=== PATIENT | female | born 1950 | race Caucasian/White ===

== ENCOUNTER 2024-11-11 12:57 | Outpatient (AMB) | payer MEDICARE, OTHER, SELFPAY ==
--- OUTSIDE RECORDS SUMMARY | 2024-02-12 11:30 | XMS_ITS | Encounter Summary ---
Author Organization [facility] [facility] Address [address] [place] [address] Care Team Providers Care Design And Sales Consultant Name Role Phone Kadie Terrazas NP Primary Care Provider Encounter Details Date Type Department Care Team Description 02/12/2024 10:30 AM EST Hospital Encounter [facility] Main Surgery [address] [place] [address] Sal Holden MD Social History Tobacco Use [...] rectocele documented in this encounter Care Teams Design And Sales Consultant Relationship Specialty Start Date End Date Kadie Terrazas NP [address] [place] [address] PCP - General Nurse Practitioner 11/14/23 documented as of this encounter
[2024-11-11 13:08] VITALS: BMI 29.7
--- NOTE | 2024-11-11 13:08 | HO.SPINEOV ---
Vital Signs 11/11/24 13:08 Height 5 ft 6 in Weight 184 lb BMI 29.7 Intake Visit Reasons: LBP Intake Note: Ms. Bassett is here today c/o upper to lower back pain that radiate to the legs causing numbness and tingling. Business Development Sales Executive Required: No Allergies No Known Allergies Allergy (Verified 11/11/24 13:09) Physical Exam Vital Signs: BMI result Body Mass Index 29.7 Assessment & Plan Assessment & Plan (1) Lumbago: Code(s): M54.50 - Low back pain, unspecified Category: Medical Plan: Dear PAT Carlisle, Thank you for referring Chana to our office today. She is a pleasant 74-year-old female who comes in today for evaluation of low back pain. She reports this has been ongoing for many years but it has been worsening over the course of the last year and a half. She denies any shooting pains down her bilateral lower extremities. She states that she has ?many weird problems? for which she is followed by Neurology for. She does report a history of small fiber neuropathy, and migraine headaches. In addition to this she reports having a C5-6 ACDF completed about [address] Acevedo. She states that her pain is primarily worse with activity, and rates her pain as about a 7/10. Given this, she is still fairly active person. 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 She reports some associated numbness with the pain, and states that her left foot is nearly completely numb and that about half of her right foot is also numb. She reports hyperesthesia to light touch over her low back, and states that even things such as shirts rubbing against the skin will cause her pain at times. She has attempted physical therapy in the past, however reports it was not particularly helpful for her. She has been evaluated by our colleagues at [facility] and did undergo some injections in her low back. She states she had some relief of her pain with the injections, but the pain returned a few weeks thereafter. She was scheduled for his 2nd set of injections, however reported she did not wished to continue seeing the provider there as she had some issues with him. PMH: Small fiber neuropathy, tinnitus, cystocele, chronic diarrhea, insomnia, chronic interstitial cystitis, prediabetic, vitamin-D deficiency, hyperlipidemia, iron deficiency anemia, gastric ulcer, sleep apnea, osteoporosis, migraine headaches, irritable bowel syndrome, gout, GERD, depression, anxiety. Bilateral hip replacements, right knee replacement. History C5-6 ACDF 10 years ago. Social hx: Patient does not smoke, reports no substance use. Medications: Advil migraine relief, atorvastatin, baclofen, dicyclomine, diphenoxylate-atropine, duloxetine, gabapentin, loperamide, melatonin, meloxicam, omeprazole, ondansetron, propanolol, pyridostigmine-bromide, sucralfate, topiramate, trazodone, Yuvafem. Allergies: None. Physical exam: The patient has full 5/5 strength of her upper and lower extremities. She ambulates well and rises from a seated position without difficulty. She uses no assistive devices to ambulate. Her gait is non spastic and nonantalgic. She reports hypoesthesia over her bilateral feet, and reports hypersthesia over the skin near her lumbar spine. She denies any other sensational deficits to light touch during examination. Her right-sided patellar reflexes 1+ hypoactive. The rest of her reflexes are 2+ intact. (-) bilateral straight leg raise. (-) Pereira's. (-) clonus. Imaging review: MRI of the lumbar spine completed at [facility] initially was unable to be viewed, however utilizing a disc extraction software I was able to extract the images from her MRI and review them in a somewhat limited format. It does appear that she has severe right-sided foraminal stenosis at L3-4, and moderate right-sided foraminal stenosis at L4-5. I also sent her for a set of dynamic lumbar spine x-rays during this visit which shows evidence of a low grade degenerative dextroscoliosis, with the apex at L3. There is notable osteophyte bridging at L1-2 indicative of autofusion. There is a grade 1 spondylolithesis at L4-5. Impression: Chana is a pleasant 74-year-old female who comes in today for evaluation of chronic low back pain. Her MRI imaging so some nerve compression on the right-hand side, however she denies any radicular concerns down her bilateral lower extremities. Typically in cases such as this without a radicular componenet to justify surgical intervention, Dr. Torres will suggest that patient continue conservative treatements as there is low utility for neurosurgical intervention, however I would like to send the patient for a CT scan of the lumbar spine to evaluate for autofusion and better assess bone structure given the lithesis seen by radiology at L4-5, and the dextroscoliosis seen as well. I will call and update her after the CT scan is read by radiology. Thank you for allowing us to care for your patient. The total time spent with this visit with this patient was 46 minutes reviewing history, physical exam, MRI imaging review, and implementation of treatment plan or further diagnostic testing Emery Torres MD,PhD [facility] Orders: Orders CT lumbar spine wo IV con Today M54.50 - Low back pain, unspecified XR lumbar spine 4V min Today M54.50 - Low back pain, unspecified Coding Level of Care Code New Pt Level 4 (35603) Diagnoses Lumbago M54.50
--- OUTSIDE RECORDS SUMMARY | 2024-11-11 17:57 | XMS_ITS | Encounter Summary ---
Author Organization [facility] Address [address] [facility] [address] [place] [address] Phone Care Team Providers Care Leather Belt Maker Name Role Phone Henri Cruz MD Primary Care Provider Encounter Details Date Type Department Care Team (Late st Contact Info) Description 01/09/2017 Orders Only [facility] VIRTUAL DEPARTMENT [address] [place] [phone] Interface Provider, Scanning Social History Tobacco Use Types Packs/Day Years Used Date Smoking Tobacco: Never Assessed Comments Unknown Sex and Gender Information Value Date Recorded Sex Assigned at Female 04/18/2021 12:52 PM EST Legal Sex Female 1:33 PM EST Gender Identity Female 04/18/2021 12:52 PM EST Sexual Orientation Straight 04/18/2021 12 :52 PM EST documented as of this encounter Plan of Treatment Not on file documented as of this encounter Visit Diagnoses Not on filedocumented in this encounter Care Teams Leather Belt Maker Relationship Specialty Start Date End Date Henri Cruz MD [address] [place] [address] PCP - General Internal Medicine 01/11/17 documented as of this encounter Additional Source Comments The information contained in this document represents components of the legal health record. It is not the complete legal health record.[facility]
--- OUTSIDE RECORDS SUMMARY | 2024-11-11 17:57 | XMS_ITS | Encounter Summary ---
Author Organization [facility] Address [address] [facility] [address] [place] [address] Phone Care Team Providers Care Email Production Consultant Name Role Phone Henri Cruz MD Primary Care Provider Encounter Details Date Type Department Care Team (Late st Contact Info) Description 05/22/2017 Procedure [facility] [address] [place] [address] Social History Tobacco Use Types Packs/Day Years [...] on filedocumented in this encounter Care Teams Email Production Consultant Relationship Specialty Start Date End Date Henri Cruz MD [address] [place] [address] PCP - General Internal Medicine 01/11/17 documented as of this encounter Additional Source Comments The information contained in this document represents components of the legal health record. It is not the complete legal health record.[facility]
--- OUTSIDE RECORDS SUMMARY | 2024-11-11 17:57 | XMS_ITS | Encounter Summary ---
Author Organization [facility] Address [address] [place] [address] Phone Care Team Providers Care Call Center Director Name Role Phone Henri Cruz MD Primary Care Provider Encounter Details Date Type Department Care Team (Late st Contact Info) Description 06/11/2019 Procedure Pass [facility] Cardiac Equity Analyst [address] [place] [address] Social History Tobacco Use Types Packs/Day Years Used Date Smoking Tobacco: Passive Smo ke Exposure - Never Smoker Smokeless Tobacco: Never Alcohol Use Standard Drinks/Week Comments Yes 0 (1 standard drink = 0.6 oz pur e alcohol) Occasional Comments Unknown Sex and Gender Information Value [...] on filedocumented in this encounter Care Teams Call Center Director Relationship Specialty Start Date End Date Henri Cruz MD [address] [place] [address] PCP - General Internal Medicine 01/11/17 documented as of this encounter Additional Source Comments The information contained in this document represents components of the legal health record. It is not the complete legal health record.[facility]
--- OUTSIDE RECORDS SUMMARY | 2024-11-11 17:57 | XMS_ITS | Encounter Summary ---
Author Organization [facility] Address [address] [place] [address] Phone Care Team Providers Care Prison Teacher Name Role Phone Henri Cruz MD Primary Care Provider Encounter Details Date Type Department Care Team (Late st Contact Info) Description 06/30/2023 Procedure Pass [facility], [address] [address] Social History Tobacco Use Types Packs/Day Years Used Date Smoking Tobacco: Never Passive Smoke Exposure: Yes Smokeless Tobacco: Never Alcohol Use Standard Drinks/Week Comments Yes 0 (1 standard drink = 0.6 oz pur e alcohol) Occasional Education Answer Date Recorded Are you interested in more education? Not on ketan e 06/24/2022 Are you concerned about learning? Not on file 06/24/2022 No 06/24/2022 No 06/24/2022 Digital Access Answer Date Recorded No 07/23/2022 No 07/23/2022 Reliable internet access at home? Not on file 07/23/2022 Device with a working camera? Not on file Comments No Sex and Gender Information Value Date Recorded Sex Assigned at Female 04/18/2021 12:52 PM EST Legal Sex Female 1:33 PM EST Gender Identity Female 04/18/2021 12:52 PM EST Sexual Orientation Straight 04/18/2021 12 :52 PM EST documented as of this encounter Plan of Treatment Not on file documented as of this encounter Visit Diagnoses Not on filedocumented in this encounter Care Teams Prison Teacher Relationship Specialty Start Date End Date Henri Cruz MD [address] [place] [address] PCP - General Internal Medicine 01/11/17 documented as of this encounter Additional Source Comments The information contained in this document represents components of the legal health record. It is not the complete legal health record.[facility]
--- OUTSIDE RECORDS SUMMARY | 2024-11-11 17:57 | XMS_ITS | Encounter Summary ---
Author Organization [facility] Address [address] [place] [address] Phone Care Team Providers Care Inside Upholsterer Name Role Phone Henri Cruz MD Primary Care Provider Encounter Details Date Type Department Care Team (Late st Contact Info) Description 04/20/2021 Procedure Pass [facility] Cardiac Recreation Leader [address] [place] [address] Social History Tobacco Use Types Packs/Day Years [...] on filedocumented in this encounter Care Teams Inside Upholsterer Relationship Specialty Start Date End Date Henri Cruz MD [address] [place] [address] PCP - General Internal Medicine 01/11/17 documented as of this encounter Additional Source Comments The information contained in this document represents components of the legal health record. It is not the complete legal health record.[facility]
--- OUTSIDE RECORDS SUMMARY | 2024-11-11 17:57 | XMS_ITS | Patient Health Record ---
Author Organization [facility] Address [address] [place] [address] Support Name Relationship Address Phone [facility] [address] [place] [address] Chana Bassett Guarantor Unknown [phone] Reason For Referral No Information Medications Medication SIG (Take, Route, Frequency, Duration) Notes Start Date End Date Status CYMBALTA 20 MG CAPSULE 30 Take 1 daily; Duration: 30 *please review for potential update for e-prescription and drug interaction check* 01/07/2014 Active Zipsor 25 MG 120 Oral Take 1 four times a day as needed; Duration: 30 03/21/2013 Active GRALISE ER 600 MG TABLET 30 Take 1 daily with supper; Duration: 30 *please review for potential update for e-prescription and drug interaction check* 03/21/2013 Active DICLOFENAC POT 50 MG TABLET 30 Take 1 daily as needed; Duration: 30 *please review for potential update for e-prescription and drug interaction check* 12/19/2012 Active Gabapentin 300 MG 90 Oral Take 1 three times a day; Duration: 30 12/19/2012 Active Ambien 10 MG 0 Oral 12/18/[address] 20 MG CAPSULE 0 *please review for potential update for e-prescription and drug interaction check* 12/18/2012 Active TIZANIDINE HCL 2 MG TABLET 60 1 or 2 tabs daily at bedtime as needed; Duration: 30 *please review for potential update for e-prescription and drug interaction check* 01/07/2014 Active Plan Of Treatment No Information Insurance Providers Payer Name Payer Address Payer Phone Subscriber Number Group Number Insured Name Patient Relationship to Insured Coverage Start Date Coverage End Date [facility] [address] [place], [place] [id number] Chana Bassett Self - patient is the insured
--- OUTSIDE RECORDS SUMMARY | 2024-11-11 17:57 | XMS_ITS | Clinical Summary ---
Author Organization [facility] Address [address] [place] [address] Care Team Providers Care Proof Machine Operator Supervisor Name Role Phone Kadie Terrazas NP Primary Care Provider [phone] Allergies No known active allergies Medications Medication Sig Dispensed Refills Start Date End Date Status gabapentin (NEURONTIN) 100 MG capsule Take 100 mg by mouth. 0 02/21/2019 Active lidocaine (LIDODERM) 5 % 0 02/08/2019 Active Multiple Vitamins-Minerals (MULTIVITAMIN & MINERAL) LIQD Take 15 mL by mouth. 0 Active nortriptyline (PAMELOR) 10 MG capsule 1 cap nightly x 5 nights, then 2 caps (20mg) nightly x5 nights, then 3 caps (30mg) nightly. 0 02/07/2019 Active omeprazole (PriLOSEC) 40 MG capsule Take 40 mg by mouth. 0 09/07/2018 Active OXcarbazepine (TRILEPTAL) 150 MG tablet Take 1 tablet by mouth. 0 12/15/2017 Active pyridostigmine (MESTINON) 60 MG tablet Take 60 mg by mouth. 0 07/20/2018 Active sucralfate (CARAFATE) 1 g tablet Take 1 g by mouth. 0 02/08/2019 Active traZODone (DESYREL) 50 MG tablet Take 50 mg by mouth. 0 Active gabapentin (NEURONTIN) 100 MG capsule Take 100 mg by mouth. 0 04/19/2019 Active estradiol (ESTRACE) 0.1 MG/GM vaginal cream Place 1 g vaginally 3 (three) times a week. 42.5 g 12 10/11/2023 Active Active Problems Problem Noted Date Diagnosed Date Cystocele with rectocele 10/31/2023 Nocturia 10/18/2023 Urinary urgency 10/18/2023 Chronic interstitial cystitis 10/18/2023 Arthritis of right hip 03/22/2019 Social History Tobacco Use Types Packs/Day Years Used Date Smoking Tobacco: Never Assessed Sex and Gender Information Value Date Recorded Sex Assigned at Not on file Gender Identity Not on file Sexual Orientation Not on file Job Start Date Occupation Industry Not on file Not on file Not on file Last Filed Vital Signs Vital Sign Reading Time Taken Comments Blood Pressure 147/89 10/11/2023 9:00 AM EDT Pulse 56 10/11/2023 9:00 AM EDT Temperature 36.8 C (98.2 F) 10/11/2023 9:00 AM EDT Respiratory Rate - - Oxygen Saturation - - Inhaled Oxygen Concentration - - Weight 87.6 kg (193 lb 3.2 oz) 10/11/2023 9:00 A M EDT Height 167.6 cm (5' 6 ) 10/11/2023 9:00 AM EDT Body Mass Index 31.18 10/11/2023 9:00 AM EDT Plan of Treatment Health Maintenance Due Date Last Done Comments Hepatitis C Screening 1950 Depression Screening 1963 BMI Counseling 06/15/1969 Preventative Health Evaluation 06/15/1969 Colon Cancer Screening (Colonoscopy) 06/15/1996 Breast Cancer Screening (Mammogram) 06/15/2001 Shingrix-Zoster Vaccine (1 o f 2) 06/15/2001 Fall Risk Assessment 06/15/2016 Osteoporosis Screening (DEXA Scan) 06/15/2016 DTap / Tdap / Td (2 - Td or Tdap) 08/05/2020 08/05/2010 COVID-19 Vaccine (3 - 2024-2 6 season) 2024 06/11/2020, 05/21/2020 Influenza Vaccine (#1) 2024 03/02/2018 RSV Adult > 60+ Yrs or (1 - 1-dose 75+ series) 06/15/2026 Pneumococcal Vaccine Completed 03/18/2020, 08/16/2016, 09/24/2014 Hepatitis B Vaccines Aged Out No long er eligible based on patient's age to complete this topic RSV Ped < 20 months Aged Out No longe r eligible based on patient's age to complete this topic Care Teams Proof Machine Operator Supervisor Relationship Specialty Start Date End Date Kadie Terrazas, PAT [address] [place] [address] PCP - General Nurse Practitioner 11/14/23
--- OUTSIDE RECORDS SUMMARY | 2024-11-11 17:57 | XMS_ITS | Encounter Summary ---
Author Organization [facility] Address [address] [place] [address] Phone Care Team Providers Care Etl Informatica Developer Name Role Phone Henri Cruz MD Primary Care Provider Encounter Details Date Type Department Care Team (Late st Contact Info) Description 08/19/2020 Ancillary Orders [facility] Pulmonary Medicine Hypertension [address] [place] [address] Selin Moseley PA-C [address] [place] [address] [email or web address] SOB (shortness of breath) on exertion Social History Tobacco Use Types Packs/Day Years [...] as of this encounter Visit Diagnoses Diagnosis SOB (shortness of breath) on exertion Shortness of breath documented in this encounter Care Teams Etl Informatica Developer Relationship Specialty Start Date End Date Henri Cruz MD [address] [place] [address] PCP - General Internal Medicine 01/11/17 documented as of this encounter Additional Source Comments The information contained in this document represents components of the legal health record. It is not the complete legal health record.[facility]
--- OUTSIDE RECORDS SUMMARY | 2024-11-11 17:57 | XMS_ITS | Encounter Summary ---
Author Organization [facility] Address [address] [place] [address] Phone Care Team Providers Care Filing Clerk Name Role Phone Henri Cruz MD Primary Care Provider Reason for Referral * Consultation (Elective) - Closed Specialty Diagnoses / Procedures Referred By Contac t Referred To Contact Neurology Diagnoses Encounter for consultation System, Provider Not In, PhD [address] [address] Phone: tel: Referral ID Status Reason Start Date Expiration Date Visits Re quested Visits Authorized [id number] Closed 03/02/2017 03/02/2018 1 1 Encounter Details Date Type Department Care Team (Late st Contact Info) Description 03/02/2017 Transcribe Orders [facility] Department of Neurology [address] [facility]th [address], [address] [place] [address] Marlene Ayers DO [address] [place] [address] Encounter for consultation (Primary Dx) Social History Tobacco Use Types Packs/Day Years Used Date Smoking Tobacco: Never Assessed Comments Unknown Sex and Gender Information Value Date Recorded Sex Assigned at Female 04/18/2021 12:52 PM EST Legal Sex Female 1:33 PM EST Gender Identity Female 04/18/2021 12:52 PM EST Sexual Orientation Straight 04/18/2021 12 :52 PM EST documented as of this encounter Plan of Treatment Scheduled Referrals Name Type Priority Associated Diagnoses Orde r Schedule Ambulatory referral to [facility] Neurology Outpatient Referral Routine Encounter for consultation Ordered: 03/02/2017 documented as of this encounter Visit Diagnoses Diagnosis Encounter for consultation- Primary documented in this encounter Care Teams Filing Clerk Relationship Specialty Start Date End Date Henri Cruz MD [address] [place] [address] PCP - General Internal Medicine 01/11/17 documented as of this encounter Additional Source Comments The information contained in this document represents components of the legal health record. It is not the complete legal health record.[facility]
--- OUTSIDE RECORDS SUMMARY | 2024-11-11 17:57 | XMS_ITS | Clinical Summary ---
Author Organization [facility] Address [address] [place] [address] Phone Care Team Providers Care Process Trainer Name Role Phone Kadie Terrazas Primary Care Provider [phone] Allergies Active Allergy Reactions Criticality Noted Date Comments Dicyclomine Rash 08/12/2024 Diclofenac Rash 02/13/2024 Medications gabapentin (NEURONTIN) 100 mg capsule Take 1 capsule (100 mg total) by mouth 2 (two) times a day. 0 Active lidocaine (LIDODERM) 5 % patch Apply 1 patch topically if needed. 9 Active multivitamin with minerals liquid Take 15 mL by mouth. Active omeprazole (PriLOSEC) [address] capsule Take 1 capsule (40 mg total) by mouth 2 (two) times a day. 9 Active OXcarbazepine (TRILEPTAL) 150 mg tablet Take 1 tablet (150 mg total) by mouth at bedtime. 8 Active pyRIDostigmine (MESTINON) 60 mg tablet at bedtime. 9 Active traZODone (DESYREL) 50 mg tablet Take 50 mg by mouth. Active atorvastatin (LIPITOR) 20 mg tablet Take 1 tablet (20 mg total) by mouth at bedtime. Active topiramate (TOPAMAX SPRINKLE) 25 mg capsule Take 1 capsule (25 mg total) by mouth 2 (two) times a day. Do not crush or chew. Active baclofen (LIORESAL) 10 mg tablet Take by mouth 2 (two) times a day if needed for muscle spasms. Active estradioL (Yuvafem) 10 mcg tablet vaginal tablet Insert 1 tablet (10 mcg total) into the vagina 3 (three) times a week. 36 tablet 3 5 Active colestipoL (COLESTID) 1 gram tablet Take 1 tablet (1 g total) by mouth 2 (two) times a day. 60 each 2 5 08/13/19 26 Active cholecalciferol (VITAMIN D-3) 125 mcg (5,000 unit) capsule Take 6,000 Units by mouth 1 (one) time each day. 1 Active lactulose (CHRONULAC) solution Take 30 mL (20 g total) by mouth 1 (one) time each day if needed (constipation) . 900 mL 1 5 01/20/20 25 Active Active Problems Problem Noted Date Diagnosed Date Cystocele with rectocele 11/15/2023 Nocturia 11/15/2023 Urinary urgency 11/15/2023 Arthritis of right hip 03/22/2019 Chronic diarrhea 09/26/2013 Overview (11/15/2023): Dr. Delgado Encounters Date Type Department Care Team Description 10/21/2024 11:30 AM EDT Office Visit Gastroenterology - [place] [facility] [address] [facility] [address] [place] [address] Brenda Mark PA Mesenteric panniculitis (CMS/HCC V24, CMS/HCC V28) (Primary Dx) 08/12/2024 1:20 PM EDT - 08/12/2024 11:59 PM EDT Hospital Encounter [facility] CT Scan [address] [place] [address] Irritable bowel syndrome with alternating bowel habits Discharge Disposition: Home or Self Care from Last 3 Months Surgical History Surgery Date Site/Laterality Comments APPENDECTOMY early PROCEDURE: HISTORICAL APPENDECTOMY KNEE SURGERY 06/03, 08/16/07 Bilateral PROCEDURE: HISTORICAL KNEE SURGERY; COMMENT: arthroscopic HAND SURGERY 04/2007 Left PROCEDURE: HISTORICAL HAND SURGERY; COMMENT: bone removal at thumb SHOULDER SURGERY 05/2010 PROCEDURE: HISTORICAL SHOULDER SURGERY; COMMENT: Subacromial decompression/distal clavicle excision - Dr. Dumas OTHER SURGICAL HISTORY 3 Bilateral PROCEDURE: PA ARTHRP ACETBLR/PROX FEM PROSTC AGRFT/ALGRFT; COMMENT: Dr. Esquivel, Oct 2019 Right hip replacement, 2012 left hip TOTAL KNEE ARTHROPLASTY 4 Right PROCEDURE: PA ARTHRP KNE CONDYLE&PLATU MEDIAL&LAT COMPARTMENTS; COMMENT: Dr. Esquivel COLONOSCOPY 7 PROCEDURE: HISTORICAL COLONOSCOPY; COMMENT: normal; repeat in 10 years OTHER SURGICAL HISTORY 5 Bilateral PROCEDURE: PA LIGATION/BIOPSY TEMPORAL ARTERY; COMMENT: Dr. Echevarria ESOPHAGOGASTRODUODENOSCOPY 0 PROCEDURE: PA ESOPHAGOGASTRODUODENOSCOPY TRANSORAL DIAGNOSTIC; COMMENT: mild stricture at GE junction dilated to 50 F ESOPHAGOGASTRODUODENOSCOPY 5 PROCEDURE: PA EGD TRANSORAL BIOPSY SINGLE/MULTIPLE; COMMENT: Fungal esophagitis on biopsy; otherwise normal ESOPHAGOGASTRODUODENOSCOPY 5 PROCEDURE: PA EGD TRANSORAL BIOPSY SINGLE/MULTIPLE; COMMENT: antral ulcers;no H. pylori; repeat in 2 months; no fungus on bxy ESOPHAGOGASTRODUODENOSCOPY 6 PROCEDURE: PA ESOPHAGOGASTRODUODENOSCOPY TRANSORAL DIAGNOSTIC; COMMENT: tiny antral ulcer and antral erythema ESOPHAGOGASTRODUODENOSCOPY 6 PROCEDURE: PA EGD TRANSORAL BIOPSY SINGLE/MULTIPLE; COMMENT: 6 tiny antral ulcers and antral muscular ring; no H. pylori or malignant cells; repeat in 2 months ESOPHAGOGASTRODUODENOSCOPY 6 PROCEDURE: PA ESOPHAGOGASTRODUODENOSCOPY TRANSORAL DIAGNOSTIC; COMMENT: antral erythema with healed ulcers OTHER SURGICAL HISTORY 8 PROCEDURE: PA LAMOT PRTL FFD EXC DISC REEXPL 1 NTRSPC CERVICAL; COMMENT: C5-6 fusion revision for pseudoarthrosis, Dr. Acevedo UPPER GASTROINTESTINAL ENDOSCOPY 9 PROCEDURE: PA UPPER GI ENDOSCOPY PERFORMED; COMMENT: erosive gastropathy HIP ARTHROPLASTY 2019 Right PROCEDURE: HISTORICAL HIP REPLACEMENT COLONOSCOPY 1 PROCEDURE: HISTORICAL COLONOSCOPY; COMMENT: mild diverticulosis ESOPHAGOGASTRODUODENOSCOPY 1 PROCEDURE: PA EGD TRANSORAL BIOPSY SINGLE/MULTIPLE; COMMENT: esophageal spasm OTHER SURGICAL HISTORY 7 PROCEDURE: PA ARTHRD ANT INTERBODY MIN DSC CRV BELOW C2; COMMENT: C5-6 ACDF, Dr. Acevedo JOINT REPLACEMENT Left CERVICAL DISC SURGERY per pt 4-5 fusion Medical History Medical History Date Comments Depression DX:Depression Fibromyalgia DX:Fibromyalgia Anxiety state, unspecified DX:An xiety state, unspecified Arthritis DX:Arthritis Dysphagia 2009 DX:Dysphagia Neck mass 12/21/2009 DX:Neck mass Patellofemoral pain syndrome 11/25/2009 DX: Patellofemoral pain syndrome Esophageal stricture 06/30/2009 DX:Esophage al stricture; COMMENT: 07/06 - Dr. Dlegado- status post dilation Right shoulder pain 12/26/2009 DX:Right patricio ulder pain; COMMENT: Henry Ch PA-C, Dr. Dumas - 07/07-subacromial decompression Obstructive sleep apnea 06/05/2016 Does not use cpap. DX:Obstructive sleep apnea; COMMENT: Home Polysomnogram: Date 05.20.2016; AHI 7, Unclassified apneas 0; Obstructive apneas 2; Central apneas 2; Mixed apneas 0; hypopneas 52; average oxygen saturation 91% (lowest 82% without saturations <88% for 5% or more of study) Fibromyalgia 08/16/2016 DX:Fibromyalgia Small fiber neuropathy 03/02/2018 DX:Small fiber neuropathy Thrush of mouth and esophagu s (CMS/HCC V24, CMS/HCC V28) DX:Thrush of mouth and esoph barry (HCC) Esophagitis DX:Esophagitis Esophagitis DX:Esophagitis Erosive gastropathy DX:Erosive g astropathy Stress DX:Stress History of shingles DX:History o f shingles; COMMENT: Just recovering within the last several days- 2019 Irritable bowel syndrome DX:Irri table bowel syndrome Cervical spondylosis without myelopathy DX:Cervical spondylosis with out myelopathy Gastritis DX:Gastritis Spasm of esophagus DX:Spasm of e sophagus Diverticulosis DX:Diverticulosi s Gastritis DX:Gastritis Postprandial epigastric pain DX: Postprandial epigastric pain Change in bowel habits DX:Change in bowel habits Encounter for diagnostic col onoscopy due to change in bowel habits DX:Encounter for diagnos tic colonoscopy due to change in bowel habits Hyperlipidemia per pt Family History Medical History Relation Name Comments Blindness Aunt Glaucoma Aunt Heart failure Brother 1 53 Diabetes Father At age 74 of [place] PD Anemia Mother at 88 of M I Arthritis Mother Cataracts Mother Macular degeneration Mother Macular degeneration Uncle Strabismus Neg Hx Relation Name Status Comments Aunt Brother 1 Brother 2 CHF Father Mother Uncle Social History Tobacco Use Types Packs/Day Years Used Date Smoking Tobacco: Never Smokeless Tobacco: Never Alcohol Use Standard Drinks/Week Comments Yes 0 (1 standard drink = 0.6 oz pur e alcohol) Comments No Sex and Gender Information Value Date Recorded Sex Assigned at Female 01/26/2024 12:12 PM EST Legal Sex Female 5:39 AM EST Gender Identity Female 01/26/2024 12:12 PM EST Sexual Orientation Not on file Obstetrics History Last Filed Vital Signs Vital Sign Reading Time Taken Comments Blood Pressure 110/80 10/21/2024 11:46 AM EDT Pulse 56 10/21/2024 11:46 AM EDT Temperature 36.7 C (98.1 F) 04/25/2024 2:57 PM EST Respiratory Rate 12 02/12/2024 1:05 PM EST Oxygen Saturation 98% 10/21/2024 11:46 AM EDT Inhaled Oxygen Concentration - - Weight 82.6 kg (182 lb) 10/21/2024 11:46 AM EDT Height 167.6 cm (5' 6 ) 10/21/2024 11:46 AM EDT Body Mass Index 29.38 10/21/2024 11:46 AM EDT Plan of Treatment Upcoming Encounters Date Type Department Care Team (Late st Contact Info) Description 11/14/2024 4:30 PM EDT Appointment [facility] CT Scan [address] [place] [phone] 02/13/2025 11:10 AM EST Office Visit Gastroenterology - [place] [facility] [address] [facility] [address] [place] [phone] Brenda Mark PA [address] [facility] [address] [place] [address] Health Maintenance Due Date Last Done Comments Cholesterol Screening (Lipid Panel) 02/03/2022 Colorectal Cancer Screening: Colonoscopy 02/03/2022 Hepatitis C Screening 02/03/2022 Medicare Annual Wellness Visit 02/03/2022 Social Influencers of Health Screening 02/03/2022 Breast Cancer Screening 05/01/2022 05/01/2020, 03/08 Depression Screening 02/28/2024 COVID-19 Vaccine (3 - season) 2024 06/11/2020, 05/21/2020 Influenza Vaccine (#1) 2024 , 01/01/2020, 01/01/2020, Additional history exists Zoster Vaccines (3 of 3) 11/26/2024 10/01/2024, 08/07/2013 Falls Risk Assessment 02/11/2025 02/12/2024 RSV Immunization Adult Patients (1 - 1-dose 75+ series) 06/15/2026 Osteoporosis Screening (Bone Density Screening) 03/13/2027 03/13/2017 DTaP,Tdap,and Td Vaccines (3 - Td or Tdap) 06/09/2031 06/08/2021, 08/05/2010 Pneumococcal Vaccine: 50+ Years Completed 03/18/2020, 08/16/2016, 09/24/2014 HIB Vaccines Aged Out No longer eligi ble based on patient's age to complete this topic HPV Vaccines Aged Out No longer eligi ble based on patient's age to complete this topic Hepatitis A Vaccines Aged Out No long er eligible based on patient's age to complete this topic Hepatitis B Vaccines Aged Out No long er eligible based on patient's age to complete this topic IPV Vaccines Aged Out No longer eligi ble based on patient's age to complete this topic MMR Vaccines Aged Out No longer eligi ble based on patient's age to complete this topic Meningococcal ACWY Vaccine Aged Out N o longer eligible based on patient's age to complete this topic Meningococcal B Vaccine Aged Out No l onger eligible based on patient's age to complete this topic RSV Immunization Patients Under 20 months Aged Out No longer eligible based on patient's age to complete this topic Varicella Vaccines Aged Out No longer eligible based on patient's age to complete this topic Procedures Procedure Name Priority Date/Time Associated Diagnosis Comments CT ABDOMEN PELVIS W CONTRAST Routine 08/12/2024 3:35 PM EDT Irritable bowel syndrome with alternating bowel habits SCR MAMMO BI INCL CAD Routine 05/01/2020 4:03 PM EST Encounter for screening mammogram for malignant neoplasm of breast DXA BONE DENSITY STUDY 1+ SITS AXIAL SKEL Routine 03/13/2017 2:31 PM EST Encounter for gynecological examination (general) (routine) without abnormal findings from Last 3 Months or Most Recently Relevant to Health Maintenance Results * CT Abdomen Pelvis w Contrast (08/12/2024 3:35 PM EDT) Anatomical Region Laterality Modality Body Computed Tomogra phy 08/13/2024 12:0 4 AM EDT Impressions 08/13/2024 12:08 AM EDT Haziness of the mesentery which is nonspecific but can be seen in the setting of infectious/inflammatory processes such as mesenteric panniculitis. Incidental findings as above. -------- FINAL REPORT -------- Dictated By: Jostin Samuels Dictated Date: 08/13/2024 00:04 ET Assigned Physician: Jostin Samuels Reviewed and Electronically Signed By: Jostin Samuels Signed Date: 08/13/2024 00:08 ET Workstation ID: [id number] Transcribed By: Self Edit Transcribed Date: 08/13/2024 00:04 ET Narrative 08/13/2024 12:08 AM EDT PROCEDURE: CT ABDOMEN/PELVIS WITH CONTRAST INDICATION: change of BMs, diarrhea, abd pain TECHNIQUE: CT of the abdomen and pelvis following the intravenous administration of 90cc Isovue 370. Multiplanar reformats. The examination was performed utilizing dose reduction techniques. Total DLP 1330 COMPARISON: No priors available. FINDINGS: LOWER THORAX: Lung bases are clear. HEPATOBILIARY: No focal liver lesions. No cholelithiasis or biliary duct dilatation. SPLEEN: No focal lesion. PANCREAS: No focal mass or ductal dilatation. ADRENALS: No nodules. KIDNEYS/URETERS: Prominent lower pole left kidney cysts. No solid mass or stone. No hydronephrosis. PELVIC ORGANS/BLADDER: Limited evaluation of the pelvic organs secondary to streak artifact.. PERITONEUM / RETROPERITONEUM: There is haziness at the root of the mesentery with reactive nodes which are nonspecific but can be seen in the setting of mesenteric panniculitis. VESSELS: Scattered atherosclerotic calcifications throughout the aorta and its major branches. No aneurysm. GI TRACT: No bowel distention or wall thickening. Normal appendix. Diverticulosis without CT evidence for acute diverticulitis though this is slightly confounded by streak artifact in the pelvis from bilateral hip arthroplasties. BONES AND SOFT TISSUES: Degenerative changes and scoliosis. Bilateral total hip arthroplasties. Soft tissues are unremarkable. Procedure Note Jostin Samuels MD - 08/13/2024 PROCEDURE: CT ABDOMEN/PELVIS WITH CONTRAST INDICATION: change of BMs, diarrhea, abd pain TECHNIQUE: CT of the abdomen and pelvis following the intravenousadministration of 90cc Isovue 370. Multiplanar reformats. The examinationwas performed utilizing dose reduction techniques. Total DLP 1330 COMPARISON: No priors available. FINDINGS: LOWER THORAX: Lung bases are clear. HEPATOBILIARY: No focal liver lesions. No cholelithiasis or biliary ductdilatation. SPLEEN: No focal lesion. PANCREAS: No focal mass or ductal dilatation. ADRENALS: No nodules. KIDNEYS/URETERS: Prominent lower pole left kidney cysts. No solid mass orstone. No hydronephrosis. PELVIC ORGANS/BLADDER: Limited evaluation of the pelvic organs secondaryto streak artifact.. PERITONEUM / RETROPERITONEUM: There is haziness at the root of themesentery with reactive nodes which are nonspecific but can be seen in thesetting of mesenteric panniculitis. VESSELS: Scattered atherosclerotic calcifications throughout the aorta andits major branches. No aneurysm. GI TRACT: No bowel distention or wall thickening. Normal appendix.Diverticulosis without CT evidence for acute diverticulitis though this isslightly confounded by streak artifact in the pelvis from bilateral hiparthroplasties. BONES AND SOFT TISSUES: Degenerative changes and scoliosis. Bilateraltotal hip arthroplasties. Soft tissues are unremarkable. IMPRESSION: Haziness of the mesentery which is nonspecific but can be seen in thesetting of infectious/inflammatory processes such as mesentericpanniculitis. Incidental findings as above. -------- FINAL REPORT -------- Dictated By: Jostin Samuels Dictated Date: 08/13/2024 00:04 ET Assigned Physician: Jostin Samuels Reviewed and Electronically Signed By: Jostin Samuels Signed Date: 08/13/2024 00:08 ET Workstation ID: [id number] Transcribed By: Self Edit Transcribed Date: 08/13/2024 00:04 ET Brenda LOPEZ IMG CT PROCEDURES Final Resul t * SCR MAMMO BI INCL CAD (05/01/2020 4:03 PM EST) Anatomical Region Laterality Modality Radiographic Lilian ging 04/29/2020 9:53 AM EST Narrative 05/04/2020 9:42 AM EST This is a summary report. The complete report is available in the patient's medical record. If you cannot access the medical record, please contact the sending organization for a detailed fax or copy. Exam: Screening mammogram Findings: Digital bilateral full-field screening mammography is performed and interpreted with the aid of computer-aided detection. Comparison is made with 03/08/2018 and as far back as 05/25/2013. Breast parenchyma is composed of scattered fibroglandular densities. No new suspicious mass, architectural distortion, or suspicious calcifications. Impression: No mammographic evidence of malignancy. BI-RADS 1 - negative Procedure Note Lindsey Castillo MD - 02/15/2022 This is a summary report. The complete report is available in thepatient's medical record. If you cannot access the medical record, pleasecontact the sending organization for a detailed fax or copy. Exam: Screening mammogram Findings: Digital bilateral full-field screening mammography is performedand interpreted with the aid of computer-aided detection. Comparison ismade with 03/08/2018 and as far back as 05/25/2013. Breast parenchyma is composed of scattered fibroglandular densities. Nonew suspicious mass, architectural distortion, or suspiciouscalcifications. Impression: No mammographic evidence of malignancy. BI-RADS 1 - negative Henri Cruz MD IMG XR PROCEDURES Final Result * DXA BONE DENSITY STUDY 1+ SITS AXIAL SKEL (03/13/2017 2:31 PM EST) Anatomical Region Laterality Modality Bone Densitometr y 01/03/2017 4:30 PM EST Narrative 03/13/2017 2:54 PM EST BONE DENSITY (DEXA) Lumbar Spine T-score is -0.4. (SD relative to 20-29 y/o adult) Z-score is 1.4. (SD relative to age matched peers) This is considered normal by WHO criteria. Right Hip T-score is -1.4. Z-score is 0.2. This is considered osteopenia by WHO criteria. There is mild curvature of the lumbar spine, convexity toward the left. IMPRESSION: This patient is considered to have osteopenia by WHO criteria. This patient has a 38% risk of major osteoporotic fracture and a 2.8% risk of hip fracture over the next 10 years. (World Health Organization Fracture Risk Assessment) The [facility] Department of Internal Medicine recommends using National Osteoporosis Foundation (NOF) guidelines in treatment decisions related to osteoporosis. NOF guidelines suggest considering treatment for postmenopausal women and men aged 50 or older presenting with the following: History of hip or vertebral fracture. T-score = -2.5 (DXA) at the femoral neck, total hip, or spine, after appropriate evaluation to exclude secondary causes. Low bone mass (T-score between -1.0 and -2.5 at the femoral neck or spine) AND a 10-year probability of a hip fracture = 3% OR a 10-year probability of a major osteoporosis-related fracture = 20% based on the [place]-adapted WHO algorithm Please note that all treatment decisions require clinical judgment and consideration of individual patient factors, including patient preferences, co-morbidities, previous drug use, risk factors not captured in the FRAX model (e.g., frailty, falls, vitamin D deficiency, increased bone turnover, interval significant decline in bone density) and possible under- or over-estimation of fracture risk by FRAX. Optional alternative screening schedule based on alessio Miranda., [facility] March 17, 2011 for patients with osteopenia (based on hip BMD T-score) is as follows: * advanced osteopenia (T scores -2.00 to -2.49), BMD testing every year * moderate osteopenia (T scores -1.50 to -1.99), BMD testing every 5 years mild osteopenia or normal BMD (T scores -1.50 and higher), BMD testing every 15 years Procedure Note Marya Maria MD - 04/03/2023 BONE DENSITY (DEXA) Lumbar Spine T-score is -0.4. (SD relative to 20-29 y/o adult) Z-score is 1.4. (SD relative to age matched peers) This is considered normal by WHO criteria. Right Hip T-score is -1.4. Z-score is 0.2. This is considered osteopenia by WHO criteria. There is mild curvature of the lumbar spine, convexity toward the left. IMPRESSION: This patient is considered to have osteopenia by WHO criteria. Thispatient has a 38% risk of major osteoporotic fracture and a 2.8% risk of hip fracture over the next10 years. (World Health Organization Fracture Risk Assessment) The [facility] Department of Internal Medicine recommendsusing National Osteoporosis Foundation (NOF) guidelines in treatment decisions related toosteoporosis. NOF guidelines suggest considering treatment for postmenopausal women and menaged 50 or older presenting with the following: History of hip or vertebral fracture. T-score = -2.5 (DXA) at the femoral neck, total hip, or spine, afterappropriate evaluation to exclude secondary causes. Low bone mass (T-score between -1.0 and -2.5 at the femoral neck or spine)AND a 10-year probability of a hip fracture = 3% OR a 10-year probability of a majorosteoporosis-related fracture = 20% based on the [place]-adapted WHO algorithm Please note that all treatment decisions require clinical judgment andconsideration of individual patient factors, including patient preferences, co- morbidities,previous drug use, risk factors not captured in the FRAX model (e.g., frailty, falls, vitaminD deficiency, increased bone turnover, interval significant decline in bone density) andpossible under- or over-estimation of fracture risk by FRAX. Optional alternative screening schedule based on alessio Miranda., NEJMJanuary 2011 for patients with osteopenia (based on hip BMD T-score) is as follows: * advanced osteopenia (T scores -2.00 to -2.49), BMD testing every year * moderate osteopenia (T scores -1.50 to -1.99), BMD testing every 5years mild osteopenia or normal BMD (T scores -1.50 and higher), BMD testingevery 15 years Alecia Pearce DO IMG DXA PROCEDURES Final Resu lt from Last 3 Months or Most Recently Relevant to Health Maintenance Insurance MEDICARE [facility] Advance Directives * Full Code - Default (Latest Code Status on File) Date Activated Date Inactivated Comments 02/12/2024 5:33 AM 02/12/2024 5:13 PM This is or stas is used when code status has not been discussed with the patient, or code status is otherwise unknown/unconfirmed To update the patient's code status, place a code status order. Do not modify or discontinue any currently active code status orders. Care Teams Process Trainer Relationship Specialty Start Date End Date Kadie Terrazas [address] [facility] [place] [address] PCP - General 11/14/23
--- OUTSIDE RECORDS SUMMARY | 2024-11-11 17:57 | XMS_ITS | Encounter Summary ---
Author Organization [facility] Address [address] [place] [phone] Phone Care Team Providers Care Abnormal Psychology Teacher Name Role Phone Henri Cruz MD Primary Care Provider Encounter Details Date Type Department Care Team (Late st Contact Info) Description 08/25/2020 Procedure Pass [facility]iac [facility] [address] [place] [address] Social History Tobacco Use Types Packs/Day Years [...] on filedocumented in this encounter Care Teams Abnormal Psychology Teacher Relationship Specialty Start Date End Date Henri Cruz MD [address] [place] [id number] PCP - General Internal Medicine 01/11/17 documented as of this encounter Additional Source Comments The information contained in this document represents components of the legal health record. It is not the complete legal health record.[facility]
--- OUTSIDE RECORDS SUMMARY | 2024-11-11 17:57 | XMS_ITS | Encounter Summary ---
Author Organization [facility] Address [address] [place] [phone] Phone Care Team Providers Care Brand Marketing Intern Name Role Phone Henri Cruz MD Primary Care Provider Reason for Referral * MRI/CAT Scan - Closed Specialty Diagnoses / Procedures Referred By Contac t Referred To Contact Diagnoses SOB (shortness of breath) Procedures Cardiopulmonary Exercise Test Advanced-Level 3 Joie Arana PA-C [email or web address] Referral ID Status Reason Start Date Expiration Date Visits Re quested Visits Authorized [id number] Closed 04/20/2021 05/20/2021 1 1 Encounter Details Date Type Department Care Team (Latest Contact Info) Description 04/20/2021 Ancillary Orders [facility] Pulmonary Medicine Hypertension [address] [place] [address] Joie Arana PA-C [email or web address] SOB (shortness of breath) Social History Tobacco Use Types Packs/Day Years [...] on file documented as of this encounter Results * Cardiopulmonary Exercise Test Advanced-Level 3 (04/20/2021 1:16 PM EST) Anatomical Region Laterality Modality Heart LOCATED WITHIN [facility] 04/20/2021 6:00 AM EST Narrative 05/03/2021 9:[address] Arana, Your patient Chana Bassett, a 70 year old female with no known CAD was referred to us for an advanced cardiopulmonary exercise test to evaluate dyspnea. Her cardiac risk factors include a family history of ischemic heart disease and obesity. The patient's resting ECG showed normal sinus rhythm. She was on the following medications at the time of testing: Mestinon, Trileptal, Zanaflex, Prednisone, Gabapentin, Ibuprofen, Omeprazole, Trazodone, Zoloft. Exercise Stress Protocol: Ms. Bassett exercised for 7:15 minutes of a 15-watt/min ramp cycle protocol to a maximum of 135 bains. Oxygen saturation was measured at rest and stress. The heart rate increased from 61 bpm at rest to a peak heart rate of 146 bpm (97% age predicted maximal heart rate), and the blood pressure increased from 142/83 mm Hg at rest to 187/88 mm Hg at peak exercise (RPP: 10561). Oxygen saturation remained unchanged at 97.2% during exercise. Exercise was terminated due to dyspnea. The symptomatic response to exercise was non-ischemic. The blood pressure response was normal. The ECG response to exercise indicated no significant ST-T changes. No exercise-induced arrhythmia was observed. = ANTHROPOMETRICS = Age: 70 Gender: Female Height: 67 in/170 cm Weight: 194 lb/88 kg BMI: 30.4 kg/m2 Hgb: 12.9 g/dL = EXERCISE CAPACITY = Exercise Protocol: 15 bains/min Maximum Bains Achieved: 106 bains Exercise Duration: 7:15 (min:sec) Reason to End Exercise: Dyspnea. Predicted Measured % of Predicted Rest VO2 (mL/min) 306 AT VO2 (mL/min) >40% of Peak VO2 621 46% Peak VO2 (mL/min) 1346 1283 95% Peak VO2/kg(mL/kg/min) 14.6 = CARDIOVASCULAR RESPONSE = Symptomatic Response: Non-ischemic. Blood Pressure Response: Normal. ECG Response: Indicated no significant ST-T changes. Stress Induced Arrhythmias: No exercise-induced arrhythmia was observed. Predicted Measured % of Predicted Rest Heart Rate (bpm) 61 Peak Heart Rate (bpm) 151 146 97% HR [place] (bpm) 90 HR Recovery (1 min) > 12 10 Rest Blood Press (mm Hg) 142/83 Peak Blood Press (mm Hg) 187/88 Peak O2 Pulse (mL/beat) 8.9 8.8 99% ^VO2/^WR (mL/min/watt) > 10.2 +/- 1 9.2 ^HR/^VO2 < 50 87 Cardiac Output (Qt) 9.6 10.7 111% Rest RER 0.88 Peak RER 1.36 = VENTILATORY RESPONSE = Measured Percent MVV (Measured) MVV (Calculated) 85.05 Respiratory [place] 20.75 76% VE/VCO2 (Nash) 34.76 VE @ AT 22 VE @ Peak 64.3 MVV - VE(peak) 20.75 RR (br/min) 39 Vt BTPS (mL) 1644 PRE-SPIROMETRY Measured Percent FVC (L) 2.89 98% FEV1 (L) 2.43 105% FEV1/FVC (%) 84 106% MVV (L/min) 85.05 105% = GAS EXCHANGE VARIABLES = Rest Peak SaO2% 97.2% 97.8% pH 7.40 7.38 PaCO2 (mmHg) 40 32 PaO2 (mmHg) 100 116 PETCO2 (mmHg) 29 31 P(A-a)O2 (mmHg) 4.5 10.5 P(a-ET)CO2 (mmHg) 11 1 Vd/Vt 0.47 0.25 = ADVANCED CARDIOPULMONARY VITALS = Time Bains VO2 Qt SvO2 HR SV BP REST 0 306 5.46 62.5 61 89.5 142/83 FW1 0 486 85 146/80 1 15 520 90 144/78 2 30 553 93 / 3 45 632 103 / 4 60 740 107 / 5 75 851 8.43 36.1 116 72.7 153/77 6 90 1025 8.84 30.8 133 66.5 178/85 PEAK 106 1283 10.69 29.3 146 73.2 187/88 = ADVANCED CARDIOPULMONARY PRESSURES = Time RAP PA Press. PAP PCW PVR TPG Compliance RV Press. REST 2 14/8 10 5 73 5 14.9 23/1(3) FW1 1 26/10 17 4 13 29/1(3) 1 4 26/12 17 7 10 30/2(5) 2 / 3 / 4 / 5 3 25/12 19 6 123 13 5.6 6 2 34/14 24 3.3 40/0(4) PEAK 1 37/3 24 7 127 17 2.2 45/0(5) *Trouble with the PA catheter during exercise, unable to obtain pressures for minutes 2,3,4. Unable to wedge for minute 6. * No arterial or venous draws for minutes 2,3,4. = ADVANCED CARDIOPULMONARY GASES = Time CaO2 CvO2 Ca-vO2 PaO2 PaCO2 pH Lactate REST 15.5 9.9 5.6 100 40 7.40 0.7 FW1 1 15.8 109 33 7.44 1.3 2 3 4 5 16.1 6.0 10.1 123 34 7.41 2.4 6 16.7 5.1 11.6 116 33 7.39 5.6 PEAK 17.2 5.2 12.0 116 32 7.38 7.7 In summary, the test results were: 1. Functional Capacity: 4.2 METS 2. Peak Heart Rate: 146 bpm (97% age-predicted maximal heart rate). 3. Symptomatic Response: Non-ischemic. 4. Peak Blood Pressure: 187/88 mm Hg. 5. Blood Pressure Response: Normal. 6. ECG Response: Negative test for myocardial ischemia based on absence of ECG changes. 7. Stress-induced Arrhythmia: None. 8. SVC supine SO2: 68. PA SO2: 68 9. Baseline K+: 4.2. Na+: 138. 10. Peak K+: 5.9. Na+: 144. 11. Peak vPO2: 24. vPCO2:57. vPH: 7.24 12. 1 Hour post Lactate: 3.1 13. SVR Peak: 896 CONCLUSION: Well compensated dysautonomia is suggested by a normal peak exercise VO2, but extremely low right atrial pressures throughout upright cycling exercise. There is no pulmonary hypertension or heart failure. Despite an elevated recovery lactate, the supranormal PVO 2 maurilio militates against limb skeletal muscle mitochondrial dysfunction. There is a secondary pulmonary mechanical limit driven by hyperventilation; the latter can be seen in dysautonomia. The teaching physician, Dr. Juan Arana, has supervised the procedure and performed the interpretation and reporting of the resulting data. Thank you for referring this patient to us. Sincerely yours, Juan Arana M.D., Attending Physician Procedure Note Juan Arana MD - 05/03/[address] Arana, Your patient Chana Bassett, a 70 year old female with no known CAD wasreferred to us for an advanced cardiopulmonary exercise test to evaluatedyspnea. Her cardiac risk factors include a family history of ischemicheart disease and obesity. The patient's resting ECG showed normal sinus rhythm. She was on thefollowing medications at the time of testing: Mestinon, Trileptal,Zanaflex, Prednisone, Gabapentin, Ibuprofen, Omeprazole, Trazodone,Zoloft. Exercise Stress Protocol: Ms. Bassett exercised for 7:15 minutes of a 15-watt/min ramp cycleprotocol to a maximum of 135 bains. Oxygen saturation was measured atrest and stress. The heart rate increased from 61 bpm at rest to a peakheart rate of 146 bpm (97% age predicted maximal heart rate), and the blood pressure increased from 142/83 mm Hg atrest to 187/88 mm Hg at peak exercise (RPP: 44696). Oxygen saturationremained unchanged at 97.2% during exercise. Exercise was terminated due to dyspnea. The symptomatic response toexercise was non-ischemic. The blood pressure response was normal. TheECG response to exercise indicated no significant ST-T changes. Noexercise-induced arrhythmia was observed. = ANTHROPOMETRICS = Age: 70 Gender: Female Height: 67 in/170 cm Weight: 194 lb/88 kg BMI: 30.4 kg/m2 Hgb: 12.9 g/dL = EXERCISE CAPACITY = Exercise Protocol: 15 bains/min Maximum Bains Achieved: 106 bains Exercise Duration: 7:15 (min:sec) Reason to End Exercise: Dyspnea. Predicted Measured % of Predicted Rest VO2 (mL/min) 306 AT VO2 (mL/min) >40% of Peak VO2 621 46% Peak VO2 (mL/min) 1346 1283 95% Peak VO2/kg(mL/kg/min) 14.6 = CARDIOVASCULAR RESPONSE = Symptomatic Response: Non-ischemic. Blood Pressure Response: Normal. ECG Response: Indicated no significant ST-T changes. Stress Induced Arrhythmias: No exercise-induced arrhythmia was observed. Predicted Measured % of Predicted Rest Heart Rate (bpm) 61 Peak Heart Rate (bpm) 151 146 97% HR [place] (bpm) 90 HR Recovery (1 min) > 12 10 Rest Blood Press (mm Hg) 142/83 Peak Blood Press (mm Hg) 187/88 Peak O2 Pulse (mL/beat) 8.9 8.8 99% ^VO2/^WR (mL/min/watt) > 10.2 +/- 1 9.2 ^HR/^VO2 < 50 87 Cardiac Output (Qt) 9.6 10.7 111% Rest RER 0.88 Peak RER 1.36 = VENTILATORY RESPONSE = Measured Percent MVV (Measured) MVV (Calculated) 85.05 Respiratory [place] 20.75 76% VE/VCO2 (Nash) 34.76 VE @ AT 22 VE @ Peak 64.3 MVV - VE(peak) 20.75 RR (br/min) 39 Vt BTPS (mL) 1644 PRE-SPIROMETRY Measured Percent FVC (L) 2.89 98% FEV1 (L) 2.43 105% FEV1/FVC (%) 84 106% MVV (L/min) 85.05 105% = GAS EXCHANGE VARIABLES = Rest Peak SaO2% 97.2% 97.8% pH 7.40 7.38 PaCO2 (mmHg) 40 32 PaO2 (mmHg) 100 116 PETCO2 (mmHg) 29 31 P(A-a)O2 (mmHg) 4.5 10.5 P(a-ET)CO2 (mmHg) 11 1 Vd/Vt 0.47 0.25 = ADVANCED CARDIOPULMONARY VITALS = Time Bains VO2 Qt SvO2 HR SV BP REST 0 306 5.46 62.5 61 89.5 142/83 FW1 0 486 85 146/80 1 15 520 90 144/78 2 30 553 93 / 3 45 632 103 / 4 60 740 107 / 5 75 851 8.43 36.1 116 72.7 153/77 6 90 1025 8.84 30.8 133 66.5 178/85 PEAK 106 1283 10.69 29.3 146 73.2 187/88 = ADVANCED CARDIOPULMONARY PRESSURES = Time RAP PA Press. PAP PCW PVR TPG Compliance RV Press. REST 2 14 10 5 73 5 14.9 23/(3) FW1 1 22/12 17 4 13 29/1(3) 1 06 22/ 17 7 10 30/2(5) 2 / 3 / 4 / 5 3 20/02 19 6 123 13 5.6 6 2 34/14 24 3.3 40/0(4) PEAK 1 37/3 24 7 127 17 2.2 45/0(5) *Trouble with the PA catheter during exercise, unable to obtain pressuresfor minutes 2,3,4. Unable to wedge for minute 6. * No arterial or venous draws for minutes 2,3,4. = ADVANCED CARDIOPULMONARY GASES = Time CaO2 CvO2 Ca-vO2 PaO2 PaCO2 pH Lactate REST 15.5 9.9 5.6 100 40 7.40 0.7 FW1 1 15.8 109 33 7.44 1.3 2 3 4 5 16.1 6.0 10.1 123 34 7.41 2.4 6 16.7 5.1 11.6 116 33 7.39 5.6 PEAK 17.2 5.2 12.0 116 32 7.38 7.7 In summary, the test results were: 1. Functional Capacity: 4.2 METS 2. Peak Heart Rate: 146 bpm (97% age-predicted maximal heart rate). 3. Symptomatic Response: Non-ischemic. 4. Peak Blood Pressure: 187/88 mm Hg. 5. Blood Pressure Response: Normal. 6. ECG Response: Negative test for myocardial ischemia based on absenceof ECG changes. 7. Stress-induced Arrhythmia: None. 8. SVC supine SO2: 68. PA SO2: 68 9. Baseline K+: 4.2. Na+: 138. 10. Peak K+: 5.9. Na+: 144. 11. Peak vPO2: 24. vPCO2:57. vPH: 7.24 12. 1 Hour post Lactate: 3.1 13. SVR Peak: 896 CONCLUSION: Well compensated dysautonomia is suggested by a normal peak exercise VO2,but extremely low right atrial pressures throughout upright cyclingexercise. There is no pulmonary hypertension or heart failure. Despite an elevated recovery lactate, the supranormal PVO 2 nadirmilitates against limb skeletal muscle mitochondrial dysfunction. There is a secondary pulmonary mechanical limit driven byhyperventilation; the latter can be seen in dysautonomia. The teaching physician, Dr. Juan Arana, has supervised the procedureand performed the interpretation and reporting of the resulting data. Thank you for referring this patient to us. Sincerely yours, Juan Arana M.D., Attending Physician us Joie Arana PA-C CV STRESS ORDERABL ES Final Result documented in this encounter Visit Diagnoses Diagnosis SOB (shortness of breath) Shortness of breath SOB (shortness of breath) Shortness of breath documented in this encounter Care Teams Brand Marketing Intern Relationship Specialty Start Date End Date Henri Cruz MD [address] [place] [id number] PCP - General Internal Medicine 01/11/17 documented as of this encounter Additional Source Comments The information contained in this document represents components of the legal health record. It is not the complete legal health record.[facility]
--- OUTSIDE RECORDS SUMMARY | 2024-11-11 17:57 | XMS_ITS | Encounter Summary ---
Author Organization [facility] Address [address] [place] [phone] Phone Care Team Providers Care Special Effects Technician Name Role Phone Henri Cruz MD Primary Care Provider Reason for Referral * - Closed Specialty Diagnoses / Procedures Referred By Contac t Referred To Contact Diagnoses CFS (chronic fatigue syndrome) Procedures Autonomic Testing Juan Arana MD Phone: tel: fax: mailto:[email or web address] Referral ID Status Reason Start Date Expiration Date Visits Re quested Visits Authorized [id number] Closed 04/21/2021 04/21/2022 1 1 Encounter Details Date Type Department Care Team (Late st Contact Info) Description 04/21/2021 Ancillary Orders [facility] Autonomic Lab [address] [place] [address] Juan Arana MD [address] [place] [phone] [email or web address] CFS (chronic fatigue syndrome) Social History Tobacco Use Types Packs/Day Years Used Date Smoking Tobacco: Passive Smo ke Exposure - Never Smoker Smokeless Tobacco: Never Alcohol Use Standard Drinks/Week Comments Yes 0 (1 standard drink = 0.6 oz pur e alcohol) Occasional Comments No Sex and Gender Information Value Date Recorded Sex Assigned at Female 04/18/2021 12:52 PM EST Legal Sex Female 1:33 PM EST Gender Identity Female 04/18/2021 12:52 PM EST Sexual Orientation Straight 04/18/2021 12 :52 PM EST documented as of this encounter Plan of Treatment Not on file documented as of this encounter Results * AUTONOMIC TESTING (10/04/2021 8:08 AM EDT) Anatomical Region Laterality Modality Other Other Narrative 11/18/2021 6:59 AM EDT Magan Moy MD, PhD 11/18/2021 7:00 AM Autonomic Testing Date/Time: 11/18/2021 6:59 AM Performed by: Magan Moy MD, PhD Authorized by: Juan Arana MD us Juan Arana MD NEUROLOGY ORDERABLES Final Re sult documented in this encounter Visit Diagnoses Diagnosis CFS (chronic fatigue syndrome) Chronic fatigue syndrome Other cerebrovascular vasospasm and vasoconstriction- Primary CFS (chronic fatigue syndrome) Chronic fatigue syndrome Postural orthostatic tachycardia syndrome Unspecified tachycardia Idiopathic autonomic neuropathy Idiopathic peripheral autonomic neuropathy, unspecified Small fiber neuropathy documented in this encounter Care Teams Special Effects Technician Relationship Specialty Start Date End Date Henri Cruz MD [address] [place] [phone] PCP - General Internal Medicine 01/11/17 documented as of this encounter Additional Source Comments The information contained in this document represents components of the legal health record. It is not the complete legal health record.[facility]
--- OUTSIDE RECORDS SUMMARY | 2024-11-11 17:57 | XMS_ITS | Encounter Summary ---
Author Organization [facility] Address [address] [place] [phone] Phone Care Team Providers Care Trade Promotion Analyst Name Role Phone Henri Cruz MD Primary Care Provider Encounter Details Date Type Department Care Team (Late st Contact Info) Description 03/28/2019 Procedure Pass [facility], [facility] [address] [facility] [place] [address] Social History Tobacco Use Types Packs/Day Years [...] on filedocumented in this encounter Care Teams Trade Promotion Analyst Relationship Specialty Start Date End Date Henri Cruz MD [address] [place] [phone] PCP - General Internal Medicine 01/11/17 documented as of this encounter Additional Source Comments The information contained in this document represents components of the legal health record. It is not the complete legal health record.[facility]
--- OUTSIDE RECORDS SUMMARY | 2024-11-11 17:57 | XMS_ITS | Encounter Summary ---
Author Organization [facility] Address [address] [employer] [address] [address] Phone Care Team Providers Care Security Door Installer Name Role Phone Henri Cruz MD Primary Care Provider Encounter Details Date Type Department Care Team (Late st Contact Info) Description 01/09/2017 Orders Only VIRTUAL DEPARTMENT Interface Provider, Scanning Social History Tobacco Use [...] on filedocumented in this encounter Care Teams Security Door Installer Relationship Specialty Start Date End Date Henri Cruz MD [address] [place] [phone] PCP - General Internal Medicine 01/11/17 documented as of this encounter Additional Source Comments The information contained in this document represents components of the legal health record. It is not the complete legal health record.[facility]
--- OUTSIDE RECORDS SUMMARY | 2024-11-11 17:57 | XMS_ITS | Clinical Summary ---
Author Organization [facility] Address [address] [place] [phone] Phone Care Team Providers Care Shiftman Name Role Phone Henri Cruz MD Primary Care Provider Allergies No known active allergies Medications traZODone (DESYREL) 50 MG tablet Take 50 mg by mouth nightly. Active omeprazole (PRILOSEC) 40 MG capsule Take 40 mg by mouth daily. Active IBUPROFEN (ADVIL MIGRAINE ORAL) Take 3 tablets by mouth nightly. Active utqbhtvs-snqv-ij rrous gluconat (CENTRUM WITH IRON) 9 mg iron/15 mL Liqd Take 15 mL by mouth daily. Active sertraline (ZOLOFT) 50 MG tablet Take 50 mg by mouth daily. Active gabapentin (NEURONTIN) 600 MG tablet TAKE 1 TABLET BY MOUTH IN THE AFTERNOON AND 1 TABLET EVERY NIGHT AT BEDTIME 3 Active estradioL (VAGIFEM) [address] 10 mcg vaginally 2 (two) times a week. Active predniSONE (DELTASONE) 20 MG tabletIndication s:Intractable migraine with aura without status migrainosus,New daily persistent headache Take 3 tabs (60mg) daily x 7 days, then 2 tabs (40mg) daily x 2 days, then 1 tab (20mg) daily x 2 days, then 1/2 tab (10mg) daily x 2 days, then STOP 28 tablet 5 Active pyRIDostigmine (MESTINON) 180 mg CR tabletIndication s:Dysautonomia TAKE 1 TABLET BY MOUTH EVERY DAY 30 tablet 11 5 Active propranoloL (INDERAL) 10 MG immediate release tabletIndication s:Intractable migraine with aura without status migrainosus TAKE 1 TABLET BY MOUTH TWICE A DAY 180 tablet 1 5 Active topiramate (TOPAMAX) 50 MG tabletIndication s:Intractable migraine with aura without status migrainosus,New daily persistent headache Take 1 tablet (50 mg total) by mouth 2 (two) times a day. 180 tablet 3 5 Active Active Problems Problem Noted Date Diagnosed Date JEONG (dyspnea on exertion) 04/20/2021 Small fiber neuropathy 12/15/2017 Neuropathic pain 12/15/2017 Exercise intolerance 12/15/2017 Excessive sweating 12/15/2017 Encounters Date Type Department Care Team Description 09/08/2024 Refill [facility] Department of Neurology [address] [place] [address], [address], [address] [place] [address] Lauro Cedeño MD, PhD Medication Refill from Last 3 Months Family History Medical History Relation Comments Heart disease Brother Marfan syndrome Daughter 2 Emphysema Father Heart disease Mother Muscle Disease Neg Hx Neuropathy Neg Hx Relation Status Comments Brother Daughter 1 Alive Daughter 2 Alive Father Mother Social History Tobacco Use Types Packs/Day Years Used Date Smoking Tobacco: Never Passive Smoke Exposure: Yes Smokeless Tobacco: Never Tobacco Cessation:Counseling Given: Not Answered Alcohol Use Standard Drinks/Week Comments Yes 0 [...] Orientation Straight 04/18/2021 12 :52 PM EST Last Filed Vital Signs Vital Sign Reading Time Taken Comments Blood Pressure 137/88 05/21/2024 10:58 AM EDT Pulse 74 05/21/2024 10:58 AM EDT Temperature 36.1 C (97 F) 05/21/2024 10:58 AM EDT Respiratory Rate 42 04/20/2021 11:00 AM EST Oxygen Saturation 96% 05/21/2024 10:58 AM EDT Inhaled Oxygen Concentration - - Weight 86.2 kg (190 lb) 05/21/2024 10:58 AM EDT With shoes Height 171.5 cm (5' 7.5 ) 05/21/2024 10:58 AM ED T Body Mass Index 29.32 05/21/2024 10:58 AM EDT Plan of Treatment Health Maintenance Due Date Last Done Comments LIPID PANEL 1951 HEPATITIS C SCREENING 06/15/1969 MAMMOGRAM 1991 COLOGUARD 06/15/1996 COLONOSCOPY 06/15/1996 COLORECTAL CANCER SCREENING 06/15/1996 FIT TEST 06/15/1996 FOBT 06/15/1996 SIGMOIDOSCOPY 06/15/1996 VIRTUAL COLONOSCOPY 06/15/1996 ZOSTER VACCINES (2 of 3) 11/27/2013 10/02/2013 OSTEOPOROSIS SCREENING INITIAL (ONE-TIME) 06/15/2016 DEPRESSION SCREENING 01/04/2020 01/03/2019 INFLUENZA VACCINE (#1) 2024 , 03/02/2018, 12/17/2015, Additional history exists COVID-19 VACCINE (3 - 2024- season) 2024 06/11/2020, 05/21/2020 RSV VACCINE (1 - 1-dose 75+ series) 06/15/2026 Adult Td,Tdap Booster 06/09/2031 06/08/2021, 011 PNEUMOCOCCAL VACCINES (50+ years) Completed 03/18/2020, 08/16/2016, 09/24/2014 SMOKING STATUS SCREENING (Once After 26 Yrs) Completed 05/21/2024 HEPATITIS A VACCINES Aged Out No long er eligible based on patient's age to complete this topic HIB VACCINES Aged Out No longer eligi ble based on patient's age to complete this topic MENINGOCOCCAL VACCINES (ACWY) Aged Out No longer eligible based on patient's age to complete this topic MENINGOCOCCAL VACCINES (B) Aged Out N o longer eligible based on patient's age to complete this topic Medical Devices Not on file Insurance MEDICARE PART A & [place] [address] [address] [address] MEDICARE ENHANCE SUPPLEMENT MEDICARE PART A & B [facility] MEDICARE ENHANCE SUPPLEMENT MEDICARE PART A & B MEDICARE PART A & B MEDICARE PART A & B Member Subscriber Plan / Payer (Ef fective 2016-Present) Name:Yari Bassettara Member ID:[id number] Relation to Subscriber:Self Name:Chana Bassett Subscriber ID:[id number] Payer ID:[id number] Group ID:Not on file Type:Medicare Address: [employer] [address] MEDICARE ENHANCE SUPPLEMENT MEDICARE PART A & B MEDICARE PART A & B Member Subscriber Plan / Payer (Ef fective 2016-Present) Name:Chana Bassett Member ID:[id number] Relation to Subscriber:Self Name:Chana Bassett Subscriber ID:[id number] Payer ID:[id number] Group ID:Not on file Type:Medicare Address: [employer] [address] MEDICARE ENHANCE SUPPLEMENT MEDICARE PART A & B [employer] MEDICARE ENHANCE SUPPLEMENT MEDICARE PART A & B [employer] MEDICARE ENHANCE SUPPLEMENT Advance Directives For more information, please contact: [phone] (9AM - 5PM [facility], Monday-Monday) Documents on File Type Date Recorded Patient Orchard Worker Expl anation Healthcare Proxy 04/21/2021 4:39 PM Care Teams Shiftman Relationship Specialty Start Date End Date Henri Cruz MD [address] [place] [phone] PCP - General Internal Medicine 01/11/17 Additional Source Comments The information contained in this document represents components of the legal health record. It is not the complete legal health record.[facility]
--- OUTSIDE RECORDS SUMMARY | 2024-11-11 17:57 | XMS_ITS | Encounter Summary ---
Author Organization [facility] Address [address] [place] [address] Phone Care Team Providers Care Ict Sales Representative Name Role Phone Henri Cruz MD Primary Care Provider Encounter Details Date Type Department Care Team (Late st Contact Info) Description 05/05/2023 Procedure Pass [facility], [address] [address] Social History Tobacco Use Types Packs/Day Years [...] on filedocumented in this encounter Care Teams Ict Sales Representative Relationship Specialty Start Date End Date Henri Cruz MD [address] [place] [id number] PCP - General Internal Medicine 01/11/17 documented as of this encounter Additional Source Comments The information contained in this document represents components of the legal health record. It is not the complete legal health record.[facility]
--- OUTSIDE RECORDS SUMMARY | 2024-11-11 17:57 | XMS_ITS | Encounter Summary ---
Author Organization [facility] Address [address] [place] [phone] Phone Care Team Providers Care Supervisor Steno Pool Name Role Phone Henri Cruz MD Primary Care Provider Reason for Referral * MRI/CAT Scan - Closed Specialty Diagnoses / Procedures Referred By Contac t Referred To Contact Radiology Diagnoses Low back pain, unspecified back pain laterality, unspecified chronicity, unspecified whether sciatica present Procedures MRI Lumbar Spine Jas Latif MD Phone: tel: fax: Referral ID Status Reason Start Date Expiration Date Visits Re quested Visits Authorized [id number] Closed 06/30/2023 06/29/2024 1 1 Encounter Details Date Type Department Care Team (Latest Contact Info) Description 06/30/2023 Transcribe Orders Virtual Department [address] [place] [address] Jas Latif MD [address] [place] [address] [phone] Low back pain, unspecified back pain laterality, unspecified chronicity, unspecified whether sciatica present (Primary Dx) Social History Tobacco Use Types [...] documented as of this encounter Results * MRI LUMBAR SPINE (NEURO) WITHOUT CONTRAST (07/22/2023 7:35 AM EDT) Anatomical Region Laterality Modality L-spine Magnetic Resonan ce 07/23/2023 2:47 AM EDT Impressions 07/23/2023 3:24 PM EDT Multilevel neuroforaminal stenoses, moderate to severe right and mild left at L5-S1, moderate left and mild right at L4-5, mild to moderate left and mild right L3-4, mild to moderate right at L1-2, and mild at L2-3. Levoconvex lumbar curvature centered at L2. 4 mm L4-5 anterolisthesis. No significant spinal canal stenosis. Narrative 07/23/2023 3:24 PM EDT MRI LUMBAR SPINE (NEURO) WITHOUT CONTRAST REQUESTED INDICATION: Outside Radiology Order; low back pain TECHNIQUE: MRI LUMBAR SPINE (NEURO) WITHOUT CONTRAST COMPARISON: None FINDINGS: ALIGNMENT: Levoconvex lumbar curvature centered at L2. 4 mm L4-5 anterolisthesis. MARROW: No compression fracture or marrow replacing lesion. DISCS: Disc desiccation L1-S1. CONUS: Normal appearance and terminates at L1-L2. PARASPINAL SOFT TISSUES: Partially visualized left mid to lower pole renal cyst measuring at least 4.4 cm. Mild to moderate posterior paraspinal muscle atrophy. FINDINGS BY LEVEL: T12-L1:Diffuse disc bulge, facet arthropathy, and thickening of ligamentum flavum. No spinal canal or neuroforaminal stenosis. L1-2: Diffuse disc bulge eccentric to the right, facet arthropathy, and thickening of ligamentum flavum. No spinal canal stenosis. Mild to moderate right neuroforaminal stenosis. No left neuroforaminal stenosis. L2-3: Diffuse disc bulge contacting the transiting grade L3 nerve root (6:23), facet arthropathy, and thickening of ligamentum flavum. No spinal canal stenosis. Mild neuroforaminal stenosis. L3-4: Diffuse disc bulge, facet arthropathy, and thickening of ligamentum flavum. No spinal canal stenosis. Mild to moderate left and mild right neuroforaminal stenosis. L4-5: Diffuse disc bulge eccentric to the left, facet arthropathy, and thickening of ligamentum flavum. No spinal canal stenosis. Moderate left and mild right neuroforaminal stenosis. L5-S1: Diffuse disc bulge eccentric to the right, facet arthropathy, and thickening of ligamentum flavum. No spinal canal stenosis. Moderate to severe right and mild left neuroforaminal stenosis. Procedure Note She Daley MD - 07/23/2023 MRI LUMBAR SPINE (NEURO) WITHOUT CONTRAST REQUESTED INDICATION: Outside Radiology Order; low back pain TECHNIQUE: MRI LUMBAR SPINE (NEURO) WITHOUT CONTRAST COMPARISON: None FINDINGS: ALIGNMENT: Levoconvex lumbar curvature centered at L2. 4 mm L4-5anterolisthesis. MARROW: No compression fracture or marrow replacing lesion. DISCS: Disc desiccation L1-S1. CONUS: Normal appearance and terminates at L1-L2. PARASPINAL SOFT TISSUES: Partially visualized left mid to lower pole renalcyst measuring at least 4.4 cm. Mild to moderate posterior paraspinalmuscle atrophy. FINDINGS BY LEVEL: T12-L1:Diffuse disc bulge, facet arthropathy, and thickening of ligamentumflavum. No spinal canal or neuroforaminal stenosis. L1-2: Diffuse disc bulge eccentric to the right, facet arthropathy, andthickening of ligamentum flavum. No spinal canal stenosis. Mild tomoderate right neuroforaminal stenosis. No left neuroforaminal stenosis. L2-3: Diffuse disc bulge contacting the transiting grade L3 nerve root(6:23), facet arthropathy, and thickening of ligamentum flavum. No spinalcanal stenosis. Mild neuroforaminal stenosis. L3-4: Diffuse disc bulge, facet arthropathy, and thickening of ligamentumflavum. No spinal canal stenosis. Mild to moderate left and mild rightneuroforaminal stenosis. L4-5: Diffuse disc bulge eccentric to the left, facet arthropathy, andthickening of ligamentum flavum. No spinal canal stenosis. Moderate leftand mild right neuroforaminal stenosis. L5-S1: Diffuse disc bulge eccentric to the right, facet arthropathy, andthickening of ligamentum flavum. No spinal canal stenosis. Moderate tosevere right and mild left neuroforaminal stenosis. IMPRESSION: Multilevel neuroforaminal stenoses, moderate to severe right and mild leftat L5- S1, moderate left and mild right at L4-5, mild to moderate left andmild right L3-4, mild to moderate right at L1-2, and mild at L2-3. Levoconvex lumbar curvature centered at L2. 4 mm L4-5 anterolisthesis. No significant spinal canal stenosis. Jas Latif MD IMG MR XSPECIALTY Final Re sult documented in this encounter Visit Diagnoses Diagnosis Low back pain, unspecified back pain laterality, unspecified chronicity, unspecified whether sciatica present- Primary Low back pain, unspecified back pain laterality, unspecified chronicity, unspecified whether sciatica present documented in this encounter Care Teams Supervisor Steno Pool Relationship Specialty Start Date End Date Henri Cruz MD [address] [place] [phone] PCP - General Internal Medicine 01/11/17 documented as of this encounter Additional Source Comments The information contained in this document represents components of the legal health record. It is not the complete legal health record.[facility]
--- OUTSIDE RECORDS SUMMARY | 2024-11-11 17:57 | XMS_ITS | Clinical Summary ---
Author Organization [facility] Address [address] [place] [address] Care Team Providers Care Viscera Washer Name Role Phone Daxa Rogers APRN Primary Care Provider [phone] Allergies No known active allergies Medications atorvastatin (LIPITOR) 20 MG tablet Take 20 mg by mouth daily. 3 Active dicyclomine (BENTYL) 10 MG capsule TAKE 1 CAPSULE BY MOUTH FOUR TIMES DAILY BEFORE MEALS AND AT NIGHT 3 Active Ferrous Sulfate (IRON PO) Take 15 mL by mouth. Active gabapentin (NEURONTIN) 600 MG tablet TAKE 1 TABLET BY MOUTH IN THE AFTERNOON AND 1 TABLET EVERY NIGHT AT BEDTIME 3 Active Multiple Vitamins-Minera ls (Multivitamin & Mineral) Liquid Take 15 mL by mouth. Active OMEprazole (PriLOSEC) 40 MG capsule 3 Active OXcarbazepine (TRILEPTAL) 600 MG tablet 3 Active pyridostigmine (MESTINON) 180 MG CR tablet 3 Active sertraline (ZOLOFT) 50 MG tablet Take 50 mg by mouth. 3 Active topiramate (TOPAMAX) 25 MG tablet 3 Active traZODone (DESYREL) 50 MG tablet Take 50 mg by mouth. 3 Active phenazopyridine (PYRIDIUM) 200 MG tabletIndicatio ns:Acute cystitis without hematuria Take 1 tablet (200 mg total) by mouth 3 (three) times a day in the morning, mid-day and early evening. 10 tablet 3 Active sulfamethoxazol e-trimethoprim (BACTRIM DS,SEPTRA DS) 800-160 MG per tabletIndicatio ns:Pyelonephrit is Take 1 tablet by mouth 2 (two) times a day. 14 tablet 3 Active Yuvafem 10 MCG vaginal tablet INSERT 1 TAB VAGINALLY EVERY DAY X14 DAYS, THEN DECREASE FREQUENCY TO TWICE A WEEK 4 Active Active Problems Problem Noted Date Diagnosed Date Cervical spondylosis without myelopathy 12/19/19 23 12/18/2022 Overview (12/18/2022): Last Assessment & Plan: Ms. Bassett continues to describe chronic headaches and with a left sided neck ache at night. This wakes her up every night and she is unable to go back to sleep. She has trouble turning her head and often has periods of numbness and tingling in both hands. We referred her to physical therapy where she has had an evaluation only. On exam, she has a well-healed right anterior cervical incision. There is no step-off or deformity the cervical spine. Rotation is 30 degrees to the left, 60 degrees to the right, strength is full, gait is steady. Review of the cervical spine MRI from [facility] dated 02/09/2022 shows a solid fusion at C5-6 with severe loss of disc height at C4-5 and C6-7. There are no significant osteophytes, no canal stenosis or significant foraminal stenosis at the lower levels. There is mild to moderate facet arthropathy at C3-4. I discussed this in detail with Ms. Bassett and that I cannot pinpoint a specific source for her paresthesias but there is some facet disease and I hope that physical therapy can help to improve her range of motion. Diverticulosis 12/18/2022 12/18/2022 Erosive gastropathy 12/18/2022 12/18/2022 Esophagitis 12/18/2022 12/18/2022 Gastritis 12/18/2022 12/18/2022 Spasm of esophagus 12/18/2022 12/18/2022 Stress 12/18/2022 12/18/2022 Thrush of mouth and esophagus 12/18/2022 JEONG (dyspnea on exertion) 04/20/20212022 Arthritis of right hip 03/22/2019 Excessive sweating 12/15/2017 12/18/2022 Exercise intolerance 12/15/2017 12/18/2022 Neuropathic pain 12/15/2017 12/18/2022 Small fiber neuropathy 12/15/2017 [facility] and Pyrdistigmine finished [address] Juan Arana- sharepoint admin Fibromyalgia 08/16/2016 12/18/2022 Obstructive sleep apnea 06/05/2016 12/19/19 23 Overview (12/18/2022): Home Polysomnogram: Date 05.20.2016; AHI 7, Unclassified apneas 0; Obstructive apneas 2; Central apneas 2; Mixed apneas 0; hypopneas 52; average oxygen saturation 91% (lowest 82% without saturations <88% for 5% or more of study) Chronic low back pain 05/25/2015 12/18/2022 Overview (12/18/2022): Dr. Smith 05/12 - pending PT Antral ulcer 02/13/2015 12/18/2022 Overview (12/18/2022): Dr. Danny Herrera 10/17/2014 12/18/2022 Overview (12/18/2022): Dr. Santiago, Dr. Cortez, Dr. Delgado 01/11 - EGD within normal limits History of total knee replacement, right 015 12/18/2022 Temporal arteritis 09/25/2014 12/18/2022 Overview (12/18/2022): Dr. Hdz Biopsy negative but significant symptom improvement with prednisone Parotid mass 09/16/2014 12/18/2022 Family history of coronary artery disease 201412/18/2022 Chronic diarrhea 09/26/2013 12/18/2022 Overview (12/18/2022): Dr. Delgado Osteopenia 01/10/2013 12/18/2022 Insomnia 11/02/2012 12/18/2022 History of total hip replacement 07/28/2012 12/18/2022 Overview (12/18/2022): Dr. Esquivel Left 413 - [facility] Right - 10/2019 Headache, chronic daily 06/14/2012 12/19/19 Overview (12/18/2022): Dr. Pink, Dr. Draper ([facility]) 07/09 - relief with nerve blocks 09/10 - temporal artery biopsy - no inflammation Vitamin D deficiency 02/24/2012 12/18/2022 Osteoarthritis of both knees 08/22/2011 Overview (12/18/2022): Dr. Esquivel - cortisone, Synvisc injections; meloxicam Right total knee replacement 07/2013 Cervical facet joint syndrome 05/19/2011 Overview (12/18/2022): Dr. Addison, Dr. Smith 05/08 - bilateral C3-4, C4-5 facet joint corticosteroid injection 05/12 - MRI of cervical spine 11/13- s/p C5-C6 disckectomy, repeat surgery 2018 Family history of osteoporosis 11/14/2007 1 Overweight 09/08/2006 12/18/2022 Overview (12/18/2022): Seeing Garrick Ham RD Generalized osteoarthrosis of hand 04/14/2006 12/18/2022 Overview (12/18/2022): Dr. Sena EVANS update Social History Tobacco Use Types Packs/Day Years Used Date Smoking Tobacco: Never Smokeless Tobacco: Never Tobacco Cessation:Counseling Given: Not Answered Comments Unknown Sex and Gender Information Value Date Recorded Sex Assigned at Not on file Legal Sex Female 7:07 PM EST Gender Identity Not on file Sexual Orientation Not on file Last Filed Vital Signs Vital Sign Reading Time Taken Comments Blood Pressure 126/82 07/05/2023 9:07 AM EDT Pulse 61 07/05/2023 9:07 AM EDT Temperature 36.7 C (98 F) 07/05/2023 9:07 AM EDT Respiratory Rate 16 07/05/2023 9:07 AM EDT Oxygen Saturation 99% 07/05/2023 9:07 AM EDT Inhaled Oxygen Concentration - - Weight 86.2 kg (190 lb) 07/05/2023 9:07 AM EDT Height 167.6 cm (5' 6 ) 07/05/2023 9:07 AM EDT Body Mass Index 30.67 07/05/2023 9:07 AM EDT Plan of Treatment Health Maintenance Due Date Last Done Comments Advance Care Planning 1950 Hepatitis C Virus Screening 1950 DTaP/Tdap/Td Vaccines (1 - Tdap) 06/15/1970 Mammogram 1991 Colonoscopy 06/15/1996 Pneumococcal Vaccines 50+ (1 of 1 - PCV) 06/15/2001 Zoster (Shingles) Vaccine (1 of 2) 06/15/2001 DXA Bone Density (Females,Ages 65 and older) 06/15/2016 Influenza Vaccine 09/27/2024 01/01/2020, , 12/05/2014, Additional history exists COVID-19 Vaccine ( season) 2024 06/11/2020, 05/21/2020 RSV Vaccine 60 years and older and Patients (1 - 1-dose 75+ series) 06/15/2026 Hepatitis B Vaccines Aged Out No long er eligible based on patient's age to complete this topic Insurance MEDICARE PART A & B [employer] MANA[employer]ED MEDICARE Member Subscriber Plan / Payer (Ef fective for All Dates) Name:Yari Bassettara Relation to Subscriber:Self Name:Chana Bassett Payer ID:[id number] Group ID:Not on file Type:Not on file Address: [facility] [address] [place] [address] Care Teams Viscera Washer Relationship Specialty Start Date End Date Daxa Rogers [place] [employer] [place] [address] PCP - General Internal Medicine 12/22/22
--- OUTSIDE RECORDS SUMMARY | 2024-11-11 17:57 | XMS_ITS ---
[facility] Organization [facility] Results Test Name/Text Value Interpretation Date Range Source Vit B12 SerPl-mCnc 285.0 pg/mL Normal 10/12/2024 200 - 11 00 [facility] HbA1c MFr Bld 6.1 % Above high normal 10/12/2024 - 5.7 [facility] 25(OH)D3+25(OH)D2 SerPl-mCnc 24.0 ng/mL Below low normal 10/12/2024 30 - 100 [facility] Neutrophils NFr Bld Auto 51.1 % Normal 10/12/2024 [facility] Monocytes # Bld Auto 400.0 cells/uL Normal 10/12/2024 200 - 950 [facility] Basophils NFr Bld Auto 1.0 % Normal 10/12/2024 [facility] Neutrophils # Bld Auto 2964.0 cells/uL Normal 10/12/2024 1500 - 7800 [facility] RBC # Bld Auto 4.83 Million/uL Normal 10/12/2024 3.8 - 5. 1 [facility] Basophils # Bld Auto 58.0 cells/uL Normal 10/12/2024 0 - 200 [facility] Hct VFr Bld Auto 42.8 % Normal 10/12/2024 35 - 45 [facility] Eosinophil # Bld Auto 365.0 cells/uL Normal 10/12/2024 15 - 500 [facility] RDW RBC Auto 12.3 % Normal 10/12/2024 11 - 15 [facility] Eosinophil NFr Bld Auto 6.3 % Normal 10/12/2024 [facility] Lymphocytes NFr Bld Auto 34.7 % Normal 10/12/2024 [facility] Hgb Bld-mCnc 13.6 g/dL Normal 10/12/2024 11.7 - 15.5 [facility] T WBC # Bld Auto 5.8 Thousand/uL Normal 10/12/2024 3.8 - 10 .8 [facility] Platelet # Bld Auto 345.0 Thousand/uL Normal 10/12/2024 140 - 400 [facility] MCHC RBC Auto-EntMCnc 31.8 g/dL Below low normal 10/12/2024 32 - 36 [facility] RBC Auto 88.6 fL Normal 10/12/2024 80 - 100 [facility] Monocytes NFr Bld Auto 6.9 % Normal 10/12/2024 [facility] Lymphocytes # Bld Auto 2013.0 cells/uL Normal 10/12/2024 850 - 3900 [facility] MCH RBC Qn Auto 28.2 pg Normal 10/12/2024 27 - [address] PMV Bld Jose-Maryam 9.3 fL Normal 10/12/2024 7.5 - 12.5 [facility] Prot SerPl-mCnc 6.8 g/dL Normal 10/12/2024 6.1 - 8.[address] eGFRcr SerPlBld CKD-EPI 2020 88.0 mL/min/1.73m2 Normal 10/12/2024 - [facility] AST SerPl-cCnc 20.0 U/L Normal 10/12/2024 10 - 35 [facility] T Creat SerPl-mCnc 0.72 mg/dL Normal 10/12/2024 0.6 - 1 Q [facility] Calcium SerPl-mCnc 9.1 mg/dL Normal 10/12/2024 8.6 - 10.4 [facility] BUN/Creat SerPl SEE NOTE: 10/12/2024 6 - [address] Chloride SerPl-sCnc 111.0 mmol/L Above high normal 98 - 110 [facility] Sodium SerPl-sCnc 142.0 mmol/L Normal 10/12/2024 135 - 14 6 [facility] Potassium SerPl-sCnc 4.2 mmol/L Normal 10/12/2024 3.5 - 5 .3 [facility] Bilirub SerPl-mCnc 0.4 mg/dL Normal 10/12/2024 0.2 - 1.2 [facility] Globulin Ser Calc-mCnc 2.7 g/dL (calc) Normal 10/12/2024 1.9 - 3.7 [facility] Albumin SerPl-mCnc 4.1 g/dL Normal 10/12/2024 3.6 - 5.1 [facility] CO2 SerPl-sCnc 24.0 mmol/L Normal 10/12/2024 20 - 32 [facility] Albumin/Glob SerPl 1.5 (calc) Normal 10/12/2024 1 - 2.5 [facility] Glucose SerPl-mCnc 96.0 mg/dL Normal 10/12/2024 65 - 99 [facility] ALP SerPl-cCnc 79.0 U/L Normal 10/12/2024 37 - 153 [facility] BUN SerPl-mCnc 23.0 mg/dL Normal 10/12/2024 7 - [address] ALT SerPl-cCnc 14.0 U/L Normal 10/12/2024 6 - 29 [facility] T Urate SerPl-mCnc 4.7 mg/dL Normal 10/12/2024 2.5 - 7 [facility] TSH SerPl-aCnc 1.24 mIU/L Normal 10/12/2024 0.4 - 4.[address] Magnesium SerPl-mCnc 2.3 mg/dL Normal 10/12/2024 1.5 - 2. 5 [facility] Iron SerPl-mCnc 89.0 mcg/dL Normal 10/12/2024 45 - 160 Q [facility] Ferritin SerPl-mCnc 19.0 ng/mL Normal 10/12/2024 16 - 288 [facility] TIBC SerPl-mCnc 360.0 mcg/dL (calc) Normal 10/12/2024 250 - 450 [facility] Iron Satn MFr SerPl 25.0 % (calc) Normal 10/12/2024 16 - 45 [facility] NonHDLc SerPl-mCnc 93.0 mg/dL (calc) Normal 10/12/2024 - 130 [facility] HDLc SerPl-mCnc 89.0 mg/dL Normal 10/12/2024 - [facility] Cholest/HDLc SerPl 2.0 (calc) Normal 10/12/2024 - 5 [facility] Cholest SerPl-mCnc 182.0 mg/dL Normal 10/12/2024 - 200 [facility] Trigl SerPl-mCnc 133.0 mg/dL Normal 10/12/2024 - 150 [facility] LDLc SerPl Calc-mCnc 72.0 mg/dL (calc) Normal 10/12/2024 [facility] eGFRcr SerPlBld CKD-EPI 2020 95.0 mL/min/1.73m2 Normal 01/31/2024 - [facility] Potassium SerPl-sCnc 4.0 mmol/L Normal 01/31/2024 3.5 - 5 .3 [facility] Creat SerPl-mCnc 0.6 mg/dL Normal 01/31/2024 0.6 - 1 [facility] CO2 SerPl-sCnc 28.0 mmol/L Normal 01/31/2024 20 - 32 [facility] Calcium SerPl-mCnc 9.2 mg/dL Normal 01/31/2024 8.6 - 10.4 [facility] Glucose SerPl-mCnc 89.0 mg/dL Normal 01/31/2024 65 - 99 [facility] Chloride SerPl-sCnc 109.0 mmol/L Normal 01/31/2024 98 - 1 10 [facility] Sodium SerPl-sCnc 142.0 mmol/L Normal 01/31/2024 135 - 14 6 [facility] BUN SerPl-mCnc 16.0 mg/dL Normal 01/31/2024 7 - [address] [facility] BUN/Creat SerPl SEE NOTE: Normal 01/31/2024 6 - [address] [facility] Neutrophils/leuk NFr Bld Auto 59.4 % Normal 01/31/2024 [facility] Hgb Bld-mCnc 13.4 g/dL Normal 01/31/2024 11.7 - 15.5 [facility] T Neutrophils # Bld Auto 3029.0 cells/uL Normal 01/31/2024 1500 - 7800 [facility] RDW RBC Auto-Rto 11.9 % Normal 01/31/2024 11 - 15 [facility] Lymphocytes/leuk NFr Bld Auto 25.6 % Normal 01/31/2024 [facility] Hct VFr Bld Auto 41.8 % Normal 01/31/2024 35 - 45 [facility] MCV RBC Auto 88.2 fL Normal 01/31/2024 80 - 100 [facility] Eosinophil # Bld Auto 383.0 cells/uL Normal 01/31/2024 15 - 500 [facility] Eosinophil/leuk NFr Bld Auto 7.5 % Normal 01/31/2024 [facility] PMV Bld Jose-Maryam 9.7 fL Normal 01/31/2024 7.5 - 12.5 [facility] Basophils/leuk NFr Bld Auto 1.2 % Normal 01/31/2024 [facility] WBC # Bld Auto 5.1 Thousand/uL Normal 01/31/2024 3.8 - 10 .8 [facility] MCHC RBC Auto-mCnc 32.1 g/dL Normal 01/31/2024 32 - 36 [facility] Basophils # Bld Auto 61.0 cells/uL Normal 01/31/2024 0 - 200 [facility] RBC # Bld Auto 4.74 Million/uL Normal 01/31/2024 3.8 - 5. 1 [facility] Platelet # Bld Auto 336.0 Thousand/uL Normal 01/31/2024 140 - 400 [facility] Monocytes/leuk NFr Bld Auto 6.3 % Normal 01/31/2024 [facility] MCH RBC Qn Auto 28.3 pg Normal 01/31/2024 27 - [address] Lymphocytes # Bld Auto 1306.0 cells/uL Normal 01/31/2024 850 - 3900 [facility] Monocytes # Bld Auto 321.0 cells/uL Normal 01/31/2024 200 - 950 [facility] History of Medication Use Medication Directions Dispensed Refills Start Date End Date Stat us duloxetine 30 mg capsule,delayed release Take 1 capsule once a day. 10/01/2024 active oxyCODONE (ROXICODONE) immediate release tablet 5 mg 5 mg, oral, Every 4 hours PRN, moderate pain, severe pain, for pain 4-6, Starting on Mon02/12/24 at 0849, For 2 doses, Recovery (only) 02/12/2024 4 aborted Yuvafem 10 mcg vaginal tablet 10 ugs by vaginal route. 01/08/2024 active Hydrocortisone Sod Suc (PF) (Solu-CORTEF) 100 mg, heparin (porcine) 5,000 Units, sodium bicarbonate 4 mEq bladder instillation 1 each, Bladder Instillation, Once, On Mon11/28/23 at 1100, For 1 doseFor Bladder Instillation Only. 11/21/2023 4 completed phenazopyridine (PYRIDIUM) 200 MG tablet Take 1 tablet (200 mg total) by mouth 3 (three) times a day in the morning, mid-day and early evening. 12/22/2022 3 active atorvastatin (LIPITOR) 20 MG tablet Take 20 mg by mouth daily. 11/28/2022 active pyridostigmine (MESTINON) 180 MG CR tablet 11/18/2022 active loperamide (IMODIUM A-D) 2 MG capsule TAKE 1 CAPSULE BY MOUTH FOUR TIMES DAILY NEEDED FOR DIARRHEA 11/07/2022 4 active gabapentin (NEURONTIN) 600 MG tablet TAKE 1 TABLET BY MOUTH IN THE AFTERNOON AND 1 TABLET EVERY NIGHT AT BEDTIME 08/02/2022 active gabapentin 100 mg capsule 04/19/2019 4 completed gabapentin (NEURONTIN) 100 mg capsule Take 100 mg by mouth. 04/19/2019 active sucralfate 1 gram tablet 02/08/2019 4 completed lidocaine (LIDODERM) 5 % 02/08/2019 active lidocaine (LIDODERM) 5 % patch Apply 1 patch topically if needed. 02/08/2019 active sucralfate (CARAFATE) 1 g tablet Take 1 g by mouth. 02/08/2019 active sucralfate (CARAFATE) 1 gram tablet Take 1 tablet (1 g total) by mouth if needed. 02/08/2019 active sucralfate (CARAFATE) 1 gram tablet Take 1 g by mouth. 02/08/2019 active nortriptyline 10 mg capsule 02/07/2019 4 completed pyridostigmine (MESTINON) 60 MG tablet Take 60 mg by mouth. 07/20/2018 active pyRIDostigmine (MESTINON) 60 mg tablet at bedtime. 07/20/2018 active oxcarbazepine 150 mg tablet 12/15/2017 4 completed OXcarbazepine (TRILEPTAL) 150 mg tablet Take 1 tablet by mouth. 12/15/2017 active OXcarbazepine (TRILEPTAL) 150 MG tablet Take 1 tablet by mouth. 12/15/2017 active diclofenac sodium 50 mg tablet,delayed release TAKE 1 TABLET BY MOUTH EVERY 6 HOURS FOR 10 DAYS. DO NOT CRUSH, CHEW, OR SPLIT. 5 completed metronidazole 500 mg tablet TAKE 1 TABLET BY MOUTH 3 TIMES A DAY FOR 10 DAYS NO MOUTHWASH/ALCOHOL UNTIL 48 HOURS AFTER LAST DOSE 5 completed dexamethasone 1 mg tablet TAKE 1 TABLET BY MOUTH ONCE AT 11PM 4 completed levofloxacin 250 mg tablet 1 BY MOUTH THE DAY BEFORE FOR THE PROCEDURE THE DAY OF THE PROCEDURE AND THE DAY AFTER THE PROCEDURE 4 completed estradioL (ESTRACE) 0.01 % (0.1 mg/gram) vaginal cream Place 1 g vaginally 3 (three) times a week 4 active cholestyramine (with sugar) 4 gram powder for susp in a packet MIX AND DRINK 1 PACKET BY MOUTH THREE TIMES DAILY WITH MEALS 4 completed GaviLyte-G 236 gram-22.74 gram-6.74 gram-5.86 gram oral solution PLEASE SEE ATTACHED FOR DETAILED DIRECTIONS 4 completed Laxative (bisacodyl) 5 mg tablet,delayed release TAKE 2 TABLETS BY MOUTH RIGHT BEFORE YOUR FIRST DOSE OF LIQUID PREP. 4 completed nitrofurantoin monohydrate/macrocrys tals 100 mg capsule 07/31/19 2 4 completed oxcarbazepine 600 mg tablet 4 completed phenazopyridine 200 mg tablet TAKE 1 TABLET BY MOUTH THREE TIMES DAILY AFTER MEALS FOR 2 DAYS 4 completed prednisone 20 mg tablet 4 completed sulfamethoxazole 800 mg-trimethoprim 160 mg tablet TAKE 1 TABLET BY MOUTH TWICE DAILY 4 completed duloxetine 30 mg capsule,delayed release active atorvastatin 20 mg tablet TAKE 1 TABLET BY MOUTH EVERY EVENING active baclofen 10 mg tablet Take 1 tablet twice a day as needed for muscle spasm. active dicyclomine 20 mg tablet TAKE 1 TABLET (20 MG TOTAL) BY MOUTH 3 (THREE) TIMES A DAY IF NEEDED (ABDOMEN PAIN, DIARRHEA). active diphenoxylate-atropin e 2.5 mg-0.025 mg tablet TAKE 1 TABLET BY MOUTH FOUR TIMES DAILY NEEDED FOR DIARRHEA active omeprazole 40 mg capsule,delayed release TAKE 1 CAPSULE BY MOUTH TWICE A DAY BEFORE MEALS. TAKE ON EMPTY STOMACH, WAIT 30 MINUTES TO EAT active ondansetron HCl 4 mg tablet TAKE 1 TABLET (4 MG TOTAL) BY MOUTH EVERY 8 (EIGHT) HOURS IF NEEDED FOR NAUSEA FOR UP TO 10 DAYS. active propranolol 10 mg tablet TAKE 1 TABLET BY MOUTH TWICE A DAY active pyridostigmine bromide ER 180 mg tablet,extended release TAKE 1 TABLET BY MOUTH EVERY DAY active topiramate 50 mg tablet TAKE 1 TABLET BY MOUTH TWICE A DAY active trazodone 50 mg tablet Take 1 tablet every day by oral route at bedtime. active Allergies Allergen Reaction Severity Comment Documented Date Source Statu s DICLOFENAC RASH 02/13/2024 CT_THSFRAN active PREDNISONE E[facility]_GRANBY[facility] Problems Problem Status Onset Date Problem Type Date of Resolution Source Gastroesophageal reflux disease active 3 ProblemAct [facility]_GRANBY[facility] Irritable bowel syndrome active 3 ProblemAct [facility] Anxiety active 3 ProblemAct [facility] Tinnitus active 3 ProblemAct [facility] Chronic diarrhea active 2013-08-29 1 ProblemAct [facility] Osteoporosis active 3 ProblemAct [facility] Cystocele active 2023-10-29 8 ProblemAct [facility] Migraine active 3 ProblemAct [facility] At increased risk for falls active 6 ProblemAct [facility]_GRANBY[facility] Gastric ulcer active 3 ProblemAct [facility] Chronic interstitial cystitis active 3 ProblemAct [facility] Mixed hyperlipidemia active 3 ProblemAct [facility] Chronic insomnia active 6 ProblemAct [facility] Small fiber neuropathy active 3 ProblemAct [facility] Arthritis of right hip active 2019-02-28 4 ProblemAct [facility] Disorder of cornea active 3 ProblemAct [facility] Recurrent urinary tract infection active 3 ProblemAct [facility] Gout active 3 ProblemAct [facility] Vitamin D deficiency active 3 ProblemAct [facility] Nocturia active 2023-10-29 8 ProblemAct [facility] Arthritis active 3 ProblemAct [facility] History of depression active 3 ProblemAct [facility] Iron deficiency anemia active 3 ProblemAct [facility] Sleep apnea active 3 ProblemAct [facility] Prediabetes active 3 ProblemAct [facility] Urgent desire to urinate active 2023-10-29 8 ProblemAct [facility] Chronic diarrhea active 2013-08-29 1 ProblemAct CT_THSFRAN Urinary urgency active 2023-10-29 8 ProblemAct CT_THSFRAN Cystocele with rectocele active 3 ProblemAct CTTHNEMG Cystocele with rectocele active 2023-10-29 8 ProblemAct CT_THSFRAN Postoperative state active EncounterDiagnosisAc t CT_THSFRAN Nocturia active 2023-09-29 1 ProblemAct CTTHNEMG Chronic interstitial cystitis active 2023-09-29 1 ProblemAct CTTHNEMG Urinary tract infection without hematuria, site unspecified active EncounterDiagnosisAct CT_THS DHARA Nocturia active 2023-10-29 8 ProblemAct CT_THSFRAN Urinary urgency active 2023-09-29 1 ProblemAct CTTHNEMG Other specified disorders of urinary system active EncounterDiagnosisAct CT_THS DHRAA Arthritis of right hip active 2019-02-28 4 ProblemAct CT_THSFRAN Exercise intolerance active 2017-11-27 9 ProblemAct [facility] History of total knee replacement, right active 5 ProblemAct [facility] Osteoarthritis of both knees active 2011-07-30 5 ProblemAct [facility] Thrush of mouth and esophagus active 2022-11-28 2 ProblemAct [facility] Esophagitis active 2022-11-28 2 ProblemAct [facility] Spine pain active EncounterDiagnosisAct [facility] Spasm of esophagus active 2022-11-28 2 ProblemAct [facility] Cervical spondylosis without myelopathy active 2022-11-28 2 ProblemAct [facility] Headache, chronic daily active 2012-05-28 8 ProblemAct [facility] Temporal arteritis active 2014-08-29 0 ProblemAct [facility] Dysphagia active 2014-09-28 1 ProblemAct [facility] Excessive sweating active 2017-11-27 9 ProblemAct [facility] Fibromyalgia active 2016-07-29 0 ProblemAct [facility] Erosive gastropathy active 2022-11-28 2 ProblemAct [facility] Overweight active 2006-08-27 3 ProblemAct [facility] Diverticulosis active 2022-11-28 2 ProblemAct [facility] Family history of osteoporosis active 2007-10-29 7 ProblemAct [facility] Vitamin D deficiency active 2012-01-29 8 ProblemAct [facility] Parotid mass active 2014-08-28 1 ProblemAct [facility] JEONG (dyspnea on exertion) active 2021-03-31 2 ProblemAct [facility] Osteopenia active 2012-12-28 4 ProblemAct [facility] Small fiber neuropathy active 2017-11-27 9 ProblemAct [facility] History of total hip replacement active 1 ProblemAct [facility] Stress active 2022-11-28 2 ProblemAct [facility] Generalized osteoarthrosis of hand active 2006-03-30 6 ProblemAct [facility] Neuropathic pain active 2017-11-27 9 ProblemAct [facility] Family history of coronary artery disease active 6 ProblemAct [facility] Antral ulcer active 2015-01-27 8 ProblemAct [facility] Chronic low back pain active 2015-04-29 8 ProblemAct [facility] Insomnia active 6 ProblemAct [facility] Obstructive sleep apnea active 9 ProblemAct [facility] Gastritis active 2022-11-28 2 ProblemAct [facility] Immunizations Vaccine Date Source Lot Number Status Shingrix (PF) 50 mcg/0.5 mL intramuscular suspension, kit 10/01/2024 E[facility]_Access Information ManagementBYCT [id number] co mpleted Fluzone High-Dose Triv 2024 (PF) 180 mcg/0.5 mL IM syringe 01/09/2024 ENS_[facility] Information ManagementBYCT [id number] comple nakul Encounters Encounter Type Encounter Reason Primary Diagnosis Location Date Ambulatory [facility] 10/19/2024 [facility] 10/01/2024 [facility], [facility] 09/29/2024 Ambulatory [facility] 04/25/2024 Ambulatory [facility], [facility] 03/09/2024 Ambulatory Other specified postprocedural states Other specified postprocedural states [facility] 03/01/2024 Ambulatory Cystocele with rectocele [N81.10, N81.6] Cystocele, unspecified [facility] 02/12/2024 Ambulatory [facility] 02/02/2024 Ambulatory [facility], [facility] 01/03/2024 Ambulatory [facility] 12/13/2023 Ambulatory Interstitial cystiti s (chronic) without hematuria Interstitial cystitis (chronic) without hematuria [facility] 12/05/2023 Ambulatory [facility], [facility] 11/29/2023 Ambulatory Interstitial cystiti s (chronic) without hematuria Interstitial cystitis (chronic) without hematuria [facility] 11/28/2023 Ambulatory [facility], [facility] 10/26/2023 Ambulatory [employer] [place] [facility], [facility] 09/07/2023 Ambulatory [facility] 08/04/2023 Ambulatory [facility], [facility] 07[facility]31/2023 Ambulatory [facility], [facility] 07/31/2023 Ambulatory [facility] 07/07/2023 Ambulatory [facility], [facility] 07/07/2023 Ambulatory Urgency of urination Urgency of urination [employer] [employer] [facility] 07/05/2023 Ambulatory Tubulo-interstitial nephritis, not specified as acute or chronic Tubulo-interstitial nephritis, not specified as acute or chronic [employer] [facility] 12/27/2022 Ambulatory Acute cystitis without hematuria Acute cystitis without hematuria [facility] 12/22/2022 Ambulatory Acute cystitis without hematuria Acute cystitis without hematuria [employer] [facility] 12/18/2022 Care Team Organization Name Specialty Phone Email Start Date End Da te [facility] 01/08/2024 [facility] 01/05/2024 [facility] 12/19/2023 09/10/2024 [facility] 12/15/2023 [facility], [facility] 07/07/2023 [employer] [employer] [facility] 03/19/2023 [facility] 12/22/20222024 [employer] [facility] 12/22/20222022 [facility] 12/18/2022 05/15/2024 [facility] NO PCP Primary Care 12/18/2022 12/18/[address] [facility] 01/04/2022 10/16/2023"
== END 2024-11-11 14:33 | disposition home or self-care (01) ==
LOC: HO.HNS 12:58
PROVIDERS: Referring Provider Nurse Practitioner Pediatrics; Visit Provider Physician Assistant
DX: M54.50 Low back pain, unspecified (principal)
CPT/HCPCS: 99204

== ENCOUNTER 2024-11-11 12:57 | Outpatient (REF) | payer MEDICARE, OTHER, SELFPAY ==
--- NOTE | ~2024-11-11 | XR_ITS ---
Examination: Lumbar spine 4 view x-ray TECHNIQUE: AP, and lateral: Flexion, neutral, and extension view x-rays of the lumbar spine. INDICATION: M54.50 - Low back pain, unspecified prior: None FINDINGS: Total hip arthroplasty has been performed bilaterally and is incompletely imaged on this x-ray. There is 13 degrees dextro scoliosis with apex at L4. T12-L1 demonstrates mild disc space narrowing and endplate osteophytes. L1-2 demonstrates moderate disc space narrowing with large anterior osteophyte and small posterior osteophyte. There is degenerative endplate irregularity with sclerosis and cystic change. L2-3 demonstrates mild to moderate disc space narrowing with endplate osteophytes L3-4 demonstrates subtle retrolisthesis without instability during flexion and extension. There is facet sclerosis. L4-5 demonstrates grade 1 anterolisthesis without flexion and extension. There is mild disc space narrowing and endplate osteophytes. There is facet sclerosis. L5-S1 demonstrates minimal disc space narrowing. There is calcification in the disc. There is facet sclerosis. XR/XR lumbar spine 4V min IMPRESSION: There is mild dextro scoliosis with degenerative disc disease and facet osteoarthritis. Electronically signed by: Blue Andre MD 11/11/2024 02:35 PM EDT
== END 2024-11-11 12:58 | disposition home or self-care (01) ==
LOC: HO.HOSX 12:57
PROVIDERS: Referring Provider Nurse Practitioner Pediatrics; Visit Provider Physician Assistant
DX: M43.16 Spondylolisthesis, lumbar region (principal); M48.061 Spinal stenosis, lumbar region without neurogenic claudication; G89.29 Other chronic pain
CPT/HCPCS: 72110; 99202

== ENCOUNTER → 2024-11-11 13:53 | Outpatient (BNV) | payer MEDICARE, OTHER, SELFPAY | PROVIDERS: Referring Provider Nurse Practitioner Pediatrics; Visit Provider Radiology Diagnostic Radiology | DX: M47.816 Spondylosis without myelopathy or radiculopathy, lumbar region (principal) | CPT/HCPCS: 72110 ==

== ENCOUNTER 2025-01-16 16:28 | Outpatient (REF) | payer MEDICARE, OTHER, SELFPAY ==
--- OUTSIDE RECORDS SUMMARY | 2024-02-12 10:30 | XMS_ITS | Encounter Summary ---
Author Organization [employer] [facility] Address [address] [place] [address] Care Team Providers Care Resource Coordinator Name Role Phone Kadie Terrazas NP Primary Care Provider Encounter Details Date Type Department Care Team Description 02/12/2024 10:30 AM EST Hospital Encounter [facility] Main Surgery [address] [place] [address] Sal Holden MD Social History Tobacco Use [...] rectocele documented in this encounter Care Teams Resource Coordinator Relationship Specialty Start Date End Date Kadie Terrazas NP [address] [place] [address] PCP - General Nurse Practitioner 11/14/23 documented as of this encounter
--- NOTE | ~2025-01-16 | CT_ITS ---
EXAMINATION: CT LUMBAR SPINE WITHOUT CONTRAST CLINICAL INFORMATION: M54.50 - Low back pain, unspecified COMPARISON: Radiographs of the lumbar spine on November 11, 2024 TECHNIQUE: CT of the lumbar spine was obtained without administration of intravenous contrast. Images were reformatted in axial, sagittal and coronal planes. This CT examination was performed using dose optimization techniques as appropriate, variously including the following: *Automated exposure control *Adjustment of mA and/or kV according to patient size (this includes techniques or standardized protocols for targeted exams where dose is matched to indication/reason for exam; i.e. extremities or head) *Use of iterative reconstruction technique FINDINGS: Alignment: Mild dextrocurvature of the lumbar spine centered at L4. Grade 1 retrolisthesis of L3 on L4. Minimal grade 1 anterolisthesis of L4 on L5. Vertebrae: Vertebral body heights are maintained. Marginal osteophytes at multiple levels, the largest on the right side at L1-L2. Posterior elements are intact. Intervertebral discs: Various degrees of disc space narrowing, more pronounced on the right side at T12-L1 and L1-2, on the left at L4-L5 and diffusely at L5-S1. Soft tissues: Posterior paraspinal soft tissues are unremarkable. Other findings: Mild vascular calcifications. Sacroiliac joints are intact. Level by level analysis: T12-L1: Minimal bulging disc. No spinal canal or neuroforaminal stenosis. L1-L2: Mild bulging disc. Facet arthropathy. Mild right neuroforaminal stenosis. No spinal canal or left neuroforaminal stenosis. L2-L3: Bulging disc. Prominent left side facet arthropathy. No spinal canal or neuroforaminal stenosis. L3-L4: Bulging disc and prominent bilateral facet arthropathy. Moderate bilateral neuroforaminal stenosis. No spinal canal stenosis. L4-L5: Mild bulging disc. Prominent bilateral facet arthropathy. Evidence of previous right laminectomy. Moderate left and mild right neuroforaminal stenosis. Moderate spinal canal stenosis. L5-S1: Bulging disc. Bilateral facet arthropathy. Moderate bilateral neuroforaminal stenosis, right greater than left. No spinal canal stenosis. CT/CT lumbar spine wo IV con IMPRESSION: Multilevel moderate degree of degenerative changes. Moderate spinal canal stenosis at L4-L5. Moderate neuroforaminal stenosis bilaterally at L3-L4, on the left at L4-L5, and bilaterally at L5-S1. Electronically signed by: Cele Reeder MD 01/17/2025 07:56 AM [facility]
--- OUTSIDE RECORDS SUMMARY | 2025-01-16 20:58 | XMS_ITS | Continuity of Care Document ---
Author Organization [place] - [facility], [facility] Address [address] [place] [address] Care Team Providers Care Inpatient Services Rn Name Role Phone RACIEL BETTS Neurologist [facility] Milk Driver YEFRI GARCIA Manager Economic JAMESON QUINTANA Photo Finish Photographer [phone] Assessment No assessment recorded. Plan of Treatment Reminders Order Date Submit Date Provider Last Modified By Organization Details Last Modified Time Details Appointments MEDICARE ANNUAL WELLNESS 60 2025 10:15A M Kadie Terrazas, ANGELLA Not available Not available Not available Lab None recorded. Referral gastroent erologist referral - The patient requests to see Dr Daja Perkins. Seeking a second opinion for mesenteri c panniculi tis. 2024 025 ATHENAX [facility] Gastroenterol ogy, [facility] [place], [address], 12/24/2024 08:25:17 Procedures None recorded. Surgeries None recorded. Imaging US, axilla - at least 6 months of intermitt ent pain right axilla triggered by wearing certain bras, mammogram completed in 05/2024 025 grabiel [facility], [address] [place], [address], 12/23/2024 13:44:47 Medication Orders None recorded. Patient TargetsNo targets recorded. Patient InstructionsNo instructions recorded. 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 Referring Physician: Kadie Terrazas, [facility] Medicine, Encounter Date: 12/23/2024 Problems Name Problem SNOMED Code Status Onset Date Resolution Date Notes Provider Name and Address Organization Details Recorded Time Chronic diarrhea 099841848 Active 2013 Nathaly Sam-Co oper null, [place] - [facility] 4 11:15:47 Arthriti s of right hip 23965256548 02416 Active 2019 Nathaly Sam-Co oper null, [place] [facility] [place] 4 11:15:47 Anxiety 84219283 Active 2023 ANGELLA Hatch [facility], [place], [address], [email or web address] 4 12:47:18 Arthriti s 5184740 Active [address], [place], [address], [employer] [facility] [employer] [facility] 4 12:47:26 History of depressi on 118659162 Active 2023 ANGELLA Hatch [facility], [place], [address], [employer] [email or web address] 4 12:47:38 Gastroes ophageal reflux disease 966278303 Active [address] [place], [address], [place] [employer] [facility] [employer] [facility] 4 12:47:45 Gout 08363708 Active [address] [place], [address], [email or web address] 4 12:47:49 Irritabl e bowel syndrome 37820976 Active [address] [place], [address], [email or web address] 12:47:58 Migraine 74375400 Active 2023 ANGELLA Hatch [facility], [place], [address], [employer] [facility] 12:48:06 Osteopor osis 30408726 Active 2023 ANGELLA [address] , [place], [address], [employer] [facility] 12:48:12 Sleep apnea 34856113 Active [address], [place], [address], [employer] [facility] 12:48:20 Gastric ulcer 014932612 Active [address], [place], [address], [employer] [facility] 12:48:31 Disorder of cornea 28252495 Active 2023 Fuches Corneal Dystroph y ANGELLA Hatch , [place], [address] , [email or web address] 12:48:50 Small fiber neuropat hy 945040386 Active [address] [place], [address], [employer] [facility] 12:49:01 Iron deficien cy anemia 08804382 Active [address] [place], [address] , [employer] [facility] 12:51:58 Mixed hyperlip idemia 016920621 Active [address], [place], [address], [employer] [facility] 4 12:52:28 Vitamin D deficien cy 78927227 Active 2023 Kadie Terrazas APRN [address] [facility], [place], [address], [employer] [facility] [employer] [facility] 4 12:52:59 Prediabe lesly 492362364 Active 2023 Kadie Terrazas APRN [address] [facility], [place], [address], [place] [employer] [facility] 4 12:53:28 Recurren t urinary tract infectio n 957056811 Active 2023 Kadie Terrazas APRN [address] [facility], [place], [address] , [employer] [facility] 4 13:01:07 Chronic intersti tial cystitis 529164744 Active 2023 Kadie Terrazas APRN [address] [facility], [place], [address], [place] [employer] [facility] 4 13:02:38 Nocturia 290792989 Active 2023 Nathaly Sam-Co oper null, [place] [employer] [facility] 4 11:15:47 Cystocel e 924646649 Active 2023 Nathaly Sam-Co oper null, [employer] [facility] 4 11:15:47 Urgent desire to urinate 86112811 Active 2023 Nathaly Sam-Co oper null, [employer] [facility] 4 11:15:47 Tinnitus 54330738 Active 2023 Kadie Terrazas APRN [address] [facility], [place], [address] , [employer] [facility] [employer] [facility] 4 10:00:04 Dyspnea 212302919 Completed 202310/02/2024 Kaide Terrazas APRN [address] [facility], [place], [address] , [email or web address] 5 15:08:51 Chronic insomnia 845914185 Active 2024 ANGELLA Hatch [facility], [place], [address], [email or web address] 5 15:30:03 At increase d risk for falls 253360917 Active 2024 ANGELLA Hatch [facility], [place], [address], [email or web address] 5 15:32:20 Osteoart hritis of lumbar spine Active 2024 ANGELLA [address] , [place], [address], [email or web address] 5 11:24:42 Mild major depressi on 11410175 Active 2024 ANGELLA Hatch [facility], [place], [address], [email or web address] 5 16:27:39 Problem Notes None recorded. Procedures Surgical History Date Name Laterality Status Provider Name and Address Organization Details Recorded Time 2024 EGFPCVRiskCounsel Z7182 HTN HL CAD & Z713 completed ANGELLA Hatch [facility], [place], [address] , [email or web address] 5 15:21:32 2024 UDWFSwgovprzqqqR9241 completed ANGELLA Hatch [facility], [place], [address] , [email or web address] 5 09:08:45 2024 EGFPMammogramReport Z1231 completed ANGELLA Hatch , [place], [address] , [email or web address] 5 15:22:01 2024 EGFPDEXAReport R24250 completed ANGELLA [address] , [place], [address] , [employer] 5 15:21:39 2024 EGFPObesityBMI Z7182; Z713 [address], [place], [address] , [email or web address] 5 09:08:01 2024 EGFPCervicalCancerScreen Z124 [address], [place], [address] , [email or web address] 5 09:08:56 2024 EGFPFunctionalStatus w/AWV Z[address], [place], [address] , [email or web address] 5 15:21:42 2024 HSQOJriKxdvkfZmqokniqJ4979 completed [address], [place], [address] , [email or web address] 5 16:15:40 2024 EGFPDepScreen[+]&f/cG8221 completed [address], [place], [address] , [email or web address] 5 15:21:52 2024 Most Recent Mammogram completed [address], [place], [address] , [email or web address] 5 10:58:04 2021 colonoscopy completed [address], [place], [address] , [email or web address] 4 12:55:16 2021 endoscopy completed [address], [place], [address] , [email or web address] 5 15:12:56 2019 Date of Last Pap Smear completed Kadie Terrazas APRN [address] [facility], [place], [address] , [facility] 4 12:49:30 repair of vaginal wa ll prolapse completed Kadie Terrazas APRN [address], [place], [address] , [facility] 4 10:18:11 Imaging Results None recorded. Procedure Notes None recorded. Medical Equipment None Reported. Allergies Allergen ID Allergen Name Allergen Category Reaction Reaction Severity Criticality Documentation Date Start Date Code Code System Note Provider Name and Address Organization Details Recorded Time 76227 prednison e medicatio n Not available Not available Not available 07/31/2023 8640 RxNorm Ulcer s; ok with low dose short durat ion Nathaly Vargas-Co oper null, [facility] 4 11:15:46 [address] No known allergy (situatio n) Not available Not available Not available Not available 01/09/2024 33457 6003 SNOMED Kadie Terrazas APRN [address] [facility], [place], [address], [facility] 4 09:44:35 Medications Name Sig Start Date Stop Date Status Note LastModified by Organization Details LastModified Time oxcarbazepi ne 150 mg tablet 01/08 completed Not Available Not Available Not Available gabapentin 600 mg tablet TAKE 1 TABLET BY MOUTH IN THE AFTERNOON AND 1 TABLET EVERY NIGHT AT BEDTIME 10/01 completed Not Available Not Available Not Available atorvastati n 20 mg tablet TAKE 1 TABLET BY MOUTH EVERY DAY IN THE EVENING active Not Available Not Available No t Available loperamide 2 mg capsule TAKE 1 CAPSULE BY MOUTH FOUR TIMES DAILY NEEDED FOR DIARRHEA active Not Available Not Available No t Available trazodone 50 mg tablet TAKE 1 TABLET BY MOUTH EVERYDAY AT BEDTIME active Not Available Not Available No t Available meloxicam 15 mg tablet TAKE 1 TABLET BY MOUTH EVERY DAY NEEDED active Not Available Not Available No t Available sucralfate 1 gram tablet TAKE 1 TABLET BY MOUTH DAILY 1 HOUR BEFORE A MEAL NEEDED FOR ABDOMINAL PAIN active Not Available Not Available No t Available phenazopyri dine 200 mg tablet TAKE 1 TABLET BY MOUTH THREE TIMES DAILY AFTER MEALS FOR 2 DAYS 07/30 completed Not Available Not Available Not Available ondansetron HCl 4 mg tablet TAKE 1 TABLET (4 MG TOTAL) BY MOUTH EVERY 8 (EIGHT) HOURS IF NEEDED FOR NAUSEA FOR UP TO 10 DAYS. active Not Available Not Available No t Available prednisone 20 mg tablet TAKE 3 TABS DAILY FOR 7 DAYS, THEN 2 TABS DAILY FOR 2DAYS, THEN 1 TAB X 2DAYS, THEN 1/2 TAB X 2DAYS 10/02 completed Not Available Not Available Not Available diphenoxyla te-atropine 2.5 mg-0.025 mg tablet TAKE 1 TABLET BY MOUTH FOUR TIMES DAILY NEEDED FOR DIARRHEA active Not Available Not Available No t Available topiramate 25 mg tablet TAKE 2 TABLETS BY MOUTH 2 TIMES A DAY. 10/02 completed Not Available Not Available Not Available metronidazo le 500 mg tablet TAKE 1 TABLET BY MOUTH 3 TIMES A DAY FOR 10 DAYS NO MOUTHWASH /ALCOHOL UNTIL 48 HOURS AFTER LAST DOSE 09/28 completed Not Available Not Available Not Available levofloxaci n 250 mg tablet 1 BY MOUTH THE DAY BEFORE FOR THE PROCEDURE THE DAY OF THE PROCEDURE AND THE DAY AFTER THE PROCEDURE 01/08 completed Not Available Not Available Not Available ciprofloxac in 500 mg tablet TAKE 1 TABLET BY MOUTH TWICE A DAY FOR 10 DAYS 09/28 completed Not Available Not Available Not Available sulfamethox azole 800 mg-trimetho prim 160 mg tablet TAKE 1 TABLET BY MOUTH TWICE DAILY 07/30 completed Not Available Not Available Not Available omeprazole 40 mg capsule,del ayed release TAKE ONE CAPSULE ORALLY TWICE A DAY 30 MINUTES BEFORE MEALS. active Not Available Not Available No t Available propranolol 10 mg tablet TAKE 1 TABLET BY MOUTH TWICE A DAY active Not Available Not Available No t Available dicyclomine 20 mg tablet TAKE 1 TABLET (20 MG TOTAL) BY MOUTH 3 (THREE) TIMES A DAY IF NEEDED (ABDOMEN PAIN, DIARRHEA) . active Not Available Not Available No t Available dexamethaso ne 1 mg tablet TAKE 1 TABLET BY MOUTH ONCE AT 11PM 01/08 completed Not Available Not Available Not Available baclofen 10 mg tablet TAKE 1 TABLET BY MOUTH TWICE A DAY NEEDED FOR MUSCLE SPASMS active Not Available Not Available No t Available nortriptyli ne 10 mg capsule 01/08 completed Not Available Not Available Not Available pyridostigm ine bromide 60 mg tablet 01/08 completed Not Available Not Available Not Available gabapentin 300 mg capsule TAKE 1 CAPSULE BY MOUTH TWICE A DAY active Not Available Not Available No t Available oxcarbazepi ne 600 mg tablet 07/30 completed Not Available Not Available Not Available pyridostigm ine bromide ER 180 mg tablet,exte nded release TAKE 1 TABLET BY MOUTH EVERY DAY active Not Available Not Available No t Available diclofenac sodium 50 mg tablet,amena yed release TAKE 1 TABLET BY MOUTH EVERY 6 HOURS FOR 10 DAYS. DO NOT CRUSH, CHEW, OR SPLIT. 10/02 completed Not Available Not Available Not Available gabapentin 100 mg capsule 01/08 completed Not Available Not Available Not Available budesonide DR - ER 3 mg capsule,del ayed,extend ed release PLEASE SEE ATTACHED FOR DETAILED DIRECTION S active Not Available Not Available No t Available estradiol 0.01% (0.1 mg/gram) vaginal cream 01/07 completed Not Available Not Available Not Available dicyclomine 10 mg capsule TAKE 1 CAPSULE BY MOUTH FOUR TIMES DAILY BEFORE MEALS AND AT NIGHT prn 10/02 completed Not Available Not Available Not Available amoxicillin 875 mg-potassiu m clavulanate 125 mg tablet TAKE 1 TABLET BY MOUTH TWICE DAILY 07/30 completed Not Available Not Available Not Available Laxative (bisacodyl) 5 mg tablet,amena yed release TAKE 2 TABLETS BY MOUTH RIGHT BEFORE YOUR FIRST DOSE OF LIQUID PREP. 07/30 completed Not Available Not Available Not Available cholestyram ine (with sugar) 4 gram powder for susp in a packet MIX AND DRINK 1 PACKET BY MOUTH THREE TIMES DAILY WITH MEALS 07/30 completed Not Available Not Available Not Available topiramate 50 mg tablet TAKE 1 TABLET BY MOUTH TWICE A DAY active Not Available Not Available No t Available nitrofurant oin monohydrate /macrocryst als 100 mg capsule TAKE 1 CAPSULE (100 MG TOTAL) BY MOUTH AT BEDTIME FOR 3 DAYS. 10/02 completed Not Available Not Available Not Available duloxetine 30 mg capsule,del ayed release TAKE 1 CAPSULE BY MOUTH EVERY DAY 2024 active Not Available Not Available Not Avai lable melatonin active Not Available Not Daysi ilable Not Available ferrous sulfate 10/02 completed Not Available Not Available Not Available Advil Migraine prn active Not Available Not Available Not Available CoQ-10 10/02 completed Not Available Not Available Not Available GaviLyte-G 236 gram-22.74 gram-6.74 gram-5.86 gram oral solution PLEASE SEE ATTACHED FOR DETAILED DIRECTION S 07/30 completed Not Available Not Available Not Available Yuvafem 10 mcg vaginal tablet INSERT 1 TABLET INTO THE VAGINA 3 TIMES A WEEK. active Not Available Not Available No t Available lidocaine 5 % topical patch-adhes shai silicone combo pack 01/29 completed Not Available Not Available Not Available D3-5000 125 mcg (5,000 unit) capsule Take by oral route. 10/02 completed Not Available Not Available Not Available Vitals Date Recorded Body height Body mass index (BMI) Body weight Body temperature Oxygen saturation Heart rate Systolic And Diastolic Provider Name and Address Organization Details Last Updated DateTime 167.64 cm 30.2 kg/m2 28690.7 7 g 98.8 [degF] 98 % 63 /min 125/80 mm[Hg] Melinda Guerrier [facility] 13:04:10 Social History Question Answer Notes LastModified by Organization Details LastModified Time Tobacco Smoking Status Never Smoker Lizbeth pearson [facility] 10/01/2024 15:23:03 Do You Have An Advance Directive? Yes [email or web address] Information not available 10/01/2024 Do You Wear A Helmet When Biking? Yes [email or web address] Information not available 10/01/2024 Are You Blind Or Do You Have Difficulty Seeing? Yes Wears Glasses , Genetic Problem With Eyes Information not available 10/01/2024 Is Blood Transfusion Acceptable In An Emergency? Yes [email or web address] Information not available 10/01/2024 What Is Your Code Status? Full Code Information not available 10/01/2024 Are You Deaf Or Do You Have Serious Difficulty Hearing? Yes Teniditis [email or web address] Information not available 10/01/2024 What Type Of Diet Are You Following? REGULAR [email or web address] Information not available 10/01/2024 Have There Been Any Changes To Your Family Or Social Situation? No [email or web address] Information not available 10/01/2024 What Is The Fluoride Status Of Your Home? Non-fluoridated [email or web address] Information not available 10/01/2024 Are There Any Guns Present In Your Home? Yes Information not available 10/01/2024 Which Of Your Hands Is Dominant? Right [email or web address] Information not available 10/01/2024 [facility] [email or web address] Information not available 10/01/2024 What Was The Date Of Your Most Recent Tobacco Screening? 10/01/2024 [email or web address] Information not available 10/01/2024 How Many Children Do You Have? 2 [email or web address] Information not available 10/01/2024 Do You Have Any Pets? Yes [email or web address] Information not available 10/01/2024 What Is Your Relationship Status? [email or web address] Information not available 10/01/2024 Do You Use Your Seat Belt Or Car Seat Routinely? Yes [email or web address] Information not available 10/01/2024 Are You Sexually Active? Yes Information not available 10/01/2024 Do You Have Any Siblings? 1 [email or web address] Information not available 10/01/2024 Do You Have Smoke And Carbon Monoxide Detectors In Your Home? Yes [email or web address] Information not available 10/01/2024 Are There Any Smokers In Your House? No [email or web address] Information not available 10/01/2024 Do You Participate In Social Media? Yes Information not available 10/01/2024 What Types Of Sporting Activities Do You Participate In? None [email or web address] Information not available 10/01/2024 Do You Use Sunscreen Routinely? No [email or web address] Information not available 10/01/2024 Has Tobacco Cessation Counseling Been Provided? No [email or web address] Information not available 10/01/2024 Do You Have Difficulty Walking Or Climbing Stairs? Yes [email or web address] Information not available 10/01/2024 Are You Currently In School? No [email or web address] Information not available 10/01/2024 Sex: Unknown Functional Status Question Answer Note LastModified by Organization Details LastModified Time Do you use any illicit or recreational drugs? No [email or web address] Information not available 10/01/2024 Do you or have you ever used any other forms of tobacco or nicotine? No [email or web address] Information not available 10/01/2024 What is your level of alcohol consumption? None [email or web address] Information not available 10/01/2024 Are you currently employed? No Information not available 10/01/2024 Do you have transportation difficulties? No Information not available 10/01/2024 Are you able to walk independently without assistance or assistive devices? YESWOREST [email or web address] Information not available 10/01/2024 Do you have difficulty doing errands alone? No [email or web address] Information not available 10/01/2024 Are you able to care for yourself independently? Yes [email or web address] Information not available 10/01/2024 Do you have difficulty dressing, bathing, grooming, or toileting? No [email or web address] Information not available 10/01/2024 What type of noise exposure are you exposed to? noExposureToExcessiveNoise [email or web address] Infor mation not available 10/01/2024 Mental Status Question Answer Note LastModified by Organizat ion Details LastModified Time Do you feel stressed (tense, restless, nervous, or anxious, or unable to sleep at night)? [id number] [email or web address] Information not available 10/01/2024 Do you have difficulty concentrating, remembering or making decisions? No Information no t available 10/01/2024 Family History Relationship Description Onset Age of this Age Resolved Age Notes LastModified by Organization Details LastModified Time Father No current problems or disability [email or web address] Not available 07/30 12:58:52 Mother No current problems or disability [email or web address] Not available 07/30 12:58:52 Notes:Father: age 7 6 emphysema Mother: age 88 osteoporosis, depression, COPD, hip fx PGF: alcoholism PGM: no concerns MGF: [place] MGM: osteoporosis, depression Brother: age 52 [place] Son: age 5 accident 2 yordy;ghters healthy, youngest daughter has genetic issues from paternal side- born with concave chest, had BRCAA with recent mastectomy Medical History No medical history recorded. Gynecological History Statement/Question Response Abnormal Pap N Sexually Active? Y Menses Monthly N STIs/STDs N Date of Last Pap Smear 02/27/2019 Sexual Problems? N Current Control Method None Most Recent Mammogram 06/10/2024 Obstetrics History GPAL:G 0 P 0 0 0 0 Immunizations Vaccine Type Date Status Note Provider Nam e and Address Organization Details Recorded Time Influenza, high-dose, trivalent, PF 01/09/2024 completed Kadie Terrazas APRN [address] [facility], [place], [address], [facility] 01/09/2024 12:24:38 zoster recombinant 10/01/2024 completed Kadie Terrazas APRN [address] [facility], [place], [address], [facility] 10/01/2024 16:25:50 zoster recombinant 12/23/2024 completed Kadie Terrazas APRN [address] [facility], [place], [address], [facility] 12/23/2024 13:36:20 Past Encounters Encounter ID Performer Location Encounter Start Date Encounter Closed Date Diagnosis/Indication Diagnosis SNOMED-CT Code Diagnosis ICD10 Code Diagnosis IMO Codes Diagnosis Note [id number] Kadie Terrazas APRN [facility] [address] [place] [address] 12/23/2024 12:50:54 12/23/2024 13:44:47 Active or passive immunization 459815694 Z23 She will get the flu vaccine at a later date. Sclerosing mesenteritis 8953426657 345589 K65.4 [id number] Referral sent to [facility] for Dr Daja Perkins. Pain in axilla 787737476 M79.029 [id number] Will check an ultrasound . Health Concerns Section Related Observation LastModified by Organization Detai ls LastModified Time None Recorded Concern Status LastModified by Organization Details LastModified Time None Recorded Payers Encounter Date Sequence Insurance Name Policy Number Policy Lara Covered Member ID Lara Member ID Guarantor Name 12/23/2024 1 MEDICARE B-CT: NGS Chana Bassett [id number] Chana Bassett 12/23/2024 2 [facility] (MEDICARE SUPPLEMENT) Chana Bassett [id number] Chana Bassett Notes Date Note Type Note Provider Name and Address Organization Details Recorded Time 12/23/2024 text/html After a CT scan, 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 The repeat scan showed the condition had only improved slightly, it was described to her as a 'shadow on the kidney'. The recommended treatment was another round of antibiotics or get a second opinion. She was hoping the provider she saw, who was a PA, would have consulted with one of the MD's at the practice but since that didn't happen she would like to see someone else and gave me a name. Seen by the spinal ortho for chronic back pain and was told she has severe bone spurs. She needs to go for a different scan next month and then follow up again but not sure if surgery is an option. This visit gave her hope that there is a fix for her pain. She was prescribed duloxetine in September for depression but never started it, and doesn't think she needs it right at this time. For at least 6 months she has had intermittent pain in the right axillary area. Wearing certain bras for a few days triggers it (if they come up too high near the armpit). She will go without a bra for a few days and it goes away. She feels the area gets swollen. She hasn't seen any redness and it's not tender to touch. Changing positions makes the pain better. Mammogram done in 05/2024 and wnl. She hasn't noticed any breast changes. Kadie Terrazas, TABULAR TYPIST [address] [facility], [place], [address], [place] [facility] 12/23/2024 20:14:44 OBGyn Episode No OBEpisode recorded.
--- OUTSIDE RECORDS SUMMARY | 2025-01-16 20:58 | XMS_ITS | Encounter Summary ---
Author Organization [facility] Address [address] [place] [address] [place] [phone] Phone Care Team Providers Care Spotter Name Role Phone Henri Cruz MD Primary Care Provider Kadie Terrazas NP Primary Care Provider [phone] Encounter Details Date Type Department Care Team (Late st Contact Info) Description 03/28/2019 Procedure Pass [facility] MRI, Tristan [address] [facility], 2nd [place] [address] Social History Tobacco Use Types Packs/Day Years [...] as of this encounter Plan of Treatment Upcoming Encounters Date Type Department Care Team (Late st Contact Info) Description 05/19/2025 10:00 AM EDT Office Visit [facility] Department of Neurology [address] [facility], 8th Floor, [address] [place] [address] Lauro Cedeño MD, PhD [address] [address] [email or web address] documented as of this encounter Visit Diagnoses Not on filedocumented in this encounter Care Teams Spotter Relationship Specialty Start Date End Date Henri Cruz MD [address] [place] [address] PCP - General Internal Medicine 01/11/17 11/11/24 Kadie Terrazas NP [address] [place] [address] PCP - General Nurse Practitioner 11/12/24 documented as of this encounter Additional Source Comments The information contained in this document represents components of the legal health record. It is not the complete legal health record.[facility]
--- OUTSIDE RECORDS SUMMARY | 2025-01-16 20:58 | XMS_ITS | Encounter Summary ---
Author Organization [facility] Address [address] [facility] [address] [place] [address] Phone Care Team Providers Care Location Analyst Name Role Phone Henri Cruz MD Primary Care Provider Kadie Terrazas NP Primary Care Provider [phone] Encounter Details Date Type Department Care Team (Late st Contact Info) Description 06/11/2019 Procedure Pass [facility] Cardiac Institutional Custodian [address] [place] [address] Social History Tobacco Use Types Packs/Day Years [...] Description 05/19/2025 10:00 AM EDT Office [place] [facility] [place] [address] [facility], 8th Floor, [address] [place] [address] Lauro Cedeño MD, PhD [address] [place] [phone] [email or web address] documented as of this encounter Visit Diagnoses Not on filedocumented in this encounter Care Teams Location Analyst Relationship Specialty Start Date End Date Henri Cruz MD [address] [place] [address] PCP - General Internal Medicine 01/11/17 11/11/24 Kadie Terrazas NP 13 [place] [address] PCP - General Nurse Practitioner 11/12/24 documented as of this encounter Additional Source Comments The information contained in this document represents components of the legal health record. It is not the complete legal health record.[facility]
--- OUTSIDE RECORDS SUMMARY | 2025-01-16 20:58 | XMS_ITS | Encounter Summary ---
Author Organization [facility] Address [address] [place] [address] Care Team Providers Care Precision Assembler Bench Name Role Phone Kadie Terrazas Primary Care Provider Encounter Details Date Type Department Care Team (Late Contact Info) Description 11/24/2024 Results Follow-Up Gastroenterology - [place] [address] [facility] [address] [facility] [address] [place] [id number] Brenda Mark PA [address] [place] [address] Social History Tobacco Use Types Packs/Day Years [...] PM EST Sexual Orientation Not on file documented as of this encounter Progress Notes * JOHN Shanks - 11/24/2024 3:42 PM EDT I will send msg. documented in this encounter Plan of Treatment Upcoming Encounters Date Type Department Care Team (Late st Contact Info) Description 01/28/2025 10:30 AM EST Procedure visit Urogynecology - [place] [address] [place] [address] Suzanne Hernandez, ASSIGNMENT EDITOR [address] [facility] [place] [address] Cathy Roberts RN 02/04/2025 10:00 AM EST Procedure visit Urogynecology - [place] [address] [facility] [place] [address] Suzanne Hernandez, ASSIGNMENT EDITOR [address] [facility] [place] [address] Cathy Roberts RN 02/11/2025 10:00 AM EST Procedure visit Urogynecology - [place] [address] [facility] [place] [address] Suzanne Hernandez, ASSIGNMENT EDITOR [address] [address] Cathy Roberts RN 02/13/2025 11:10 AM EST Office Visit Gastroenterology - [address] [address] Brenda Mark PA [address] [address] 02/18/2025 9:30 AM EST Procedure visit Urogynecology - [place] [address] [facility] [place] [address] Cathy Roberts, RN documented as of this encounter Visit Diagnoses Not on filedocumented in this encounter Care Teams Precision Assembler Bench Relationship Specialty Start Date End Date Kadie Terrazas 13 [place] [address] PCP - General 11/14/23 documented as of this encounter
--- OUTSIDE RECORDS SUMMARY | 2025-01-16 20:58 | XMS_ITS | Encounter Summary ---
Author Organization [facility] Address [address] [place] [address] [place] [address] Phone Care Team Providers Care Landfill Gas Collection System Operator Name Role Phone Henri Cruz MD Primary Care Provider Kadie Terrazas NP Primary Care Provider [phone] Reason for Referral * Consultation (Elective) - Closed Specialty Diagnoses / Procedures Referred By Katherine elliott Referred To Contact Neurology Diagnoses Encounter for consultation System, Provider Not In, PhD [id number] [place] [phone] Phone: tel: Referral ID Status Reason Start Date Expiration Date Visits Re quested Visits Authorized [id number] Closed 03/02/2017 03/02/2018 1 1 Encounter Details Date Type Department Care Team (Late st Contact Info) Description 03/02/2017 Transcribe Orders [facility] Department of Neurology [address] [place] [address], 8th Floor, [address] [place] [address] Marlene Ayers, [address] [address] Encounter for consultation (Primary Dx) Social History [...] Description 05/19/2025 10:00 AM EDT Office Visit [facility] Department of Neurology [address] [place] [address], 8th Floor, [address] [place] [address] Lauro Cedeño MD, PhD [address] [place] [address] [place] [address] [email or web address] Scheduled Referrals Name Type Priority Associated Diagnoses Orde r Schedule Ambulatory referral to [facility] Neurology Outpatient Referral Routine Encounter for consultation Ordered: 03/02/2017 documented as of this encounter Visit Diagnoses Diagnosis Encounter for consultation- Primary documented in this encounter Care Teams Landfill Gas Collection System Operator Relationship Specialty Start Date End Date Henri Cruz MD [address] [place] [address] PCP - General Internal Medicine 01/11/17 11/11/24 Kadie Terrazas NP 13 [place] [address] PCP - General Nurse Practitioner 11/12/24 documented as of this encounter Additional Source Comments The information contained in this document represents components of the legal health record. It is not the complete legal health record.[facility]
--- OUTSIDE RECORDS SUMMARY | 2025-01-16 20:58 | XMS_ITS | Encounter Summary ---
Author Organization [facility] Address [address] [place] [address] [place] [address] Phone Care Team Providers Care Eyewear Manufacturing Tech Name Role Phone Henri Cruz MD Primary Care Provider Kadie Terrazas NP Primary Care Provider Encounter Details Date Type Department Care Team (Late st Contact Info) Description 01/09/2017 Orders Only [facility] NEUROLOGY VIRTUAL DEPARTMENT [address] [place] [phone] Interface Provider, Scanning Social History Tobacco Use [...] Encounters Date Type Department Care Team (Late Contact Info) Description 05/19/2025 10:00 AM EDT Office Visit [facility] Department of Neurology [address] [place] [address], 8th Floor, [address] [place] [address] Lauro Cedeño MD, PhD [address] [place] [phone] [email or web address] documented as of this encounter Visit Diagnoses Not on filedocumented in this encounter Care Teams Eyewear Manufacturing Tech Relationship Specialty Start Date End Date Henri Cruz MD [address] [place] [address] PCP - General Internal Medicine 01/11/17 11/11/24 Kadie Terrazas NP [address] [place] [address] PCP - General Nurse Practitioner 11/12/24 documented as of this encounter Additional Source Comments The information contained in this document represents components of the legal health record. It is not the complete legal health record.[facility]
--- OUTSIDE RECORDS SUMMARY | 2025-01-16 20:58 | XMS_ITS | Data Portability ---
Author Organization [place] - [facility], [facility] Address [address] [place] [address] Care Team Providers Care [employer] Name Role Phone RACIEL BETTS Neurologist [facility] Director Of Government Sales YEFRI GARCIA Director Design [phone] JAMESON QUINTANA Slide Maker Assessment No assessment recorded. Plan of Treatment Reminders Order Date Submit Date Provider Last Modified By Organization Details Last Modified Time Details Appointments MEDICARE ANNUAL WELLNESS 60 2025 10:15A M Kadie Terrazas, DIRECTOR OF PROFESSIONAL SERVICES Not available Not available Not available Lab uric acid, serum or plasma 2024 025 [facility], [address], [place], [address], 10/12/2024 00:46:26 CMP, serum or plasma 2024 025 [facility], [address], [address], [place], [address], 10/12/2024 00:46:27 lipid panel, serum 2024 025 [facility], [address], [address], [place], [address], 10/12/2024 00:46:24 TSH, serum or plasma 2024 025 [facility], [address], [address], [place], [address], 10/12/2024 00:46:28 vitamin B12, serum 2024 025 [facility], [address], [address], [place], [address], 10/12/2024 00:46:29 magnesium , serum or plasma 2024 025 [facility], [address], [address], [place], [address], 10/12/2024 00:46:25 HbA1c (hemoglob in A1c), blood 2024 025 [facility], [address], [address], [place], [address], 10/12/2024 00:46:30 vitamin D, 25-hydrox y, total, serum 2024 025 [facility], [address], [address], [place], [address], 10/12/2024 00:46:30 iron + TIBC + ferritin, serum 2024 025 [facility], [address], [address], [place], [address], 10/12/2024 00:46:23 CBC w/ auto diff 2024 025 [facility], [address], [address], [place], [address], 10/12/2024 00:46:27 CBC w/ auto diff 2023 024 [facility], [address], [address], [place], [address], 01/31/2024 07:39:58 BMP, serum or plasma 122023 [facility], [address], [address], [place], [address], 01/31/2024 07:39:57 TSH, serum or plasma 2023 [facility], [address], [address], [place], [address], 08/01/2023 18:22:27 urinalysi s, dipstick 2023 [email or web address], [address], [place], [address], 07/31/2023 15:21:00 Referral gastroent erologist referral - The patient requests to see Dr Daja Perkins. Seeking a second opinion for mesenteri c panniculi tis. 2024 [facility], [address], [place], [address], 12/24/2024 08:25:17 orthopedi c spine surgeon referral - Please evaluate for chronic back pain and disc disease.- DEXA ordered 2024 [facility], [address] [place] [address] [place], [address], 10/02/2024 15:59:12 orthopedi c spine surgeon referral - The patient would like a second opinion on the recommend ation to get a left SI joint injection from Dr Latif. MRI from 07/2023 and sports medicine note attached. Waiting to receive 2nd MRI result and then will forward. Thank you. 2023 024 [facility], [address], [place], [address], 01/09/2024 13:11:42 urogyneco logist referral - Please evaluate for interstit ital cystitis. Thank you. 2023 024 HONG Jaimes MD, [address], [place], [address], 10/19/2023 07:16:37 Procedures None recorded. Surgeries None recorded. Imaging US, axilla - at least 6 months of intermitt ent pain right axilla triggered by wearing certain bras, mammogram completed in 05/2024 025 [email or web address], [address] [place], [address], 12/23/2024 13:44:47 DEXA, axial skeleton 2024 025 [email or web address], [address] [facility], [place], [address], 10/01/2024 16:41:50 electroca rdiogram 2023 024 [email or web address], [address], [place], [address], 01/30/2024 11:14:19 Medication Orders duloxetin e 30 mg capsule,d elayed release 2024 025 [employer] [facility][id number], [address] [place] [address], [address], 11/25/2024 07:34:05 Patient TargetsNo targets recorded. Patient InstructionsNo instructions recorded. Reason for Referral Urogynecologist Referral for Increased frequency of urination Please evaluate for interstitital cystitis. Thank you. Referring Physician: Kadie Terrazas, Family Medicine, Encounter Date: 07/31/2023 Orthopedic Spine Surgeon Ref erral for Chronic low back pain The patient would like a second opinion on the recommendation to get a left SI joint injection from Dr Latif. MRI from 07/2023 and sports medicine note attached. Waiting to receive 2nd MRI result and then will forward. Thank you. 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 Referring Physician: Kadie Terrazas, [facility], Encounter Date: 12/23/2024 Results Created Date Observation Date Name Description Value Unit Range Abnormal Flag Note LastModifiedBy Organization Detail LastModifiedTime 01/31/20 24 01/31/2024 BASIC METAB OLIC PANEL glucose 89 mg/dL 65-99 normal Fasti ng refer ence inter radha Not Available [facility] [address], [address], 01/31/2024 07:39:57 01/31/20 24 01/31/2024 BASIC METAB OLIC PANEL urea nitrogen (BUN) 16 mg/dL 7-25 normal Not Available [facility] [address], [address], 01/31/2024 07:39:57 01/31/20 24 01/31/2024 BASIC METAB OLIC PANEL creatinine 0.60 mg/dL 0.60-1 .00 normal Not Available [facility] [address], [address], 01/31/2024 07:39:57 01/31/20 24 01/31/2024 BASIC METAB OLIC PANEL eGFR 95 mL/mi n/1.7 3m2 > or = 60 normal Not Available [facility] [address], [address], 01/31/2024 07:39:57 01/31/20 24 01/31/2024 BASIC METAB OLIC PANEL BUN/creatini ne ratio SEE NOTE: (calc ) 6-22 Not Repor nakul: BUN and Creat inine are withi n refer ence range . Not Available [facility] [address], [place], [address], 01/31/2024 07:39:57 01/31/20 24 01/31/2024 BASIC METAB OLIC PANEL sodium 142 mmol/ L 135-14 6 normal Not Available [facility] [place] [facility] [address], [place], [address], 01/31/2024 07:39:57 01/31/20 24 01/31/2024 BASIC METAB OLIC PANEL potassium 4.0 mmol/ L 3.5-5. 3 normal Not Available [facility] [place] [facility] [address], [place], [address], 01/31/2024 07:39:57 01/31/20 24 01/31/2024 BASIC METAB OLIC PANEL chloride 109 mmol/ L 98-110 normal Not Available [facility] [place] [facility] [address], [place], [address], 01/31/2024 07:39:57 01/31/20 24 01/31/2024 BASIC METAB OLIC PANEL carbon dioxide 28 mmol/ L 20-32 normal Not Available [facility] [place] [facility] [address], [place], [address], 01/31/2024 07:39:57 01/31/20 24 01/31/2024 BASIC METAB OLIC PANEL calcium 9.2 mg/dL 8.6-10 .4 normal Not Available [facility] [place] [facility] [address], [place], [address], 01/31/2024 07:39:57 01/31/20 24 01/31/2024 CBC (INCL UDES DIFF/ PLT) white blood cell count 5.1 thous and/u L 3.8-10 .8 normal Not Available [facility] [place] [facility] [address], [place], [address], 01/31/2024 07:39:58 01/31/20 24 01/31/2024 CBC (INCL UDES DIFF/ PLT) red blood cell count 4.74 calli on/uL 3.80-5 .10 normal Not Available [facility] [address], [place], [address], 01/31/2024 07:39:58 01/31/20 24 01/31/2024 CBC (INCL UDES DIFF/ PLT) hemoglobin 13.4 g/dL 11.7-1 5.5 normal Not Available [facility] [address], [place], [address], 01/31/2024 07:39:58 01/31/20 24 01/31/2024 CBC (INCL UDES DIFF/ PLT) hematocrit 41.8 % 35.0-4 5.0 normal Not Available [facility] [place] [facility] [address], [place], [address], 01/31/2024 07:39:58 01/31/20 24 01/31/2024 CBC (INCL UDES DIFF/ PLT) MCV 88.2 fL 80.0-1 00.0 normal Not Available [facility] [address], [place], [address], 01/31/2024 07:39:58 01/31/20 24 01/31/2024 CBC (INCL UDES DIFF/ PLT) MCH 28.3 pg 27.0-3 3.0 normal Not Available [facility] [address], [place], [address], 01/31/2024 07:39:58 01/31/20 24 01/31/2024 CBC (INCL UDES DIFF/ PLT) MCHC 32.1 g/dL 32.0-3 6.0 normal For adult s, a sligh t decre ase in the calcu lated MCHC value (in the range of 30 to 32 g/dL) is most likel y not clini kristopher signi marisol t; kamryn er, it shoul d be inter prete d with cauti on in [facility] n with other red cell joshua eters and the patie nt's clini yahaira condi tion. Not Available [facility] [place] [facility] [address], [place], [address], 01/31/2024 07:39:58 01/31/20 24 01/31/2024 CBC (INCL UDES DIFF/ PLT) RDW 11.9 % 11.0-1 5.0 normal Not Available [facility] [place] [facility] [address], [place], [address], 01/31/2024 07:39:58 01/31/20 24 01/31/2024 CBC (INCL UDES DIFF/ PLT) platelet count 336 thous and/u L 140-40 0 normal Not Available [facility] [place] [facility] [address], [place], [address], 01/31/2024 07:39:58 01/31/20 24 01/31/2024 CBC (INCL UDES DIFF/ PLT) MPV 9.7 fL 7.5-12 .5 normal Not Available [facility] [place] [facility] [address], [place], [address], 01/31/2024 07:39:58 01/31/20 24 01/31/2024 CBC (INCL UDES DIFF/ PLT) absolute neutrophils 3029 cells /uL 1500-7 800 normal Not Available [facility] [place] [facility] [address], [place], [address], 01/31/2024 07:39:58 01/31/20 24 01/31/2024 CBC (INCL UDES DIFF/ PLT) absolute lymphocytes 1306 cells /uL 850-39 00 normal Not Available [facility] [place] [facility] [address], [place], [address], 01/31/2024 07:39:58 01/31/20 24 01/31/2024 CBC (INCL UDES DIFF/ PLT) absolute monocytes 321 cells /uL 200-95 0 normal Not Available [facility] [place] [facility] [address], [place], [address], 01/31/2024 07:39:58 01/31/20 24 01/31/2024 CBC (INCL UDES DIFF/ PLT) absolute eosinophils 383 cells /uL 15-500 normal Not Available [facility] [place] [facility] [address], [place], [address], 01/31/2024 07:39:58 01/31/20 24 01/31/2024 CBC (INCL UDES DIFF/ PLT) absolute basophils 61 cells /uL 0-200 normal Not Available [facility] [place] [facility] [address], [place], [address], 01/31/2024 07:39:58 01/31/20 24 01/31/2024 CBC (INCL UDES DIFF/ PLT) neutrophils 59.4 % normal Not Available [facility] [place] [facility] [address], [place], [address], 01/31/2024 07:39:58 01/31/20 24 01/31/2024 CBC (INCL UDES DIFF/ PLT) lymphocytes 25.6 % normal Not Available [facility] [place] [facility] [address], [place], [address], 01/31/2024 07:39:58 01/31/20 24 01/31/2024 CBC (INCL UDES DIFF/ PLT) monocytes 6.3 % normal Not Available [facility] [place] [facility] [address], [place], [address], 01/31/2024 07:39:58 01/31/20 24 01/31/2024 CBC (INCL UDES DIFF/ PLT) eosinophils 7.5 % normal Not Available [facility] [place] [facility] [address], [place], [address], 01/31/2024 07:39:58 01/31/20 24 01/31/2024 CBC (INCL UDES DIFF/ PLT) basophils 1.2 % normal Not Available [facility] [place] [facility] [address], [place], [address], 01/31/2024 07:39:58 07/31/19 24 08/01/2023 TSH W/REF BARBARA TO FT4 TSH w/reflex to FT4 0.83 mIU/L 0.40-4 .50 normal Not Available [facility] [place] [facility] [address], [place], [address], 08/01/2023 18:22:27 07/31/19 24 07/31/2023 urina lysis , dipst ick Glucose Negati ve Not Available [facility] [address], [place], [address], 07/31/2023 13:36:45 07/31/19 24 07/31/2023 urina lysis , dipst ick Appearance Clear Not Available [facility] [place] [address], [place], [address], 07/31/2023 13:36:45 07/31/19 24 07/31/2023 urina lysis , dipst ick Color Yellow Not Available [facility] [address], [place], [address], 07/31/2023 13:36:45 07/31/19 24 07/31/2023 urina lysis , dipst ick Leukocytes Negati ve Not Available [facility] [address], [place], [address], 07/31/2023 13:36:45 07/31/19 24 07/31/2023 urina lysis , dipst ick Nitrate Negati ve Not Available [facility] [address], [place], [address], 07/31/2023 13:36:45 07/31/19 24 07/31/2023 urina lysis , dipst ick Urobilinogen Negati ve Not Available [facility] [address], [place], [address], 07/31/2023 13:36:45 07/31/19 24 07/31/2023 urina lysis , dipst ick Protein Negati ve Not Available [facility] [address], [place], [address], 07/31/2023 13:36:45 07/31/19 24 07/31/2023 urina lysis , dipst ick pH 6.0 Not Available [facility] [address], [place], [address], 07/31/2023 13:36:45 07/31/19 24 07/31/2023 urina lysis , dipst ick Blood Negati ve Not Available [facility] [address], [place], [address], 07/31/2023 13:36:45 07/31/19 24 07/31/2023 urina lysis , dipst ick Specific [place] 1.025 Not Available [facility] [address], [place], [address], 07/31/2023 13:36:45 07/31/19 24 07/31/2023 urina lysis , dipst ick Ketone Negati ve Not Available [facility] [address], [place], [address], 07/31/2023 13:36:45 07/31/19 24 07/31/2023 urina lysis , dipst ick Bilirubin Negati ve Not Available [facility] [address], [place], [address], 07/31/2023 13:36:45 04/25/19 25 04/25/2024 CULTU RE URINE culture, urine Mix ed uroge nital garett , no uropa thoge ns prese nt. Sugge st repea t speci men, if clini kristopher indic ated. Not Available [address], [address], 04/28/2024 12:27:33 04/25/19 25 04/25/2024 CULTU RE URINE note [facility], [address] [place] [address] [address], [facility] ord, [place] [address] Not Available [address], [address], 04/28/2024 12:27:33 07/18/19 25 07/17/2024 RENAL FUNCT ION PANEL sodium 142 mmol/ L 133-14 5 Not Available [facility] [address] [place] [address], [address], 07/17/2024 14:42:28 07/18/19 25 07/17/2024 RENAL FUNCT ION PANEL potassium 4.4 mmol/ L 3.5-5. 5 Not Available [facility] [address] [place], [place] [address], [place], [address], 07/17/2024 14:42:28 07/18/19 25 07/17/2024 RENAL FUNCT ION PANEL chloride 113 mmol/ L 96-110 high Not Available [facility] [address] [place], [place] [address], [place], [address], 07/17/2024 14:42:28 07/18/19 25 07/17/2024 RENAL FUNCT ION PANEL CO2 25 mmol/ L 21-32 Not Available [facility] [address] [place] [address] [place], [address], 07/17/2024 14:42:28 07/18/19 25 07/17/2024 RENAL FUNCT ION PANEL anion gap 4 3-11 Not Available [facility] [address] [place] [address] [place], [address], 07/17/2024 14:42:28 07/18/19 25 07/17/2024 RENAL FUNCT ION PANEL glucose 99 mg/dL 70-100 Not Available [facility] [address] [place] [address] [place], [address], 07/17/2024 14:42:28 07/18/19 25 07/17/2024 RENAL FUNCT ION PANEL BUN 16 mg/dL 5-25 Not Available [facility] [address] [place] [address] [address]kw[address] [place], [address], 07/17/2024 14:42:28 07/18/19 25 07/17/2024 RENAL FUNCT ION PANEL creatinine 0.66 mg/dL 0.50-1 .10 Not Available [facility] [address] [place] [address] [place], [address], 07/17/2024 14:42:28 07/18/19 25 07/17/2024 RENAL FUNCT ION PANEL eGFR 93 mL/mi n/1.7 3m2 >=60 Calcu latio n based on the Chron ic Kidne y Disea se Epide miolo gy Colla borat ion (CKD- EPI) equat ion refit witho ut adjus tment for race. Not Available [facility] [address] [place] [address] [place], [address], 07/17/2024 14:42:28 07/18/19 25 07/17/2024 RENAL FUNCT ION PANEL BUN/creatini ne ratio 24.2 Not Available [facility] [address] [place] [address] [address]kw[address], [place], [address], 07/17/2024 14:42:28 07/18/19 25 07/17/2024 RENAL FUNCT ION PANEL albumin 3.6 g/dL 3.2-5. 0 Not Available [facility] Dept [address] [place] [address] Pkw[address], [place], [address], 07/17/2024 14:42:28 07/18/19 25 07/17/2024 RENAL FUNCT ION PANEL calcium 8.7 mg/dL 8.5-10 .5 Not Available [facility] [address] [place] [address] Pkw[address], [place], [address], 07/17/2024 14:42:28 07/18/19 25 07/17/2024 RENAL FUNCT ION PANEL phosphorus 2.8 mg/dL 2.5-4. 5 Not Available [facility] [address] [place] [address] Pkw[address], [place], [address], 07/17/2024 14:42:28 07/18/19 25 07/17/2024 RENAL FUNCT ION PANEL note See Report [facility], [address], [place]ze[place] abdouliel d, [place] [facility] [place] [address] Not Available [facility] Dept [address] [place] [address] Pkw[address], [place], [address], 07/17/2024 14:42:28 07/18/19 25 07/26/2024 CALPR OTECT IN, STOOL calprotectin , fecal 36.2 mcg/g <50 <50 mcg/g Lennie l 50 - 120 mcg/g Borde rline >120 mcg/g Abnor mal Borde rline resul ts sugge st repea t testi ng in 4 to 6 weeks . Test perfo rmed at [facility] , [address], [place] [address] [phone] Stefanie agustin MD, PhD - Medic al Lucy tor Not Available [facility] [address] [facility] [place], [address], 07/29/2024 18:07:43 07/18/19 25 07/26/2024 CALPR OTECT IN, STOOL note See Report [facility], [address], [place]oul[place], [place] [address] Not Available [facility] [address] [place], [address], 07/29/2024 18:07:43 10/12/19 25 10/12/2024 IRON, TIBC AND JORGE TIN PANEL iron, total 89 mcg/d L 45-160 normal Not Available [facility] [address], [address], 10/12/2024 00:46:23 10/12/19 25 10/12/2024 IRON, TIBC AND JORGE TIN PANEL iron binding capacity 360 mcg/d L_(ca lc) 250-45 0 normal Not Available [facility] [address], [address], 10/12/2024 00:46:23 10/12/19 25 10/12/2024 IRON, TIBC AND JORGE TIN PANEL % saturation 25 %_(ca lc) 16-45 normal Not Available [facility] [address], [address], 10/12/2024 00:46:23 10/12/19 25 10/12/2024 IRON, TIBC AND JORGE TIN PANEL ferritin 19 NG/mL 16-288 normal Not Available [facility] [address], [address], 10/12/2024 00:46:23 10/12/19 25 10/12/2024 LIPID PANEL , STAND MAT cholesterol, total 182 mg/dL <200 normal Not Available [facility] [address], [place], [address], 10/12/2024 00:46:24 10/12/19 25 10/12/2024 LIPID PANEL , STAND MAT HDL cholesterol 89 mg/dL > or = 50 normal Not Available [facility] [address], [place], [address], 10/12/2024 00:46:24 10/12/1910/12/2024 LIPID PANEL , STAND MAT triglyceride s 133 mg/dL <150 normal Not Available [facility] [address], [place], [address], 10/12/2024 00:46:24 10/12/1910/12/2024 LIPID PANEL , STAND MAT LDL-choleste rol 72 mg/dL _(yahaira c) normal Refer ence range : <100 Luna able range <100 mg/dL for prima ry preve ntion ; <70 mg/dL for patie nts with CHD or diabe tic patie nts with > or = 2 CHD risk facto rs. LDL-C is now calcu lated using the Jenna n-Hop kins calcu nayeli n, which is a valid ated novel deepthi kumari r accur acy than the Fried stef equat ion in the estim ation of LDL-C . Jenna MCGINNIS et al. MESSI. 2013; 310(1 9): 2061- 2068 (http ://ed ucati on.eRelyx Angeli eStartAcademy.com. com/f aq/FA Q164) Not Available [facility] [address], [place], [address], 10/12/2024 00:46:24 10/12/19 25 10/12/2024 LIPID PANEL , STAND MAT chol/HDLC ratio 2.0 (calc ) <5.0 normal Not Available [facility] [place] [facility] [address], [place], [address], 10/12/2024 00:46:24 10/12/19 25 10/12/2024 LIPID PANEL , STAND MAT non HDL cholesterol 93 mg/dL _(yahaira c) <130 normal For patie nts with diabe lesly plus 1 major ASCVD risk facto r, treat ing to a non-H DL-C goal of <100 mg/dL (LDL- C of <70 mg/dL ) is consi dered a thera peuti c optio n. Not Available [facility] [place] [facility] [address], [place], [address], 10/12/2024 00:46:24 10/12/19 25 10/12/2024 MAGNE SIUM magnesium 2.3 mg/dL 1.5-2. 5 normal Not Available [facility] [address], [place], [address], 10/12/2024 00:46:25 10/12/19 25 10/12/2024 URIC ACID uric acid 4.7 mg/dL 2.5-7. 0 normal Thera jomar pak targe t for gout patie nts: <6.0 mg/dL Not Available [facility] [address], [place], [address], 10/12/2024 00:46:26 10/12/19 25 10/12/2024 COMPR EHENS JORGE METAB OLIC PANEL glucose 96 mg/dL 65-99 normal Fasti ng refer ence inter radha Not Available [facility] [address], [place], [address], 10/12/2024 00:46:26 10/12/19 25 10/12/2024 COMPR EHENS JORGE METAB OLIC PANEL urea nitrogen (BUN) 23 mg/dL 7-25 normal Not Available [facility] [address] [place], [place], [address], 10/12/2024 00:46:26 10/12/19 25 10/12/2024 COMPR EHENS JORGE METAB OLIC PANEL creatinine 0.72 mg/dL 0.60-1 .00 normal Not Available [facility] [place] [facility] [address] [place], [place], [address], 10/12/2024 00:46:26 10/12/19 25 10/12/2024 COMPR EHENS JORGE METAB OLIC PANEL eGFR 88 mL/mi n/1.7 3m2 > or = 60 normal Not Available [facility] [place] [facility] [address] [place], [place], [address], 10/12/2024 00:46:26 10/12/1910/12/2024 COMPR EHENS JORGE METAB OLIC PANEL BUN/creatini ne ratio SEE NOTE: (calc ) 6-22 Not Repor nakul: BUN and Creat inine are withi n refer ence range . Not Available [facility] [address] [place], [place], [address], 10/12/2024 00:46:26 10/12/19 25 10/12/2024 COMPR EHENS JORGE METAB OLIC PANEL sodium 142 mmol/ L 135-14 6 normal Not Available [facility] [address], [place], [address], 10/12/2024 00:46:26 10/12/19 25 10/12/2024 COMPR EHENS JORGE METAB OLIC PANEL potassium 4.2 mmol/ L 3.5-5. 3 normal Not Available [facility] [address], [place], [address], 10/12/2024 00:46:26 10/12/19 25 10/12/2024 COMPR EHENS JORGE METAB OLIC PANEL chloride 111 mmol/ L 98-110 high Not Available [facility] [address], [place], [address], 10/12/2024 00:46:26 10/12/19 25 10/12/2024 COMPR EHENS JORGE METAB OLIC PANEL carbon dioxide 24 mmol/ L 20-[address] [facility] [place] [facility] [address], [place], [address], 10/12/2024 00:46:26 10/12/19 25 10/12/2024 COMPR EHENS JORGE METAB OLIC PANEL calcium 9.1 mg/dL 8.6-10 .4 normal Not Available [facility] [address], [place], [address], 10/12/2024 00:46:26 10/12/19 25 10/12/2024 COMPR EHENS JORGE METAB OLIC PANEL protein, total 6.8 g/dL 6.1-8. 1 normal Not Available [facility] [address], [place], [address], 10/12/2024 00:46:26 10/12/19 25 10/12/2024 COMPR EHENS JORGE METAB OLIC PANEL albumin 4.1 g/dL 3.6-5. 1 normal Not Available [facility] [address], [place], [address], 10/12/2024 00:46:26 10/12/19 25 10/12/2024 COMPR EHENS JORGE METAB OLIC PANEL globulin 2.7 g/dL_ (calc ) 1.9-3. 7 normal Not Available [facility] [address], [place], [address], 10/12/2024 00:46:26 10/12/19 25 10/12/2024 COMPR EHENS JORGE METAB OLIC PANEL albumin/glob ulin ratio 1.5 (calc ) 1.0-2. 5 normal Not Available [facility] [address], [place], [address], 10/12/2024 00:46:26 10/12/19 25 10/12/2024 COMPR EHENS JORGE METAB OLIC PANEL bilirubin, total 0.4 mg/dL 0.2-1. 2 normal Not Available [facility] [address], [place], [address], 10/12/2024 00:46:26 10/12/1910/12/2024 COMPR EHENS JORGE METAB OLIC PANEL alkaline phosphatase 79 U/L 37-[address] [facility] [address], [place], [address], 10/12/2024 00:46:26 10/12/19 25 10/12/2024 COMPR EHENS JORGE METAB OLIC PANEL AST 20 U/L 10-35 normal Not Available [facility] [address], [place], [address], 10/12/2024 00:46:26 10/12/19 25 10/12/2024 COMPR EHENS JORGE METAB OLIC PANEL ALT 14 U/L 6-29 normal Not Available [facility] [address], [place], [address], 10/12/2024 00:46:26 10/12/19 25 10/12/2024 CBC (INCL UDES DIFF/ PLT) white blood cell count 5.8 thous and/u L 3.8-10 .8 normal Not Available [facility] [address], [place], [address], 10/12/2024 00:46:27 10/12/19 25 10/12/2024 CBC (INCL UDES DIFF/ PLT) red blood cell count 4.83 calli on/uL 3.80-5 .[address] [facility] [place] [facility] [address], [place], [address], 10/12/2024 00:46:27 10/12/1910/12/2024 CBC (INCL UDES DIFF/ PLT) hemoglobin 13.6 g/dL 11.7-1 5.5 normal Not Available [facility] [place] [facility] [address], [place], [address], 10/12/2024 00:46:27 10/12/1910/12/2024 CBC (INCL UDES DIFF/ PLT) hematocrit 42.8 % 35.0-4 5.0 normal Not Available [facility] [place] [facility] [address], [place], [address], 10/12/2024 00:46:27 10/12/1910/12/2024 CBC (INCL UDES DIFF/ PLT) MCV 88.6 fL 80.0-1 00.0 normal Not Available [facility] [place] [facility] [address], [place], [address], 10/12/2024 00:46:27 10/12/1910/12/2024 CBC (INCL UDES DIFF/ PLT) MCH 28.2 pg 27.0-3 3.0 normal Not Available [facility] [place] [facility] [address], [place], [address], 10/12/2024 00:46:27 10/12/1910/12/2024 CBC (INCL UDES DIFF/ PLT) MCHC 31.8 g/dL 32.0-3 6.0 low For adult s, a sligh t decre ase in the calcu lated MCHC value (in the range of 30 to 32 g/dL) is most likel y not clini kristopher signi fican t; kamryn er, it shoul d be inter prete d with cauti on in corre latio n with other red cell joshua eters and the patie nt's clini yahaira condi tion. Not Available [facility] [place] [facility] [address], [place], [address], 10/12/2024 00:46:27 10/12/1910/12/2024 CBC (INCL UDES DIFF/ PLT) RDW 12.3 % 11.0-1 5.0 normal Not Available [facility] [place] [facility] [address], [place], [address], 10/12/2024 00:46:27 10/12/1910/12/2024 CBC (INCL UDES DIFF/ PLT) platelet count 345 thous and/u L 140-40 0 normal Not Available [facility] [place] [facility] [address], [place], [address], 10/12/2024 00:46:27 10/12/1910/12/2024 CBC (INCL UDES DIFF/ PLT) MPV 9.3 fL 7.5-12 .5 normal Not Available [facility] [place] [facility] [address], [place], [address], 10/12/2024 00:46:27 10/12/1910/12/2024 CBC (INCL UDES DIFF/ PLT) absolute neutrophils 2964 cells /uL 1500-7 800 normal Not Available [facility] [place] [facility] [address], [place], [address], 10/12/2024 00:46:27 10/12/1910/12/2024 CBC (INCL UDES DIFF/ PLT) absolute lymphocytes 2013 cells /uL 850-39 00 normal Not Available [facility] [place] [facility] [address], [place], [address], 10/12/2024 00:46:27 10/12/1910/12/2024 CBC (INCL UDES DIFF/ PLT) absolute monocytes 400 cells /uL 200-95 0 normal Not Available [facility] [place] [facility] [address], [place], [address], 10/12/2024 00:46:27 10/12/19 25 10/12/2024 CBC (INCL UDES DIFF/ PLT) absolute eosinophils 365 cells /uL 15-500 normal Not Available [facility] [place] [facility] [address], [place], [address], 10/12/2024 00:46:27 10/12/19 25 10/12/2024 CBC (INCL UDES DIFF/ PLT) absolute basophils 58 cells /uL 0-200 normal Not Available [facility] [place] [facility] [address], [place], [address], 10/12/2024 00:46:27 10/12/19 25 10/12/2024 CBC (INCL UDES DIFF/ PLT) neutrophils 51.1 % normal Not Available [facility] [place] [facility] [address], [place], [address], 10/12/2024 00:46:27 10/12/19 25 10/12/2024 CBC (INCL UDES DIFF/ PLT) lymphocytes 34.7 % normal Not Available [facility] [place] [facility] [address], [place], [address], 10/12/2024 00:46:27 10/12/19 25 10/12/2024 CBC (INCL UDES DIFF/ PLT) monocytes 6.9 % normal Not Available [facility] [place] [facility] [address], [place], [address], 10/12/2024 00:46:27 10/12/19 25 10/12/2024 CBC (INCL UDES DIFF/ PLT) eosinophils 6.3 % normal Not Available [facility] [place] [facility] [address], [place], [address], 10/12/2024 00:46:27 10/12/19 25 10/12/2024 CBC (INCL UDES DIFF/ PLT) basophils 1.0 % normal Not Available [facility] [place] [facility] [address], [address], 10/12/2024 00:46:27 10/12/1910/12/2024 TSH TSH 1.24 mIU/L 0.40-4 .50 normal Not Available [facility] [place] [facility] [address], [address], 10/12/2024 00:46:28 10/12/1910/12/2024 VITAM IN B12 vitamin B12 285 pg/mL 200-11 00 normal Pleas e Note: Altho ugh the refer ence range for vitam in B12 is 200-1 100 pg/mL , it has been repor nakul that betwe en 5 and 10% of patie nts with value s betwe en 200 and 400 pg/mL may exper ience neuro psych iatri c and hemat ologi c abnor malit ies due to occul t B12 defic iency ; less than 1% of patie nts with value s above 400 pg/mL will have sympt oms. Not Available [facility] [address], [address], 10/12/2024 00:46:29 10/12/1910/12/2024 VITAM IN D,25- OH,TO CIPRIANO,I A vitamin D,25-oh,tota l,ia 24 NG/mL 30-100 low Vitam in D Statu s 25-OH Vitam in D: Defic iency : <20 ng/mL Insuf ficie ncy: 20 - 29 ng/mL Optim al: > or = 30 ng/mL For 25-OH Vitam in D testi ng on patie nts on D2-george pplem entat ion and patie nts for whom quant itati on of D2 and D3 fract ions is requi red, the [facility] Assur eD(TM ) 25-OH VIT D, (D2,D 3), LC/MS /MS is recom genaro d: order code 32621 (yusra ents >2yrs ). See Note 1 Note 1 For addit ional infor michelle davis refer to http: //madhu [employer] stDia gnost ics.c om/fa q/FAQ 199 (This link is being provi ded for infor marisa lemus/ educa brayden l purpo ses only. ) Not Available [facility] [place] [facility] [address], [place], [address], 10/12/2024 00:46:30 10/12/1910/12/2024 HEMOG LOBIN A1C hemoglobin A1C 6.1 % <5.7 high For someo ne witho ut known diabe lesly, a hemog lobin A1c value betwe en 5.7% and 6.4% is consi stent with predi abete s and shoul d be confi rmed with a follo w-up test. For someo ne with known diabe lesly, a value <7% indic ates that their diabe lesly is well contr olled . A1c targe ts shoul d be indiv idual ized based on durat ion of diabe lesly, age, comor bid condi tions , and other consi derat ions. This assay resul t is consi stent with an incre ased risk of diabe lesly. Curre ntly, no conse nsus exist s kisha juarez use of hemog lobin A1c for diagn osis of diabe lesly for child oneil. Not Available [facility] [place] [facility] [address], [place], [address], 10/12/2024 00:46:30 11/15/19 25 11/14/2024 RENAL FUNCT ION PANEL sodium 143 mmol/ L 133-14 5 Not Available [facility] Dept [address], [place], [address], 11/14/2024 12:42:34 11/15/19 25 11/14/2024 RENAL FUNCT ION PANEL potassium 4.1 mmol/ L 3.5-5. 5 Not Available [place] [address] [place], [address], 11/14/2024 12:42:34 11/15/19 25 11/14/2024 RENAL FUNCT ION PANEL chloride 112 mmol/ L 96-110 high Not Available [place] [address], [place], [address], 11/14/2024 12:42:34 11/15/19 25 11/14/2024 RENAL FUNCT ION PANEL CO2 26 mmol/ L 21-32 Not Available [place] [address], [place], [address], 11/14/2024 12:42:34 11/15/19 25 11/14/2024 RENAL FUNCT ION PANEL anion gap 5 3-11 Not Available [facility] [address], [place], [address], 11/14/2024 12:42:34 11/15/19 25 11/14/2024 RENAL FUNCT ION PANEL glucose 113 mg/dL 70-100 high Not Available [place] [address] [place], [address], 11/14/2024 12:42:34 11/15/19 25 11/14/2024 RENAL FUNCT ION PANEL BUN 22 mg/dL 5-25 Not Available [place] [address] [place], [address], 11/14/2024 12:42:34 11/15/19 25 11/14/2024 RENAL FUNCT ION PANEL creatinine 0.63 mg/dL 0.50-1 .10 Not Available [place] [address] [place], [address], 11/14/2024 12:42:34 11/15/19 25 11/14/2024 RENAL FUNCT ION PANEL eGFR 94 mL/mi n/1.7 3m2 >=60 Calcu latio n based on the Chron ic Kidne y Disea se Epide miolo gy Colla borat ion (CKD- EPI) equat ion refit witho ut adjus tment for race. Not Available [facility] Dept [address] [place] [address] Pkwy, [place], [address], 11/14/2024 12:42:34 11/15/19 25 11/14/2024 RENAL FUNCT ION PANEL BUN/creatini ne ratio 34.9 Not Available [facility] [address] [place] [address] Pkwy, [place], [address], 11/14/2024 12:42:34 11/15/19 25 11/14/2024 RENAL FUNCT ION PANEL albumin 3.5 g/dL 3.2-5. 0 Not Available [facility] [address] [place] [address] Pkw[address], [place], [address], 11/14/2024 12:42:34 11/15/19 25 11/14/2024 RENAL FUNCT ION PANEL calcium 9.1 mg/dL 8.5-10 .5 Not Available [facility]/ Dept [address] [place] [address] Pkwy, [place], [address], 11/14/2024 12:42:34 11/15/19 25 11/14/2024 RENAL FUNCT ION PANEL phosphorus 3.2 mg/dL 2.5-4. 5 Not Available [facility] Dept [address] [place] [address] [place] [address], 11/14/2024 12:42:34 11/15/19 25 11/14/2024 RENAL FUNCT ION PANEL note See Report [facility], [address], [place], [place] [address] Not Available [facility] Dept [address], [place], [address], 11/14/2024 12:42:34 08/02/19 24 imagi ng/di agnos tic resul t No observ ation record ed. [employer]maurus Not Available 2023 08:53:21 08/08/19 24 imagi ng/di agnos tic resul t No observ ation record ed. [employer]urus Not Available 2023 12:28:58 01/30/20 24 01/30/2024 elect rocar diogr am No observ ation record ed. emaurus [facility] [address], [place], [address], 01/30/2024 11:41:10 01/30/20 24 elect rocar diogr am No observ ation record ed. emaurus Not Available 2023 13:39:45 01/30/20 24 elect rocar diogr am No observ ation record ed. emaurus Not Available 2023 13:39:46 02/12/20 24 02/12/2024 op note No observ ation record ed. emaurus [address], [address], 02/12/2024 09:17:22 08/14/19 25 08/12/2024 CT, abdom en + pelvi s, w/ contr ast See Note [facility] Patien t Name: ANTHONY Alvarenga Date of : 1950 Reason for Exam: change of BMs, diarrh ea, abd pain Exam Date: 2024 [id number] EST Report Status : Final Orderi ng Provid er: TERESA QUINTANA PCP: KADIE TERRAZAS PROCED URE: CT ABDOME N/PELV IS WITH CONTRA ST INDICA TION: change of BMs, diarrh ea, abd pain TECHNI QUE: CT of the abdome n and pelvis follow ing the intrav enous admini strati on of 90cc Isovue 370. Multip lanar reform ats. The examin ation was perfor med utiliz ing dose reduct ion techni ques. Total DLP 1330 COMPAR LUZMARIA: No priors availa ble. FINDIN GS: LOWER THORAX : Lung bases are clear. HEPATO BILIAR Y: No focal liver lesion s. No cholel ithias is or biliar y duct dilata tion. SPLEEN : No focal lesion . PANCRE : No focal mass or ductal dilata tion. ADRENA LS: No nodule s. KIDNEY S/URET ERS: Promin ent lower pole left kidney cysts. No solid mass or stone. No hydron ephros is. PELVIC ORGANS /BLADD ER: Limite d evalua tion of the pelvic organs second azeb to streak artifa ct.. PERITO NEUM / RETROP ERITON EUM: There is hazine ss at the root of the mesent cory with reacti ve nodes which are nonspe cific but can be seen in the settin g of mesent estella pannic ulitis . VESSEL S: Scatte red athero sclero tic calcif icatio ns throug hout the aorta and its major branch es. No aneury sm. GI TRACT: No bowel disten tion or wall thicke speedy. Normal append ix. Divert iculos is withou t CT eviden ce for acute divert iculit is though this is slight ly confou nded by streak artifa ct in the pelvis from bilate ral hip arthro plasti es. BONES AND SOFT TISSUE S: Degene rative change s and scolio sis. Bilate ral total hip arthro plasti es. Soft tissue s are unrema rkable . IMPRES ELISA: Hazine ss of the mesent cory which is nonspe cific but can be seen in the settin g of infect ious/i nflamm atory proces ses such as mesent estella pannic ulitis . Incide ntal findin gs as above. ------ -- FINAL REPORT ------ -- Dictat ed By: Jostin Samuels Dictat ed Date: 2024 00:04 ET Assign ed Physic dino: Jostin Samuels Review ed and Electr onical ly Signed By: Jostin Samuels Signed Date: 2024 00:08 ET Workst ation ID: [id number] Transc ribed By: Self Edit Transc ribed Date: 2024 00:[address] [facility] , [address] [facility] , [facility], [place] [address] emaurus [facility] Dept [address] [facility], [place], [address], 08/13/2024 08:00:08 10/13/19 25 06/09/2023 MAMMO , scree speedy, tomos ynthe sis, bilat eral No observ ation record ed. cbogli [facility] [address] [facility], [place], [place], [address], 10/15/2024 06:07:36 11/02/19 25 10/31/2024 MRI, lumba r spine , w/o contr ast No observ ation record ed. HONG Not Available 2024 13:31:15 11/20/19 25 11/14/2024 CT, abdom en + pelvi s, w/ contr ast See Note [facility] Patien t Name: ANTHONY Alvarenga Date of : 1950 Reason for Exam: to look resolu tion of pannic ulitis Exam Date: 2024 [id number] EST Report Status : Final Orderi ng Provid er: TERESA QUINTANA PCP: KADIE TERRAZAS PROCED URE: CT ABDOME N/PELV IS WITH CONTRA ST INDICA TION: to look resolu tion of pannic ulitis TECHNI QUE: CT of the abdome n and pelvis follow ing the intrav enous admini strati on of 90cc Isovue 370. Multip lanar reform ats. The examin ation was perfor med utiliz ing dose reduct ion techni ques. Total DLP 1274 COMPAR LUZMARIA: 2024 FINDIN GS: LOWER THORAX : Lung bases are clear. HEPATO BILIAR Y: No focal liver lesion s. No cholel ithias is or biliar y duct dilata tion. SPLEEN : No focal lesion . PANCRE : No focal mass or ductal dilata tion. ADRENA LS: No nodule s. KIDNEY S/URET ERS: Stable left renal cyst. PELVIC ORGANS /BLADD ER: Not well evalua nakul due to streak artifa ct from bilate ral hip prosth eses. PERITO NEUM / RETROP ERITON EUM: Again noted is hazine ss within the mesent cory with presum ed reacti ve nodes. This is mildly improv ed from prior CT of 2024. VESSEL S: Scatte red athero sclero tic calcif icatio ns throug hout the aorta and its major branch es. No aneury sm. GI TRACT: Thicke speedy of the stomac h presum ably relate d to underd istent ion. There is divert iculos is withou t visibl e divert iculit is though the sigmoi d colon is partia lly obscur ed by streak artifa ct. No bowel obstru ction. BONES AND SOFT TISSUE S: Bilate ral hip plasti es. Degene rative change s of the spine. No acute osseou s abnorm ality. Soft tissue s are unrema rkable . IMPRES ELISA: Persis tent but mildly improv ed hazine ss within the mesent cory compar ed to prior. ------ -- FINAL REPORT ------ -- Dictat ed By: Jostin Samuels Dictat ed Date: 2024 14:06 ET Assign ed Physic dino: Jostin Samuels Review ed and Electr onical ly Signed By: Jostin Samuels Signed Date: 2024 14:09 ET Workst ation ID: [id number] Transc ribed By: Self Edit Transc ribed Date: 2024 14:[address] [facility] , [address] [place] [address], [place] [address] emaurus [facility] Dept [address] [place] [address], [place], [address], 11/19/2024 15:42:23 Result Notes Documentation Provider Name and Address Organization Details Recorded Time Ct, Abdomen + Pelvis, W/ Contrast : See Note [facility] Patient Name: AJAY HOLT Date of : 1950 Reason for Exam: change of BMs, diarrhea, abd pain Exam Date: 08/12/2024 [id number] EST Report Status: Final Ordering Provider: JAMESON QUINTANA PCP: KADIE TERRAZAS PROCEDURE: CT ABDOMEN/PELVIS WITH CONTRAST INDICATION: change [...] total hip arthroplasties. Soft tissues are unremarkable. IMPRESSION: Haziness of the mesentery which is nonspecific but can be seen in the setting of infectious/inflammatory processes such as mesenteric panniculitis. Incidental findings as above. -------- FINAL REPORT -------- Dictated By: Jostin Samuels Dictated Date: 08/13/2024 00:04 ET Assigned Physician: Jostin Samuels Reviewed and Electronically Signed By: Jostin Samuels Signed Date: 08/13/2024 00:08 ET Workstation ID: [id number] Transcribed By: Self Edit Transcribed Date: 08/13/2024 00:04 ET [facility], [address] [place] [address] Kadie Terrazas, DIRECTOR OF PROFESSIONAL SERVICES [address], [place], [address], [facility] 08/13/2024 08:00:08 Ct, Abdomen + Pelvis, W/ Contrast : See Note [facility] Patient Name: AJAY HOLT Date of : 1950 Reason for Exam: to look resolution of panniculitis Exam Date: 11/14/2024 [id number] EST Report Status: Final Ordering Provider: JAMESON QUINTANA PCP: KADIE TERRAZAS PROCEDURE: CT ABDOMEN/PELVIS WITH CONTRAST INDICATION: to look resolution of panniculitis TECHNIQUE: CT of the abdomen and pelvis following the intravenous administration of 90cc Isovue 370. Multiplanar reformats. The examination was performed utilizing dose reduction techniques. Total DLP 1274 COMPARISON: 08/12/2024 FINDINGS: LOWER THORAX: Lung bases are clear. HEPATOBILIARY: No focal liver lesions. No cholelithiasis or biliary duct dilatation. SPLEEN: No focal lesion. PANCREAS: No focal mass or ductal dilatation. ADRENALS: No nodules. KIDNEYS/URETERS: Stable left renal cyst. PELVIC ORGANS/BLADDER: Not well evaluated due to streak artifact from bilateral hip prostheses. PERITONEUM / RETROPERITONEUM: Again noted is haziness within the mesentery with presumed reactive nodes. This is mildly improved from prior CT of 08/12/2024. VESSELS: Scattered atherosclerotic calcifications throughout the aorta and its major branches. No aneurysm. GI TRACT: Thickening of the stomach presumably related to underdistention. There is diverticulosis without visible diverticulitis though the sigmoid colon is partially obscured by streak artifact. No bowel obstruction. BONES AND SOFT TISSUES: Bilateral hip plasties. Degenerative changes of the spine. No acute osseous abnormality. Soft tissues are unremarkable. IMPRESSION: Persistent but mildly improved haziness within the mesentery compared to prior. -------- FINAL REPORT -------- Dictated By: Jostin Samuels Dictated Date: 11/19/2024 14:06 ET Assigned Physician: Jostin Samuels Reviewed and Electronically Signed By: Jostin Samuels Signed Date: 11/19/2024 14:09 ET Workstation ID: [id number] Transcribed By: Self Edit Transcribed Date: 11/19/2024 14:06 ET [facility], [address] [place] [address] Kadie Terrazas, DIRECTOR OF PROFESSIONAL SERVICES [address], [place], [address], [id number] 11/19/2024 15:42:23 Problems Name Problem SNOMED Code Status Onset Date Resolution Date Notes Provider Name and Address Organization Details Recorded Time Chronic diarrhea 561590186 Active 2013 Nathaly Lynop-Co oper null, CT [facility] 4 11:15:47 Arthriti s of right hip [id number] 24077 Active 2019 Nathaly Sam-Co oper null, [place] [facility] 4 11:15:47 Anxiety 73828154 Active 2023 Kadie Terrazas APRN [address], [place], [address], [employer] [facility] [employer] [facility] [employer] 12:47:18 Arthriti s 8202020 Active 2023 Kadie Terrazas APRN [address] , [place], [address], [employer] 4 12:47:26 History of depressi on 042862657 Active 2023 Kadie Terrazas APRN [address], [place], [address], [employer] [facility] 4 12:47:38 Gastroes ophageal reflux disease 767177220 Active 2023 Kadie Terrazas APRN [address] , [place], [address], [employer] 4 12:47:45 Gout 62535779 Active 2023 [place], [address], [employer] [facility] [employer] [facility] 4 12:47:49 Irritabl e bowel syndrome 56020792 Active 2023 Kadie Terrazas APRN [address], [place], [address], [employer] [facility] [employer] [facility] 4 12:47:58 Migraine 77659183 Active 2023 Kadie Terrazas, DIRECTOR OF PROFESSIONAL SERVICES [address], [place], [address], [place] - [facility] [employer] [facility] 4 12:48:06 Osteopor osis 96961049 Active 2023 Kadie Terrazas, DIRECTOR OF PROFESSIONAL SERVICES [address], [place], [address], [place] - [facility] [employer] [facility] 4 12:48:12 Sleep apnea 48310610 Active 2023 Kadie Terrazas, DIRECTOR OF PROFESSIONAL SERVICES [address], [place], [address], [place] - [facility] [employer] [facility] 4 12:48:20 Gastric ulcer 461175382 Active 2023 Kadie Terrazas, DIRECTOR OF PROFESSIONAL SERVICES [address], [place], [address], [place] [facility] [employer] [facility] 4 12:48:31 Disorder of cornea 24634248 Active 2023 [employer] Kadie Terrazas, DIRECTOR OF PROFESSIONAL SERVICES [address], [place], [address], [place] - [facility] [employer] [facility] 4 12:48:50 Small fiber neuropat hy 064551220 Active 2023 Kadie Terrazas, DIRECTOR OF PROFESSIONAL SERVICES [address], [place], [address], [place] [facility] [employer] [facility] 4 12:49:01 Iron deficien cy anemia 70048471 Active 2023 Kadie Terrazas, DIRECTOR OF PROFESSIONAL SERVICES [address] [facility] [address], [place], [address], [place] [facility] 4 12:51:58 Mixed hyperlip idemia 386149492 Active 2023 Kadie Terrazas DIRECTOR OF PROFESSIONAL SERVICES [address] [facility] [address], [place], [address], [place] - [facility] 4 12:52:28 Vitamin D deficien cy 53320610 Active 2023 Kadie Terrazas DIRECTOR OF PROFESSIONAL SERVICES [address] [facility] [address], [place], [address], [place] - [facility] 4 12:52:59 Prediabe lesly 759737903 Active 2023 Kadie Terrazas, DIRECTOR OF PROFESSIONAL SERVICES [address] [facility] [address], [place], [address], [place] - [facility] 4 12:53:28 Recurren t urinary tract infectio n 935841731 Active 2023 Kadie Terrazas, DIRECTOR OF PROFESSIONAL SERVICES [address] [facility] [address], [place], [address], [place] - [facility] 4 13:01:07 Chronic intersti tial cystitis 192450516 Active 2023 Kadie Terrazas, DIRECTOR OF PROFESSIONAL SERVICES [address] [facility] [address], [place], [address], [place] - [facility] 4 13:02:38 Nocturia 523038591 Active 2023 Nathaly Sam-Co oper null, [place] - [facility] 4 11:15:47 Cystocel e 226583446 Active 2023 Nathaly Sam-Co oper null, [place] - [facility] 4 11:15:47 Urgent desire to urinate 25899717 Active 2023 Nathaly Sam-Co oper null, [place] - [facility] 4 11:15:47 Tinnitus 84427920 Active 2023 Kadie Terrazas, DIRECTOR OF PROFESSIONAL SERVICES [address] [facility] [address], [place], [address], [place] - [facility] 4 10:00:04 Dyspnea 032683059 Completed 202310/02/2024 Kadie Terrazas, DIRECTOR OF PROFESSIONAL SERVICES [address] [facility] [address], [place], [address], [place] - [facility] 5 15:08:51 Chronic insomnia 166218863 Active 2024 Kadie Terrazas APRN [address] , [place], [address], [facility] 5 15:30:03 At increase d risk for falls 463057617 Active 2024 Kadie Terrazas APRN [address] , [place], [address], [facility] 5 15:32:20 Osteoart hritis of lumbar spine Active 2024 Kadie Terrazas APRN [address] , [place], [address], [facility] 5 11:24:42 Mild major depressi on 92510067 Active 2024 Kadie Terrazas APRN [address] [facility] [address], [place], [address], [facility] 16:27:39 Problem Notes None recorded. Procedures Surgical History Date Name Laterality Status Provider Name and Address Organization Details Recorded Time 2024 EGFPCVRiskCounsel Z7182 HTN HL CAD & Z713 completed Kadie Terrazas APRN [address] [facility] [address], [place], [address] , [facility] 15:21:32 2024 CDUQReynmmdgwosK7878 completed ANGELLA Hatch [facility], [place], [address] , [facility] 5 09:08:45 2024 EGFPMammogramReport Z1231 completed ANGELLA Hatch [facility], [place], [address] , [facility] 5 15:22:01 2024 EGFPDEXAReport K46061 completed Kadie Terrazas APRN [address] [facility] [address], [place], [address] , [facility] 5 15:21:39 2024 EGFPObesityBMI Z7182; Z713 completed Kadie Terrazas, DIRECTOR OF PROFESSIONAL SERVICES [address], [place], [address] , [facility] 5 09:08:01 2024 EGFPCervicalCancerScreen Z124 completed Kadie Terrazas, DIRECTOR OF PROFESSIONAL SERVICES [address], [place], [address] , [facility] 5 09:08:56 2024 EGFPFunctionalStatus w/AWV Z7189 completed Kadie Terrazas, DIRECTOR OF PROFESSIONAL SERVICES [address], [place], [address] , [facility] 5 15:21:42 2024 UTLZPgzEkvdhgCpurvvibG5004 completed Kadie Terrazas, ANGELLA [address], [place], [address] , [facility] 5 16:15:40 2024 EGFPDepScreen[+]&f/wJ1445 completed Kadie Terrazas APRN [address], [place], [address] , [facility] 5 15:21:52 2024 Most Recent Mammogram completed Kadie Terrazas APRN [address], [place], [address] , [facility] 5 10:58:04 2021 colonoscopy completed Kadie Terrazas APRN [address], [place], [address] , [place] - [facility] 4 12:55:16 2021 endoscopy completed Kadie Terrazas APRN [address], [place], [address] , [facility] 5 15:12:56 2019 Date of Last Pap Smear completed Kadie Terrazas APRN [address], [place], [address] , [facility] 4 12:49:30 repair of vaginal wa ll prolapse completed ANGELL[address], [place], [address] , [facility] 4 10:18:11 Imaging Results None recorded. Procedure Notes None recorded. Medical Equipment None Reported. Allergies Allergen ID Allergen Name Allergen Category Reaction Reaction Severity Criticality Documentation Date Start Date Code Code System Note Provider Name and Address Organization Details Recorded Time 12730 prednison e medicatio n Not available Not available Not available 07/31/2023 8640 RxNorm Ulcer s; ok with low dose short durat ion Nathaly Vargas-Co oper null, [facility] 4 11:15:46 10081 No known allergy (situatio n) Not available Not available Not available Not available 01/09/2024 70315 6003 SNOMED Kadie Terrazas APRN [address], [place], [address], [facility] 4 09:44:35 Medications Name Sig Start Date [...] t Available lidocaine 5 % topical patch-adhes jorge silicone combo pack 01/29 completed Not Available Not Available Not Available D3-5000 125 mcg (5,000 unit) capsule Take by oral route. 10/02 completed Not Available Not Available Not Available Vitals Date Recorded Body temperature Provider Name a nd Address Organization Details Last Updated DateTime 07/31/2023 96.9 [degF] Kadie Terrazas, DIRECTOR OF PROFESSIONAL SERVICES [address] [facility] [address], [place], [address], [facility] 07/31/2023 13:54:37 Date Recorded Body weight Oxygen saturation Heart rate Body mass index (BMI) Body height Systolic And Diastolic Provider Name and Address Organization Details Last Updated DateTime 4 98517.3 3 g 97 % 92 /min 31.2 kg/m2 167.64 cm 120/68 mm[Hg] Nathaly LandaCo oper [facility] 4 13:06:16 Date Recorded Body height Body mass index (BMI) Body weight Oxygen saturation Heart rate Body temperature Systolic And Diastolic Provider Name and Address Organization Details Last Updated DateTime 5 167.64 cm 30 kg/m2 59526.8 8 g 98 % 66 /min 98.2 [degF] 132/85 mm[Hg] Lizbeth Urban [facility] 15:21:37 Date Recorded Body height Body mass index (BMI) Body weight Body temperature Oxygen saturation Heart rate Systolic And Diastolic Provider Name and Address Organization Details Last Updated DateTime 5 167.64 cm 30.2 kg/m2 88779.7 7 g 98.8 [degF] 98 % 63 /min 125/80 mm[Hg] Melinda Agtte [facility] 5 13:04:10 Date Recorded Body height Oxygen saturation Heart rate Body mass index (BMI) Body weight Systolic And Diastolic Provider Name and Address Organization Details Last Updated DateTime 4 167.64 cm 96 % 80 /min 31.8 kg/m2 15422.1 g 124/70 mm[Hg] Nathaly Rueda oper [facility] 4 11:18:01 Date Recorded Systolic And Diastolic Provider Name and Address Organization Details Last Updated DateTime 01/30/2024 128/80 mm[Hg] Kadie Terrazas, DIRECTOR OF PROFESSIONAL SERVICES [address] [facility] [address], [place], [address], [facility] 01/30/2024 10:17:10 Date Recorded Body height Body temperature Oxygen saturation Heart rate Body mass index (BMI) Body weight Provider Name and Address Organization Details Last Updated DateTime 4 167.64 cm 97.2 [degF] 97 % 71 /min 31.8 kg/m2 88803.1 g Lizbeth Urban [facility] 4 09:31:13 Social History Question Answer Notes LastModified by Organization Details LastModified Time Tobacco Smoking Status Never Smoker Lizbeth Leeump null, [facility] 10/01/2024 15:23:03 Do You Have An Advance Directive? Yes [email or web address] Information not available 10/01/2024 Do You Wear A Helmet When Biking? Yes [email or web address] Information not available 10/01/2024 Are You Blind Or Do You Have Difficulty Seeing? Yes Wears Glasses , Genetic Problem With Eyes Information not available 10/01/2024 Is Blood Transfusion Acceptable In An Emergency? Yes [email or web address] Information not available 10/01/2024 What Is Your Code Status? Full Code [email or web address] Information not available 10/01/2024 Are You Deaf Or Do You Have Serious Difficulty Hearing? Yes Teniditis [email or web address] Information not available 10/01/2024 What Type Of Diet Are You Following? REGULAR [email or web address] Information not available 10/01/2024 Have There Been Any Changes To Your Family Or Social Situation? No Information not available 10/01/2024 What Is The Fluoride Status Of Your Home? Non-fluoridated Information not available 10/01/2024 Are There Any Guns Present In Your Home? Yes [email or web address] Information not available 10/01/2024 Which Of Your Hands Is Dominant? Right [email or web address] Information not available 10/01/2024 [email or web address] Information not available 10/01/2024 What Was The Date Of Your Most Recent Tobacco Screening? 10/01/2024 [email or web address] Information not available 10/01/2024 How Many Children Do You Have? 2 [email or web address] Information not available 10/01/2024 Do You Have Any Pets? Yes Information not available 10/01/2024 What Is Your Relationship Status? [email or web address] Information not available 10/01/2024 Do You Use Your Seat Belt Or Car Seat Routinely? Yes Information not available 10/01/2024 Are You Sexually Active? Yes [email or web address] Information not available 10/01/2024 Do You Have Any Siblings? 1 Information not available 10/01/2024 Do You Have Smoke And Carbon Monoxide Detectors In Your Home? Yes [email or web address] Information not available 10/01/2024 Are There Any Smokers In Your House? No [email or web address] Information not available 10/01/2024 Do You Participate In Social Media? Yes [email or web address] Information not available 10/01/2024 What Types Of Sporting Activities Do You Participate In? None Information not available 10/01/2024 Do You Use Sunscreen Routinely? No [email or web address] Information not available 10/01/2024 Has Tobacco Cessation Counseling Been Provided? No [email or web address] Information not available 10/01/2024 Do You Have Difficulty Walking Or Climbing Stairs? Yes Information not available 10/01/2024 Are You Currently In School? No [email or web address] Information not available 10/01/2024 Sex: Unknown Functional Status Question Answer Note LastModified by Organization Details LastModified Time Do you use any illicit or recreational drugs? No [email or web address] Information not available 10/01/2024 Do you or have you ever used any other forms of tobacco or nicotine? No [email or web address] Information not available 10/01/2024 What is your level of alcohol consumption? None [email or web address] Information not available 10/01/2024 Are you currently employed? No [email or web address] Information not available 10/01/2024 Do you have transportation difficulties? No Information not available 10/01/2024 Are you able to walk independently without assistance or assistive devices? YESWOREST [email or web address] Information not available 10/01/2024 Do you have difficulty doing errands alone? No [email or web address] Information not available 10/01/2024 Are you able to care for yourself independently? Yes [email or web address] Information not available 10/01/2024 Do you have difficulty dressing, bathing, grooming, or toileting? No Information not available 10/01/2024 What type of noise exposure are you exposed to? noExposureToExcessiveNoise [email or web address] Infor mation not available 10/01/2024 Mental Status Question Answer Note LastModified by Organizat ion Details LastModified Time Do you feel stressed (tense, restless, nervous, or anxious, or unable to sleep at night)? [id number] [email or web address] Information not available 10/01/2024 Do you have difficulty concentrating, remembering or making decisions? No [email or web address] Information no t available 10/01/2024 Family History [...] fx PGF: alcoholism PGM: no concerns MGF: [place] MGM: osteoporosis, depression Brother: age 52 [place] Son: age 5 accident 2 yordy;ghters healthy, [...] PF 01/09/2024 completed Kadie Terrazas APRN [address] [facility], [place], [address], [facility] 01/09/2024 12:24:38 zoster recombinant 10/01/2024 completed Kadie Terrazas APRN [address] [place], [address], [facility] 10/01/2024 16:25:50 zoster recombinant 12/23/2024 completed Kadie Terrazas APRN [address] [place], [address], [facility] 12/23/2024 13:36:20 Past Encounters Encounter ID Performer Location Encounter Start Date Encounter Closed Date Diagnosis/Indication Diagnosis SNOMED-CT Code Diagnosis ICD10 Code Diagnosis IMO Codes Diagnosis Note [id number] Kadie Terrazas APRN [facility] [address] [place] [address] 07/31/2023 12:56:51 07/31/2023 14:05:04 Increased frequency of urination 870039415 R35.0 Pt would like a referral to specialist for evaluation since her symptoms are increasing despite using vaginal estrogen treatment every other day. Goiter 7323582 E04.9 Will check TSH and request imaging results from [facility]. Pt would like imaging done at [facility] if needed. Will refer to endocrine- if able to get scheduled within the next few weeks will defer imaging to endocrine. [id number] Kadie Terrazas APRN [facility] [address] [place] [address] 01/09/2024 11:03:04 01/09/2024 12:23:48 Chronic low back pain 772409916 M54.41 G89.29 [id number] Will refer to OA, gave patient the contact informatio n for the specialist so they can call if they haven't heard from them in a week.Pt will do record release for [facility]. Active or passive immunization 934879395 Z23 Offered covid booster she declined. [id number] Kadie Terrazas APRN [facility] [address] [place] [address] 01/30/2024 09:23:07 01/30/2024 11:14:19 Retention of urine 439747376 R33.9 30014 Preprocedu ral examination done 3270548143 36006 Z01.818 888716 Assessment for Surgery: Ajay Holt represents a Class 2(physical status and risk assessment ) patient for a Category 2 surgical procedure. Recommenda tions:1. Anesthesia review informatio n compiled in this report, review our recommenda tions and assign surgical risk according to the expertise & guidelines of their profession al specialty. 2. Cessation of all NSAIDs 10 days prior to surgical procedure. 3. Cessation of aspirin 10 days prior to surgical procedure. 4. Cessation of Crawford 3 products and Vitamin E , 10 days prior to surgical procedure. 5. Usual pre-op teaching of cough and deep breathing techniques , early post-op pulmonary toilet.6. Close cardiopulm onary monitoring throughout procedure and post operativel y.7. No absolute contraindi cations to general anesthesia .8. Cardiac consultati on not needed for surgical clearance. 9. Pulmonary consultati on not needed for surgical clearance. Other Assessment s / Diagnoses / Plans: * ___MD Phuong PERALES 01/30/2024 Signature of provider performing evaluation /exam M D/Diana elliott'annamarie attending physicianE [facility], [address] [address]Iqapm : Fax: [employer]) PHYSICAL STATUS CLASSIFICA TION Class 1 - No organic, physiologi c, biochemica l or psychiatri c disturbanc eClass 2 - Mild to moderate systemic disturbanc es that may or may not be related to the reason for surgery, i.e. mild heart disease limiting activity slightly, hypertensi on, diabetes , anemia, extremes of age, morbid obesity & chronic bronchitis .Class 3 - Severe systemic disturbanc es that may or may not be related to the reason for surgery, i.e. heart disease that limits activity, poorly controlled hypertensi on, diabetes with vascular complicati ons, chronic pulmonary disease that limits activity, angina, h/o prior myocardial infarction .Class 4 - Severe systemic disturbanc e(s) that is life threatenin g with or without surgery, i.e. CHF, unstable angina, advanced pulmonary, renal or hepatic dysfunctio n.Class 5 - Moribund patient who has limited chance of survival, but is submitted to surgery as a last resort.Zuleyma rgency Operation - Any Class patient above who needs emergency procedure. EXAMPLES OF SURGICAL PROCEDURES IN SURGICAL CLASSIFICA TION CATEGORIES Category 1 - breast bx, removal of skin or subq lesion, cataract surgery, vasectomy, bronchosco py, myringotom y tubesCateg ory 2 - laparoscop y, D&C, tubal ligation, arthroscop y, hernia repair, T&A, rhinoplast y, percutaneo us lung bx, laparoscop ic cholecyste ctomyCateg ory 3 - hysterecto my, cholecyste ctomy, laminectom y, hip/knee replacemen t, major laparoscop ic procedures , resection/ recont surgery of GI tract, myomectomy Category 4 - major ortho-spin al or GI tract or tract reconstruc tion, major vascular repair without post op ICU stayCatego ry 5 - usually need post-op ICU stay with invasive monitoring - cardiothor acic, intracrani al procedures , major vascular, skeletal & neurologic repair Gastroesop hageal reflux disease 830771094 K21.9 [id number] Has chronic silent gerd and chronic hoarse voice. Sleep apnea 84606247 G47 .30 She didn't tolerate wearing the CPAP in the past. Dyspnea 714031519 R06.02 67314 Triggers are being overly warm and activity. She has had this issue for years. [id number] Kadie Terrazas APRN [address] [address] 10/01/2024 15:03:22 10/01/2024 16:41:50 General examination of patient 483209924 Z00.00 577951 Reviewed and updated patient's past medical, surgical, family, and social histories. UTD on dental and eye exams.Revi ewed recent specialist visits if applicable Counselled on the following: -healthy lifestyle- stress management -exercise 100-150 minutes per week-age appropriat e immunizati onsLabs [facility] [place] [facility] requested the report Chronic back pain 906465 002 M54.9 G89.29 [id number] The pt requested a referral be sent to Dr Nestor Torres. Consider seeing a pain specialist . Active or passive immunization 592352274 Z23 Osteopenia 720136928 M85 .80 21609673 Depressive disorder 3548 9007 F32.A 43730850 PHQ 9 score of 8. Will start on duloxetine , maybe it will have a positive impact on her pain as well. Reviewed side effects especially serotonin syndrome and sedation. Follow up in 6 weeks, call sooner if needed. Long-term current use of drug therapy 753930257 Z79.257 5946414 Gout 00391676 M10.9 Iron defic iency anemia 88445344 D50.9 Mixed hyperlipidemia 267 218543 E78.2 Prediabetes 750363963 R7 3.03 Vitamin D deficiency 347 86724 E55.9 [id number] Kadie Terrazas APRN [facility] [address] [place] [address] 12/23/2024 12:50:54 12/23/2024 13:44:47 Active or passive immunization 984981118 Z23 She will get the flu vaccine at a later date. 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 Pain in axilla 824296519 M79.217 [id number] Will check an ultrasound . Health Concerns Section Related Observation LastModified by Organization Detai ls LastModified Time None Recorded Concern Status LastModified by Organization Details LastModified Time None Recorded Advance Directives Directive Y: Payers Insurance Date Sequence Insurance Name Policy Number Policy Lara Covered Member ID Lara Member ID Guarantor Name 12/03/2024 1 MEDICARE B-CT: NGS Ajay Holt [id number] 3 Ajay Holt 10/01/2024 2 [facility] [id number] Ajay Holt [id number] Ajay Holt 12/20/2024 2 [facility] (MEDICARE SUPPLEMENT) Ajay Holt [id number] Ajay Holt Notes Date Note Type Note Provider Name and Address Organization Details Recorded Time 07/31/2023 text/html ROS as noted in the HPI Pt here as a new patient with multiple concerns, the foremost being her thyroid. She had an MRI of her entire spine done at [facility] in 06/20 which showed bulging discs. A thyroid nodule was seen and she had an ultrasound that showed a 1.75 cm nodule that appeared benign. These tests were ordered and reviewed by her neurologist. She has been having chronic tingling in her hands that she though was due to her nerve condition but thinks it may be due to the thyroid. She has issues with cold and heat, more cold lately. She has a hoarse voice and dry cough recently. She does have dysphagia but that is chronic. She has sporadic neck pain on the right triggered by yawning and turning her neck. Last week she developed a painless swelling on the left lower front of her neck that is now across the neck. She has chronic poor sleep, trouble falling asleep. She gets occipital headaches as soon as she lays down. She had a wellness visit on 06/28/23 but her provider changed to industrial boilermaker medicine. IBS constipation and diarrhea that flared up last year. She is seen by GI regularly for ulcers. She had a colonoscopy and endoscopy done and both normal. She is not happy with her GI and may look for a different practice. She has been treated with multiple antidiarrheals which haven't helped. Chronic eye pain and drooping r/t corneal condition and sees oph q6 months. Chronic nasal congestion and dripping. Chronic widespread pain. Hx of frequent UTIs and cystitis. Tx with vaginal estrogen was helping but not any more. Her main symptom is frequency. Occasionally she has dysuria. Neurology referred her to physical medicine and she had a repeat MRI of her lumbar spine. She was not happy with the provider but will probably go back again. Her appetite is very low. She feels terrible and in the worst shape she has been in since last summer. Kadie Terrazas APRN [address], [place], [address], [facility] 07/31/2023 15:24:39 01/09/2024 text/html She has always had back issues but they got worse 9 months ago with low back pain and a painful band around her torso under her breasts. 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 Another MRI was done which again showed bulging discs and a protruding nerve but still no treatment options per ortho until she reiterated her neuro sx of legs going to sleep, groin pain, and leg cramps at night she was offered a steroid injection into the lumbar spine which improved her pain for 5 days and her nerve sx to this day. The ortho also recommended an injection into her sciatic joint which is scheduled in February.She is looking for a second opinion.Her lower back locks up and she had severe pain last weekend after working on Monday. She has to climb stairs on all fours and has pain with prolonged sitting and standing. Kadie Terrazas APRN [address], [place], [address], [facility] 01/09/2024 12:50:01 01/30/2024 text/html Pre-OpReported b y PatientHPIFor risk factors, patient reportsfunctional impairment,regular nsaid use, andobstructive sleep apneabut reportsno cognitive impairment,no malnutrition,no frailty,non-smoker,no alcohol misuse,no illicit drug use, andno chronic cardiopulmonary condition(doesn't tolerate cpap, says mild case of janell, snores at times not bad, is always exhausted but in constant pain and sleep is pooractivity is limited by pain and she gets short of breath with activity.). For anesthesia hx, patient reportsno hx of anesthesia complications,no allergy to anesthetic agents, andno family history of anesthesia complications. For post-op support, patient reportsadequate assistance at home. For surgery to be performed, (cystocele & rectocele repair). For context/condition being addressed, (incomplete bladder emptying). For functional ability, (limited due to poor balance and chronic lower back pain.). Kadie Terrazas APRN [address], [place], [address], [facility] 01/30/2024 10:39:19 10/01/2024 text/html Ajay is here for AWV. She's having continued back pain, all of the discs are herniated or bulging. She saw a control system computer scientist and didn't get any benefit from it. She wakes up with leg cramps and hand pain. Under her right arm there is a burning pain that comes and goes. She uses otc pain patches that don't work too well. She would like a referral to a different volunteer specialist. All this constant pain is taking a toll on her emotionally and she wants some help. 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 She will have repeat imaging in Oct. Still dealing with interstitial cystitis and will follow up with urogyn. She will see endo in Oct for her thyroid. She has mild sleep apnea and couldn't tolerate the cpap. She snores occasionally and doesn't sleep well in general. She used to take a sleeping pill but the provider stopped filling it because of the potential risks. She feels exhausted all the time. The stress of the pain has caused her to lose 10 pounds.She recently moved into a smaller house an her daughter moved into her old house with her family which is a good thing. Kadie Terrazas APRN [address], [place], [address], [place] - [facility] 10/02/2024 15:33:15 12/23/2024 text/html After a CT scan, her [...] hasn't noticed any breast changes. Kadie Terrazas, DIRECTOR OF PROFESSIONAL SERVICES [address] [facility], [place], [address], [place] [facility] 12/23/2024 20:14:44 OBGyn Episode No OBEpisode recorded.
--- OUTSIDE RECORDS SUMMARY | 2025-01-16 20:58 | XMS_ITS | Clinical Summary ---
Author Organization [facility] Address [address] [place] [phone] Phone Care Team Providers Care Pool Table Mechanic Name Role Phone Kadie Terrazas NP Primary Care Provider [phone] Allergies No known active allergies Medications traZODone (DESYREL) 50 MG tablet Take 50 mg by mouth nightly. Active omeprazole (PRILOSEC) 40 MG capsule Take 40 mg by mouth daily. Active IBUPROFEN (ADVIL MIGRAINE ORAL) Take 3 tablets by mouth nightly. Active ujnttmez-crtv-mc rrous gluconat (CENTRUM WITH IRON) 9 mg [...] 12/15/2017 Exercise intolerance 12/15/2017 Excessive sweating 12/15/2017 Family History Medical History Relation Comments Heart [...] 05/21/2024 10:58 AM EDT Plan of Treatment Upcoming Encounters Date Type Department Care Team ([facility] st Contact Info) Description 05/19/2025 10:00 AM EDT [place] [facility] [place] [address] [place] [address], 8th Floor, [address] [place] [address] Lauro Cedeño MD, PhD [address] [place] [phone] [email or web address] Health Maintenance Due Date Last Done Comments [...] file Insurance MEDICARE PART A & B MEDICARE ENHANCE SUPPLEMENT MEDICARE PART A & B [employer] MEDICARE ENHANCE SUPPLEMENT MEDICARE PART A & B MEDICARE PART A & B MEDICARE PART A & B Member Subscriber Plan / Payer (Ef fective 2016-Present) Name:Chana Bassett Member ID:[id number] Relation to Subscriber:Self Name:Chana Bassett Subscriber ID:[id number] Payer ID:[id number] Group ID:Not on file Type:Medicare Address: [employer] [address] MEDICARE ENHANCE SUPPLEMENT MEDICARE PART A & B MEDICARE PART A & B [facility] MEDICARE ENHANCE SUPPLEMENT MEDICARE PART A & B [facility] MEDICARE ENHANCE SUPPLEMENT MEDICARE PART A & B [employer] MEDIC[employer] ENHANCE SUPPLEMENT Advance Directives For more information, please contact: [phone] (9AM - 5PM [facility], Monday-Monday) Documents on File Type Date Recorded Patient Bilingual Counter Sales Retail Expl anation Healthcare Proxy 04/21/2021 4:39 PM Care Teams Pool Table Mechanic Relationship Specialty Start Date End Date Kadie Terrazas NP [address] [place] [address] PCP - General Nurse Practitioner 11/12/24 Additional Source Comments The information contained in this document represents components of the legal health record. It is not the complete legal health record.[facility]
--- OUTSIDE RECORDS SUMMARY | 2025-01-16 20:59 | XMS_ITS | Encounter Summary ---
Author Organization [facility] Address [address] [facility] [address] [place] [address] Phone Care Team Providers Care Court Clerk Name Role Phone Henri Cruz MD Primary Care Provider Kadie Terrazas NP Primary Care Provider [phone] Encounter Details Date Type Department Care Team (Late st Contact Info) Description 08/25/2020 Procedure Pass [facility] Cardiac Towboat Engineer [address] [place] [address] Social History Tobacco Use Types Packs/Day Years [...] Description 05/19/2025 10:00 AM EDT Office [place] [facility] [place] Department of Neurology [address] [facility], 8th Floor, [address] [place] [address] Lauro Cedeño MD, PhD [address] [place] [phone] [email or web address] documented as of this encounter Visit Diagnoses Not on filedocumented in this encounter Care Teams Court Clerk Relationship Specialty Start Date End Date Henri Cruz MD [address] [place] [address] PCP - General Internal Medicine 01/11/17 11/11/24 Kadie Terrazas NP [address] [place] [address] PCP - General Nurse Practitioner 11/12/24 documented as of this encounter Additional Source Comments The information contained in this document represents components of the legal health record. It is not the complete legal health record.[facility]
--- OUTSIDE RECORDS SUMMARY | 2025-01-16 20:59 | XMS_ITS | Clinical Summary ---
Author Organization [facility] Address [address] [place] [address] Care Team Providers Care Cleaning Staff Supervisor Name Role Phone Kadie Terrazas NP Primary Care Provider [phone] Allergies No known active allergies Medications Medication [...] age to complete this topic Care Teams Cleaning Staff Supervisor Relationship Specialty Start Date End Date Kadie Terrazas, PAT [address] [place] [address] PCP - General Nurse Practitioner 11/14/23
--- OUTSIDE RECORDS SUMMARY | 2025-01-16 20:59 | XMS_ITS | Encounter Summary ---
Author Organization [facility] Address [address] [place] [address] Phone Care Team Providers Care City Sanitarian Name Role Phone Henri Cruz MD Primary Care Provider Kadie Terrazas NP Primary Care Provider [phone] Reason for Referral * MRI/CAT Scan - Closed Specialty Diagnoses / Procedures Referred By Contac t Referred To Contact Radiology Diagnoses Low back pain, unspecified back pain laterality, unspecified chronicity, unspecified whether sciatica present Procedures MRI Lumbar Spine Jas Latif MD Phone: tel: fax: Referral ID Status Reason Start Date Expiration Date Visits Re quested Visits Authorized [id number] Closed 06/30/2023 06/29/2024 1 1 Encounter Details Date Type Department Care Team (Latest Contact Info) Description 06/30/2023 Transcribe Orders Virtual Department [address] [place] [address] Jas Latif MD [address] [place] [phone] Low back pain, unspecified back pain laterality, [...] Description 05/19/2025 10:00 AM EDT [place] [facility] [address] [place] [address], 8th Floor, [address] [place] [address] Lauro Cedeño MD, PhD [address] [place] [address] [email or web address] documented as of this encounter Results * [...] present documented in this encounter Care Teams City Sanitarian Relationship Specialty Start Date End Date Henri Cruz MD [address] [place] [address] PCP - General Internal Medicine 01/11/17 11/11/24 Kadie Terrazas NP [address] [place] [address] PCP - General Nurse Practitioner 11/12/24 documented as of this encounter Additional Source Comments The information contained in this document represents components of the legal health record. It is not the complete legal health record.[facility]
--- OUTSIDE RECORDS SUMMARY | 2025-01-16 20:59 | XMS_ITS | Encounter Summary ---
Author Organization [facility] Address [address] [facility] [address] [place] [address] Phone Care Team Providers Care Spring Winder Name Role Phone Henri Cruz MD Primary Care Provider Kadie Terrazas NP Primary Care Provider [phone] Encounter Details Date Type Department Care Team (Late st Contact Info) Description 06/30/2023 Procedure Pass [facility], [address] [address] Social History Tobacco Use Types Packs/Day Years [...] Description 05/19/2025 10:00 AM EDT Office Visit [facility] Department of Neurology [address] [place] [address], 8th Floor, [address] [place] [address] Lauro Cedeño MD, PhD [address] [place] [address] [email or web address] documented as of this encounter Visit Diagnoses Not on filedocumented in this encounter Care Teams Spring Winder Relationship Specialty Start Date End Date Henri Cruz MD [address] [place] [address] PCP - General Internal Medicine 01/11/17 11/11/24 Kadie Terrazas NP [address] [place] [address] PCP - General Nurse Practitioner 11/12/24 documented as of this encounter Additional Source Comments The information contained in this document represents components of the legal health record. It is not the complete legal health record.[facility]
--- OUTSIDE RECORDS SUMMARY | 2025-01-16 20:59 | XMS_ITS | Clinical Summary ---
Author Organization [facility] Address [address] [place] [address] Phone Care Team Providers Care Billet Examiner Name Role Phone Kadie Terrazas Primary Care Provider [phone] Allergies Active Allergy Reactions Criticality Noted Date [...] 900 mL 1 5 01/20/[address] (ENTOCORT EC) 3 mg 24 hr capsule Take 1 capsule (3 mg total) by mouth 1 (one) time each day in the morning for 30 days, THEN 2 capsules (6 mg total) 1 (one) time each day in the morning for 30 days, THEN 1 capsule (3 mg total) 1 (one) time each day in the morning. 120 each 5 02/26/20 25 Active Active Problems Problem Noted Date Diagnosed Date Cystocele with rectocele 11/15/2023 Nocturia 11/15/2023 Urinary urgency 11/15/2023 Arthritis of right hip 03/22/2019 Chronic diarrhea 09/26/2013 Overview (11/15/2023): Dr. 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, [facility] V28) Discharge Disposition: Home or Self Care 11/14/2024 10:55 AM EDT Lab Draw Station - [address] [facility] [address] [facility] [place] [phone] 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, [facility] V28) (Primary Dx) 11/13/[address] [facility] [address] [facility] [address] [facility] [address] [place] [phone] Lorena Zaidi MA 11/13/[address] [facility] [address] [facility] [address] [facility] [address] [place] [phone] Brenda Mark PA 10/21/2024 11:30 AM EDT Office Visit Gastroenterology - [place] [address] [facility] [address] [facility] [address] [place] [phone] Brenda Mark PA 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 Dumas OTHER SURGICAL HISTORY 3 Bilateral PROCEDURE: CT ARTHRP ACETBLR/PROX FEM PROSTC AGRFT/ALGRFT; COMMENT: Dr. Esquivel, Oct 2019 Right hip replacement, 2012 left hip TOTAL KNEE ARTHROPLASTY 4 Right PROCEDURE: CT ARTHRP KNE CONDYLE&PLATU MEDIAL&LAT COMPARTMENTS; COMMENT: Dr. Esquivel COLONOSCOPY 7 PROCEDURE: HISTORICAL COLONOSCOPY; COMMENT: normal; repeat in 10 years OTHER SURGICAL HISTORY 5 Bilateral PROCEDURE: CT LIGATION/BIOPSY TEMPORAL ARTERY; COMMENT: Dr. Echevarria ESOPHAGOGASTRODUODENOSCOPY 0 PROCEDURE: CT ESOPHAGOGASTRODUODENOSCOPY TRANSORAL DIAGNOSTIC; COMMENT: mild stricture at GE junction dilated to 50 F ESOPHAGOGASTRODUODENOSCOPY 5 PROCEDURE: CT EGD TRANSORAL BIOPSY SINGLE/MULTIPLE; COMMENT: Fungal esophagitis on biopsy; otherwise normal ESOPHAGOGASTRODUODENOSCOPY 5 PROCEDURE: CT EGD TRANSORAL BIOPSY SINGLE/MULTIPLE; COMMENT: antral ulcers;no H. pylori; repeat in 2 months; no fungus on bxy ESOPHAGOGASTRODUODENOSCOPY 6 PROCEDURE: CT ESOPHAGOGASTRODUODENOSCOPY TRANSORAL DIAGNOSTIC; COMMENT: tiny antral ulcer and antral erythema ESOPHAGOGASTRODUODENOSCOPY 6 PROCEDURE: CT EGD TRANSORAL BIOPSY SINGLE/MULTIPLE; COMMENT: 6 tiny antral ulcers and antral muscular ring; no H. pylori or malignant cells; repeat in 2 months ESOPHAGOGASTRODUODENOSCOPY 6 PROCEDURE: CT ESOPHAGOGASTRODUODENOSCOPY TRANSORAL DIAGNOSTIC; COMMENT: antral erythema with healed ulcers OTHER SURGICAL HISTORY 8 PROCEDURE: CT LAMOT PRTL FFD EXC DISC REEXPL 1 NTRSPC CERVICAL; COMMENT: C5-6 fusion revision for pseudoarthrosis, Dr. Acevedo UPPER GASTROINTESTINAL ENDOSCOPY 9 PROCEDURE: CT UPPER GI ENDOSCOPY PERFORMED; COMMENT: erosive gastropathy HIP ARTHROPLASTY 2019 Right PROCEDURE: HISTORICAL HIP REPLACEMENT COLONOSCOPY 1 PROCEDURE: HISTORICAL COLONOSCOPY; COMMENT: mild diverticulosis ESOPHAGOGASTRODUODENOSCOPY 1 PROCEDURE: CT EGD TRANSORAL BIOPSY SINGLE/MULTIPLE; COMMENT: esophageal spasm OTHER SURGICAL HISTORY 7 PROCEDURE: CT ARTHRD ANT INTERBODY MIN DSC CRV BELOW [...] DX:Esophage al stricture; COMMENT: 07/06 - Dr. Delgado- status post dilation Right shoulder pain 12/26/2009 [...] Just recovering within the last several days- 2018 Irritable bowel syndrome DX:Irri table bowel syndrome [...] Sign Reading Time Taken Comments Blood Pressure 116/76 01/02/2025 2:35 PM EST Pulse 69 01/02/2025 2:35 PM EST Temperature 36.8 C (98.3 F) 01/02/2025 2:35 PM EST Respiratory Rate 12 02/12/2024 1:05 PM EST Oxygen Saturation 98% 10/21/2024 11:46 AM EDT Inhaled Oxygen Concentration - - Weight 84.6 kg (186 lb 9.6 oz) 01/02/2025 2:35 P M EST Height 167.6 cm (5' 6 ) 01/02/2025 2:35 PM EST Body Mass Index 30.12 01/02/2025 2:35 PM EST Plan of Treatment Upcoming Encounters Date Type Department Care Team (Late st Contact Info) Description 01/28/2025 10:30 AM EST Procedure visit Urogynecology [address] [place] [address] Suzanne Hernandez NP [address] [address] Cathy Roberts RN 02/04/2025 10:00 AM EST [facility] [place] [address] Suzanne Hernandez NP [address] [address] Cathy Roberts RN 02/11/2025 10:00 AM EST [facility] [address] [place] [address] Suzanne Hernandez NP [address] [address] Cathy Roberts RN 02/13/2025 11:10 AM EST Office Visit Gastroenterology - [address] [facility] [address] [place] [phone] Brenda Mark PA [address] [facility] [address] [place] [address] 02/18/2025 9:30 AM EST Procedure visit Urogynecology - [address] [place] [phone] Cathy Roberts RN Health Maintenance Due Date Last Done Comments Colorectal Cancer Screening: Colonoscopy 1950 Cholesterol Screening (Lipid Panel) 02/03/2022 Hepatitis C Screening 02/03/2022 Medicare Annual Wellness Visit 02/03/2022 Social Influencers of Health Screening 02/03/2022 Breast Cancer Screening 05/01/2022 05/01/2020, 03/08 Depression Screening 02/28/2024 COVID-19 Vaccine ( season) 2024 06/11/2020, 05/21/2020 Influenza Vaccine (#1) 2024 , 01/01/2020, 03/02/2018, Additional history exists Falls Risk Assessment 02/11/2025 02/12/2024 RSV Immunization Adult Patients (1 - 1-dose 75+ series) 06/15/2026 Osteoporosis Screening (Bone Density Screening) 03/13/2027 03/13/2017 DTaP,Tdap,and Td Vaccines (3 - Td or Tdap) 06/09/2031 06/08/2021, 08/05/2010 Pneumococcal Vaccine: 50+ Years Completed 03/18/2020, 08/16/2016, 09/24/2014 Zoster Vaccines Completed 12/23/2024, 06/2024, 10/02/2013 HIB Vaccines Aged Out No longer eligi [...] Comments CT ABDOMEN PELVIS W CONTRAST Routine 11/14/2024 4:39 PM EDT Mesenteric panniculitis ([facility]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, [facility] V28) RENAL FUNCTION PANEL STAT 11/14/2024 10:58 AM EDT Fat necrosis of peritoneum ([facility] V24, [facility] V28) SCR MAMMO BI INCL CAD Routine 05/01/2020 4:03 PM EST Encounter for screening mammogram for malignant neoplasm of breast DXA BONE DENSITY STUDY 1+ SITS AXIAL SKEL Routine 03/13/2017 2:31 PM EST Encounter for gynecological examination (general) (routine) without abnormal findings from Last 3 Months or Most Recently Relevant to Health Maintenance Results * CT Abdomen Pelvis w Contrast (11/14/2024 4:39 PM EDT) Anatomical Region Laterality Modality Body Computed Tomogra phy 11/19/2024 2:06 PM EDT Impressions 11/19/2024 2:09 PM EDT Persistent but mildly improved haziness within the mesentery compared to prior. -------- FINAL REPORT -------- Dictated By: Jostin Samuels Dictated Date: 11/19/2024 14:06 ET Assigned Physician: Jostin Samuels Reviewed and Electronically Signed By: Jostin Samuels Signed Date: 11/19/2024 14:09 ET Workstation ID: [id number] Transcribed By: Self Edit Transcribed Date: 11/19/2024 14:06 ET Narrative 11/19/2024 2:09 PM EDT PROCEDURE: CT ABDOMEN/PELVIS WITH CONTRAST INDICATION: to [...] acute osseous abnormality. Soft tissues are unremarkable. Procedure Note Jostin Samuels MD - 11/19/2024 PROCEDURE: CT ABDOMEN/PELVIS WITH CONTRAST INDICATION: to [...] Not well evaluated due to streak artifact frombilateral hip prostheses. PERITONEUM / RETROPERITONEUM: Again noted is haziness within the mesenterywith presumed reactive nodes. This is mildly improved from prior CT of08/12/2024. VESSELS: Scattered atherosclerotic calcifications throughout the aorta andits major branches. No aneurysm. GI TRACT: Thickening of the stomach presumably related to underdistention.There is diverticulosis without visible diverticulitis though the sigmoidcolon is partially obscured by streak artifact. No bowel obstruction. BONES AND SOFT TISSUES: Bilateral hip plasties. Degenerative changes ofthe spine. No acute osseous abnormality. Soft tissues are unremarkable. IMPRESSION: Persistent but mildly improved haziness within the mesentery compared toprior. -------- FINAL REPORT -------- Dictated By: Jostin Samuels Dictated Date: 11/19/2024 14:06 ET Assigned Physician: Jostin Samuels Reviewed and Electronically Signed By: Jostin Samuels Signed Date: 11/19/2024 14:09 ET Workstation ID: [id number] Transcribed By: Self Edit Transcribed Date: 11/19/2024 14:06 ET Brenda LOPEZ IMG CT PROCEDURES Final Resul t * (ABNORMAL) Renal function panel (11/14/2024 10:58 AM EDT) Sodium 143 133 - 145 mmol/L LAB CHEMISTRY METHOD 11/14/2024 12:41 PM [facility] Potassium 4.1 3.5 - 5.5 mmol/L LAB CHEMISTRY METHOD 11/14/2024 12:41 PM [facility] Chloride 112(H) 96 - 110 mmol/L LAB CHEMISTRY METHOD 11/14/2024 12:41 PM [facility] CO2 26 21 - 32 mmol/L LAB CHEMISTRY METHOD 11/14/2024 12:41 PM [facility] Anion Gap 5 3 - 11 LAB CHEMISTRY METHOD 11/14/2024 12:41 PM [facility] Glucose 113(H) 70 - 100 mg/dL LAB CHEMISTRY METHOD 11/14/2024 12:41 PM [facility] BUN 22 5 - 25 mg/dL LAB CHEMISTRY METHOD 11/14/2024 12:41 PM [facility] Creatinine 0.63 0.50 - 1.10 mg/dL LAB CHEMISTRY METHOD 11/14/2024 12:41 PM EDT [facility] eGFR 94 >=60 mL/min/1. 73m2 LAB CHEMISTRY METHOD 11/14/2024 12:41 PM EDT [facility] Comment:Calculation based on the Chronic Kidney Disease Epidemiology Collaboration (CKD-EPI) equation refit without adjustment for race. BUN/Creatinine Ratio 34.9 LAB CHEMISTRY METHOD 11/14/2024 12:41 PM EDT [facility] Albumin 3.5 3.2 - 5.0 g/dL LAB CHEMISTRY METHOD 11/14/2024 12:41 PM EDT [facility] Calcium 9.1 8.5 - 10.5 mg/dL LAB CHEMISTRY METHOD 11/14/2024 12:41 PM EDT [facility] Phosphorus 3.2 2.5 - 4.5 mg/dL LAB CHEMISTRY METHOD 11/14/2024 12:41 PM EDT [facility] Blood Venous blood specimen / Unknown Venipuncture / Unknown 11/14/2024 10:58 AM EDT 11/14/2024 11:29 AM EDT Brenda LOPEZ LAB BLOOD ORDERABLES Final Re sult [facility] [address] [place] [address], * SCR MAMMO BI INCL CAD (05/01/2020 [...] (World Health Organization Fracture Risk Assessment) [facility] Department of Internal Medicine recommends using National [...] alternative screening schedule based on alessio Miranda., [facility] March 17, 2011 for patients with osteopenia [...] (World Health Organization Fracture Risk Assessment) [facility] Department of Internal Medicine recommendsusing National Osteoporosis [...] alternative screening schedule based on alessio Miranda., [facility] for patients with osteopenia (based on [...] Recently Relevant to Health Maintenance Insurance MEDICARE [facility] Advance Directives * Full Code - Default [...] currently active code status orders. Care Teams Billet Examiner Relationship Specialty Start Date End Date Kadie Terrazas [address] [place] [phone] PCP - General 11/14/23
--- OUTSIDE RECORDS SUMMARY | 2025-01-16 20:59 | XMS_ITS | Encounter Summary ---
Author Organization [facility] Address [address] [facility] [address] [place] [address] Phone Care Team Providers Care Skinning Machine Feeder Name Role Phone Henri Cruz MD Primary Care Provider Kadie Terrazas NP Primary Care Provider [phone] Encounter Details Date Type Department Care Team (Late st Contact Info) Description 04/20/2021 Procedure Pass [facility] Cardiac Technical Agronomist [address] [place] [address] Social History Tobacco Use Types Packs/Day Years [...] 05/19/2025 10:00 AM EDT Office Visit [facility] [place] Department of Neurology [address] [facility], 8th Floor, [address] [place] [address] Lauro Cedeño MD, PhD [address] [place] [address] [email or web address] documented as of this encounter Visit Diagnoses Not on filedocumented in this encounter Care Teams Skinning Machine Feeder Relationship Specialty Start Date End Date Henri Cruz MD [address] [place] [address] PCP - General Internal Medicine 01/11/17 11/11/24 Kadie Terrazas NP [address] [place] [address] PCP - General Nurse Practitioner 11/12/24 documented as of this encounter Additional Source Comments The information contained in this document represents components of the legal health record. It is not the complete legal health record.[facility]
--- OUTSIDE RECORDS SUMMARY | 2025-01-16 20:59 | XMS_ITS | Encounter Summary ---
Author Organization [facility] Address [address] [place] [address] [place] [address] Phone Care Team Providers Care Tinner Automatic Name Role Phone Henri Cruz MD Primary Care Provider Kadie Terrazas NP Primary Care Provider [phone] Encounter Details Date Type Department Care Team (Late st Contact Info) Description 05/22/2017 Procedure Pass [facility] General Imaging [address] [place] [address] Social History Tobacco Use Types Packs/Day Years [...] 05/19/2025 10:00 AM EDT Office [place] [facility] [place]rology [address] [place] [address], 8th Floor, [address] [place] [address] Lauro Cedeño MD, PhD [address] [place] [address] [email or web address] documented as of this encounter Visit Diagnoses Not on filedocumented in this encounter Care Teams Tinner Automatic Relationship Specialty Start Date End Date Henri Cruz MD [address] [place] [address] PCP - General Internal Medicine 01/11/17 11/11/24 Kadie Terrazas NP [address] [place] [address] PCP - General Nurse Practitioner 11/12/24 documented as of this encounter Additional Source Comments The information contained in this document represents components of the legal health record. It is not the complete legal health record.[facility]
--- OUTSIDE RECORDS SUMMARY | 2025-01-16 20:59 | XMS_ITS | Encounter Summary ---
Author Organization [facility] Address [address] [place] [address] Phone Care Team Providers Care Accounting Advisory Services Manager Name Role Phone Henri Cruz MD Primary Care Provider Kadie Terrazas NP Primary Care Provider [phone] Reason for Referral * - Closed Specialty Diagnoses / Procedures Referred By Contac t Referred To Contact Diagnoses CFS (chronic fatigue syndrome) Procedures Autonomic Testing Juan Arana MD Phone: tel: fax: mailto:[email or web address] Referral ID Status Reason Start Date Expiration Date Visits Re quested Visits Authorized [id number] Closed 04/21/2021 04/21/2022 1 1 Encounter Details Date Type Department Care Team (Late st Contact Info) Description 04/21/2021 Ancillary Orders [facility] Autonomic Lab [address] [place] [address] Juan Arana MD [address] [place] [phone] [email or web address] CFS (chronic fatigue syndrome) Social History [...] Description 05/19/2025 10:00 AM EDT Office Visit [facility] Department of Neurology [address] [place] [address], 8th Floor, [address] [place] [address] Lauro Cedeño MD, PhD [address] [place] [address] [place] [address] [email or web address] documented as of this encounter Results * AUTONOMIC TESTING (10/04/2021 8:08 AM EDT) Anatomical Region Laterality Modality Other Other Narrative 11/18/2021 6:59 AM EDT Magan Moy MD, PhD 11/18/2021 7:00 AM Autonomic Testing Date/Time: 11/18/2021 6:59 AM Performed by: Magan Moy MD, PhD Authorized by: Juan Arana MD Juan Arana MD NEUROLOGY ORDERABLES Final Re sult documented in this encounter Visit Diagnoses Diagnosis CFS (chronic fatigue syndrome) Chronic fatigue syndrome Other cerebrovascular vasospasm and vasoconstriction- Primary CFS (chronic fatigue syndrome) Chronic fatigue syndrome Postural orthostatic tachycardia syndrome Unspecified tachycardia Idiopathic autonomic neuropathy Idiopathic peripheral autonomic neuropathy, unspecified Small fiber neuropathy documented in this encounter Care Teams Accounting Advisory Services Manager Relationship Specialty Start Date End Date Henri Cruz MD [address] [place] [address] PCP - General Internal Medicine 01/11/17 11/11/24 Kadie Terrazas NP [address] [place] [address] PCP - General Nurse Practitioner 11/12/24 documented as of this encounter Additional Source Comments The information contained in this document represents components of the legal health record. It is not the complete legal health record.[facility]
--- OUTSIDE RECORDS SUMMARY | 2025-01-16 20:59 | XMS_ITS | Clinical Summary ---
Author Organization [facility] Address [address] [place] [address] Care Team Providers Care Bell Attendant Name Role Phone Daxa Rogers APRN Primary Care Provider [phone] Allergies No known active allergies Medications atorvastatin [...] Review of the cervical spine MRI from [facility] dated 02/09/2022 shows a solid fusion [...] fiber neuropathy 12/15/2017 [facility] (12/18/2022[facility] Start[facility] on Trileptal and Pyrdistigmine finished [address] Juan Arana- newspaper writer Fibromyalgia 08/16/2016 12/18/2022 Obstructive sleep apnea 06/05/2016 [...] Overview (12/18/2022): Dr. Esquivel Left 413 - [facility] Right - 10/2019 Headache, chronic daily 06/14/2012 12/19/19 Overview (12/18/2022): Dr. Pink, Dr. Draper ([facility]) 07/09 - relief with [...] ( season) 2024 06/11/2020, 05/21/2020 RSV Vaccine 50 years and older and Patients (1 - 1-dose 75+ series) 06/15/2026 Hepatitis B Vaccines Aged Out No long er eligible based on patient's age to complete this topic Insurance MEDICARE PART A & B [employer]ED MEDICARE Care Teams Bell Attendant Relationship Specialty Start Date End Date Dax[place] [address] PCP - General Internal Medicine 12/22/22
--- OUTSIDE RECORDS SUMMARY | 2025-01-16 20:59 | XMS_ITS | Encounter Summary ---
Author Organization [facility] Address [address] [facility] [address] [place] [address] Phone Care Team Providers Care Partner Integration Planner Name Role Phone Henri Cruz MD Primary Care Provider Kadie Terrazas NP Primary Care Provider [phone] Encounter Details Date Type Department Care Team (Late st Contact Info) Description 05/05/2023 Procedure Pass [facility], [address] [address] Social History Tobacco Use Types Packs/Day Years [...] Description 05/19/2025 10:00 AM EDT [place] [facility] [place]rology [address] [place] [address], 8th Floor, [address] [place] [address] Lauro Cedeño MD, PhD [address] [place] [address] [email or web address] documented as of this encounter Visit Diagnoses Not on filedocumented in this encounter Care Teams Partner Integration Planner Relationship Specialty Start Date End Date Henri Cruz MD [address] [place] [address] PCP - General Internal Medicine 01/11/17 11/11/24 Kadie Terrazas NP [address] [place] [address] PCP - General Nurse Practitioner 11/12/24 documented as of this encounter Additional Source Comments The information contained in this document represents components of the legal health record. It is not the complete legal health record.[facility]
--- OUTSIDE RECORDS SUMMARY | 2025-01-16 20:59 | XMS_ITS | Encounter Summary ---
Author Organization [facility] Address [address] [facility] [address] [place] [address] Phone Care Team Providers Care Property Disposal Officer Name Role Phone Henri Cruz MD Primary Care Provider Kadie Terrazas NP Primary Care Provider [phone] Encounter Details Date Type Department Care Team (Late Contact Info) Description 08/19/2020 Ancillary Orders [facility] Pulmonary Medicine Hypertension [address] [place] [address] Selin Moseley PA-C [address] [place] [address] [email or web address] SOB (shortness of breath) on exertion Social [...] Description 05/19/2025 10:00 AM EDT Office Visit [place] Department of Neurology [address] [facility], 8th Floor, [address] [place] [address] Lauro Cedeño MD, PhD [address] [place] [address] [email or web address] documented as of this encounter Visit Diagnoses Diagnosis SOB (shortness of breath) on exertion Shortness of breath documented in this encounter Care Teams Property Disposal Officer Relationship Specialty Start Date End Date Henri Cruz MD [address] [place] [address] PCP - General Internal Medicine 01/11/17 11/11/24 Kadie Terrazas NP [address] [place] [address] PCP - General Nurse Practitioner 11/12/24 documented as of this encounter Additional Source Comments The information contained in this document represents components of the legal health record. It is not the complete legal health record.[facility]
--- OUTSIDE RECORDS SUMMARY | 2025-01-16 20:59 | XMS_ITS | Encounter Summary ---
Author Organization [facility] Address [address] [facility] [address] [place] [address] Phone Care Team Providers Care Relations Specialist Name Role Phone Henri Cruz MD Primary Care Provider Kadie Terrazas NP Primary Care Provider [phone] Reason for Referral * MRI/CAT Scan - Closed Specialty Diagnoses / Procedures Referred By Katherine elliott Referred To Contact Diagnoses SOB (shortness of breath) Procedures Cardiopulmonary Exercise Test Advanced-Level 3 Joie Arana PA-C [email or web address] Referral ID Status Reason Start Date Expiration Date Visits Re quested Visits Authorized [id number] Closed 04/20/2021 05/20/2021 1 1 Encounter Details Date Type Department Care Team (Latest Contact Info) Description 04/20/2021 Ancillary Orders [facility] Pulmonary Medicine Hypertension [address] [place] [address] Joie Arana PA-C [email or web address] SOB (shortness of breath) Social History Tobacco [...] 10:00 AM EDT Office [place] [facility] [place] of Neurology [address] [place] [address], 8th Floor, [address] [place] [address] Lauro Cedeño MD, PhD [address] [place] [address] [email or web address] documented as of this encounter Results * Cardiopulmonary Exercise Test Advanced-Level 3 (04/20/2021 1:16 PM EST) Anatomical Region Laterality Modality Heart BHECH 04/20/2021 6:00 AM EST Narrative 05/03/2021 9:31 [...] 187/88 mm Hg at peak exercise (RPP: 15392). Oxygen saturation remained unchanged at 97.2% during [...] Heart Rate (bpm) 151 146 97% HR [place] (bpm) 90 HR Recovery (1 min) > 12 10 Rest Blood Press (mm Hg) 142/83 Peak Blood Press (mm Hg) 187/88 Peak O2 Pulse (mL/beat) 8.9 8.8 99% ^VO2/^WR (mL/min/watt) > 10.2 +/- 1 9.2 ^HR/^VO2 < 50 87 Cardiac Output (Qt) 9.6 10.7 111% Rest RER 0.88 Peak RER 1.36 = VENTILATORY RESPONSE = Measured Percent MVV (Measured) MVV (Calculated) 85.05 Respiratory [place] 20.75 76% VE/VCO2 (Dickenson) 34.76 VE @ AT 22 VE @ [...] 5 73 5 14.9 23/1(3) FW1 1 /10 17 4 13 29/1(3) 1 4 21/02 17 7 10 30/2(5) 2 / 3 [...] 187/88 mm Hg at peak exercise (RPP: 36509). Oxygen saturationremained unchanged at 97.2% during exercise. [...] Heart Rate (bpm) 151 146 97% HR [place] (bpm) 90 HR Recovery (1 min) > 12 10 Rest Blood Press (mm Hg) 142/83 Peak Blood Press (mm Hg) 187/88 Peak O2 Pulse (mL/beat) 8.9 8.8 99% ^VO2/^WR (mL/min/watt) > 10.2 +/- 1 9.2 ^HR/^VO2 < 50 87 Cardiac Output (Qt) 9.6 10.7 111% Rest RER 0.88 Peak RER 1.36 = VENTILATORY RESPONSE = Measured Percent MVV (Measured) MVV (Calculated) 85.05 Respiratory [place] 20.75 76% VE/VCO2 (Dickenson) 34.76 VE @ AT 22 VE @ [...] 5 73 5 14.9 23/1(3) FW1 1 /10 17 4 13 29/1(3) 1 4 / 17 7 10 30/2(5) 2 / 3 / 4 / 5 3 / 19 6 123 13 5.6 6 2 [...] breath documented in this encounter Care Teams Relations Specialist Relationship Specialty Start Date End Date Henri Cruz MD [address] [place] [address] PCP - General Internal Medicine 01/11/17 11/11/24 Kadie Terrazas NP [address] [place] [address] PCP - General Nurse Practitioner 11/12/24 documented as of this encounter Additional Source Comments The information contained in this document represents components of the legal health record. It is not the complete legal health record.[facility]
--- OUTSIDE RECORDS SUMMARY | 2025-01-16 20:59 | XMS_ITS | Encounter Summary ---
Author Organization [facility] Address [address] [place] [address] [place] [address] Phone Care Team Providers Care Group Product Manager Name Role Phone Henri Cruz MD Primary Care Provider Kadie Terrazas NP Primary Care Provider [phone] Encounter Details Date Type Department Care Team [...] 05/19/2025 10:00 AM EDT Office Visit [facility] Department of Neurology [address] [place] [address], 8th Floor, [address] [place] [address] Lauro Cedeño MD, PhD [address] [place] [address] [email or web address] documented as of this encounter Visit Diagnoses Not on filedocumented in this encounter Care Teams Group Product Manager Relationship Specialty Start Date End Date Henri Cruz MD [address] [place] [address] PCP - General Internal Medicine 01/11/17 11/11/24 Kadie Terrazas NP [address] [place] [address] PCP - General Nurse Practitioner 11/12/24 documented as of this encounter Additional Source Comments The information contained in this document represents components of the legal health record. It is not the complete legal health record.[facility]
--- OUTSIDE RECORDS SUMMARY | 2025-01-16 20:59 | XMS_ITS | Patient Health Record ---
Author Organization [facility] Address [address] [place] [address] Support Name Relationship Address Phone [facility] [address] [place] [address] Chana Bassett Guarantor Unknown Reason For Referral No Information Medications Medication [...] Insured Coverage Start Date Coverage End Date [facility] [address] [place], [place] [id number] Chana Bassett Self - patient is the insured
== END 2025-01-16 16:29 | disposition home or self-care (01) ==
LOC: HO.CT 16:28
PROVIDERS: PCP Nurse Practitioner Family; Visit Provider Physician Assistant
DX: M54.50 Low back pain, unspecified (principal)
CPT/HCPCS: 72131

== ENCOUNTER → 2025-01-16 16:29 | Outpatient (BNV) | payer MEDICARE, OTHER, SELFPAY | PROVIDERS: PCP Nurse Practitioner Family; Visit Provider Radiology Body Imaging | DX: M54.50 Low back pain, unspecified (principal) | CPT/HCPCS: 72131 ==

== ENCOUNTER 2025-02-05 14:49 | Outpatient (AMB) | payer MEDICARE, OTHER, SELFPAY ==
--- OUTSIDE RECORDS SUMMARY | 2024-02-12 10:30 | XMS_ITS | Encounter Summary ---
Author Organization [facility] Prior to 07/27/24 Address [address] [place] [address] Care Team Providers Care Physician Relations Specialist Name Role Phone Kadie Terrazas NP Primary Care Provider Encounter Details Date Type Department Care Team Description 02/12/2024 10:30 AM [facility] Hospital Encounter [facility] Main Surgery [address] [place] [address] Sal Holden MD Social History Tobacco Use Types Packs/Day Years Used Date Smoking Tobacco: Never Assessed Sex and Gender Information Value Date Recorded Sex Assigned at Not on file Gender Identity Not on file Sexual Orientation Not on file Job Start Date Occupation Industry Not on file Not on file Not on file documented as of this encounter Plan of Treatment Not on file documented as of this encounter Visit Diagnoses Diagnosis Cystocele with rectocele- Primary documented in this encounter Admitting Diagnoses Diagnosis Cystocele with rectocele documented in this encounter Care Teams Physician Relations Specialist Relationship Specialty Start Date End Date Kadie Terraazs NP [address] [place] [address] PCP - General Nurse Practitioner 11/14/23 documented as of this encounter
--- OUTSIDE RECORDS SUMMARY | 2025-02-04 10:00 | XMS_ITS | Encounter Summary ---
Author Organization [facility] [place] [address] Care Team Providers Care Research Nurse Practitioner Name Role Phone Kadie Terrazas Primary Care Provider Encounter Details Date Type Department Care Team (Latest Contact Info) Description 02/04/2025 10:00 AM EST Procedure visit Urogynecology - [place] [address] [place] [address] Suzanne Hernandez NP [address] [place] [address] Cathy Roberts RN Interstitial cystitis (Primary Dx) Social History Tobacco Use Types [...] on file documented as of this encounter Last Filed Vital Signs Vital Sign Reading Time Taken Comments Blood Pressure 135/84 02/04/2025 1:18 PM EST Pulse 56 02/04/2025 1:18 PM EST Temperature 36.7 C (98 F) 02/04/2025 1:18 PM EST Respiratory Rate - - Oxygen Saturation - - Inhaled Oxygen Concentration - - Weight 85.1 kg (187 lb 9.6 oz) 02/04/2025 1:18 P M EST Height 167.6 cm (5' 6 ) 02/04/2025 1:18 PM EST Body Mass Index 30.28 02/04/2025 1:18 PM EST documented in this encounter Progress Notes * Cathy Roberts RN - 02/04/2025 10:00 AM EST Chana Bassett 1950 Pt arrived for 1st Bladder Installation. Pt is reporting bladder burning and discomfort with full bladder and while urinating Occasional urgency sensations Nocturia x 3 Denies frequency throughout the day Denies urinary incontinence Denies bladder irritants, reports drinking water only Continuing to use vagifem 3 x weekly Med/surg history reviewed. No change since the last visit. Medication Mixed for BINS: Retrograde fill to bladder Solumedrol 100mg Sodium Bicarbonate 8.4%, 4cc Heparin 5000units 40cc sterile water Patient consented to treatment. Pt ambulated to semi lithot position Reviewed medication to be administered. Urethra prepped. Non latex Catheter placed into bladder formedication instillation followed by water. Cath removed. Retrograde bladder installation was well tolerated. Diagnosis: IC Pt instructed to hold medication as tolerated. Advised to report any side effects. Education included avoiding bladder irritants, attempting bladder drills and weekly assessment of symptoms. Pt agrees to clay shop supervisor plan of care. Cathy Roberts RN Cosigned by Suzanne Hernandez NP at 02/04/2025 4:05 PM EST documented in this encounter Plan of Treatment Upcoming Encounters Date Type Department Care Team (Late st Contact Info) Description 02/11/2025 10:00 AM EST Procedure visit Urogynecology - [place] [address] [place] [phone] Suzanne Hernandez NP [address] [place] [address] Cathy Roberts RN 02/13/2025 11:10 AM EST Office Visit Gastroenterology - [address] [facility] [address] [place] [address] Brenda Mark PA [address] [place] [address] 02/18/2025 9:30 AM EST Procedure visit Urogynecology - [place] [address] [place] [phone] Cathy Roberts RN 03/03/2025 10:30 AM EST Procedure visit Urogynecology - [place] [address] [place] [phone] Suzanne Hernandez NP [address] [place] [address] Cathy Roberts RN documented as of this encounter Visit Diagnoses Diagnosis Interstitial cystitis- Primary Chronic interstitial cystitis documented in this encounter Administered Medications Inactive Administered Medications - up to 3 most recent administrations Medication Order MAR Action Action Date Dose Rate Site heparin (UFH) injection 5,000 Units 5,000 Units, intravesical, Once, On Mon02/04/25 at 1030, For 1 doseIndications:Interstitial cystitis Given 02/04/2025 10:12 AM EST 5,000 Units hydrocortisone sod succinate injection 100 mg 100 mg, intravesical, Once, On Mon02/04/25 at 1030, For 1 dose, For IV or IM injection, prepare solution by aseptically adding not more than 2 mL of Bacteriostatic Water for Injection or Bacteriostatic Sodium Chloride Injection to the contents of one vial.Indications:Interstitial cystitis Given 02/04/2025 10:12 AM EST 100 mg sodium bicarbonate injection 4 mEq 4 mEq, intravesical, Once, On Mon02/04/25 at 1030, For 1 doseIndications:Interstitial cystitis Given 02/04/2025 10:13 AM EST 4 mEq documented in this encounter Care Teams Research Nurse Practitioner Relationship Specialty Start Date End Date Kadie Terrazas [address] [place] [phone] PCP - General 11/14/23 documented as of this encounter
--- NOTE | 2025-02-05 15:11 | A.SPINEOV_ITS ---
Intake Visit Reasons: MRI & CT f/u Intake Note: Mrs. Bassett is here today to F/u on the results to her MRI & CT Scan Radiator Fitter Required: No Allergies No Known Allergies Allergy (Verified 11/11/24 13:09) Assessment & Plan Assessment & Plan (1) Lumbar degenerative disc disease: Code(s): M51.369 - Other intervertebral disc degeneration, lumbar region without mention of lumbar back pain or lower extremity pain Category: Medical (2) Lumbago: Code(s): M54.50 - Low back pain, unspecified Category: Medical Plan Chana is a pleasant 74 year old female who comes in today for a subsequent office visit to discuss MRI / CT scan results. To recap during her last visit she reported she was primarily experiencing severe low back pain. She had several confounding factors contributing to her pain. See previous office visit note for specifics regarding this issue. We ended up obtaining a CT scan of her lumbar spine to better evaluate for auto fusion and bone quality. She comes in today for follow up regarding her imaging. She brought her MRI disc which was completed at [facility] in [place]. Unfortunately this MRI disc does not work unless disc extraction software is used. Today, she reports that she continues to experience severe low back pain, and also extensively discussed several other diffuse pains throughout her body. After review of her MRI and CT scan imaging, we discussed how the best possible option to address her low back pain (which is not accompanied by neurogenic claudication or radiculopathy) would be lumbar fusion. There is low utility for smaller surgical procedures such as lumbar decompression when treating low back pain. Due to the structural abnormalities noted in her CT scan and MRI imaging lumbar fusion is the best option to treat her low back pain and correct her mild lateral lithesis / / mild degenerative scoliosis. Unfortunately she does not qualify as a candidate for this surgery as she has osteoporosis last confirmed on DEXA scan in 2023 per her report. I encouraged her to follow up with her PCP to discuss potential treatment for this if she is interested in pursuing lumbar fusion. She would need a DEXA scan showing that she has made fairly significant improvement in terms of her osteoporosis. If we attempted to treat this patient when lumbar fusion it would likely result in pseudoarthrosis and worse pain than she had prior to surgery. I allotted time for the patient to ask questions regarding the above information. I answered all of her questions to the best of my ability. Emery Torres MD,PhD [facility] Coding Level of Care Code Est Pt Level 2 (28633) Diagnoses Lumbar degenerative disc disease M51.369 Lumbago M54.50
--- OUTSIDE RECORDS SUMMARY | 2025-02-05 23:16 | XMS_ITS | Encounter Summary ---
Author Organization [facility] Prior to 12/29/2023 Address [address] [place] [address] Care Team Providers Care Mold Design Engineer Name Role Phone Cornell Barajas Primary Care Provider Unav ailable Henri Cruz MD Primary Care Provider Unavailable Mayelin Nolasco DO Primary Care Provider Unavaila Kari Gillis MD Unavailable [phone] Selin Agustin-C Unavailable BatistaMiguel Angel arango-C Unavailable [facility], [facility] Primary Care Provider Unavailabl e Encounter Details Date Type Department Care Team Description 06/23/2011 Artificial Breeding Distributor Report Medical Records [address] [place] [address] Angus Torres MD Social History Tobacco Use Types Packs/Day Years Used Date Smoking Tobacco: Never Smokeless Tobacco: Never Alcohol Use Standard Drinks/Week Comments Yes 0 (1 standard drink = 0.6 oz pur e alcohol) 2-3 drinks/wk Sex Assigned at Date Recorded Female 12/15/2021 11:46 AM EDT documented as of this encounter Plan of Treatment Not on file documented as of this encounter Visit Diagnoses Not on filedocumented in this encounter Care Teams Mold Design Engineer Relationship Specialty Start Date End Date Cornell Barajas PCP - General 01/27/06 05/24/15 Henri Cruz MD PCP - General Internal Medicine 05/25/1504/28 Mayelin Nolasco DO PCP - General Internal Medicine 05/25/21 11/08/22 [facility], Pcp 175 [facility] [address] [place] [address] PCP - General Internal Medicine 11/09/22 Kari Acevedo MD [address] [address] Surgeon Neurosurgery 11/29/21 Selin Agustin PA-C [address] [address] Specialist Neurosurgery 11/29/21 Miguel Angel Batista PA-C [address] [address] Specialist Neurosurgery 11/29/21 documented as of this encounter
--- OUTSIDE RECORDS SUMMARY | 2025-02-05 23:16 | XMS_ITS | Encounter Summary ---
Author Organization [facility] Prior to 12/29/2023 Address [address] [place] [address] Care Team Providers Care Nurse Staff Community Health Name Role Phone ChrisyessiHernando sonel Paulo Primary Care Provider Unav Henri Marcial MD Primary Care Provider Unavailable Mayelin Nolasco DO Primary Care Provider Unavaila Kari Gillis MD Unavailable [phone] Selin Agustin PA-C Unavailable [phone] Miguel Angel Batista PA-C Unavailable [facility], Pcp Primary Care Provider Unavailabl e Encounter Details Date Type Department Care Team Description 01/19/2015 Telephone Rheumatology - [address] [address] Marry Hdz MD Social History Tobacco Use Types Packs/Day Years Used Date Smoking Tobacco: Never Smokeless Tobacco: Never Alcohol Use Standard Drinks/Week Comments Yes 0 (1 standard drink = 0.6 oz pur e alcohol) 2-3 drinks/mo Sex Assigned at Date Recorded Female 12/15/2021 11:46 AM EDT documented as of this encounter Miscellaneous Notes * Telephone Encounter - Daxa Eastman M.A. - 01/19/2015 3:09 PM EST FYI : Pt is c/o worsening hand/feet tingling/numbness, and burning sensation in her mouth. documented in this encounter Plan of Treatment Not on file documented as of this encounter Visit Diagnoses Not on filedocumented in this encounter Care Teams Nurse Staff Community Health Relationship Specialty Start Date End Date Cornell Barajas PCP - General 01/27/06 05/24/15 Henri Cruz MD PCP - General Internal Medicine 05/25/1504/28 Mayelin Nolasco DO PCP - General Internal Medicine 05/25/21 11/08/22 [facility], Pcp 175 [facility] [address] [place] [address] PCP - General Internal Medicine 11/09/22 Kari Acevedo MD [address] [address] Surgeon Neurosurgery 11/29/21 Selin Agustin PA-C [address] [address] Specialist Neurosurgery 11/29/21 Miguel Angel Batista PA-C [address] [address] Specialist Neurosurgery 11/29/21 documented as of this encounter
--- OUTSIDE RECORDS SUMMARY | 2025-02-05 23:16 | XMS_ITS | Encounter Summary ---
Author Organization [facility] Prior to 12/29/2023 Address [address] [place] [address] Care Team Providers Care Mva Still Operator Name Role Phone Cornell Barajas Primary Care Provider Unav ailable Henri Cruz MD Primary Care Provider Unavailable Mayelin Nolasco DO Primary Care Provider Unavaila Kari Gillis MD Unavailable [phone] Selin Agustin-Bruce Unavailable Miguel Angel BatistaC Unavailable [facility], [facility] Primary Care Provider Unavailabl e Encounter Details Date Type Department Care Team Description 10/18/2011 Release of Information Medical Records [address] [place] [id number] Abstract, Provider Social History Tobacco Use Types Packs/Day Years [...] on filedocumented in this encounter Care Teams Mva Still Operator Relationship Specialty Start Date End Date Cornell Barajas PCP - General 01/27/06 05/24/15 Henri Cruz MD PCP - General Internal Medicine 05/25/1504/28 Mayelin Nolasco DO PCP - General Internal Medicine 05/25/21 11/08/22 [facility], Pcp 175 [facility] [address] [place] [address] PCP - General Internal Medicine 11/09/22 Kari Acevedo MD [address] [address] Surgeon Neurosurgery 11/29/21 Selin Agustin PA-C [address] [address] Specialist Neurosurgery 11/29/21 Miguel Angel Batista PA-C [address] [address] Specialist Neurosurgery 11/29/21 documented as of this encounter
--- OUTSIDE RECORDS SUMMARY | 2025-02-05 23:16 | XMS_ITS | Encounter Summary ---
Author Organization [facility] Prior to 12/29/2023 Address [address] [place] [address] Care Team Providers Care Automotive Parts Manager Name Role Phone Henri Cruz MD Primary Care Provider Unavailable Mayelin Nolasco DO Primary Care Provider Unavaila Kari Gillis MD Unavailable [phone] Selin Agustin PA-C Unavailable [phone] Miguel Angel Batista PA-C Unavailable [facility], Pcp Primary Care Provider Unavailabl e Encounter Details Date Type Department Care Team Description 11/12/2020 Orders Only Medical Records [address] [place] [address] Karen Darling MD Social History Tobacco Use Types Packs/Day Years Used Date Smoking Tobacco: Never Smokeless Tobacco: Never Comments:secondary smoke Alcohol Use Standard Drinks/Week Comments Yes 0 (1 standard drink = 0.6 oz pur e alcohol) 2-3 drinks/mo Sex Assigned at Date Recorded Female 12/15/2021 11:46 AM EDT COVID-19 Exposure Response Date Recorded In the last month, have you been in contact with someone who was confirmed or suspected to have Coronavirus / COVID-19? No / Unsure 10/23/2020 2:11 PM EDT documented as of this encounter Plan of Treatment Not on file documented as of this encounter Procedures Procedure Name Priority Date/Time Associated Diagnosis Comments OUTSIDE LAB Routine 11/11/2020 documented in this encounter Results * OUTSIDE LAB (11/11/2020) Karen Darling MD LAB documented in this encounter Visit Diagnoses Not on filedocumented in this encounter Care Teams Automotive Parts Manager Relationship Specialty Start Date End Date Henri Cruz MD PCP - General Internal Medicine 05/25/1504/28 Mayelin Nolasco DO PCP - General Internal Medicine 05/25/21 11/08/22 [facility], Pcp [address] [address] PCP - General Internal Medicine 11/09/22 Kari Acevedo MD [address] [address] Surgeon Neurosurgery 11/29/21 Selin Agustin PA-C [address] [address] Specialist Neurosurgery 11/29/21 Miguel Angel Batista PA-C [address] [address] Specialist Neurosurgery 11/29/21 documented as of this encounter
--- OUTSIDE RECORDS SUMMARY | 2025-02-05 23:16 | XMS_ITS | Encounter Summary ---
Author Organization [facility] Prior to 12/29/2023 Address [address] [place] [address] Care Team Providers Care Salesforce Trainer Name Role Phone Cornell Barajas Primary Care Provider Unav ailable Henri Cruz MD Primary Care Provider Unavailable Mayelin Nolasco DO Primary Care Provider Unavaila Kari Gillis MD Unavailable [phone] Selin Agustin-C Unavailable BatistaMiguel Angel arango-C Unavailable [facility], [facility] Primary Care Provider Unavailabl e Encounter Details Date Type Department Care Team Description 07/31/2012 [facility] Medical Records [address] [place] [address] Clint Esquivel MD Social History Tobacco Use Types Packs/Day [...] on filedocumented in this encounter Care Teams Salesforce Trainer Relationship Specialty Start Date End Date Cornell Barajas PCP - General 01/27/06 05/24/15 Henri Cruz MD PCP - General Internal Medicine 05/25/1504/28 Ahmed, Khadiga, DO PCP - General Internal Medicine 05/25/21 11/08/22 [facility], Pcp 175 [facility] [address] [place] [address] PCP - General Internal Medicine 11/09/22 Kari Acevedo MD [address] [address] Surgeon Neurosurgery 11/29/21 Selin Agustin PA-C [address] [address] Specialist Neurosurgery 11/29/21 Miguel Angel Batista PA-C [address] [address] Specialist Neurosurgery 11/29/21 documented as of this encounter
--- OUTSIDE RECORDS SUMMARY | 2025-02-05 23:16 | XMS_ITS | Encounter Summary ---
Author Organization [facility] Prior to 12/29/2023 Address [address] [place] [address] Care Team Providers Care Inspector Brake Lining Name Role Phone Cornell Barajas Primary Care Provider Unav ailable Henri Cruz MD Primary Care Provider Unavailable Mayelin Nolasco DO Primary Care Provider Unavaila Kari Gillis MD Unavailable [phone] Selin Agustin-C Unavailable BatistaMiguel Angel arango-C Unavailable [facility], [facility] Primary Care Provider Unavailabl e Encounter Details Date Type Department Care Team Description 2011 Windows Laptop Technician Report Medical Records [address] [place] [address] Miles Shetty Social History Tobacco Use Types Packs/Day Years [...] on filedocumented in this encounter Care Teams Inspector Brake Lining Relationship Specialty Start Date End Date Cornell Barajas PCP - General 01/27/06 05/24/15 Henri Cruz MD PCP - General Internal Medicine 05/25/1504/28 Mayelin Nolasco DO PCP - General Internal Medicine 05/25/21 11/08/22 [facility], Pcp 175 [facility] [address] [place] [address] PCP - General Internal Medicine 11/09/22 Kari Acevedo MD [address] [address] Surgeon Neurosurgery 11/29/21 Selin Agustin PA-C [address] [address] Specialist Neurosurgery 11/29/21 Miguel Angel Batista PA-C [address] [address] Specialist Neurosurgery 11/29/21 documented as of this encounter
--- OUTSIDE RECORDS SUMMARY | 2025-02-05 23:16 | XMS_ITS | Encounter Summary ---
Author Organization [facility] Prior to 12/29/2023 Address [address] [place] [address] Care Team Providers Care Esthetician Name Role Phone Henri Cruz MD Primary Care Provider Unavailable Mayelin Nolasco DO Primary Care Provider Unavaila Kari Gillis MD Unavailable [phone] Selin Agustin PA-C Unavailable Miguel Angel Batista PA-C Unavailable [phone] [facility], Pcp Primary Care Provider Unavailabl e Reason for Visit * Reason Comments E-prescribe Rx Request Encounter Details Date Type Department Care Team Description 01/16/2021 Refill Adult Medicine - [address] [address] Henri Cruz MD E-prescribe Rx Request Social History Tobacco Use Types Packs/Day Years Used Date Smoking Tobacco: Never Smokeless Tobacco: Never Comments:secondary smoke Alcohol Use Standard Drinks/Week Comments Yes 0 (1 standard drink = 0.6 oz pur e alcohol) 2-3 drinks/mo Sex Assigned at Date Recorded Female 12/15/2021 11:46 AM EDT documented as of this encounter Miscellaneous Notes * Telephone Encounter - Sarah Acosta M.A. - 01/19/2021 8:50 AM EST Needs appt * Telephone Encounter - Mara Bethea - 01/18/2021 2:26 PM EST Patient would like script to be: E-PRESCRIBED/FAXED TO PHARMACY WHEN WAS THE PATIENT'S LAST APPOINTMENT IN ADULT MEDICINE? 03/18/2020 WHEN WAS THE LAST TIME THE PATIENT SAW THEIR PCP? Same as above Does patient have an upcoming appointment? No[facility] to refill request. Appt due (THE MEDICATION REQUESTED IS ON THE MED LIST ABOVE) All of the medications requested were on the CURRENT MEDS list Did you check the Pharmacy information above?: YES Patient wants: 30 -day supply Is this a mail order prescription request ? NO If the refill is from a FAXED refill request what is the RX # listed on the fax? N/A Patients current insurance carrier is: [place] / [place] / Product Type: MEDICARE [id number] documented in this encounter Plan of Treatment Not on file documented as of this encounter Visit Diagnoses Not on filedocumented in this encounter Care Teams Esthetician Relationship Specialty Start Date End Date Henri Cruz MD PCP - General Internal Medicine 05/25/1504/28 Mayelin Nolasco DO PCP - General Internal Medicine 05/25/21 11/08/22 [facility], Pcp [address] [address] PCP - General Internal Medicine 11/09/22 Kari Acevedo MD [address] [address] Surgeon Neurosurgery 11/29/21 Selin Agustin PA-C [address] [address] Specialist Neurosurgery 11/29/21 Miguel Angel Batista PA-C [address] [address] Specialist Neurosurgery 11/29/21 documented as of this encounter
--- OUTSIDE RECORDS SUMMARY | 2025-02-05 23:16 | XMS_ITS | Encounter Summary ---
Author Organization [facility] Prior to 12/29/2023 Address [address] [place] [address] Care Team Providers Care Corporate Strategy Analyst Name Role Phone Henri Cruz MD Primary Care Provider Unavailable Mayelin Nolasco DO Primary Care Provider Unavaila [facility] Kari Acevedo MD Unavailable [phone] Selin Agustin PA-C Unavailable Miguel Angel Batista PA-C Unavailable [phone] [facility], Pcp Primary Care Provider Unavailabl e Encounter Details Date Type Department Care Team Description 08/25/2015 Stock Ranch Supervisor Report Medical Records [address] [place] [address] Kari Acevedo MD [address] [place] [address] [address] [place] [address] Social History Tobacco Use Types Packs/Day Years [...] on filedocumented in this encounter Care Teams Corporate Strategy Analyst Relationship Specialty Start Date End Date Henri Cruz MD PCP - General Internal Medicine 05/25/1504/28 Mayelin Nolasco DO PCP - General Internal Medicine 05/25/21 11/08/22 [facility], Pcp 175 [facility] [address] [place] [address] PCP - General Internal Medicine 11/09/22 Kari Acevedo MD [address] [address] Surgeon Neurosurgery 11/29/21 Selin Agustin PA-C [address] [address] Specialist Neurosurgery 11/29/21 Miguel Angel Batista PA-C [address] [address] Specialist Neurosurgery 11/29/21 documented as of this encounter
--- OUTSIDE RECORDS SUMMARY | 2025-02-05 23:16 | XMS_ITS | Encounter Summary ---
Author Organization [facility] Prior to 12/29/2023 Address [address] [place] [address] Care Team Providers Care Keypuncher Name Role Phone Cornell Barajas Primary Care Provider Unav ailable Henri Cruz MD Primary Care Provider Unavailable Mayelin Nolasco DO Primary Care Provider Unavaila Kari Gillis MD Unavailable [phone] Selin Agustin-C Unavailable BatistaMiguel Angel arango-C Unavailable [facility], [facility] Primary Care Provider Unavailabl e Encounter Details Date Type Department Care Team Description 02/01/2012 Distance Education Faculty Liaison Report Medical Records [address] [place] [address] Clint Esquivel MD Social History Tobacco Use [...] on filedocumented in this encounter Care Teams Keypuncher Relationship Specialty Start Date End Date Cornell Barajas PCP - General 01/27/06 05/24/15 Henri Cruz MD PCP - General Internal Medicine 05/25/1504/28 Mayelin Nolasco DO PCP - General Internal Medicine 05/25/21 11/08/22 [facility], Pcp 175 [facility] [address] [place] [address] PCP - General Internal Medicine 11/09/22 Kari Acevedo MD [address] [address] Surgeon Neurosurgery 11/29/21 Selin Agustin PA-C [address] [address] Specialist Neurosurgery 11/29/21 Miguel Angel Batista PA-C [address] [address] Specialist Neurosurgery 11/29/21 documented as of this encounter
--- OUTSIDE RECORDS SUMMARY | 2025-02-05 23:16 | XMS_ITS | Encounter Summary ---
Author Organization [facility] Prior to 12/29/2023 Address [address] [place] [address] Care Team Providers Care Spray Painting Machine Operator Name Role Phone Cornell Barajas Primary Care Provider Unav ailable Henri Cruz MD Primary Care Provider Unavailable Mayelin Nolasco DO Primary Care Provider Unavaila Kari Gillis MD Unavailable [phone] Selin Agustin-C Unavailable [phone] Miguel Angel BatistaC Unavailable [facility], [facility] Primary Care Provider Unavailabl e Encounter Details Date Type Department Care Team Description 07/25/2012 [facility] Medical Records [address] [place] [address] A, Dane Major NP Social History Tobacco Use Types Packs/Day Years [...] on filedocumented in this encounter Care Teams Spray Painting Machine Operator Relationship Specialty Start Date End Date Cornell Barajas PCP - General 01/27/06 05/24/15 Henri Cruz MD PCP - General Internal Medicine 05/25/1504/28 Ahmed, Khadiga, DO PCP - General Internal Medicine 05/25/21 11/08/22 [facility], Pcp 175 [facility] [address] [place] [address] PCP - General Internal Medicine 11/09/22 Kari Acevedo MD [address] [address] Surgeon Neurosurgery 11/29/21 Selin Agustin PA-C [address] [address] Specialist Neurosurgery 11/29/21 Miguel Angel Batista PA-C [address] [address] Specialist Neurosurgery 11/29/21 documented as of this encounter
--- OUTSIDE RECORDS SUMMARY | 2025-02-05 23:16 | XMS_ITS | Encounter Summary ---
Author Organization [facility] Prior to 12/29/2023 Address [address] [place] [address] Care Team Providers Care Money Room Teller Name Role Phone Henri Cruz MD Primary Care Provider Unavailable Mayelin Nolasco DO Primary Care Provider Unavaila Kari Gillis MD Unavailable [phone] Selin Agustin PA-C Unavailable [phone] Miguel Angel Batista PA-C Unavailable [phone] [facility], Pcp Primary Care Provider Unavailabl e Encounter Details Date Type Department Care Team Description 10/06/2015 Pt. Non Urgent Medic al Question Adult Medicine - [address] [address] Anand Pereira PA-C Social History Tobacco Use Types Packs/Day Years Used Date Smoking Tobacco: Never Smokeless Tobacco: Never Alcohol Use Standard Drinks/Week Comments Yes 0 (1 standard drink = 0.6 oz pur e alcohol) 2-3 drinks/mo Sex Assigned at Date Recorded Female 12/15/2021 11:46 AM EDT documented as of this encounter Progress Notes * Mariza Monge L.P.N. - 10/06/2015 1:02 PM EDTFrom: Chana Bassett To: Anand Pereira PA-C Sent: 10/06/2015 11:49 AM EDT Subject: blood test results I am wondering if the Vitamin D results indicate whether I should be on a prescription again. Dr. Hdz ordered tests based on the positive SCOTT test and am wondering if there is any other test that is off. . documented in this encounter Plan of Treatment Not on file documented as of this encounter Visit Diagnoses Not on filedocumented in this encounter Care Teams Money Room Teller Relationship Specialty Start Date End Date Henri Cruz MD PCP - General Internal Medicine 05/25/1504/28 Mayelin Nolasco DO PCP - General Internal Medicine 05/25/21 11/08/22 [facility], Pcp 175 [facility] [address] [place] [address] PCP - General Internal Medicine 11/09/22 Kari Acevedo MD [address] [address] Surgeon Neurosurgery 11/29/21 Selin Agustin PA-C [address] [address] Specialist Neurosurgery 11/29/21 Miguel Angel Batista PA-C [address] [address] Specialist Neurosurgery 11/29/21 documented as of this encounter
--- OUTSIDE RECORDS SUMMARY | 2025-02-05 23:16 | XMS_ITS | Clinical Summary ---
Author Organization Formerly [facility] Address [address] [place] [address] Care Team Providers Care Down Filler Name Role Phone Daxa Rogers APRN Primary Care Provider Allergies No known active allergies Medications atorvastatin [...] Review of the cervical spine MRI from [facility] dated 02/09/2022 shows a solid fusion [...] fiber neuropathy 12/15/2017 [facility] and Pyrdistigmine finished [address] Juan Arana- labour market economist Fibromyalgia 08/16/2016 12/18/2022 Obstructive sleep apnea 06/05/2016 [...] Overview (12/18/2022): Dr. Esquivel Left 413 - [facility] Right - 10/2019 Headache, chronic daily 06/14/2012 12/19/19 Overview (12/18/2022): Dr. Pink, Dr. Draper ([facility]) 07/09 - relief with [...] & B [employer] Care Teams Down Filler Relationship Specialty Start Date End Date Daxa Rogers [email or web address] [address] PCP - General Internal Medicine 12/22/22
--- OUTSIDE RECORDS SUMMARY | 2025-02-05 23:16 | XMS_ITS | Encounter Summary ---
Author Organization [facility] Prior to 12/29/2023 Address [address] [place] [address] Care Team Providers Care Demographer Name Role Phone Cornell Barajas Primary Care Provider Unav ailable Henri Cruz MD Primary Care Provider Unavailable Mayelin Nolasco DO Primary Care Provider Unavaila Kari Gillis MD Unavailable [phone] Selin Agustin PA-C Unavailable BatistaMiguel Angel arango-C Unavailable [facility], [facility] Primary Care Provider Unavailabl e Encounter Details Date Type Department Care Team Description 07/06/2012 Rag Sorter And Cutter Report Medical Records [address] [place] [address] Lauro Pink MD Social History Tobacco Use Types Packs/Day [...] on filedocumented in this encounter Care Teams Demographer Relationship Specialty Start Date End Date Cornell Barajas PCP - General 01/27/06 05/24/15 Henri Cruz MD PCP - General Internal Medicine 05/25/1504/28 Mayelin Nolasco DO PCP - General Internal Medicine 05/25/21 11/08/22 Community, Pcp 175 [facility] [address] [place] [address] PCP - General Internal Medicine 11/09/22 Kari Acevedo MD [address] [address] Surgeon Neurosurgery 11/29/21 Selin Agustin PA-C [address] [address] Specialist Neurosurgery 11/29/21 Miguel Angel Batista PA-C [address] [address] Specialist Neurosurgery 11/29/21 documented as of this encounter
--- OUTSIDE RECORDS SUMMARY | 2025-02-05 23:16 | XMS_ITS | Encounter Summary ---
Author Organization [facility] Prior to 12/29/2023 Address [address] [place] [address] Care Team Providers Care Steaming Machine Operator Name Role Phone Henri Cruz MD Primary Care Provider Unavailable Mayelin Nolasco DO Primary Care Provider Unavaila Kari Gillis MD Unavailable [phone] Selin Agustin PA-C Unavailable [phone] BatistaMiguel Angel arango PA-C Unavailable [phone] [facility], Pcp Primary Care Provider Unavailabl e Encounter Details Date Type Department Care Team Description 02/26/2016 Refill Adult Medicine - [address] [address] Henri Cruz MD Social History Tobacco Use Types Packs/Day Years Used Date Smoking Tobacco: Never Smokeless Tobacco: Never Alcohol Use Standard Drinks/Week Comments Yes 0 (1 standard drink = 0.6 oz pur e alcohol) 2-3 drinks/mo Sex Assigned at Date Recorded Female 12/15/2021 11:46 AM EDT documented as of this encounter Miscellaneous Notes * Telephone Encounter - Cherelle Silver M.A. - 03/01/2016 8:19 AM EST Controlled substance contract and last issue date of medication reviewed. Patient is due for medication. Component Value Date URINEOXYCOD NEGATIVE 07/10/2015 URBENZO NEGATIVE 07/10/2015 URAMPHETAMIN NEGATIVE 07/10/2015 URMARIJUANA NEGATIVE 07/10/2015 UROPIATES NEGATIVE 07/10/2015 URBARBITUATE NEGATIVE 07/10/2015 URCOCAINE NEGATIVE 07/10/2015 HYDROCODONE Negative 07/10/2015 * Telephone Encounter - Cherelle Silver M.A. - 03/01/2016 8:18 AM ESTFrom: Chana Bassett To: Henri Cruz MD Sent: 02/26/2016 7:19 PM EST Subject: Medication Renewal Request Original authorizing provider: MD Chana Ryan would like a refill of the following medications: zolpidem (AMBIEN CR) 6.25 MG CR tablet [Henri Cruz MD] Preferred pharmacy: [address] Comment: This continues to help me sleep. documented in this encounter Plan of Treatment Not on file documented as of this encounter Visit Diagnoses Not on filedocumented in this encounter Care Teams Steaming Machine Operator Relationship Specialty Start Date End Date Henri Cruz MD PCP - General Internal Medicine 05/25/1504/28 Mayelin Nolasco DO PCP - General Internal Medicine 05/25/21 11/08/22 [facility], Pcp [address] [address] PCP - General Internal Medicine 11/09/22 Kari Acevedo MD [address] [address] Surgeon Neurosurgery 11/29/21 Selin Agustin PA-C [address] [address] Specialist Neurosurgery 11/29/21 Miguel Angel Batista PA-C [address] [address] Specialist Neurosurgery 11/29/21 documented as of this encounter
--- OUTSIDE RECORDS SUMMARY | 2025-02-05 23:16 | XMS_ITS | Encounter Summary ---
Author Organization [facility] Address [address] [facility] [address] [place] [address] Phone Care Team Providers Care Hemmer Automatic Name Role Phone Henri Cruz MD Primary Care Provider Kadie Terrazas NP Primary Care Provider [phone] Encounter Details Date Type Department Care Team (Late st Contact Info) Description 06/11/2019 Procedure Pass [facility] Cardiac Tissue Specialist [address] [place] [address] Social History Tobacco Use Types Packs/Day Years [...] [facility] Department of Neurology [address] [facility], 8th Floor, [address] [place] [address] Lauro Cedeño MD, PhD [address] [place] [address] [email or web address] documented as of this encounter Visit Diagnoses Not on filedocumented in this encounter Care Teams Hemmer Automatic Relationship Specialty Start Date End Date Henri Cruz MD [address] [place] [address] PCP - General Internal Medicine 01/11/17 11/11/24 Kadie Terrazas NP [address] [place] [address] PCP - General Nurse Practitioner 11/12/24 documented as of this encounter Additional Source Comments The information contained in this document represents components of the legal health record. It is not the complete legal health record.[facility]
--- OUTSIDE RECORDS SUMMARY | 2025-02-05 23:16 | XMS_ITS | Clinical Summary ---
Author Organization [facility] Prior to 07/27/24 Address [address] [place] [address] Care Team Providers Care Advertising Inserter Name Role Phone Kadie Terrazas LICENSED APPRAISER Primary Care Provider [phone] Allergies No known active allergies Medications Medication [...] age to complete this topic Care Teams Advertising Inserter Relationship Specialty Start Date End Date Kadie Terrazas NP [address] [place] [address] PCP - General Nurse Practitioner 11/14/23
--- OUTSIDE RECORDS SUMMARY | 2025-02-05 23:16 | XMS_ITS | Encounter Summary ---
Author Organization [facility] Prior to 12/29/2023 Address [address] [place] [address] Care Team Providers Care Gas Shovel Operator Name Role Phone Cornell Barajas Primary Care Provider Unav ailable Henri Cruz MD Primary Care Provider Unavailable Mayelin Nolasco DO Primary Care Provider Unavaila Kari Gillis MD Unavailable [phone] Selin Agustin PA-C Unavailable BatistaMiguel Angel arango PA-C Unavailable [facility], [facility] Primary Care Provider Unavailabl e Encounter Details Date Type Department Care Team Description 09/03/2012 Center Machine Set Up Operator Report Medical Records [address] [place], [place] [id number] [place] [address] [place] Social History Tobacco Use Types Packs/Day Years [...] on filedocumented in this encounter Care Teams Gas Shovel Operator Relationship Specialty Start Date End Date Cornell Barajas PCP - General 01/27/06 05/24/15 Henri Cruz MD PCP - General Internal Medicine 05/25/1504/28 Mayelin Nolasco DO PCP - General Internal Medicine 05/25/21 11/08/22 Community, Pcp 175 [facility] [address] [place] [address] PCP - General Internal Medicine 11/09/22 Kari Acevedo MD [address] [address] Surgeon Neurosurgery 11/29/21 Selin Agustin PA-C [address] [address] Specialist Neurosurgery 11/29/21 Miguel Angel Batista PA-C [address] [address] Specialist Neurosurgery 11/29/21 documented as of this encounter
--- OUTSIDE RECORDS SUMMARY | 2025-02-05 23:16 | XMS_ITS | Encounter Summary ---
Author Organization [facility] Prior to 12/29/2023 Address [address] [place] [address] Care Team Providers Care Automation Mechanic Name Role Phone Cornell Barajas Primary Care Provider Unav ailable Henri Cruz MD Primary Care Provider Unavailable Mayelin Nolasco DO Primary Care Provider Unavaila Kari Gillis MD Unavailable [phone] Selin Agustin-C Unavailable BatistaMiguel Angel arangoC Unavailable [facility] Primary Care Provider Unavailabl e Encounter Details Date Type Department Care Team Description 05/15/2015 Cost Estimator Report Medical Records [address] [place] [address] Mimi Mock Social History Tobacco Use Types Packs/Day Years [...] on filedocumented in this encounter Care Teams Automation Mechanic Relationship Specialty Start Date End Date Cornell Barajas PCP - General 01/27/06 05/24/15 Henri Cruz MD PCP - General Internal Medicine 05/25/1504/28 Mayelin Nolasco DO PCP - General Internal Medicine 05/25/21 11/08/22 Community, Pcp 175 [facility] [address] [place] [address] PCP - General Internal Medicine 11/09/22 Kari Acevedo MD [address] [address] Surgeon Neurosurgery 11/29/21 Selin Agustin PA-C [address] [address] Specialist Neurosurgery 11/29/21 Miguel Angel Batista PA-C [address] [address] Specialist Neurosurgery 11/29/21 documented as of this encounter
--- OUTSIDE RECORDS SUMMARY | 2025-02-05 23:16 | XMS_ITS | Encounter Summary ---
Author Organization [facility] Prior to 12/29/2023 Address [address] [place] [address] Care Team Providers Care Curator Of Photography And Prints Name Role Phone Cornell Barajas Primary Care Provider Unav ailable Henri Cruz MD Primary Care Provider Unavailable Mayelin Nolasco DO Primary Care Provider Unavaila Kari Gillis MD Unavailable [phone] Selin Agustin PA-C Unavailable Miguel Angel Batista PA-C Unavailable [facility], [facility] Primary Care Provider Unavailabl e Encounter Details Date Type Department Care Team Description 01/29/2015 Orders Only Adult Medicine - [address] [address] Anand Pereira PA-C Social History Tobacco Use [...] on filedocumented in this encounter Care Teams Curator Of Photography And Prints Relationship Specialty Start Date End Date Cornell Barajas PCP - General 01/27/06 05/24/15 Henri Cruz MD PCP - General Internal Medicine 05/25/1504/28 Mayelin Nolasco DO PCP - General Internal Medicine 05/25/21 11/08/22 [facility], Pcp 175 [facility] [address] [place] [address] PCP - General Internal Medicine 11/09/22 Kari Acevedo MD [address] [address] Surgeon Neurosurgery 11/29/21 Selin Agustin PA-C [address] [address] Specialist Neurosurgery 11/29/21 Miguel Angel Batista PA-C [address] [address] Specialist Neurosurgery 11/29/21 documented as of this encounter
--- OUTSIDE RECORDS SUMMARY | 2025-02-05 23:16 | XMS_ITS | Encounter Summary ---
Author Organization [facility] Prior to 12/29/2023 Address [address] [place] [address] Care Team Providers Care Operating Room Nurse Name Role Phone Henri Cruz MD Primary Care Provider Unavailable Mayelin Nolasco DO Primary Care Provider Unavaila ble Kari Acevedo MD Unavailable [phone] Selin Agustin PA-C Unavailable [phone] Miguel Angel Batista PA-C Unavailable [facility], Pcp Primary Care Provider Unavailabl e Encounter Details Date Type Department Care Team Description 04/04/2016 [facility] Medical Records [address] [place] [address] Abstract, Provider Social History Tobacco Use Types [...] on filedocumented in this encounter Care Teams Operating Room Nurse Relationship Specialty Start Date End Date Henri Cruz MD PCP - General Internal Medicine 05/25/1504/28 Mayelin Nolasco DO PCP - General Internal Medicine 05/25/21 11/08/22 [facility], Pcp [address] [address] PCP - General Internal Medicine 11/09/22 Kari Acevedo MD [address] [address] Surgeon Neurosurgery 11/29/21 Selin Agustin PA-C [address] [address] Specialist Neurosurgery 11/29/21 Miguel Angel Batista PA-C [address] [address] Specialist Neurosurgery 11/29/21 documented as of this encounter
--- OUTSIDE RECORDS SUMMARY | 2025-02-05 23:16 | XMS_ITS | Encounter Summary ---
Author Organization [facility] Prior to 12/29/2023 Address [address] [place] [address] Care Team Providers Care Utility Locator Name Role Phone Henri Cruz MD Primary Care Provider Unavailable Mayelin Nolasco DO Primary Care Provider Unavaila ble Kari Acevedo MD Unavailable [phone] Selin Agustin PA-C Unavailable [phone] Miguel Angel Batista PA-C Unavailable [phone] [facility], Pcp Primary Care Provider Unavailabl e Encounter Details Date Type Department Care Team Description 09/15/2020 [facility] Medical Records [address] [place] [address] Abstract, Provider Social History Tobacco Use Types [...] on filedocumented in this encounter Care Teams Utility Locator Relationship Specialty Start Date End Date Henri Cruz MD PCP - General Internal Medicine 05/25/15 310/18 Mayelin Nolasco DO PCP - General Internal Medicine 05/25/21 11/08/22 [facility], Pcp [address] [place] [address] PCP - General Internal Medicine 11/09/22 Kari Acevedo MD [address] [address] Surgeon Neurosurgery 11/29/21 Selin Agustin PA-C [address] [address] Specialist Neurosurgery 11/29/21 Miguel Angel Batista PA-C [address] [address] Specialist Neurosurgery 11/29/21 documented as of this encounter
--- OUTSIDE RECORDS SUMMARY | 2025-02-05 23:16 | XMS_ITS | Encounter Summary ---
Author Organization [facility] Prior to 12/29/2023 Address [address] [place] [address] Care Team Providers Care Material Crew Supervisor Name Role Phone Cornell Barajas Primary Care Provider Unav ailable Henri Cruz MD Primary Care Provider Unavailable Mayelin Nolasco DO Primary Care Provider Unavaila Kari Gillis MD Unavailable [phone] Selin Agustin-C Unavailable BatistaMiguel Angel arango-C Unavailable [facility] Primary Care Provider Unavailabl e Encounter Details Date Type Department Care Team Description 06/02/2011 Head Cook Report Medical Records [address] [place] [address] Miles Shetty Social History Tobacco Use Types [...] on filedocumented in this encounter Care Teams Material Crew Supervisor Relationship Specialty Start Date End Date Cornell Barajas PCP - General 01/27/06 05/24/15 Henri Cruz MD PCP - General Internal Medicine 05/25/1504/28 Mayelin Nolasco DO PCP - General Internal Medicine 05/25/21 11/08/22 Community, Pcp 175 [facility] [address] [place] [address] PCP - General Internal Medicine 11/09/22 Kari Acevedo MD [address] [address] Surgeon Neurosurgery 11/29/21 Selin Agustin PA-C [address] [address] Specialist Neurosurgery 11/29/21 Miguel Angel Batista PA-C [address] [address] Specialist Neurosurgery 11/29/21 documented as of this encounter
--- OUTSIDE RECORDS SUMMARY | 2025-02-05 23:16 | XMS_ITS | Encounter Summary ---
Author Organization [facility] Prior to 12/29/2023 Address [address] [place] [address] Care Team Providers Care Assembly Mechanic Name Role Phone Jenn Cornell Paulo Primary Care Provider Unav Henri Marcial MD Primary Care Provider Unavailable Mayelin Nolasco DO Primary Care Provider Unavaila Kari Gillis MD Unavailable [phone] Selin Agustin-C Unavailable Miguel Angel Batista-C Unavailable [facility]cp Primary Care Provider Unavailabl e Reason for Visit * Reason Comments Encounter Details Date Type Department Care Team Description 11/21/2011 Telephone Adult Medicine - [address] [address] Aida Berger DO Social History Tobacco Use Types Packs/Day Years Used Date Smoking Tobacco: Never Smokeless Tobacco: Never Alcohol Use Standard Drinks/Week Comments Yes 0 (1 standard drink = 0.6 oz pur e alcohol) 2-3 drinks/wk Sex Assigned at Date Recorded Female 12/15/2021 11:46 AM EDT documented as of this encounter Miscellaneous Notes * Telephone Encounter - Christi Rodriguez - 11/23/2011 9:51 AM EDT Advised pt of message below from Dr. Berger. * Telephone Encounter - Dolores Lopez M.A. - 11/22/2011 4:35 PM EDT Left message for patient to call back. * Telephone Encounter - Aida Berger DO - 11/21/2011 5:41 PM EDT Please inform patient of low Vitamin D. I've sent a prescription for once weekly Vitamin D to pharmacy. Patient needs to take once weekly vitamin D for first 12 weeks. After 12 weeks, patient needs to get blood work to recheck Vitamin D level and then start taking Vitamin D/calcium daily to be purchased [id number]. Patient should not take Vit D daily (as advised last visit) while taking the high dose once weekly regimen for first 12 weeks. documented in this encounter Plan of Treatment Not on file documented as of this encounter Visit Diagnoses Not on filedocumented in this encounter Care Teams Assembly Mechanic Relationship Specialty Start Date End Date Cornell Barajas PCP - General 01/27/06 05/24/15 Henri Cruz MD PCP - General Internal Medicine 05/25/1504/28 Mayelin Nolasco DO PCP - General Internal Medicine 05/25/21 11/08/22 [facility] [address] [address] PCP - General Internal Medicine 11/09/22 Kari Acevedo MD [address] [address] Surgeon Neurosurgery 11/29/21 Selin Agustin PA-C [address] [address] Specialist Neurosurgery 11/29/21 Miguel Angel Batista PA-C [address] [address] Specialist Neurosurgery 11/29/21 documented as of this encounter
--- OUTSIDE RECORDS SUMMARY | 2025-02-05 23:16 | XMS_ITS | Encounter Summary ---
Author Organization [facility] Address [address] [place] [address] [place] [address] Phone Care Team Providers Care Client Experience Manager Name Role Phone Henri Cruz MD Primary Care Provider Kadie Terrazas NP Primary Care Provider [phone] Encounter Details Date Type Department Care Team (Late st Contact Info) Description 03/28/2019 Procedure Pass [facility] MRI, Tristan [address] [facility], 2nd [place] [address] Social History Tobacco Use Types Packs/Day Years [...] 10:00 AM EDT Office Visit [facility] Department of Neurology [address] [facility], 8th Floor, [address] [place] [address] Lauro Cedeño MD, PhD [address] [address] [email or web address] documented as of this encounter Visit Diagnoses Not on filedocumented in this encounter Care Teams Client Experience Manager Relationship Specialty Start Date End Date Henri Cruz MD [address] [place] [address] PCP - General Internal Medicine 01/11/17 11/11/24 Kadie Terrazas NP [address] [place] [address] PCP - General Nurse Practitioner 11/12/24 documented as of this encounter Additional Source Comments The information contained in this document represents components of the legal health record. It is not the complete legal health record.[facility]
--- OUTSIDE RECORDS SUMMARY | 2025-02-05 23:16 | XMS_ITS | Encounter Summary ---
Author Organization [facility] Prior to 12/29/2023 Address [address] [place] [address] Care Team Providers Care Manager Basketball Name Role Phone Henri Cruz MD Primary Care Provider Unavailable Mayelin Nolasco DO Primary Care Provider Unavaila Kari Gillis MD Unavailable [phone] Selin Agustin PA-C Unavailable [phone] Miguel Angel Batista PA-C Unavailable [facility], Pcp Primary Care Provider Unavailabl e Reason for Visit * Reason Onset Date Comments refill request 04/28/2020 Encounter Details Date Type Department Care Team Description 04/28/2020 Telephone Gastroenterology - [address] [place] [address] Perico Nicole PA-C refill request Social History Tobacco Use Types Packs/Day Years [...] have Coronavirus / COVID-19? No / Unsure 05/01/2020 3:39 PM EST documented as of this encounter Miscellaneous Notes * Telephone Encounter - Perico Nicole PA-C - 05/01/2020 3:08 PM EST Please let patient know that I have not received a previous request for this medication to be refilled. Have now filled it for her and sent her to her local pharmacy. * Telephone Encounter - Heydi Hein - 05/01/2020 9:59 AM EST Second prescription refill request came in from [facility]. Please fill medication. * Telephone Encounter - Heydi Gilesue - 04/28/2020 1:26 PM EST [facility] 04/29/2019 No future appt. 90 day supply. documented in this encounter Plan of Treatment Not on file documented as of this encounter Visit Diagnoses Not on filedocumented in this encounter Care Teams Manager Basketball Relationship Specialty Start Date End Date Henri Cruz MD PCP - General Internal Medicine 05/25/1504/28 Mayelin Nolasco DO PCP - General Internal Medicine 05/25/21 11/08/22 [facility], Pcp [address] [address] PCP - General Internal Medicine 11/09/22 Kari Acevedo MD [address] [address] Surgeon Neurosurgery 11/29/21 Selin Agustin PA-C 175 [facility] [address] [place] [address] Specialist Neurosurgery 11/29/21 Miguel Angel Batista PA-C [address] [address] Specialist Neurosurgery 11/29/21 documented as of this encounter
--- OUTSIDE RECORDS SUMMARY | 2025-02-05 23:16 | XMS_ITS | Encounter Summary ---
Author Organization [facility] Prior to 12/29/2023 Address [address] [place] [address] Care Team Providers Care Manager Terminal Name Role Phone Henri Cruz MD Primary Care Provider Unavailable Mayelin Nolasco DO Primary Care Provider Unavaila Kari Gillis MD Unavailable [phone] Selin Agustin PA-C Unavailable [phone] Miguel Angel Batista PA-C Unavailable [facility], Pcp Primary Care Provider Unavailabl e Encounter Details Date Type Department Care Team Description 11/17/2020 Orders Only Medical Records [address] [place] [address] Karen Darling MD Social History Tobacco Use [...] Name Priority Date/Time Associated Diagnosis Comments OUTSIDE PATHOLOGY Routine 11/13/2020 documented in this encounter Results * OUTSIDE PATHOLOGY (11/13/2020) Karen Darling MD OUTSIDE LAB documented in this encounter Visit Diagnoses Not on filedocumented in this encounter Care Teams Manager Terminal Relationship Specialty Start Date End Date Henri Cruz MD PCP - General Internal Medicine 05/25/1504/28 Mayelin Nolasco DO PCP - General Internal Medicine 05/25/21 11/08/22 [facility], Pcp [address] [address] PCP - General Internal Medicine 11/09/22 Kari Acevedo MD [address] [address] Surgeon Neurosurgery 11/29/21 Selin Agusitn PA-C [address] [address] Specialist Neurosurgery 11/29/21 Miguel Angel Batista PA-C [address] [address] Specialist Neurosurgery 11/29/21 documented as of this encounter
--- OUTSIDE RECORDS SUMMARY | 2025-02-05 23:16 | XMS_ITS | Encounter Summary ---
Author Organization [facility] Prior to 12/29/2023 Address [address] [place] [address] Care Team Providers Care Molder Bench Name Role Phone Cornell Barajas Primary Care Provider Unav ailable Henri Cruz MD Primary Care Provider Unavailable Mayelin Nolasco DO Primary Care Provider Unavaila Kari Gillis MD Unavailable [phone] Selin Agustin-Bruce Unavailable Miguel Angel BatistaC Unavailable [phone] [facility] Primary Care Provider Unavailabl e Encounter Details Date Type Department Care Team Description 06/19/2012 Release of Information Medical Records [address] [place] [id number] Abstract, Provider Social History Tobacco Use Types [...] on filedocumented in this encounter Care Teams Molder Bench Relationship Specialty Start Date End Date Cornell Barajas PCP - General 01/27/06 05/24/15 Henri Cruz MD PCP - General Internal Medicine 05/25/1504/28 Mayelin Nolasco DO PCP - General Internal Medicine 05/25/21 11/08/22 Community, Pcp 175 [facility] [address] [place] [address] PCP - General Internal Medicine 11/09/22 Kari Acevedo MD [address] [address] Surgeon Neurosurgery 11/29/21 Selin Agustin PA-C [address] [address] Specialist Neurosurgery 11/29/21 Miguel Angel Batista PA-C [address] [address] Specialist Neurosurgery 11/29/21 documented as of this encounter
--- OUTSIDE RECORDS SUMMARY | 2025-02-05 23:17 | XMS_ITS | Encounter Summary ---
Author Organization [facility] Prior to 12/29/2023 Address [address] [place] [address] Care Team Providers Care Credit Verifier Name Role Phone Mayelin Nolasco DO Primary Care Provider UnavailKari Duff MD Unavailable [phone] Selin Agustin PA-C Unavailable [phone] Miguel Angel Batista PA-C Unavailable [facility], Pcp Primary Care Provider Unavailabl e Encounter Details Date Type Department Care Team Description 10/21/2022 Forging Engineer Report Medical Records [address] [place] [address] General Social History Tobacco Use Types Packs/Day Years [...] on filedocumented in this encounter Care Teams Credit Verifier Relationship Specialty Start Date End Date Mayelin Nolasco DO PCP - General Internal Medicine 05/25/21 11/08/22 [facility], Pcp [address] [address] PCP - General Internal Medicine 11/09/22 Kari Acevedo MD [address] [id number] Surgeon Neurosurgery 11/29/21 Selin Agustin PA-C 175 [facility] [address] [place] [address] [id number] Specialist Neurosurgery 11/29/21 Miguel Angel Batista PA-C [address] [address] Specialist Neurosurgery 11/29/21 documented as of this encounter
--- OUTSIDE RECORDS SUMMARY | 2025-02-05 23:17 | XMS_ITS | Encounter Summary ---
Author Organization [facility] Prior to 12/29/2023 Address [address] [place] [address] Care Team Providers Care Processor Inspector Name Role Phone Kari Acevedo MD Unavailable [phone] Selin Agustin PA-C Unavailable Miguel Angel Batista PA-C Unavailable Community, Pcp Primary Care Provider Unavailabl e Encounter Details Date Type Department Care Team Description 02/13/2023 Orders Only Gastroenterology - [place] [address] [address] Perico Nicole PA-C Social History Tobacco Use Types Packs/Day [...] on filedocumented in this encounter Care Teams Processor Inspector Relationship Specialty Start Date End Date Community, Pcp 175 [facility] [address] [place] [address] PCP - General Internal Medicine 11/09/22 Kari Acevedo MD [address] [address] Surgeon Neurosurgery 11/29/21 Selin Agustin PA-C [address] [address] Specialist Neurosurgery 11/29/21 Miguel Angel Batista PA-C [address] [address] Specialist Neurosurgery 11/29/21 documented as of this encounter
--- OUTSIDE RECORDS SUMMARY | 2025-02-05 23:17 | XMS_ITS | Encounter Summary ---
Author Organization [facility] Address [address] [facility] [address] [place] [address] Phone Care Team Providers Care Brine Mixer Operator Name Role Phone Henri Cruz MD Primary Care Provider Kadie Terrazas NP Primary Care Provider [phone] Encounter Details Date Type Department Care Team (Late st Contact Info) Description 04/20/2021 Procedure Pass [facility] Cardiac International Sales Manager [address] [place] [address] Social History Tobacco Use Types Packs/Day Years [...] Description 05/19/2025 10:00 AM EDT Office Visit [facility] Department of Neurology [address] [facility], 8th Floor, [address] [place] [address] Lauro Cedeño MD, PhD [address] [place] [address] [email or web address] documented as of this encounter Visit Diagnoses Not on filedocumented in this encounter Care Teams Brine Mixer Operator Relationship Specialty Start Date End Date Henri Cruz MD [address] [place] [address] PCP - General Internal Medicine 01/11/17 11/11/24 Kadie Terrazas NP [address] [place] [address] PCP - General Nurse Practitioner 11/12/24 documented as of this encounter Additional Source Comments The information contained in this document represents components of the legal health record. It is not the complete legal health record.[facility]
--- OUTSIDE RECORDS SUMMARY | 2025-02-05 23:17 | XMS_ITS | Encounter Summary ---
Author Organization [facility] Prior to 12/29/2023 Address [address] [place] [address] Care Team Providers Care Fire Extinguisher Technician Name Role Phone Mayelin Nolasco DO Primary Care Provider Unavaila Kari Gillis MD Unavailable [phone] Selin Agustin PA-C Unavailable Miguel Angel Batista PA-C Unavailable [facility], Pcp Primary Care Provider Unavailabl e Reason for Visit * Reason Comments E-prescribe Rx Request Encounter Details Date Type Department Care Team Description 12/27/2021 Refill Adult Medicine - [address] [address] Lauro Calderon PA-C [address] [place] [address] E-prescribe Rx Request Social History Tobacco Use Types Packs/Day Years Used Date Smoking Tobacco: Never Smokeless Tobacco: Never Comments:secondary smoke Alcohol Use Standard Drinks/Week Comments Yes 0 (1 standard drink = 0.6 oz pur e alcohol) 2-3 drinks/mo Sex Assigned at Date Recorded Female 12/15/2021 11:46 AM EDT COVID-19 Exposure Response Date Recorded In the last 10 days, have yo u been in contact with someone who was confirmed or suspected to have Coronavirus/COVID-19? No / Unsure 11/29/2021 11:08 AM EDT documented as of this encounter Miscellaneous Notes * Telephone Encounter - Mayelin Nolasco DO - 12/29/2021 8:35 AM EDT Patient needs medication review on next upcoming visit * Telephone Encounter - Radha QuanP.NОльга - 12/29/2021 7:57 AM EDT Last seen 06/08 Next 01/04 Medication request pended for your review. * Telephone Encounter - Latasha Matthew - 12/28/2021 2:24 PM EDT Pt is booked 01/04 with mami for super visit * Telephone Encounter - Sarah Acosta M.A. - 12/28/2021 2:02 PM EDT Overdue for 4 mos f/u, needs to schedule sooner appt with PCP / Care Team Please help with Rx request due to PCP / Care Team out of the office. Medication request(s) pended for review Last appt- 06/08/21 Next appt- 03/15/22 Last appt w/ PCP- has not established with PCP * Telephone Encounter - Suzanne Sarmiento - 12/27/2021 2:23 PM EDT Refills Last office visit: 06/08/21 Last pcp: new to pcp Next office visit: 03/15/22 documented in this encounter Plan of Treatment Not on file documented as of this encounter Visit Diagnoses Not on filedocumented in this encounter Care Teams Fire Extinguisher Technician Relationship Specialty Start Date End Date Mayelin Nolasco DO PCP - General Internal Medicine 05/25/21 11/08/22 Community, Pcp [address] [address] PCP - General Internal Medicine 11/09/22 Kari Acevedo MD [address] [address] Surgeon Neurosurgery 11/29/21 Selin Agustin PA-C [address] [address] Specialist Neurosurgery 11/29/21 Miguel Angel Batista PA-C [address] [address] Specialist Neurosurgery 11/29/21 documented as of this encounter
--- OUTSIDE RECORDS SUMMARY | 2025-02-05 23:17 | XMS_ITS | Encounter Summary ---
Author Organization [facility] Prior to 12/29/2023 Address [address] [place] [address] Care Team Providers Care Marketing Account Manager Name Role Phone Kari Acevedo MD Unavailable [phone] Selin Agustin PA-C Unavailable [phone] Miguel Angel Batista PA-C Unavailable Replaced By [facility] Primary Care Provider Unavailabl e Encounter Details Date Type Department Care Team Description 02/17/2023 Orders Only Medical Records [address] [place] [address] Ted Gross MD 175 [facility] [address] [place] [address] Social History Tobacco Use Types Packs/Day Years [...] Date/Time Associated Diagnosis Comments OUTSIDE PATHOLOGY Routine 02/15/2023 documented in this encounter Results * OUTSIDE PATHOLOGY (02/15/2023) Ted Gross MD OUTSIDE LAB documented in this encounter Visit Diagnoses Not on filedocumented in this encounter Care Teams Marketing Account Manager Relationship Specialty Start Date End Date Replaced By [facility] [address] [address] PCP - General Internal Medicine 11/09/22 Kari Acevedo MD [address] [address] Surgeon Neurosurgery 11/29/21 Selin Agustin PA-C [address] [address] Specialist Neurosurgery 11/29/21 Miguel Angel Batista PA-C [address] [address] Specialist Neurosurgery 11/29/21 documented as of this encounter
--- OUTSIDE RECORDS SUMMARY | 2025-02-05 23:17 | XMS_ITS | Encounter Summary ---
Author Organization [facility] Prior to 12/29/2023 Address [address] [place] [address] Care Team Providers Care Steel Pourer Helper Name Role Phone Kari Acevedo MD Unavailable [phone] Selin Agustin PA-C Unavailable Miguel Angel Batista PA-C Unavailable [facility], Pcp Primary Care Provider Unavailabl e Encounter Details Date Type Department Care Team Description 12/06/2022 Pt. Non Urgent Medic al Question Gastroenterology - [place] 175 [facility] [address] [place] [address] Perico Nicole PA-C Social History Tobacco [...] on filedocumented in this encounter Care Teams Steel Pourer Helper Relationship Specialty Start Date End Date Community, Pcp 175 [facility] [address] [place] [address] PCP - General Internal Medicine 11/09/22 Kari Acevedo MD 175 [facility] [address] [place] [address] Surgeon Neurosurgery 11/29/21 Selin Agustin PA-C [address] [address] Specialist Neurosurgery 11/29/21 Miguel Angel Batista PA-C [address] [address] Specialist Neurosurgery 11/29/21 documented as of this encounter
--- OUTSIDE RECORDS SUMMARY | 2025-02-05 23:17 | XMS_ITS | Patient Health Record ---
Author Organization [facility] Address [address] [place] [address] Support Name Relationship Address Phone [facility] [address] [place] [address] Chana Bassett Guarantor Unknown Reason For Referral [...] Insured Coverage Start Date Coverage End Date [facility] [address] [place], [place] [id number] Chana Bassett Self - patient is the insured
--- OUTSIDE RECORDS SUMMARY | 2025-02-05 23:17 | XMS_ITS | Encounter Summary ---
Author Organization [facility] Prior to 12/29/2023 Address [address] [place] [address] Care Team Providers Care Duty Officer Name Role Phone Mayelin Nolasco DO Primary Care Provider Unavaila Kari Gillis MD Unavailable [phone] Selin Agustin PA-C Unavailable Miguel Angel Batista PA-C Unavailable [phone] [facility], Pcp Primary Care Provider Unavailabl e Encounter Details Date Type Department Care Team Description 03/02/2022 SCAN [facility] Neurosurgery [address] [address] Selin Agustin PA-C [address] [id number] Social History Tobacco Use Types Packs/Day Years [...] on filedocumented in this encounter Care Teams Duty Officer Relationship Specialty Start Date End Date Mayelin Nolasco DO PCP - General Internal Medicine 05/25/21 11/08/22 Community, Pcp [address] [address] PCP - General Internal Medicine 11/09/22 Kari Acevedo MD [address] [address] Surgeon Neurosurgery 11/29/21 Selin Agustin PA-C [address] [address] Specialist Neurosurgery 11/29/21 Miguel Angel Batista PA-C 175 [facility] [address] [place] [address] Specialist Neurosurgery 11/29/21 documented as of this encounter
--- OUTSIDE RECORDS SUMMARY | 2025-02-05 23:17 | XMS_ITS | Encounter Summary ---
Author Organization [facility] Prior to 12/29/2023 Address [address] [place] [address] Care Team Providers Care Proof Sorter Name Role Phone Kari Acevedo MD Unavailable [phone] Selin Agustin PA-C Unavailable Miguel Angel Batista PA-C Unavailable [phone] [facility], Pcp Primary Care Provider Unavailabl e Encounter Details Date Type Department Care Team Description 12/01/2022 Pt. Non Urgent Medic al Question Gastroenterology - [address] [place] [address] Perico Nicole PA-C Social History Tobacco Use Types Packs/Day Years Used Date Smoking Tobacco: Never Smokeless Tobacco: Never Comments:secondary smoke Alcohol Use Standard Drinks/Week Comments Yes 0 (1 standard drink = 0.6 oz pur e alcohol) 2-3 drinks/mo Sex Assigned at Date Recorded Female 12/15/2021 11:46 AM EDT documented as of this encounter Miscellaneous Notes * Telephone Encounter - Tash Barnes M.A. - 12/01/2022 12:43 PM EDTFrom: Chana Bassett To: Nohemy Nicole Sent: 12/01/2022 9:14 AM EDT Subject: Medication not covered The medication that you prescribed for me the other day is not covered by my insurance. My pharmacist says that I need a pre-authorization from you so that it can be filled. documented in this encounter Plan of Treatment Not on file documented as of this encounter Visit Diagnoses Not on filedocumented in this encounter Care Teams Proof Sorter Relationship Specialty Start Date End Date Community, Pcp [address] [address] PCP - General Internal Medicine 11/09/22 Kari Acevedo MD [address] [address] Surgeon Neurosurgery 11/29/21 Selin Agustin PA-C [address] [address] Specialist Neurosurgery 11/29/21 Miguel Angel Batista PA-C [address] [address] Specialist Neurosurgery 11/29/21 documented as of this encounter
--- OUTSIDE RECORDS SUMMARY | 2025-02-05 23:17 | XMS_ITS | Clinical Summary ---
Author Organization [facility] Address [address] [place] [address] Phone Care Team Providers Care Electroencephalograph Technician Name Role Phone Kadie Terrazas NP Primary Care Provider [phone] Allergies No known active allergies Medications traZODone (DESYREL) 50 MG tablet Take 50 mg by mouth nightly. Active omeprazole (PRILOSEC) 40 MG capsule Take 40 mg by mouth daily. Active IBUPROFEN (ADVIL MIGRAINE ORAL) Take 3 tablets by mouth nightly. Active gtpmkyqv-jokm-fp rrous gluconat (CENTRUM WITH IRON) 9 mg [...] Upcoming Encounters Date Type Department Care Team ([facility] st Contact Info) Description 05/19/2025 10:00 AM EDT Office [place] [facility] Department [place]rology [address] [place] [address], 8th Floor, [address] [place] [address] Lauro Cedeño MD, PhD [address] [place] [id number] [email or web address] Maintenance Due Date Last Done Comments [...] Payer (Ef fective 2016-Present) Name:Chana Bassett Member ID:[id number] Relation to Subscriber:Self Name:Chana Bassett Subscriber ID:[id number] Payer ID:[id number] Group ID:Not on file Type:Medicare Address: [employer] [address] MEDICARE ENHANCE SUPPLEMENT MEDICARE PART A & B MEDICARE PART A & B [facility] MEDICARE ENHANCE SUPPLEMENT MEDICARE PART A & B [facility] MEDICARE ENHANCE SUPPLEMENT MEDICARE PART A & B [facility] MEDICARE ENHANCE SUPPLEMENT Advance Directives For more information, please contact: [phone] (9AM - 5PM [facility], Monday-Monday) Documents on File Type Date Recorded Patient Account Director Expl anation Healthcare Proxy 04/21/2021 4:39 PM Care Teams Electroencephalograph Technician Relationship Specialty Start Date End Date Kadie Terrazas NP [address] [place] [address] PCP - General Nurse Practitioner 11/12/24 Additional Source Comments The information contained in this document represents components of the legal health record. It is not the complete legal health record.[facility]
--- OUTSIDE RECORDS SUMMARY | 2025-02-05 23:17 | XMS_ITS | Encounter Summary ---
Author Organization [facility] Prior to 12/29/2023 Address [address] [place] [address] Care Team Providers Care Recyclable Products Sorter Name Role Phone Kari Acevedo MD Unavailable [phone] Selin Agustin PA-C Unavailable Miguel Angel Batista PA-C Unavailable [phone] [facility], Pcp Primary Care Provider Unavailabl e Reason for Visit * Reason Onset Date Comments TEST RESULTS 03/02/2023 Encounter Details Date Type Department Care Team Description 03/02/2023 Telephone Gastroenterology - [address] [place] [address] Perico Nicole PA-C TEST RESULTS Social History Tobacco Use Types Packs/Day Years Used Date Smoking Tobacco: Never Smokeless Tobacco: Never Comments:secondary smoke Alcohol Use Standard Drinks/Week Comments Yes 0 (1 standard drink = 0.6 oz pur e alcohol) 2-3 drinks/mo Sex Assigned at Date Recorded Female 12/15/2021 11:46 AM EDT documented as of this encounter Miscellaneous Notes * Telephone Encounter - Perico Nicole PA-C - 03/03/2023 12:04 PM EST Patient would like to try Questran as the Imodium and Lomotil are not helping to control her diarrhea. There is no other studies as we have done the CT as well as the colonoscopy. She has not had a stool study but we can actually perform that however I have a low suspicion that this is caused by aninfection. Will order the Questran * Telephone Encounter - Anna Kern - 03/03/2023 9:36 AM EST Patient would like to try Questran as she is still having diarrhea. She wants to know what next tests or plan of care is going forward as other medications such a Lomotil and Imodium are not helping. * Telephone Encounter - Perico Nicole PA-C - 03/02/2023 3:52 PM EST In reviewing her endoscopy and colonoscopy, the endoscopy was found to be essentially normal and there is no signs of celiac sprue nor H. pylori. In regards to the colonoscopy they did see that she had some diverticulosis but the biopsy was negative for colitis. If patient is still having issues with diarrhea, she can be using the Imodium, Lomotil and/or Questran to help slow the movements. * Telephone Encounter - Anna Kern - 03/02/2023 2:35 PM EST Results are in the chart for review, thanks. * Telephone Encounter - Tash Vásquez - 03/02/2023 1:48 PM EST Patient is calling in as she had an EGD done on 02/15 and is looking for the results of the test and next steps. Please advise. documented in this encounter Plan of Treatment Not on file documented as of this encounter Visit Diagnoses Not on filedocumented in this encounter Care Teams Recyclable Products Sorter Relationship Specialty Start Date End Date [facility], Pcp [address] [place] [address] PCP - General Internal Medicine 11/09/22 Kari Acevedo MD [address] [address] Surgeon Neurosurgery 11/29/21 Selin Agustin PA-C [address] [address] Specialist Neurosurgery 11/29/21 Miguel Angel Batista PA-C [address] [address] Specialist Neurosurgery 11/29/21 documented as of this encounter
--- OUTSIDE RECORDS SUMMARY | 2025-02-05 23:17 | XMS_ITS | Encounter Summary ---
Author Organization [facility] Address [address] [place] [address] Phone Care Team Providers Care Mason Tender Name Role Phone Henri Cruz MD Primary Care Provider Kadie Terrazas NP Primary Care Provider [phone] Reason for Referral * MRI/CAT Scan - Closed Specialty Diagnoses / Procedures Referred By Contac t Referred To Contact Radiology Diagnoses Low back pain, unspecified back pain laterality, unspecified chronicity, unspecified whether sciatica present Procedures MRI Lumbar Spine Jas Latif MD Phone: tel: fax: Referral ID Status Reason Start Date Expiration Date Visits Re quested Visits Authorized [id number] Closed 06/30/2023 06/29/2024 1 1 Encounter Details Date Type Department Care Team (Latest Contact Info) Description 06/30/2023 Transcribe Orders Virtual Department [address] [place] [address] Jas Latif MD [address] [place] [phone] Low back pain, unspecified back pain [...] 10:00 AM EDT [place] [facility] [place] [address] [place] [address], 8th Floor, [address] [place] [address] Lauro Cedeño MD, PhD [address] [place] [address] [email or web address] documented as of this encounter Results * [...] present documented in this encounter Care Teams Mason Tender Relationship Specialty Start Date End Date Henri Cruz MD [address] [place] [address] PCP - General Internal Medicine 01/11/17 11/11/24 Kadie Terrazas NP [address] [place] [address] PCP - General Nurse Practitioner 11/12/24 documented as of this encounter Additional Source Comments The information contained in this document represents components of the legal health record. It is not the complete legal health record.[facility]
--- OUTSIDE RECORDS SUMMARY | 2025-02-05 23:17 | XMS_ITS | Encounter Summary ---
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 Medical Records [address] [place] [address] Kari Acevedo MD [address] [place] [address] [address] [place] [address] Social History Tobacco Use Types Packs/Day Years [...] on filedocumented in this encounter Care Teams Shopping Inspector Relationship Specialty Start Date End Date Henri Cruz MD PCP - General Internal Medicine 05/25/1504/28 Mayelin Nolasco DO PCP - General Internal Medicine 05/25/21 11/08/22 Community, Pcp 175 [facility] [address] [place] [address] PCP - General Internal Medicine 11/09/22 Kari Acevedo MD [address] [address] Surgeon Neurosurgery 11/29/21 Selin Agustin PA-C [address] [address] Specialist Neurosurgery 11/29/21 Miguel Angel Batista PA-C [address] [address] Specialist Neurosurgery 11/29/21 documented as of this encounter
--- OUTSIDE RECORDS SUMMARY | 2025-02-05 23:17 | XMS_ITS | Encounter Summary ---
Author Organization [facility] Address [address] [place] [address] Phone Care Team Providers Care Cut Off Saw Operator Name Role Phone Henri Cruz MD Primary Care Provider Kadie Terrazas NP Primary Care Provider [phone] Reason for Referral * - Closed Specialty Diagnoses / Procedures Referred By Contac t Referred To Contact Diagnoses CFS (chronic fatigue syndrome) Procedures Autonomic Testing Juan Arana MD Phone: tel: fax: mailto:[email or web address] Referral ID Status Reason Start Date Expiration Date Visits Re quested Visits Authorized [id number] Closed 04/21/2021 04/21/2022 1 1 Encounter Details Date Type Department Care Team (Late st Contact Info) Description 04/21/2021 Ancillary Orders [facility] Autonomic Lab [address] [place] [address] Juan Arana MD [address] [place] [phone] [email or web address] CFS (chronic fatigue syndrome) Social History [...] Description 05/19/2025 10:00 AM EDT Office [place] [facility] [place] [address] [place] [address], 8th Floor, [address] [place] [address] Lauro Cedeño MD, PhD [address] [place] [address] [place] [address] [email or web address] documented as of this encounter Results * [...] neuropathy documented in this encounter Care Teams Cut Off Saw Operator Relationship Specialty Start Date End Date Henri Cruz MD [address] [place] [address] PCP - General Internal Medicine 01/11/17 11/11/24 Kadie Terrazas NP [address] [place] [address] PCP - General Nurse Practitioner 11/12/24 documented as of this encounter Additional Source Comments The information contained in this document represents components of the legal health record. It is not the complete legal health record.[facility]
--- OUTSIDE RECORDS SUMMARY | 2025-02-05 23:17 | XMS_ITS | Encounter Summary ---
Author Organization [facility] Address [address] [facility] [address] [place] [address] Phone Care Team Providers Care Signal Maintainer Helper Name Role Phone Henri Cruz MD Primary Care Provider Kadie Terrazas NP Primary Care Provider [phone] Encounter Details Date Type Department Care Team (Late Contact Info) Description 08/19/2020 Ancillary Orders [facility] Pulmonary Medicine Hypertension Goel [address] [place] [address] Selin Moseley PA-C [address] [place] [address] [email or web address] SOB (shortness of breath) on exertion Social [...] Description 05/19/2025 10:00 AM EDT Office [place] [facility] [place] [address] [facility], 8th Floor, [address] [place] [address] Lauro Cedeño MD, PhD [address] [place] [id number] [email or web address] documented as of this encounter Visit Diagnoses Diagnosis SOB (shortness of breath) on exertion Shortness of breath documented in this encounter Care Teams Signal Maintainer Helper Relationship Specialty Start Date End Date Henri Cruz MD [address] [place] [address] PCP - General Internal Medicine 01/11/17 11/11/24 Kadie Terrazas NP [address] [place] [address] PCP - General Nurse Practitioner 11/12/24 documented as of this encounter Additional Source Comments The information contained in this document represents components of the legal health record. It is not the complete legal health record.[facility]
--- OUTSIDE RECORDS SUMMARY | 2025-02-05 23:17 | XMS_ITS | Encounter Summary ---
Author Organization [facility] Prior to 12/29/2023 Address [address] [place] [address] Care Team Providers Care Exhaust And Muffler Repairer Name Role Phone Mayelin Nolasco DO Primary Care Provider Unavaila Kari Gillis MD Unavailable [phone] Selin Agustin PA-C Unavailable Miguel Angel Batista PA-C Unavailable [facility], Pcp Primary Care Provider Unavailabl e Reason for Visit * Reason Onset Date Comments Orders Call 06/14/2022 Encounter Details Date Type Department Care Team Description 06/14/2022 Telephone Adult Medicine - [address] [address] Mayelin Nolasco DO Orders Call Social History Tobacco Use Types Packs/Day Years Used Date Smoking Tobacco: Never Smokeless Tobacco: Never Comments:secondary smoke Alcohol Use Standard Drinks/Week Comments Yes 0 (1 standard drink = 0.6 oz pur e alcohol) 2-3 drinks/mo Sex Assigned at Date Recorded Female 12/15/2021 11:46 AM EDT documented as of this encounter Miscellaneous Notes * Telephone Encounter - Ebonie Velásquez M.A. - 06/14/2022 9:41 AM EDT Spoke to patient and message was given below. * Telephone Encounter - Aspen Rainey PA-C - 06/14/2022 9:16 AM EDT Orders sent * Telephone Encounter - Latasha Saldaña - 06/14/2022 8:47 AM EDT Patient calling to request labs be ordered: What lab work is patient requesting? Vitamin D , B12 Does patient have an upcoming appointment, if yes when and WITH WHO? yes 07/04/2022 Patients PCP is: Mayelin Nolasco documented in this encounter Plan of Treatment Scheduled Orders Name Type Priority Associated Diagnoses Orde r Schedule CHG CYANOCOBALAMIN VITAMIN B-12 Lab Routine Neuropathic pain Expected: 06/14/2022, Expires: 06/14/2023 CHG 25 HYDROXY INCLUDES FRACTIONS IF PERFORMED Lab Routine Vitamin D deficiency Expected: 06/14/2022, Expires: 06/15/2023 documented as of this encounter Visit Diagnoses Diagnosis Vitamin D deficiency- Primary Unspecified vitamin D deficiency Neuropathic pain Neuralgia, neuritis, and radiculitis, unspecified documented in this encounter Care Teams Exhaust And Muffler Repairer Relationship Specialty Start Date End Date Mayelin Nolasco DO PCP - General Internal Medicine 05/25/21 11/08/22 [facility], Pcp [address] [address] PCP - General Internal Medicine 11/09/22 Kari Acevedo MD [address] [address] Surgeon Neurosurgery 11/29/21 Selin Agustin PA-C [address] [address] Specialist Neurosurgery 11/29/21 Miguel Angel Batista PA-C [address] [address] Specialist Neurosurgery 11/29/21 documented as of this encounter
--- OUTSIDE RECORDS SUMMARY | 2025-02-05 23:17 | XMS_ITS | Clinical Summary ---
Author Organization [facility] Prior to 12/29/2023 Address [address] [place] [address] Care Team Providers Care Hogshead Hooper Name Role Phone Kari Acevedo MD Unavailable [phone] Selin Agustin PA-C Unavailable Miguel Angel Batista PA-C Unavailable [phone] [facility], Pcp Primary Care Provider Unavailabl e Allergies No known active allergies Medications Medication Sig Dispensed Refills Start Date End Date Status Multiple Vitamins-Minerals (MULTIVITAMIN & MINERAL) Liquid Take 15 mL by mouth. 0 Active Alum & Mag Hydroxide-Simeth (MYLANTA) 200-200-20 MG/5ML Suspension Take 10 mL by mouth 3 times daily as needed (heartburn). 1 Bottle 6 07/15/2019 Active sucralfate (CARAFATE) 1 g tablet Take 1 Tab by mouth 4 times daily. 120 Tab 11 05/01/2020 Active Cholecalciferol (Vitamin D3) 125 MCG (5000 UT) Cap Take 1 capsule by mouth daily. 30 capsule 5 09/25/2020 Active Ferrous Gluconate 256 (28 Fe) MG Tab Take 256 mg by mouth daily. 30 tablet 0 09/28/2020 Active hyoscyamine (Levsin) 0.125 MG tablet Take 1 tablet by mouth every 4 hours as needed for Cramping. Use as needed for esophageal spasms 60 tablet 6 01/20/2021 Active oxcarbazepine (TRILEPTAL) 150 MG tablet TAKE 3 TABLET BY MOUTH TWICE DAILY 0 11/22/2021 Active pyridostigmine (MESTINON) 180 MG CR tablet 0 11/23/2021 Active trazodone (DESYREL) 50 MG tabletIndications: Other insomnia TAKE 1 TABLET BY MOUTH NEEDED FOR SLEEP; MAY USE TWO TABLETS IF ONE IS INEFFECTIVE WITHIN 2 HOURS(MAX 100MG NIGHTLY) 90 Tablet 1 07/14/2022 Active omeprazole (PRILOSEC) 40 MG capsuleIndications :Erosive gastropathy TAKE 1 CAPSULE BY MOUTH TWICE DAILY BEFORE MEALS. TAKE ON EMPTY STOMACH, WAIT 30 MINUTES AND THEN EAT. 180 Capsule 0 09/15/2022 Active baclofen (LIORESAL) 10 MG tabletIndications: Small fiber neuropathy TAKE 1 TABLET BY MOUTH TWICE DAILY 180 Tablet 0 09/15/2022 Active loperamide (IMODIUM) 2 MG capsule Take 1 Capsule by mouth 4 times daily as needed for Diarrhea. 60 Capsule 11 11/07/2022 Active dicyclomine (BENTYL) 10 MG capsule Take 1 Capsule by mouth 4 times daily (before meals and nightly). 60 Capsule 11 11/07/2022 Active diphenoxylate-atro pine (Lomotil) 2.5-0.025 MG per tablet Take 1 Tablet by mouth 4 times daily as needed for Diarrhea. 60 Tablet 2 11/30/2022 Active bisacodyl (DULCOLAX) 5 MG EC tablet Take 2 tablets by mouth right before your first dose of liquid prep. 2 Tablet 0 02/09/2023 Active polyethylene glycol (GoLYTELY,NuLYTELY ) 236 g suspension Take 4 L by mouth once for 1 dose. (May substitute any PEG) Mix prep according to directions. Starting at 6pm the night before your procedure, drink one 8oz glass at your own pace until your rectals run clear. 4000 mL 0 02/13/2023 Active atorvastatin (LIPITOR) 20 MG tablet Take 1 Tablet by mouth daily. 0 Active Magnesium 250 MG Tab Take by mouth. 0 Active cholestyramine (Questran) 4 g packet Take 1 Packet by mouth 3 times daily (with meals). 60 Each 11 03/03/2023 Active Active Problems Problem Noted Date JEONG (dyspnea on exertion) 04/20/2021 Arthritis of right hip 03/22/2019 Small fiber neuropathy 03/02/2018 Overview: Dr Lauro Sarkar Cutler. 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 Smith 05/12 - pending PT Antral ulcer 02/13/2015 Overview: Dr. Delgado Dysphagia / Thrush / Globus 10/17/2014 Overview: Dr. Santiago, Dr. Cortez, Dr. Delgado 01/11 - EGD within normal limits History of total knee replacement, right 10/01/2014 Temporal arteritis 09/25/2014 Overview: Dr. Hdz Biopsy negative but significant symptom improvement with prednisone Parotid mass 09/16/2014 Family history of coronary artery diseas e 05/02/2014 Chronic diarrhea 09/26/2013 Overview: Dr. Delgado Osteopenia 01/10/2013 Insomnia 11/02/2012 History of total hip replacement, L 06/0 02/2012 Overview: Dr. Esquivel Left 413 - [facility] Right - 10/2019 Headache, chronic daily 06/14/2012 Overview: Dr. Pink, Dr. Draper ([facility]) 07/09 - relief with nerve blocks 09/10 - temporal artery biopsy - no inflammation Vitamin D deficiency 02/24/2012 Osteoarthritis of both knees 08/22/2011 Overview: Dr. Esquivel - cortisone, Synvisc injections; meloxicam Right total knee replacement 07/2013 Cervical facet joint syndrome 05/19/2011 Overview: Dr. Addison, Dr. Smith 05/08 - bilateral C3-4, C4-5 facet joint corticosteroid injection 05/12 - MRI of cervical spine 11/13- s/p C5-C6 disckectomy, repeat surgery 2018 Family history of osteoporosis 8 Overweight 09/08/2006 Overview: Seeing Garrick Ham, IESHA OSTEOARTHROSIS - L hand 04/14/2006 Overview: Dr. Sena EVANS update Thrush of mouth and esophagus Esophagitis Erosive gastropathy Stress Gastritis Spasm of esophagus Diverticulosis Cervical spondylosis without myelopathy Last Assessment & Plan: Ms. Bassett continues [...] Review of the cervical spine MRI from [facility] dated 02/09/2022 shows a solid [...] help to improve her range of motion. Resolved Problems Problem Noted Date Resolved Date Fungal esophagitis 01/08/2015 03/13/2019 Overview: Dr. 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 Santiago 09/10 - Nothing found on direct exam - barium swallow unrevealing Right shoulder pain 12/26/2009 09/07/2012 Overview: Henry Ch PA-C, Dr. Dumas - 07/07-subacromial decompression Neck mass at R clavicle 12/21/2009 12/23/19 11 Overview: Dr. Villegas- pending excision Patellofemoral pain syndrome 11/25/2009 Overview: Dr. Esquivel- quad strengthening, steroid injection Esophageal stricture 06/30/2009 09/07/2012 Overview: 07/06 - Dr. Delgado- status post dilation Dysphagia 2009 07/01/2009 Overview: Dr. Delgado- upper endoscopy pending FIBROMYALGIA 04/14/2006 08/16/2016 Overview: Dr. Marlene JAMES - Dr. Shaw Laurence update Immunizations Name Administration Dates Next Due COVID-19 (Pfizer) Pt Reported 06/11/2020, 021 Influenza (> 6 Months) 01/01/2020,2014,12/04/2013,01/04,11/17/2011,12/22/2010 Influenza (>6 Months) Split Preservative Free 12/17/2015 Influenza Vaccine-preservati ve Free-quadrivalent 4 Years 03/02/2018 Pneumoccoccal(Adult) Polysac charide PPSV23 03/18/2020,09/24/2014 Pneumococcal Conjugate PCV-13 08/16/2016 TD (STATE SUPPLIED FOR ADULT S AND CHILDREN) 06/08/2021 Tdap 08/05/2010 Zostavax 10/02/2013 Family History Medical History Relation Name Comments Blindness Aunt Glaucoma Aunt CHF Brother 2 53 Diabetes Father At age 74 of [place] PD Anemia Mother at 88 of M I Arthritis Mother Cataract Mother Macular Degeneration Mother Macular Degeneration Uncle Strabismus Negative Hx Relation Name Status Comments Aunt Brother 1 CHF Brother 2 Father Mother Uncle Social History Tobacco Use Types Packs/Day Years Used Date Smoking Tobacco: Never Smokeless Tobacco: Never Tobacco Cessation:Counseling Given: Not Answered Comments:secondary smoke Alcohol Use Standard Drinks/Week Comments Yes 0 (1 standard drink = 0.6 oz pur e alcohol) 2-3 drinks/mo Sex Assigned at Date Recorded Female 12/15/2021 11:46 AM EDT Last Filed Vital Signs Vital Sign Reading Time Taken Comments Blood Pressure 130/84 02/13/2023 8:44 AM EST Pulse 68 02/13/2023 8:44 AM EST Temperature 36.3 C (97.4 F) 01/04/2022 9:06 AM EST Respiratory Rate 16 06/08/2021 1:03 PM EDT Oxygen Saturation 97% 09/28/2020 2:13 PM EDT Inhaled Oxygen Concentration - - Weight 86.8 kg (191 lb 6.4 oz) 02/13/2023 8:44 A M EST Height 167.6 cm (5' 6 ) 02/13/2023 8:44 AM EST Body Mass Index 30.89 02/13/2023 8:44 AM EST Plan of Treatment Health Maintenance Due Date Last Done Comments SHINGLES VACCINE (2 of 3) 11/27/2013 10/02/2013 BONE DENSITY SCREENING 03/13/2019 8, 10/03/2014, 01/09/2013 CHOLESTEROL SCREENING 07/09/2020 07/10/2015, 007 MAMMOGRAM 05/01/2021 05/01/2020, 02/27, 05/31/2014, Additional history exists DEPRESSION SCREEN 01/04/2023 01/04/2022, , 09/13/2016 FALL RISK ASSESSMENT 01/04/2023 01/04/2022, 06/08/2021, 03/18/2020, Additional history exists BMI CHECK/ADVISE 02/28/2024 07/07/2020, , 06/14/2018, Additional history exists Covid-19 Vaccine (2022- 4 season) 2024 06/11/2020, 05/21/2020 INFLUENZA (#1) 2024 01/02/2020 (Exte rnal Completion of Vaccination per patient), 01/01/2020, 03/02/2018, Additional history exists DTAP/TDAP/TD (3 - Td or Tdap) 06/09/2031 06/08/2021, 08/05/2010 COLON CANCER SCREENING 02/15/2033 3, 11/13/2020, 11/13/2020 (Completed), Additional history exists HEPATITIS C SCREENING Completed 09/04/2014, 014 PNEUMOCOCCAL VACCINE Completed 03/18/2020, 08/16/2016, 09/24/2014 Advance Directives For more information, please contact: [phone] Latest Code Status on File Code Status Date Activated Date Inactivated Comments Full Code 01/04/2022 12:16 PM Care Teams Hogshead Hooper Relationship Specialty Start Date End Date Community, Pcp [address] [address] PCP - General Internal Medicine 11/09/22 Kari Acevedo MD [address] [address] Surgeon Neurosurgery 11/29/21 Selin Agustin PA-C [address] [address] Specialist Neurosurgery 11/29/21 Miguel Angel Batista PA-C [address] [address] Specialist Neurosurgery 11/29/21
--- OUTSIDE RECORDS SUMMARY | 2025-02-05 23:17 | XMS_ITS | Encounter Summary ---
Author Organization [facility] Prior to 12/29/2023 Address [address] [place] [address] Care Team Providers Care Water Resource Project Manager Name Role Phone Kari Acevedo MD Unavailable [phone] Selin Agustin PA-C Unavailable Miguel Angel Batista PA-C Unavailable [facility], Pcp Primary Care Provider Unavailabl e Encounter Details Date Type Department Care Team Description 12/07/2022 Telephone Gastroenterology - [address] [place] [address] Perico Nicole PA-C Social History Tobacco Use Types Packs/Day Years Used Date Smoking Tobacco: Never Smokeless Tobacco: Never Comments:secondary smoke Alcohol Use Standard Drinks/Week Comments Yes 0 (1 standard drink = 0.6 oz pur e alcohol) 2-3 drinks/mo Sex Assigned at Date Recorded Female 12/15/2021 11:46 AM EDT documented as of this encounter Miscellaneous Notes * Telephone Encounter - Ting Cook M.A. - 12/07/2022 9:31 AM EDT Let patient know that prior authorization for Pilarmojayden was approved. * Telephone Encounter - Perico Nicole PA-C - 12/07/2022 8:29 AM EDT Patient is looking for status on the prior authorization for Lomotil. Please let me know the statusor at least let the patient know. Thank you * Telephone Encounter - Perico Nicole PA-C - 12/07/2022 8:29 AM EDT ----- Message from Lorena Zaidi C.M.A. sent at 12/07/2022 8:23 AM EDT ----- Regarding: FW: Recent MyChart message Contact: ----- Message ----- From: Chana Bassett Sent: 12/06/2022 4:36 PM EDT To: Gi Clinical Team Subject: Recent MyChart message On November 07 you did prescribe me loperamide 2 mg capsules up to four times a day. I have been using these religiously, and they really haven???t done much of anything to help me so I already havea prescription. he subsequently prescribed some thing else. The next time I sent a message about the continued problem which was sent to my drugstore, but my insurance wouldn???t cover it. The drugstore sent it back to your office for pre-authorization, which is where it has set sense. I don???t know anything about that situation. I hope this might fill in the blanks. documented in this encounter Plan of Treatment Not on file documented as of this encounter Visit Diagnoses Not on filedocumented in this encounter Care Teams Water Resource Project Manager Relationship Specialty Start Date End Date Community, Pcp [address] [address] PCP - General Internal Medicine 11/09/22 Kari Acevedo MD [address] [address] Surgeon Neurosurgery 11/29/21 Selin Agustin PA-C [address] [address] Specialist Neurosurgery 11/29/21 Miguel Angel Batista PA-C 175 [facility] [address] [place] [address] Specialist Neurosurgery 11/29/21 documented as of this encounter
--- OUTSIDE RECORDS SUMMARY | 2025-02-05 23:17 | XMS_ITS | Encounter Summary ---
Author Organization [facility] Prior to 12/29/2023 Address [address] [place] [address] Care Team Providers Care Agricultural Extension Officer Name Role Phone Mayelin Nolasco DO Primary Care Provider Unavaila Kari Gillis MD Unavailable [phone] Selin Agustin PA-C Unavailable Miguel Angel Batista PA-C Unavailable [phone] [facility], Pcp Primary Care Provider Unavailabl e Encounter Details Date Type Department Care Team Description 12/02/2021 Release of Information Medical Records [address] [place] [id number] Abstract, Provider Social History Tobacco Use Types [...] on filedocumented in this encounter Care Teams Agricultural Extension Officer Relationship Specialty Start Date End Date Mayelin Nolasco DO PCP - General Internal Medicine 05/25/21 11/08/22 [facility], Pcp [address] [address] PCP - General Internal Medicine 9/13/23 Kari Acevedo MD [address] [address] Surgeon Neurosurgery 11/29/21 Selin Agustin PA-C [address] [address] Specialist Neurosurgery 11/29/21 Miguel Angel Batista PA-C [address] [address] Specialist Neurosurgery 11/29/21 documented as of this encounter
--- OUTSIDE RECORDS SUMMARY | 2025-02-05 23:17 | XMS_ITS | Encounter Summary ---
Author Organization [facility] Prior to 12/29/2023 Address [address] [place] [address] Care Team Providers Care Hematologist Oncologist Name Role Phone Kari Acevedo MD Unavailable [phone] Selin Agustin PA-C Unavailable Miguel Angel Batista PA-C Unavailable [facility], Pcp Primary Care Provider Unavailabl e Reason for Visit * Reason Comments E-prescribe Rx Request Encounter Details Date Type Department Care Team Description 11/09/2022 Refill Adult Medicine [address] [address] Aspen Rainey PA-C E-prescribe Rx Request Social History Tobacco Use Types Packs/Day Years Used Date Smoking Tobacco: Never Smokeless Tobacco: Never Comments:secondary smoke Alcohol Use Standard Drinks/Week Comments Yes 0 (1 standard drink = 0.6 oz pur e alcohol) 2-3 drinks/mo Sex Assigned at Date Recorded Female 12/15/2021 11:46 AM EDT documented as of this encounter Miscellaneous Notes * Telephone Encounter - Kyle Gamez - 11/09/2022 1:59 PM EDT Outside PCP. Please refuse documented in this encounter Plan of Treatment Not on file documented as of this encounter Visit Diagnoses Diagnosis Small fiber neuropathy Unspecified hereditary and idiopathic peripheral neuropathy documented in this encounter Care Teams Hematologist Oncologist Relationship Specialty Start Date End Date Community, Pcp [address] [address] PCP - General Internal Medicine 11/09/22 Kari Acevedo MD [address] [address] Surgeon Neurosurgery 11/29/21 Selin Agustin PA-C [address] [address] Specialist Neurosurgery 11/29/21 Miguel Angel Batista PA-C [address] [address] Specialist Neurosurgery 11/29/21 documented as of this encounter
--- OUTSIDE RECORDS SUMMARY | 2025-02-05 23:17 | XMS_ITS | Encounter Summary ---
Author Organization [facility] Prior to 12/29/2023 Address [address] [place] [address] Care Team Providers Care Side Show Entertainer Name Role Phone Kari Acevedo MD Unavailable [phone] Selin Agustin PA-C Unavailable [phone] Miguel Angel Batista PA-C Unavailable [facility], Pcp Primary Care Provider Unavailabl e Reason for Visit * Reason Comments E-prescribe Rx Request Encounter Details Date Type Department Care Team Description 12/19/2022 Refill Adult Medicine [address] [address] Aspen Rainey PA-C E-prescribe Rx Request Social History Tobacco Use Types Packs/Day Years Used Date Smoking Tobacco: Never Smokeless Tobacco: Never Comments:secondary smoke Alcohol Use Standard Drinks/Week Comments Yes 0 (1 standard drink = 0.6 oz pur e alcohol) 2-3 drinks/mo Sex Assigned at Date Recorded Female 12/15/2021 11:46 AM EDT documented as of this encounter Miscellaneous Notes * Telephone Encounter - Suzanne Sarmiento - 12/19/2022 4:00 PM EDT Pcp community documented in this encounter Plan of Treatment Not on file documented as of this encounter Visit Diagnoses Diagnosis Other insomnia documented in this encounter Care Teams Side Show Entertainer Relationship Specialty Start Date End Date [facility], Pcp [address] [place] [address] [address] [place] [address] PCP - General Internal Medicine 11/09/22 Kari Acevedo MD 175 [facility] [address] [place] [address] Surgeon Neurosurgery 11/29/21 Selin Agustin PA-C 175 [facility] [address] [place] [address] Specialist Neurosurgery 11/29/21 Miguel Angel Batista PA-C 175 [facility] [address] [place] [address] Specialist Neurosurgery 11/29/21 documented as of this encounter
--- OUTSIDE RECORDS SUMMARY | 2025-02-05 23:17 | XMS_ITS | Encounter Summary ---
Author Organization [facility] Prior to 12/29/2023 Address [address] [place] [address] Care Team Providers Care Product Manufacturing Professional Name Role Phone Kari Acevedo MD Unavailable [phone] Selin Agustin PA-C Unavailable Miguel Angel Batista PA-C Unavailable [facility], Pcp Primary Care Provider Unavailabl e Reason for Visit * Reason Onset Date Comments Prior Authorization 11/30/2022 Encounter Details Date Type Department Care Team Description 11/30/2022 Telephone Gastroenterology [address] [place] [address] Perico Nicole PA-C Prior Authorization Social History Tobacco Use Types Packs/Day Years Used Date Smoking Tobacco: Never Smokeless Tobacco: Never Comments:secondary smoke Alcohol Use Standard Drinks/Week Comments Yes 0 (1 standard drink = 0.6 oz pur e alcohol) 2-3 drinks/mo Sex Assigned at Date Recorded Female 12/15/2021 11:46 AM EDT documented as of this encounter Miscellaneous Notes * Telephone Encounter - Hayley Randle M.A. - 12/06/2022 10:17 AM EDT JOHN Case: [id number] Status: Approved Coverage Starts on: 11/02/2022 12:00:00 AM, Coverage Ends on: 12/01/2024 12:00:00 AM. Hayley Randle Prior Auth Dep Ext [id number] * Telephone Encounter - Hayley Randle M.A. - 12/01/2022 1:19 PM EDT Auth sent with cover my meds Dx:K52.9 - Noninfective gastroenteritis and colitis, unspecified Tried Imodium, Bentyl Hayley Randle Prior Auth Dep Ext [id number] * Telephone Encounter - Tash Vásquez - 11/30/2022 2:22 PM EDT Prior Authorization for Medication-do not complete and send this encounter unless you have the fax from the pharmacy. Is this a Cover My Meds request: [place] of Medication diphenoxylate-atropine (Lomotil) Dose of Medication 2.5-0.025 MG per tablet What is the RX # from the faxed refill? [id number] How does patient take this med? 1 Tablet by mouth 4 times daily as needed for diarrhea What Pharmacy did the fax come from: [facility] fax #: [phone] [employer] Information from fax: What Prescription Plan does the patient have? Not on fax BIN/PCN if applicable: not on fax Cardholder ID:[id number] Person Code: not on fax Relationship Code: not on fax Help desk phone: [phone] documented in this encounter Plan of Treatment Not on file documented as of this encounter Visit Diagnoses Not on filedocumented in this encounter Care Teams Product Manufacturing Professional Relationship Specialty Start Date End Date Community, Pcp [address] [address] PCP - General Internal Medicine 11/09/22 Kari Acevedo MD [address] [address] Surgeon Neurosurgery 11/29/21 Selin Agustin PA-C [address] [address] Specialist Neurosurgery 11/29/21 Miguel Angel Batista PA-C [address] [address] Specialist Neurosurgery 11/29/21 documented as of this encounter
--- OUTSIDE RECORDS SUMMARY | 2025-02-05 23:17 | XMS_ITS | Encounter Summary ---
Author Organization [facility] Address [address] [facility] [address] [place] [address] Phone Care Team Providers Care Pipeline Welder Name Role Phone Henri Cruz MD Primary Care Provider Kadie Terrazas NP Primary Care Provider [phone] Encounter Details Date Type Department Care Team (Late st Contact Info) Description 08/25/2020 Procedure Pass [facility] Cardiac Technical Maintenance Technician [address] [place] [address] Social History Tobacco Use Types Packs/Day Years [...] [facility] Department of Neurology [address] [facility], 8th Floor, [address] [place] [address] Lauro Cedeño MD, PhD [address] [place] [address] [email or web address] documented as of this encounter Visit Diagnoses Not on filedocumented in this encounter Care Teams Pipeline Welder Relationship Specialty Start Date End Date Henri Cruz MD [address] [place] [address] PCP - General Internal Medicine 01/11/17 11/11/24 Kadie Terrazas NP [address] [place] [address] PCP - General Nurse Practitioner 11/12/24 documented as of this encounter Additional Source Comments The information contained in this document represents components of the legal health record. It is not the complete legal health record.[facility]
--- OUTSIDE RECORDS SUMMARY | 2025-02-05 23:17 | XMS_ITS | Encounter Summary ---
Author Organization [facility] Prior to 12/29/2023 Address [address] [place] [address] Care Team Providers Care Varying Exceptionalities Teacher Name Role Phone Henri Cruz MD Primary Care Provider Unavailable Mayelin Nolasco DO Primary Care Provider Unavaila Kari Gillis MD Unavailable [phone] Selin Agustin PA-C Unavailable Miguel Angel Batista PA-C Unavailable [phone] [facility], Pcp Primary Care Provider Unavailabl e Reason for Visit * Reason Onset Date Comments My Chart Appointment 09/12/2016 Encounter Details Date Type Department Care Team Description 09/12/2016 Telephone Adult Medicine - [address] [address] Henri Cruz MD My Chart Appointment Social History Tobacco Use Types Packs/Day Years Used Date Smoking Tobacco: Never Smokeless Tobacco: Never Alcohol Use Standard Drinks/Week Comments Yes 0 (1 standard drink = 0.6 oz pur e alcohol) 2-3 drinks/mo Sex Assigned at Date Recorded Female 12/15/2021 11:46 AM EDT documented as of this encounter Miscellaneous Notes * Telephone Encounter - Dedrick Carr LPN - 09/12/2016 4:01 PM EDT Appointment scheduled with Dr Lancaster on 09/13/16 pt was seen at [email or web address] , please obtain records * Telephone Encounter - Anna Rice - 09/12/2016 11:49 AM EDT Patient has scheduled a visit through My Chart. Please call patient to triage for appropriateness. Date appointment is booked: 09-13-[address] Cruz Reason for appointment: Shortness of breath, dizziness, extreme sweating and ?? weakness. I went to ER, tests done showed nothing ?? wrong with my heart.....I am still struggling. ?? documented in this encounter Plan of Treatment Not on file documented as of this encounter Visit Diagnoses Not on filedocumented in this encounter Care Teams Varying Exceptionalities Teacher Relationship Specialty Start Date End Date Henri Cruz MD PCP - General Internal Medicine 05/25/1504/28 Mayelin Nolasco DO PCP - General Internal Medicine 05/25/21 11/08/22 [facility], Pcp [address] [address] PCP - General Internal Medicine 11/09/22 Kari Acevedo MD [address] [address] Surgeon Neurosurgery 11/29/21 Selin Agustin PA-C [address] [address] Specialist Neurosurgery 11/29/21 Miguel Angel Batista PA-C [address] [address] Specialist Neurosurgery 11/29/21 documented as of this encounter
--- OUTSIDE RECORDS SUMMARY | 2025-02-05 23:17 | XMS_ITS | Encounter Summary ---
Author Organization [facility] Address [address] [facility] [address] [place] [address] Phone Care Team Providers Care Car Servicer Name Role Phone Henri Cruz MD Primary Care Provider Kadie Terrazas NP Primary Care Provider [phone] Reason for Referral * MRI/CAT Scan - Closed Specialty Diagnoses / Procedures Referred By Katherine elliott Referred To Contact Diagnoses SOB (shortness of breath) Procedures Cardiopulmonary Exercise Test Advanced-Level 3 Joie Arana PA-C [email or web address] Referral ID Status Reason Start Date Expiration Date Visits Re quested Visits Authorized [id number] Closed 04/20/2021 05/20/2021 1 1 Encounter Details Date Type Department Care Team (Latest Contact Info) Description 04/20/2021 Ancillary Orders [facility] Pulmonary Medicine Hypertension [address] [place] [address] Joie Arana PA-C [email or web address] SOB (shortness of breath) Social History Tobacco [...] Description 05/19/2025 10:00 AM EDT Office Visit [facility] Department of Neurology [address] [place] [address], 8th Floor, [address] [place] [address] Lauro Cedeño MD, PhD [address] [place] [address] [email or web address] documented as of this encounter Results [...] 187/88 mm Hg at peak exercise (RPP: 43284). Oxygen saturation remained unchanged at 97.2% during [...] Heart Rate (bpm) 151 146 97% HR [place] (bpm) 90 HR Recovery (1 min) > 12 10 Rest Blood Press (mm Hg) 142/83 Peak Blood Press (mm Hg) 187/88 Peak O2 Pulse (mL/beat) 8.9 8.8 99% ^VO2/^WR (mL/min/watt) > 10.2 +/- 1 9.2 ^HR/^VO2 < 50 87 Cardiac Output (Qt) 9.6 10.7 111% Rest RER 0.88 Peak RER 1.36 = VENTILATORY RESPONSE = Measured Percent MVV (Measured) MVV (Calculated) 85.05 Respiratory [place] 20.75 76% VE/VCO2 ([place]) 34.76 VE @ AT 22 VE @ [...] 187/88 mm Hg at peak exercise (RPP: 77823). Oxygen saturationremained unchanged at 97.2% during exercise. [...] Heart Rate (bpm) 151 146 97% HR [place] (bpm) 90 HR Recovery (1 min) > 12 10 Rest Blood Press (mm Hg) 142/83 Peak Blood Press (mm Hg) 187/88 Peak O2 Pulse (mL/beat) 8.9 8.8 99% ^VO2/^WR (mL/min/watt) > 10.2 +/- 1 9.2 ^HR/^VO2 < 50 87 Cardiac Output (Qt) 9.6 10.7 111% Rest RER 0.88 Peak RER 1.36 = VENTILATORY RESPONSE = Measured Percent MVV (Measured) MVV (Calculated) 85.05 Respiratory [place] 20.75 76% VE/VCO2 ([place]) 34.76 VE @ AT 22 VE @ [...] breath documented in this encounter Care Teams Car Servicer Relationship Specialty Start Date End Date Henri Cruz MD [address] [place] [address] PCP - General Internal Medicine 01/11/17 11/11/24 Kadie Terrazas NP [address] [place] [address] PCP - General Nurse Practitioner 11/12/24 documented as of this encounter Additional Source Comments The information contained in this document represents components of the legal health record. It is not the complete legal health record.[facility]
--- OUTSIDE RECORDS SUMMARY | 2025-02-05 23:17 | XMS_ITS | Encounter Summary ---
Author Organization [facility] Prior to 12/29/2023 Address [address] [place] [address] Care Team Providers Care Parlor Maid Name Role Phone Kari Acevedo MD Unavailable [phone] Selin Agustin PA-C Unavailable [phone] Miguel Angel Batista PA-C Unavailable [facility], Pcp Primary Care Provider Unavailabl e Reason for Visit * Reason Comments E-prescribe Rx Request Encounter Details Date Type Department Care Team Description 12/14/2022 Refill Adult Medicine [address] [address] Aspen Rainey PA-C E-prescribe Rx Request Social [...] * Telephone Encounter - Suzanne Sarmiento - 12/14/2022 2:45 PM EDT [facility] pcp documented in this encounter Plan of Treatment Not on file documented as of this encounter Visit Diagnoses Diagnosis Erosive gastropathy Small fiber neuropathy Unspecified hereditary and idiopathic peripheral neuropathy documented in this encounter Care Teams Parlor Maid Relationship Specialty Start Date End Date Community, Pcp 175 [facility] [address] [place] [address] PCP - General Internal Medicine 11/09/22 Kari Acevedo MD [address] [address] Surgeon Neurosurgery 11/29/21 Selin Agustin PA-C [address] [address] Specialist Neurosurgery 11/29/21 Miguel Angel Batista PA-C [address] [address] Specialist Neurosurgery 11/29/21 documented as of this encounter
--- OUTSIDE RECORDS SUMMARY | 2025-02-05 23:17 | XMS_ITS | Encounter Summary ---
Author Organization [facility] Prior to 12/29/2023 Address [address] [place] [address] Care Team Providers Care Hand Candy Dipper Name Role Phone Kari Acevedo MD Unavailable [phone] Selin Agustin PA-C Unavailable Miguel Angel Batista PA-C Unavailable [facility], Pcp Primary Care Provider Unavailabl e Encounter Details Date Type Department Care Team Description 01/30/2023 Pt. Non Urgent Medic al Question Gastroenterology - [address] [place] [address] Perico Nicole PA-C Social History Tobacco [...] Telephone Encounter - Ting Cook M.A. - 01/30/2023 1:39 PM ESTFrom: Chana Bassett To: Nohemy Nicole Sent: 01/30/2023 1:27 PM EST Subject: Diarrhea & ulcer symptom concerns I have had continued problems with diarrhea since the early part of November that has caused UTI andkidney infection problems that have continued through the current date. The diarrhea issues have made it very difficult for me to feel. I can leave the house for any length of time without concern for knowing that I would be able to get to a bathroom if necessary. The prescription diarrhea medication that you have given me, while it helps, is not the answer. It binds me up and then I am constipated until the cycle just starts all over again. I am not really eating much out of fear of living in the bathroom. Also, the ulcer symptoms I???ve had in the past are back. My stomach feels as if it???s in my throat, periods of extreme burning really last a whi le???all in all I feel as if some testing is needed. I am scheduled to see you in March but don???t believe I can make it that long. Anysuggestions you can offer will be greatly appreciated. documented in this encounter Plan of Treatment Not on file documented as of this encounter Visit Diagnoses Not on filedocumented in this encounter Care Teams Hand Candy Dipper Relationship Specialty Start Date End Date Community, Pcp [address] [address] PCP - General Internal Medicine 11/09/22 Kari Acevedo MD [address] [address] Surgeon Neurosurgery 11/29/21 Selin Agustin PA-C [address] [address] Specialist Neurosurgery 11/29/21 Miguel Angel Batista PA-C [address] [address] Specialist Neurosurgery 11/29/21 documented as of this encounter
--- OUTSIDE RECORDS SUMMARY | 2025-02-05 23:17 | XMS_ITS | Encounter Summary ---
Author Organization [facility] Prior to 12/29/2023 Address [address] [place] [address] Care Team Providers Care Associate Financial Representative Name Role Phone Henri Cruz MD Primary Care Provider Unavailable Mayelin Nolasco DO Primary Care Provider Unavaila ble Kari Acevedo MD Unavailable [phone] Selin Agustin PA-C Unavailable [phone] Miguel Angel Batista PA-C Unavailable [facility], Pcp Primary Care Provider Unavailabl e Encounter Details Date Type Department Care Team Description 08/16/2016 PNO Controlled Substance Contract Medical Records [address] [place] [id number] Abstract, Provider Social History Tobacco Use Types [...] on filedocumented in this encounter Care Teams Associate Financial Representative Relationship Specialty Start Date End Date Henri Cruz MD PCP - General Internal Medicine 05/25/15 310/18 Mayelin Nolasco DO PCP - General Internal Medicine 05/25/21 11/08/22 [facility], Pcp [address] [address] PCP - General Internal Medicine 11/09/22 Kari Acevedo MD [address] [address] Surgeon Neurosurgery 11/29/21 Selin Agustin PA-C [address] [address] Specialist Neurosurgery 11/29/21 Miguel Angel Batista PA-C [address] [address] Specialist Neurosurgery 11/29/21 documented as of this encounter
--- OUTSIDE RECORDS SUMMARY | 2025-02-05 23:17 | XMS_ITS | Encounter Summary ---
Author Organization [facility] Prior to 12/29/2023 Address [address] [place] [address] Care Team Providers Care Foundry Worker Name Role Phone Mayelin Nolasco DO Primary Care Provider Unavaila ble Kari Acevedo MD Unavailable [phone] Selin Agustin PA-C Unavailable Miguel Angel Batista PA-C Unavailable Community, Pcp Primary Care Provider Unavailabl e Encounter Details Date Type Department Care Team Description 09/10/2021 Orders Only Adult Medicine - [address] [address] Mayelin Nolasco DO Social History Tobacco Use Types Packs/Day [...] on filedocumented in this encounter Care Teams Foundry Worker Relationship Specialty Start Date End Date Mayelin Nolasco DO PCP - General Internal Medicine 05/25/21 11/08/22 Community, Pcp [address] [address] PCP - General Internal Medicine 11/09/22 Kari Acevedo MD [address] [address] Surgeon Neurosurgery 11/29/21 Selin Agustin PA-C [address] [id number] Specialist Neurosurgery 11/29/21 Miguel Angel Batista PA-C [address] [id number] Specialist Neurosurgery 11/29/21 documented as of this encounter
--- OUTSIDE RECORDS SUMMARY | 2025-02-05 23:17 | XMS_ITS | Encounter Summary ---
Author Organization [facility] Prior to 12/29/2023 Address [address] [place] [address] Care Team Providers Care Broadcast Director Operations Name Role Phone Mayelin Nolasco DO Primary Care Provider Unavaila Kari Gillis MD Unavailable [phone] Selin Agustin PA-C Unavailable Miguel Angel Batista PA-C Unavailable [phone] [facility], Pcp Primary Care Provider Unavailabl e Encounter Details Date Type Department Care Team Description 11/07/2022 Pt. Non Urgent Medic al Question Gastroenterology - [address] [place] [address] Perico Nicole PA-C Social History [...] Telephone Encounter - Tash Barnes M.A. - 11/07/2022 2:05 PM EDTFrom: Chana Bassett To: Nohemy Nicole Sent: 11/07/2022 11:20 AM EDT Subject: Diarrhea problems I am having more problems with diarrhea than in the past that make it difficult to feel comfortableleaving the house and know that I will be okay. I would say that I have diarrhea with cramping and sometimes feeling like I might be sick at least three to four times a week. These episodes can last anywhere from a few hours to an entire day. Is there some type of prescription that could be prescribed that might help me? Over the counter medication while in the past has been helpful, no longer is. Yari Bassett documented in this encounter Plan of Treatment Not on file documented as of this encounter Visit Diagnoses Not on filedocumented in this encounter Care Teams Broadcast Director Operations Relationship Specialty Start Date End Date Mayelin Nolasco DO PCP - General Internal Medicine 05/25/21 11/08/22 [facility], Pcp [address] [address] PCP - General Internal Medicine 11/09/22 Kari Acevedo MD [address] [address] Surgeon Neurosurgery 11/29/21 Selin Agustin PA-C [address] [address] Specialist Neurosurgery 11/29/21 Miguel Angel Batista PA-C [address] [address] Specialist Neurosurgery 11/29/21 documented as of this encounter
--- OUTSIDE RECORDS SUMMARY | 2025-02-05 23:17 | XMS_ITS | Encounter Summary ---
Author Organization [facility] Prior to 12/29/2023 Address [address] [place] [address] Care Team Providers Care Owner Manager Name Role Phone Kari Acevedo MD Unavailable [phone] Selin Agustin PA-C Unavailable [phone] Miguel Angel Batista PA-C Unavailable [facility], Pcp Primary Care Provider Unavailabl e Reason for Visit * Reason Onset Date Comments Medication 02/10/2023 Encounter Details Date Type Department Care Team Description 02/10/2023 Refill Gastroenterology - [place] 175 [facility] [address] [place] [address] Ted Gross MD 175 [facility] [address] [place] [address] Medication Social History Tobacco Use Types Packs/Day Years [...] on filedocumented in this encounter Care Teams Owner Manager Relationship Specialty Start Date End Date Community, Pcp 175 [facility] [address] [place] [address] PCP - General Internal Medicine 11/09/22 Kari Acevedo MD 175 [facility] [address] [place] [address] Surgeon Neurosurgery 11/29/21 Selin Agustin PA-C 175 [facility] [address] [place] [id number] Specialist Neurosurgery 11/29/21 Miguel Angel Batista PA-C 175 [facility] [address] [place] [address] Specialist Neurosurgery 11/29/21 documented as of this encounter
--- OUTSIDE RECORDS SUMMARY | 2025-02-05 23:17 | XMS_ITS | Encounter Summary ---
Author Organization [facility] Prior to 12/29/2023 Address [address] [place] [address] Care Team Providers Care Assistant Golf Professional Name Role Phone Mayelin Nolasco DO Primary Care Provider Unavaila Kari Gillis MD Unavailable [phone] Selin Agustin PA-C Unavailable [phone] Miguel Angel Batista PA-C Unavailable [facility], Pcp Primary Care Provider Unavailabl e Reason for Visit * Reason Comments E-prescribe Rx Request Encounter Details Date Type Department Care Team Description 09/28/2021 Refill Adult Medicine - [address] [address] Lauro Calderon PA-C [address] [place] [address] E-prescribe Rx Request Social History Tobacco Use Types Packs/Day Years Used Date Smoking Tobacco: Never Smokeless Tobacco: Never Comments:secondary smoke Alcohol Use Standard Drinks/Week Comments Yes 0 (1 standard drink = 0.6 oz pur e alcohol) 2-3 drinks/mo Sex Assigned at Date Recorded Female 12/15/2021 11:46 AM EDT documented as of this encounter Miscellaneous Notes * Telephone Encounter - Pinky White - 09/28/2021 12:46 PM EDT Patient would like script to be: E-PRESCRIBED/FAXED TO PHARMACY WHEN WAS THE PATIENT'S LAST APPOINTMENT IN ADULT MEDICINE? 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 Yes 10/13/21 (THE MEDICATION REQUESTED IS ON THE MED [...] N/A Patients current insurance carrier is: Payor: MEDICARE-[employer] / [place] / Product Type: MEDICARE [id number] documented in this encounter Plan of Treatment Not on file documented as of this encounter Visit Diagnoses Not on filedocumented in this encounter Care Teams Assistant Golf Professional Relationship Specialty Start Date End Date Mayelin Nolasco DO PCP - General Internal Medicine 05/25/21 11/08/22 [facility], Pcp [address] [address] PCP - General Internal Medicine 11/09/22 Kari Acevedo MD [address] [address] Surgeon Neurosurgery 11/29/21 Selin Agustin PA-C [address] [address] Specialist Neurosurgery 11/29/21 Miguel Angel Batista PA-C [address] [address] Specialist Neurosurgery 11/29/21 documented as of this encounter
--- OUTSIDE RECORDS SUMMARY | 2025-02-05 23:18 | XMS_ITS | Encounter Summary ---
Author Organization [facility] Prior to 12/29/2023 Address [address] [place] [address] Care Team Providers Care Home Decorator Name Role Phone Cornell Barajas Primary Care Provider Unav Henri Marcial MD Primary Care Provider Unavailable Mayelin Nolasco DO Primary Care Provider Unavaila Kari Gillis MD Unavailable [phone] Selin Agustin-C Unavailable BatistaMiguel Angel arango-C Unavailable [facility], Pcp Primary Care Provider Unavailabl e Encounter Details Date Type Department Care Team Description 11/25/2012 Pt. Non Urgent Medical Question Adult Medicine - [address] [address] Cornell Barajas Social History Tobacco Use Types Packs/Day Years Used Date Smoking Tobacco: Never Smokeless Tobacco: Never Alcohol Use Standard Drinks/Week Comments Yes 0 (1 standard drink = 0.6 oz pur e alcohol) 2-3 drinks/wk Sex Assigned at Date Recorded Female 12/15/2021 11:46 AM EDT documented as of this encounter Progress Notes * Mariza Monge L.P.N. - 11/26/2012 8:34 AM EDTFrom: AJAY HOLT To: Cornell Barajas MD Sent: Lissy Nov 25, 2012 9:59 AM Subject: zolpidem Just wanted to update that this medication is really helping me get a better night's sleep. I wouldlike to request a refill be called into [facility]...[phone]. I have five pills left as of Monday. Thank you! documented in this encounter Plan of Treatment Not on file documented as of this encounter Visit Diagnoses Not on filedocumented in this encounter Care Teams Home Decorator Relationship Specialty Start Date End Date Cornell Barajas PCP - General 01/27/06 05/24/15 Henri Cruz MD PCP - General Internal Medicine 05/25/1504/28 Mayelin Nolasco DO PCP - General Internal Medicine 05/25/21 11/08/22 [facility], Pcp [address] [address] PCP - General Internal Medicine 11/09/22 Kari Acevedo MD [address] [address] Surgeon Neurosurgery 11/29/21 Selin Agustin PA-C [address] [address] Specialist Neurosurgery 11/29/21 Miguel Angel Batista PA-C [address] [address] Specialist Neurosurgery 11/29/21 documented as of this encounter
--- OUTSIDE RECORDS SUMMARY | 2025-02-05 23:18 | XMS_ITS | Encounter Summary ---
Author Organization [facility] Prior to 12/29/2023 Address [address] [place] [address] Care Team Providers Care Office Nurse Name Role Phone Henri Cruz MD Primary Care Provider Unavailable Mayelin Nolasco DO Primary Care Provider Unavaila Kari Gillis MD Unavailable [phone] Selin Agustin PA-C Unavailable [phone] Miguel Angel Batista PA-C Unavailable [facility], Pcp Primary Care Provider Unavailabl e Encounter Details Date Type Department Care Team Description 03/03/2017 Refill Adult Medicine - [address] [address] Henri Cruz MD Social History Tobacco Use Types Packs/Day Years Used Date Smoking Tobacco: Never Smokeless Tobacco: Never Comments:secondary smoke Alcohol Use Standard Drinks/Week Comments Yes 0 (1 standard drink = 0.6 oz pur e alcohol) 2-3 drinks/mo Sex Assigned at Date Recorded Female 12/15/2021 11:46 AM EDT documented as of this encounter Miscellaneous Notes * Telephone Encounter - Estefany Mcpherson M.A. - 03/03/2017 2:16 PM EST Faxed to pharmacy * Telephone Encounter - Mariza Monge L.P.N. - 03/03/2017 11:07 AM ESTFrom: Chana Bassett To: Henri Cruz MD Sent: 03/03/2017 11:01 AM EST Subject: Medication Renewal Request Original authorizing provider: MD Chana Ryan would like a refill of the following medications: amitriptyline (ELAVIL) 50 MG tablet [Henri Cruz MD] Preferred pharmacy: [address] Comment: This medication continues to help me and there are no refills left. documented in this encounter Plan of Treatment Not on file documented as of this encounter Visit Diagnoses Not on filedocumented in this encounter Care Teams Office Nurse Relationship Specialty Start Date End Date Henri Cruz MD PCP - General Internal Medicine 05/25/1504/28 Mayelin Nolasco DO PCP - General Internal Medicine 05/25/21 11/08/22 [facility], Pcp [address] [address] PCP - General Internal Medicine 11/09/22 Kari Acevedo MD [address] [address] Surgeon Neurosurgery 11/29/21 Selin Agustin PA-C [address] [address] Specialist Neurosurgery 11/29/21 Miguel Angel Batista PA-C [address] [address] Specialist Neurosurgery 11/29/21 documented as of this encounter
--- OUTSIDE RECORDS SUMMARY | 2025-02-05 23:18 | XMS_ITS | Encounter Summary ---
Author Organization [facility] Prior to 12/29/2023 Address [address] [place] [address] Care Team Providers Care Salesperson [employer] Name Role Phone Henri Cruz MD Primary Care Provider Unavailable Mayelin Nolasco DO Primary Care Provider Unavaila Kari Gillis MD Unavailable [phone] Selin Agustin PA-C Unavailable [phone] Miguel Angel Batista PA-C Unavailable [phone] [facility], Pcp Primary Care Provider Unavailabl e Reason for Visit * Reason Onset Date Comments Prior Authorization 03/13/2017 Encounter Details Date Type Department Care Team Description 03/13/2017 Telephone Adult Medicine - [address] [address] Henri Cruz MD Prior Authorization Social History Tobacco Use Types Packs/Day Years Used Date Smoking Tobacco: Never Smokeless Tobacco: Never Comments:secondary smoke Alcohol Use Standard Drinks/Week Comments Yes 0 (1 standard drink = 0.6 oz pur e alcohol) 2-3 drinks/mo Sex Assigned at Date Recorded Female 12/15/2021 11:46 AM EDT documented as of this encounter Miscellaneous Notes * Telephone Encounter - Melinda Villanueva M.A. - 05/12/2017 11:10 AM EDT Changed to trazodone * Telephone Encounter - Muna Huggins M.A. - 03/14/2017 3:44 PM EST Prior auth done for quantity override for the zolpidem Dx chronic insomnia * Telephone Encounter - Suzanne Sarmiento - 03/13/2017 3:01 PM EST Pre Authorization for Medication-do not complete and send this encounter unless you have the fax from the pharmacy. Is this a Cover My Meds request: [place] of Medication zolpidem tartrate Dose of Medication 5 mg tablet How does patient take this med? Take 1 tablet by mouth at bedtime if needed for insomnia What Pharmacy did the fax come from: [id number] [address] Pharmacy fax #: [phone] [employer] Information from fax: What Prescription Plan does the patient have? [facility] [employer] BIN/PCN if applicable: [id number] Cardholder ID:[id number] Person Code: Relationship Code: Help desk phone: [phone] documented in this encounter Plan of Treatment Not on file documented as of this encounter Visit Diagnoses Not on filedocumented in this encounter Care Teams Salesperson [employer] Relationship Specialty Start Date End Date Henri Cruz MD PCP - General Internal Medicine 05/25/1504/28 Mayelin Nolasco DO PCP - General Internal Medicine 05/25/21 11/08/22 [facility], Pcp [address] [address] PCP - General Internal Medicine 11/09/22 Kari Acevedo MD [address] [address] Surgeon Neurosurgery 11/29/21 Selin Agustin PA-C [address] [address] Specialist Neurosurgery 11/29/21 Miguel Angel Batista PA-C [address] [place] [address] Specialist Neurosurgery 11/29/21 documented as of this encounter
--- OUTSIDE RECORDS SUMMARY | 2025-02-05 23:18 | XMS_ITS | Encounter Summary ---
Author Organization [facility] Prior to 12/29/2023 Address [address] [place] [address] Care Team Providers Care Bobbin Fixer Name Role Phone Cornell Barajas Primary Care Provider Unav ailable Henri Cruz MD Primary Care Provider Unavailable Mayelin Nolasco DO Primary Care Provider Unavaila Kari Gillis MD Unavailable [phone] Selin Agustin-C Unavailable BatistaMiguel Angel arango-C Unavailable [facility], [facility] Primary Care Provider Unavailabl e Encounter Details Date Type Department Care Team Description 03/20/2013 Directional Bore Operator Report Medical Records [address] [place] [address] Clint Esquivel MD Social History Tobacco Use [...] on filedocumented in this encounter Care Teams Bobbin Fixer Relationship Specialty Start Date End Date Cornell Barajas PCP - General 01/27/06 05/24/15 Henri Cruz MD PCP - General Internal Medicine 05/25/1504/28 Mayelin Nolasco DO PCP - General Internal Medicine 05/25/21 11/08/22 [facility], Pcp 175 [facility] [address] [place] [address] PCP - General Internal Medicine 11/09/22 Kari Acevedo MD [address] [address] Surgeon Neurosurgery 11/29/21 Selin Agustin PA-C [address] [address] Specialist Neurosurgery 11/29/21 Miguel Angel Batista PA-C [address] [address] Specialist Neurosurgery 11/29/21 documented as of this encounter
--- OUTSIDE RECORDS SUMMARY | 2025-02-05 23:18 | XMS_ITS | Encounter Summary ---
Author Organization [facility] Prior to 12/29/2023 Address [address] [place] [address] Care Team Providers Care Yarn Packer Name Role Phone Henri Cruz MD Primary Care Provider Unavailable Mayelin Nolasco DO Primary Care Provider Unavaila ble Kari Acevedo MD Unavailable [phone] Selin Agustin PA-C Unavailable [phone] Miguel Angel Batista PA-C Unavailable [phone] [facility], Pcp Primary Care Provider Unavailabl e Encounter Details Date Type Department Care Team Description 05/22/2017 Dental Insurance Biller Report Medical Records [address] [place] [address] Abstract, Provider Social History Tobacco Use Types [...] on filedocumented in this encounter Care Teams Yarn Packer Relationship Specialty Start Date End Date Henri Cruz MD PCP - General Internal Medicine 05/25/15 310/18 Mayelin Nolasco DO PCP - General Internal Medicine 05/25/21 11/08/22 [facility], Pcp [address] [address] PCP - General Internal Medicine 11/09/22 Kari Acevedo MD [address] [address] Surgeon Neurosurgery 11/29/21 Selin Agustin PA-C [address] [address] Specialist Neurosurgery 11/29/21 Miguel Angel Batista PA-C [address] [address] Specialist Neurosurgery 11/29/21 documented as of this encounter
--- OUTSIDE RECORDS SUMMARY | 2025-02-05 23:18 | XMS_ITS | Encounter Summary ---
Author Organization [facility] Prior to 12/29/2023 Address [address] [place] [address] Care Team Providers Care Pipe Stem Repairer Name Role Phone Henri Cruz MD Primary Care Provider Unavailable Mayelin Nolasco DO Primary Care Provider Unavaila Kari Gillis MD Unavailable [phone] Selin Agustin PA-C Unavailable BatistaMiguel Angel arango PA-C Unavailable [facility], Pcp Primary Care Provider Unavailabl e Reason for Visit * Reason Onset Date Comments Prior Authorization 06/13/2017 Encounter Details Date Type Department Care Team Description 06/13/2017 Telephone Gastroenterology - [address] [address] Dariel Delgado MD Prior Authorization Social History Tobacco Use Types Packs/Day Years Used Date Smoking Tobacco: Never Smokeless Tobacco: Never Comments:secondary smoke Alcohol Use Standard Drinks/Week Comments Yes 0 (1 standard drink = 0.6 oz pur e alcohol) 2-3 drinks/mo Sex Assigned at Date Recorded Female 12/15/2021 11:46 AM EDT documented as of this encounter Miscellaneous Notes * Telephone Encounter - Bryant Mahan - 06/13/2017 3:34 PM EDT Medicare & [employer] - No auth required * Telephone Encounter - Melinda Sandhu - 06/13/2017 12:12 PM EDT Pre-auth needed Patient is scheduled for an Colonoscopy on 07/26/17 Patients insurance: [place] / Product Type: [place]ARE [id number], [facility] Appointment is with Dariel Delgado MD Code to process pre-auth for: [id number] Location of procedure: [facility] documented in this encounter Plan of Treatment Not on file documented as of this encounter Visit Diagnoses Not on filedocumented in this encounter Care Teams Pipe Stem Repairer Relationship Specialty Start Date End Date Henri Cruz MD PCP - General Internal Medicine 05/25/1504/28 Mayelin Nolasco DO PCP - General Internal Medicine 05/25/21 11/08/22 [facility], Pcp [address] [address] PCP - General Internal Medicine 11/09/22 Kari Acevedo MD [address] [address] Surgeon Neurosurgery 11/29/21 Selin Agustin PA-C [address] [address] Specialist Neurosurgery 11/29/21 Miguel Angel Batista PA-C [address] [address] Specialist Neurosurgery 11/29/21 documented as of this encounter
--- OUTSIDE RECORDS SUMMARY | 2025-02-05 23:18 | XMS_ITS | Encounter Summary ---
Author Organization [facility] Prior to 12/29/2023 Address [address] [place] [address] Care Team Providers Care Manager Demand Name Role Phone Cornell Barajas Primary Care Provider Unav Henri Marcial MD Primary Care Provider Unavailable Mayelin Nolasco DO Primary Care Provider Unavaila Kari Gillis MD Unavailable [phone] Selin Agustin-Bruce Unavailable BatistaMiguel Angel arango PA-C Unavailable [facility], Pcp Primary Care Provider Unavailabl e Encounter Details Date Type Department Care Team Description 07/08/2014 Refill Adult Medicine - [address] [address] Cornell Barajas Social History Tobacco Use Types Packs/Day Years Used Date Smoking Tobacco: Never Smokeless Tobacco: Never Alcohol Use Standard Drinks/Week Comments Yes 0 (1 standard drink = 0.6 oz pur e alcohol) 2-3 drinks/mo Sex Assigned at Date Recorded Female 12/15/2021 11:46 AM EDT documented as of this encounter Miscellaneous Notes * Telephone Encounter - Mariza Monge L.P.N. - 07/09/2014 8:39 AM EDTFrom: Chana Bassett To: Cornell Barajas MD Sent: 07/08/2014 8:05 PM EDT Subject: Medication Renewal Request Original authorizing provider: MD Chana Falcon would like a refill of the following medications: amitriptyline (ELAVIL) 25 MG tablet [Cornell Barajas MD] zolpidem (AMBIEN CR) 6.25 MG CR tablet [Cornell Barajas MD] [facility]erred pharmacy: [facility] [address] [facility] [place] - [address] [facility] [address] 1 Comment: Both of these medications continue to work well for me and would like to continue using them. documented in this encounter Plan of Treatment Not on file documented as of this encounter Visit Diagnoses Diagnosis Headache - myofascial / Occipital Neuralgia Headache documented in this encounter Care Teams Manager Demand Relationship Specialty Start Date End Date Cornell Barajas PCP - General 01/27/06 05/24/15 Henri Cruz MD PCP - General Internal Medicine 05/25/1504/28 Mayelin Nolasco DO PCP - General Internal Medicine 05/25/21 11/08/22 [facility], Pcp [address] [address] PCP - General Internal Medicine 11/09/22 Kari Acevedo MD [address] [address] Surgeon Neurosurgery 11/29/21 Selin Agustin PA-C [address] [address] Specialist Neurosurgery 11/29/21 Miguel Angel Batista PA-C [address] [address] Specialist Neurosurgery 11/29/21 documented as of this encounter
--- OUTSIDE RECORDS SUMMARY | 2025-02-05 23:18 | XMS_ITS | Encounter Summary ---
Author Organization [facility] Prior to 12/29/2023 Address [address] [place] [address] Care Team Providers Care Manager Assisted Living Name Role Phone Henri Cruz MD Primary Care Provider Unavailable Mayelin Nolasco DO Primary Care Provider Unavaila [facility] Kari Acevedo MD Unavailable [phone] Selin Agustin PA-C Unavailable [phone] Miguel Angel Batista PA-C Unavailable [facility], Pcp Primary Care Provider Unavailabl e Encounter Details Date Type Department Care Team Description 12/04/2017 Hospital Medical Records [address] [place] [address] Kari Acevedo MD 175 [facility] [address] [place] [address] Social History Tobacco Use Types Packs/Day Years [...] filedocumented in this encounter Care Teams Manager Assisted Living Relationship Specialty Start Date End Date Henri Cruz MD PCP - General Internal Medicine 05/25/1504/28 Mayelin Nolasco DO PCP - General Internal Medicine 05/25/21 11/08/22 [facility], Pcp 175 [facility] [address] [place] [address] PCP - General Internal Medicine 11/09/22 Kari Acevedo MD [address] [address] Surgeon Neurosurgery 11/29/21 Selin Agustin PA-C [address] [address] Specialist Neurosurgery 11/29/21 Miguel Angel Batista PA-C [address] [address] Specialist Neurosurgery 11/29/21 documented as of this encounter
--- OUTSIDE RECORDS SUMMARY | 2025-02-05 23:18 | XMS_ITS | Encounter Summary ---
Author Organization [facility] Address [address] [place] [address] [place] [address] Phone Care Team Providers Care Drag Out Man Name Role Phone Henri Cruz MD Primary Care Provider Kadie Terrazas NP Primary Care Provider [phone] Reason for Referral * Consultation (Elective) - Closed Specialty Diagnoses / Procedures Referred By Katherine elliott Referred To Contact Neurology Diagnoses Encounter for consultation System, Provider Not In, PhD [address] [place] [address] Phone: tel: Referral ID Status Reason Start Date Expiration Date Visits Re quested Visits Authorized [id number] Closed 03/02/2017 03/02/2018 1 1 Encounter Details Date Type Department Care Team (Late st Contact Info) Description 03/02/2017 Transcribe Orders [facility] Department of Neurology [address] [place] [address], 8th Floor, [address] [place] [address] Marlene Ayers, [address] [address] Encounter for consultation (Primary Dx) Social History [...] [facility] [place] Department of Neurology [address] [place] [address], 8th Floor, [address] [place] [address] Lauro Cedeño MD, PhD [address] [place] [address] [place] [address] [email or web address] Scheduled Referrals Name Type Priority Associated Diagnoses Orde r Schedule Ambulatory referral to [facility] Neurology Outpatient Referral Routine Encounter for consultation Ordered: 03/02/2017 documented as of this encounter Visit Diagnoses Diagnosis Encounter for consultation- Primary documented in this encounter Care Teams Drag Out Man Relationship Specialty Start Date End Date Henri Cruz MD [address] [place] [address] PCP - General Internal Medicine 01/11/17 11/11/24 Kadie Terrazas NP [address] [place] [address] PCP - General Nurse Practitioner 11/12/24 documented as of this encounter Additional Source Comments The information contained in this document represents components of the legal health record. It is not the complete legal health record.[facility]
--- OUTSIDE RECORDS SUMMARY | 2025-02-05 23:18 | XMS_ITS | Encounter Summary ---
Author Organization [facility] Prior to 12/29/2023 Address [address] [place] [address] Care Team Providers Care Naval Special Warfare Medic Name Role Phone Henri Cruz MD Primary Care Provider Unavailable Mayelin Nolasco DO Primary Care Provider Unavaila [facility] Kari Acevedo MD Unavailable [phone] Selin Agustin PA-C Unavailable Miguel Angel Batista PA-C Unavailable [facility], Pcp Primary Care Provider Unavailabl e Encounter Details Date Type Department Care Team Description 01/30/2018 Brake Lining Maker Report Medical Records [address] [place] [address] Kari Acevedo MD [address] [place] [address] [address] [place] [address] Social History Tobacco Use Types Packs/Day Years [...] on filedocumented in this encounter Care Teams Naval Special Warfare Medic Relationship Specialty Start Date End Date Henri Cruz MD PCP - General Internal Medicine 05/25/15 310/18 Mayelin Nolasco DO PCP - General Internal Medicine 05/25/21 11/08/22 [facility], Pcp 175 [facility] [address] [place] [address] PCP - General Internal Medicine 11/09/22 Kari Acevedo MD [address] [address] Surgeon Neurosurgery 11/29/21 Selin Agustin PA-C [address] [address] Specialist Neurosurgery 11/29/21 Miguel Angel Batista PA-C [address] [address] Specialist Neurosurgery 11/29/21 documented as of this encounter
--- OUTSIDE RECORDS SUMMARY | 2025-02-05 23:18 | XMS_ITS | Encounter Summary ---
Author Organization [facility] Prior to 12/29/2023 Address [address] [place] [address] Care Team Providers Care Medicare Biller Name Role Phone Cornell Barajas Primary Care Provider Unav ailable Henri Cruz MD Primary Care Provider Unavailable Mayeiln Nolasco DO Primary Care Provider Unavaila Kari Gillis MD Unavailable [phone] Selin Agustin PA-C Unavailable BatistaMiguel Angel arangoC Unavailable [phone] [facility], [facility] Primary Care Provider Unavailabl e Encounter Details Date Type Department Care Team Description 12/19/2012 Law Professor Report Medical Records [address] [place] [address] Abstract, Provider Social History Tobacco Use Types [...] on filedocumented in this encounter Care Teams Medicare Biller Relationship Specialty Start Date End Date Cornell Barajas PCP - General 01/27/06 05/24/15 Henri Cruz MD PCP - General Internal Medicine 05/25/1504/28 Mayelin Nolasco DO PCP - General Internal Medicine 05/25/21 11/08/22 [facility], Pcp 175 [facility] [address] [place] [address] PCP - General Internal Medicine 11/09/22 Kari Acevedo MD [address] [address] Surgeon Neurosurgery 11/29/21 Selin Agustin PA-C [address] [address] Specialist Neurosurgery 11/29/21 Miguel Angel Batista PA-C [address] [address] Specialist Neurosurgery 11/29/21 documented as of this encounter
--- OUTSIDE RECORDS SUMMARY | 2025-02-05 23:18 | XMS_ITS | Encounter Summary ---
Author Organization [facility] Prior to 12/29/2023 Address [address] [place] [address] Care Team Providers Care Hospital Librarian Name Role Phone Henri Cruz MD Primary Care Provider Unavailable Mayelin Nolasco DO Primary Care Provider Unavaila ble Kari Acevedo MD Unavailable [phone] Selin Agustin PA-C Unavailable [phone] Miguel Angel Batista PA-C Unavailable [phone] [facility], Pcp Primary Care Provider Unavailabl e Encounter Details Date Type Department Care Team Description 01/04/2017 Business Doc Medical Records [address] [place] [address] Abstract, Provider Social History Tobacco Use Types [...] on filedocumented in this encounter Care Teams Hospital Librarian Relationship Specialty Start Date End Date Henri Cruz MD PCP - General Internal Medicine 05/25/15 310/18 Mayelin Nolasco DO PCP - General Internal Medicine 05/25/21 11/08/22 [facility], Pcp [address] [address] PCP - General Internal Medicine 11/09/22 Kari Acevedo MD [address] [address] Surgeon Neurosurgery 11/29/21 Selin Agustin PA-C [address] [address] Specialist Neurosurgery 11/29/21 Miguel Angel Batista PA-C [address] [address] Specialist Neurosurgery 11/29/21 documented as of this encounter
--- OUTSIDE RECORDS SUMMARY | 2025-02-05 23:18 | XMS_ITS | Encounter Summary ---
Author Organization [facility] Prior to 12/29/2023 Address [address] [place] [address] Care Team Providers Care Sales Advisory Manager Name Role Phone Mayelin Nolasco DO Primary Care Provider Unavaila Kari Gillis MD Unavailable [phone] Selin Agustin PA-C Unavailable [phone] Miguel Angel Batista PA-C Unavailable [phone] [facility], Pcp Primary Care Provider Unavailabl e Encounter Details Date Type Department Care Team Description 06/03/2021 Refill Rheumatology - [address] [address] Md Belkis Social History Tobacco Use Types Packs/Day Years Used Date Smoking Tobacco: Never Smokeless Tobacco: Never Comments:secondary smoke Alcohol Use Standard Drinks/Week Comments Yes 0 (1 standard drink = 0.6 oz pur e alcohol) 2-3 drinks/mo Sex Assigned at Date Recorded Female 12/15/2021 11:46 AM EDT documented as of this encounter Miscellaneous Notes * Telephone Encounter - Radha Michael L.P.N. - 06/04/2021 8:16 AM EDT Last seen 02/01 Next - 06/08 documented in this encounter Plan of Treatment Not on file documented as of this encounter Visit Diagnoses Diagnosis Fibromyalgia Mylagia and myositis, unspecified documented in this encounter Care Teams Sales Advisory Manager Relationship Specialty Start Date End Date Mayelin Nolasco DO PCP - General Internal Medicine 05/25/21 11/08/22 [facility], Pcp [address] [address] PCP - General Internal Medicine 11/09/22 Kari Acevedo MD [address] [address] Surgeon Neurosurgery 11/29/21 Selin Agustin PA-C [address] [address] Specialist Neurosurgery 11/29/21 Miguel Angel Batista PA-C [address] [address] Specialist Neurosurgery 11/29/21 documented as of this encounter
--- OUTSIDE RECORDS SUMMARY | 2025-02-05 23:18 | XMS_ITS | Encounter Summary ---
Author Organization [facility] Prior to 12/29/2023 Address [address] [place] [address] Care Team Providers Care Granulating Blender Name Role Phone Henri Cruz MD Primary Care Provider Unavailable Mayelin Nolasco DO Primary Care Provider Unavaila Kari Gillis MD Unavailable [phone] Selin Agustin PA-C Unavailable Miguel Angel Batista PA-C Unavailable [phone] [facility], Pcp Primary Care Provider Unavailabl e Encounter Details Date Type Department Care Team Description 09/24/2017 Pt. Non Urgent Medic al Question Adult Medicine - [address] [address] Henri Cruz MD Social History Tobacco Use Types Packs/Day Years Used Date Smoking Tobacco: Never Smokeless Tobacco: Never Comments:secondary smoke Alcohol Use Standard Drinks/Week Comments Yes 0 (1 standard drink = 0.6 oz pur e alcohol) 2-3 drinks/mo Sex Assigned at Date Recorded Female 12/15/2021 11:46 AM EDT documented as of this encounter Progress Notes * Mariza Monge L.P.N. - 09/25/2017 8:29 AM EDTFrom: Chana Danyelle To: Henri Cruz MD Sent: 09/24/2017 9:37 AM EDT Subject: Message from Dr Cedeño I had a follow up appointment with Dr. Cedeño,a urologist at [facility],on September 15. At that time he said that he was going to be sending you a letter requesting that you up the amount of Cymbalta that I am taking on a daily basis. As I believe you also suggested he suggested that I stop taking myamitriptyline so that I would be able to add a Lyrica at an appropriate amount to what I???m taking. I am wondering if he did send you that letter and if so if you are going to up the Cymbalta. Any help that I can get with my levels of pain would be greatly appreciated. I have stopped taking the amitriptyline I was almost out of my monthly prescription and chose not to renew it. I am going back for a skin biopsy for them to test my nerves in another week but do not see Dr. Swenson again until November. I appreciate anything that you can do in helping with medications he felt that you were the one that should change or add medications because you were my primary care. Thank you, Chana Bassett documented in this encounter Plan of Treatment Not on file documented as of this encounter Visit Diagnoses Not on filedocumented in this encounter Care Teams Granulating Blender Relationship Specialty Start Date End Date Henri Cruz MD PCP - General Internal Medicine 05/25/1504/28 Mayelin Nolasco DO PCP - General Internal Medicine 05/25/21 11/08/22 [facility], Pcp [address] [address] PCP - General Internal Medicine 11/09/22 Kari Acevedo MD [address] [address] Surgeon Neurosurgery 11/29/21 Selin Agustin PA-C [address] [address] Specialist Neurosurgery 11/29/21 Miguel Angel Batista PA-C [address] [address] Specialist Neurosurgery 11/29/21 documented as of this encounter
--- OUTSIDE RECORDS SUMMARY | 2025-02-05 23:18 | XMS_ITS | Encounter Summary ---
Author Organization [facility] Prior to 12/29/2023 Address [address] [place] [address] Care Team Providers Care Alternative Education Teacher Name Role Phone Henri Cruz MD Primary Care Provider Unavailable Mayelin Nolasco DO Primary Care Provider Unavaila ble Kari Acevedo MD Unavailable [phone] Selin Agustin PA-C Unavailable [phone] Miguel Angel Batista PA-C Unavailable [facility], Pcp Primary Care Provider Unavailabl e Encounter Details Date Type Department Care Team Description 05/22/2017 Smelter Operator Report Medical Records [address] [place] [address] Abstract, Provider Social History Tobacco Use Types [...] on filedocumented in this encounter Care Teams Alternative Education Teacher Relationship Specialty Start Date End Date Hneri Cruz MD PCP - General Internal Medicine 05/25/15 310/18 Mayelin Nolasco DO PCP - General Internal Medicine 05/25/21 11/08/22 [facility], Pcp [address] [address] PCP - General Internal Medicine 11/09/22 Kari Acevedo MD [address] [address] Surgeon Neurosurgery 11/29/21 Selin Agustin PA-C [address] [address] Specialist Neurosurgery 11/29/21 Miguel Angel Batista PA-C [address] [id number] Specialist Neurosurgery 11/29/21 documented as of this encounter
--- OUTSIDE RECORDS SUMMARY | 2025-02-05 23:18 | XMS_ITS | Encounter Summary ---
Author Organization [facility] Prior to 12/29/2023 Address [address] [place] [address] Care Team Providers Care Cutting And Creasing Press Operator Name Role Phone Cornell Barajas Primary Care Provider Unav ailable Henri Cruz MD Primary Care Provider Unavailable Mayelin Nolasco DO Primary Care Provider Unavaila Kari Gillis MD Unavailable [phone] Selin Agustin-C Unavailable Miguel Angel BatistaC Unavailable [facility], [facility] Primary Care Provider Unavailabl e Encounter Details Date Type Department Care Team Description 07/24/2013 [facility] Medical Records [address] [place] [address] A, Dane Major NP Social History Tobacco [...] on filedocumented in this encounter Care Teams Cutting And Creasing Press Operator Relationship Specialty Start Date End Date Cornell Barajas PCP - General 01/27/06 05/24/15 Henri Cruz MD PCP - General Internal Medicine 05/25/1504/28 Ahmed, Khadiga, DO PCP - General Internal Medicine 05/25/21 11/08/22 [facility], Pcp 175 [facility] [address] [place] [address] PCP - General Internal Medicine 11/09/22 Kari Acevedo MD [address] [address] Surgeon Neurosurgery 11/29/21 Selin Agustin PA-C [address] [address] Specialist Neurosurgery 11/29/21 Miguel Angel Batista PA-C [address] [address] Specialist Neurosurgery 11/29/21 documented as of this encounter
--- OUTSIDE RECORDS SUMMARY | 2025-02-05 23:18 | XMS_ITS | Encounter Summary ---
Author Organization [facility] Address [address] [place] [address] [place] [address] Phone Care Team Providers Care Piano Tuner Name Role Phone Henri Cruz MD Primary Care Provider Kadie Terrazas NP Primary Care Provider [phone] Encounter Details Date Type Department Care Team (Late st Contact Info) Description 05/22/2017 Procedure Pass [facility] General Imaging [address] [place] [address] Social History Tobacco Use Types Packs/Day Years [...] 10:00 AM EDT Office [place] [facility] [place]rology [address] [place] [address], 8th Floor, [address] [place] [address] Lauro Cedeño MD, PhD [address] [place] [address] [email or web address] documented as of this encounter Visit Diagnoses Not on filedocumented in this encounter Care Teams Piano Tuner Relationship Specialty Start Date End Date Henri Cruz MD [address] [place] [address] PCP - General Internal Medicine 01/11/17 11/11/24 Kadie Terrazas NP [address] [place] [address] PCP - General Nurse Practitioner 11/12/24 documented as of this encounter Additional Source Comments The information contained in this document represents components of the legal health record. It is not the complete legal health record.[facility]
--- OUTSIDE RECORDS SUMMARY | 2025-02-05 23:18 | XMS_ITS | Encounter Summary ---
Author Organization [facility] Address [address] [facility] [address] [place] [address] Phone Care Team Providers Care Fish Seiner Name Role Phone Henri Cruz MD Primary Care Provider Kadie Terrazas NP Primary Care Provider [phone] Encounter Details Date Type Department Care Team (Late st Contact Info) Description 05/05/2023 Procedure Pass [facility], [address] [address] Social History Tobacco Use Types Packs/Day Years [...] Description 05/19/2025 10:00 AM EDT Office Visit [facility] Department of Neurology [address] [place] [address], 8th Floor, [address] [place] [address] Lauro Cedeño MD, PhD [address] [place] [address] [email or web address] documented as of this encounter Visit Diagnoses Not on filedocumented in this encounter Care Teams Fish Seiner Relationship Specialty Start Date End Date Henri Cruz MD [address] [place] [address] PCP - General Internal Medicine 01/11/17 11/11/24 Kadie Terrazas NP [address] [place] [address] PCP - General Nurse Practitioner 11/12/24 documented as of this encounter Additional Source Comments The information contained in this document represents components of the legal health record. It is not the complete legal health record.[facility]
--- OUTSIDE RECORDS SUMMARY | 2025-02-05 23:18 | XMS_ITS | Encounter Summary ---
Author Organization [facility] Address [address] [place] [address] [place] [address] Phone Care Team Providers Care Pile Driving Technician Name Role Phone Henri Cruz MD Primary Care Provider Kadie Terrazas NP Primary Care Provider [phone] Encounter Details Date Type Department Care Team (Late st Contact Info) Description 01/09/2017 Orders Only [facility] [address] [place] [phone] Interface Provider, Scanning Social History Tobacco Use [...] Description 05/19/2025 10:00 AM EDT Office [place] [facility] [place] [address] [place] [address], 8th Floor, [address] [place] [address] Lauro Cedeño MD, PhD [address] [place] [address] [email or web address] documented as of this encounter Visit Diagnoses Not on filedocumented in this encounter Care Teams Pile Driving Technician Relationship Specialty Start Date End Date Henri Cruz MD [address] [place] [address] PCP - General Internal Medicine 01/11/17 11/11/24 Kadie Terrazas NP [address] [place] [address] PCP - General Nurse Practitioner 11/12/24 documented as of this encounter Additional Source Comments The information contained in this document represents components of the legal health record. It is not the complete legal health record.[facility]
--- OUTSIDE RECORDS SUMMARY | 2025-02-05 23:18 | XMS_ITS | Encounter Summary ---
Author Organization [facility] Prior to 12/29/2023 Address [address] [place] [address] Care Team Providers Care Remote Advisor Name Role Phone Henri Cruz MD Primary Care Provider Unavailable Mayelin Nolasco DO Primary Care Provider Unavaila ble Kari Acevedo MD Unavailable [phone] Selin Agustin PA-C Unavailable [phone] Miguel Angel Batista PA-C Unavailable [phone] [facility], Pcp Primary Care Provider Unavailabl e Encounter Details Date Type Department Care Team Description 09/26/2017 Release of Information Medical Records [address] [place] [address] Abstract, Provider Social History Tobacco Use Types [...] on filedocumented in this encounter Care Teams Remote Advisor Relationship Specialty Start Date End Date Henri Cruz MD PCP - General Internal Medicine 05/25/15 310/18 Mayelin Nolasco DO PCP - General Internal Medicine 05/25/21 11/08/22 [facility], Pcp [address] [place] [address] PCP - General Internal Medicine 11/09/22 Kari Acevedo MD [address] [address] Surgeon Neurosurgery 11/29/21 Selin Agustin PA-C [address] [address] Specialist Neurosurgery 11/29/21 Miguel Angel Batista PA-C [address] [id number] Specialist Neurosurgery 11/29/21 documented as of this encounter
--- OUTSIDE RECORDS SUMMARY | 2025-02-05 23:18 | XMS_ITS | Encounter Summary ---
Author Organization [facility] Prior to 12/29/2023 Address [address] [place] [address] Care Team Providers Care Mental Health Social Worker Name Role Phone Henri Cruz MD Primary Care Provider Unavailable Mayelin Nolasco DO Primary Care Provider Unavaila Kari Gillis MD Unavailable [phone] Selin Agustin PA-C Unavailable Miguel Angel Batista PA-C Unavailable [facility], Pcp Primary Care Provider Unavailabl e Reason for Visit * Reason Comments E-prescribe Rx Request Encounter Details Date Type Department Care Team Description 05/16/2021 Refill Rheumatology - [address] [address] Rebeka Terry NP E-prescribe Rx Request Social History Tobacco Use Types Packs/Day Years Used Date Smoking Tobacco: Never Smokeless Tobacco: Never Comments:secondary smoke Alcohol Use Standard Drinks/Week Comments Yes 0 (1 standard drink = 0.6 oz pur e alcohol) 2-3 drinks/mo Sex Assigned at Date Recorded Female 12/15/2021 11:46 AM EDT documented as of this encounter Miscellaneous Notes * Telephone Encounter - Sarah Acosta M.A. - 05/27/2021 9:56 AM EDT Next appt 06/08/21 * Telephone Encounter - Sarah Acosta M.A. - 05/18/2021 4:33 PM EDT Patient needs to choose a new PCP Last appt- 02/01/21 Next appt- NO Return in about 6 months (around 08/02/2021), or if symptoms worsen or fail to improve, for med review. documented in this encounter Plan of Treatment Not on file documented as of this encounter Visit Diagnoses Diagnosis Fibromyalgia Mylagia and myositis, unspecified documented in this encounter Care Teams Mental Health Social Worker Relationship Specialty Start Date End Date Henri Cruz MD PCP - General Internal Medicine 05/25/1504/28 Mayelin Nolasco DO PCP - General Internal Medicine 05/25/21 11/08/22 [facility], Pcp [address] [address] PCP - General Internal Medicine 11/09/22 Kari Acevedo MD [address] [address] Surgeon Neurosurgery 11/29/21 Selin Agsutin PA-C [address] [address] Specialist Neurosurgery 11/29/21 Miguel Angel Batista PA-C [address] [address] Specialist Neurosurgery 11/29/21 documented as of this encounter
--- OUTSIDE RECORDS SUMMARY | 2025-02-05 23:18 | XMS_ITS | Encounter Summary ---
Author Organization [facility] Address [address] [facility] [address] [place] [address] Phone Care Team Providers Care Animated Cartoons Painter Name Role Phone Henri Cruz MD Primary Care Provider Kadie Terrazas NP Primary Care Provider [phone] Encounter Details Date Type Department Care Team (Late st Contact Info) Description 06/30/2023 Procedure Pass [facility], [address] [address] Social History Tobacco Use Types Packs/Day Years [...] Description 05/19/2025 10:00 AM EDT Office Visit [facility] Department of Neurology [address] [place] [address], 8th Floor, [address] [place] [address] Lauro Cedeño MD, PhD [address] [place] [address] [email or web address] documented as of this encounter Visit Diagnoses Not on filedocumented in this encounter Care Teams Animated Cartoons Painter Relationship Specialty Start Date End Date Henri Cruz MD [address] [place] [address] PCP - General Internal Medicine 01/11/17 11/11/24 Kadie Terrazas NP [address] [place] [address] PCP - General Nurse Practitioner 11/12/24 documented as of this encounter Additional Source Comments The information contained in this document represents components of the legal health record. It is not the complete legal health record.[facility]
--- OUTSIDE RECORDS SUMMARY | 2025-02-05 23:18 | XMS_ITS | Encounter Summary ---
Author Organization [facility] Address [address] [place] [address] [place] [address] Phone Care Team Providers Care Finance Teacher Name Role Phone Henri Cruz MD Primary Care Provider Kadie Terrazas NP Primary Care Provider [phone] Encounter Details Date Type Department Care Team [...] Description 05/19/2025 10:00 AM EDT Office Visit [facility] Department of Neurology [address] [place] [address], 8th Floor, [address] [place] [address] Lauro Cedeño MD, PhD [address] [place] [address] [email or web address] documented as of this encounter Visit Diagnoses Not on filedocumented in this encounter Care Teams Finance Teacher Relationship Specialty Start Date End Date Henri Cruz MD [address] [place] [address] PCP - General Internal Medicine 01/11/17 11/11/24 Kadie Terrazas NP [address] [place] [address] PCP - General Nurse Practitioner 11/12/24 documented as of this encounter Additional Source Comments The information contained in this document represents components of the legal health record. It is not the complete legal health record.[facility]
--- OUTSIDE RECORDS SUMMARY | 2025-02-05 23:18 | XMS_ITS | Encounter Summary ---
Author Organization [facility] Prior to 12/29/2023 Address [address] [place] [address] Care Team Providers Care Database Coordinator Name Role Phone Cornell Barajas Primary Care Provider Unav ailable Henri Cruz MD Primary Care Provider Unavailable Mayelin Nolasco DO Primary Care Provider Unavaila Kari Gillis MD Unavailable [phone] Selin Agustin PA-C Unavailable BatistaMiguel Angel arango PA-C Unavailable [facility], [facility] Primary Care Provider Unavailabl e Encounter Details Date Type Department Care Team Description 09/02/2014 Steel Melter Report Medical Records [address] [place] [address] Abstract, Provider Social History Tobacco Use Types [...] on filedocumented in this encounter Care Teams Database Coordinator Relationship Specialty Start Date End Date Cornell Barajas PCP - General 01/27/06 05/24/15 Henri Cruz MD PCP - General Internal Medicine 05/25/1504/28 Mayelin Nolasco DO PCP - General Internal Medicine 05/25/21 11/08/22 [facility], Pcp 175 [facility] [address] [place] [address] PCP - General Internal Medicine 11/09/22 Kari Acevedo MD [address] [address] Surgeon Neurosurgery 11/29/21 Selin Agustin PA-C [address] [address] Specialist Neurosurgery 11/29/21 Miguel Angel Batista PA-C [address] [address] Specialist Neurosurgery 11/29/21 documented as of this encounter
--- OUTSIDE RECORDS SUMMARY | 2025-02-05 23:18 | XMS_ITS | Encounter Summary ---
Author Organization [facility] Prior to 12/29/2023 Address [address] [place] [address] Care Team Providers Care Oil Field Caser Name Role Phone Henri Cruz MD Primary Care Provider Unavailable Mayelin Nolasco DO Primary Care Provider Unavaila ble Kari Acevedo MD Unavailable [phone] Selin Agustin PA-C Unavailable [phone] Miguel Angel Batista PA-C Unavailable [phone] [facility], Pcp Primary Care Provider Unavailabl e Encounter Details Date Type Department Care Team Description 03/12/2018 Business Doc Medical Records [address] [place] [address] Abstract, Provider Social History Tobacco Use Types [...] on filedocumented in this encounter Care Teams Oil Field Caser Relationship Specialty Start Date End Date Henri Cruz MD PCP - General Internal Medicine 05/25/15 310/18 Mayelin Nolasco DO PCP - General Internal Medicine 05/25/21 11/08/22 [facility], Pcp [address] [address] PCP - General Internal Medicine 11/09/22 Kari Acevedo MD [address] [address] Surgeon Neurosurgery 11/29/21 Selin Agustin PA-C [address] [address] Specialist Neurosurgery 11/29/21 Miguel Angel Batista PA-C [address] [phone] Specialist Neurosurgery 11/29/21 documented as of this encounter
--- OUTSIDE RECORDS SUMMARY | 2025-02-05 23:18 | XMS_ITS | Encounter Summary ---
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/[facility] Report Medical Records [address] [place] [address] Abstract, Provider Social History Tobacco Use Types [...] on filedocumented in this encounter Care Teams Construction Consultant Relationship Specialty Start Date End Date Cornell Barajas PCP - General 01/27/06 05/24/15 Henri Cruz MD PCP - General Internal Medicine 05/25/1504/28 Mayelin Nolsaco DO PCP - General Internal Medicine 05/25/21 11/08/22 [facility], Pcp 175 [facility] [address] [place] [address] PCP - General Internal Medicine 11/09/22 Kari Acevedo MD [address] [address] Surgeon Neurosurgery 11/29/21 Selin Agustin PA-C [address] [address] Specialist Neurosurgery 11/29/21 Miguel Angel Batista PA-C [address] [address] Specialist Neurosurgery 11/29/21 documented as of this encounter
--- OUTSIDE RECORDS SUMMARY | 2025-02-05 23:18 | XMS_ITS | Encounter Summary ---
Author Organization [facility] Prior to 12/29/2023 Address [address] [place] [address] Care Team Providers Care Tool Dispatcher Name Role Phone Cornell Barajas Primary Care Provider Unav ailable Henri Cruz MD Primary Care Provider Unavailable Mayelin Nolasco DO Primary Care Provider Unavaila Kari Gillis MD Unavailable [phone] Selin Agustin PA-C Unavailable Miguel Angel Batista-C Unavailable [facility] Primary Care Provider Unavailabl e Encounter Details Date Type Department Care Team Description 09/02/2014 [facility]amel Cutter Machine Report Medical Records [address] [place] [address] Shruti Echevarria MD [address] [place] [address] [place] [address] Social History Tobacco Use Types Packs/Day Years [...] on filedocumented in this encounter Care Teams Tool Dispatcher Relationship Specialty Start Date End Date Cornell Barajas PCP - General 01/27/06 05/24/15 Henri Cruz MD PCP - General Internal Medicine 05/25/15 3/10/18 Mayelin Nolasco DO PCP - General Internal Medicine 05/25/21 11/08/22 [facility], Pcp [address] [address] PCP - General Internal Medicine 11/09/22 Kari Acevedo MD [address] [address] Surgeon Neurosurgery 11/29/21 Selin Agustin PA-C [address] [address] Specialist Neurosurgery 11/29/21 Miguel Angel Batista PA-C [address] [address] Specialist Neurosurgery 11/29/21 documented as of this encounter
--- OUTSIDE RECORDS SUMMARY | 2025-02-05 23:19 | XMS_ITS ---
Author Organization [facility] Address [address] [place] [phone] Phone Care Team Providers Care Bell Spinner Sousaphones Name Role Phone Kadie Terrazas Primary Care Provider [phone] Allergies Active Allergy Reactions Criticality Noted Date [...] 1 (one) time each day. [address] (ENTOCORT EC) 3 mg [...] morning. 120 each 5 02/26/20 25 Active lactulose (CHRONULAC) solution Take 30 mL (20 g total) by mouth 1 (one) time each day if needed (constipation) . 900 mL 1 5 01/20/20 25 Hospital, Clinic, or Other Facility Administered Medication Ordered Dose Route Frequency Start Date End Date Status sodium bicarbonate injection 4 mEqIndications:Interstitial cystitis 4 mEq Antonio Once 02/04/2025 02/04/2025 Ended hydrocortisone sod succinate injection 100 mgIndications:Interstitial cystitis 100 mg Antonio Once 02/04/2025 02/04/2025 Ended heparin (UFH) injection 5,000 UnitsIndications:Interstiti al cystitis 5000 Units Antonio Once 02/04/2025 02/04/2025 Ended Active Problems Problem Noted Date Diagnosed Date Cystocele with rectocele 11/15/2023 Nocturia 11/15/2023 Urinary urgency 11/15/2023 Arthritis of right hip 03/22/2019 Chronic diarrhea 09/26/2013 Overview (11/15/2023): Dr. Delgado Encounters Date Type Department Care Team Description 02/04/2025 10:00 AM EST Procedure visit Urogynecology - [place] [address] [place] [phone] Suzanne Hernandez NP Tir[place], Taylor, RN Interstitial cystitis (Primary Dx) 01/02/2025 2:15 PM EST Office Visit Urogynecology [facility] [address] [place] [phone] Sal Holden MD Interstitial cystitis 11/24/2024 Results Follow-Up Gastroenterology - [place] [address] [place] [phone] Brenda Mark PA 11/14/2024 1:49 PM EDT - 11/14/2024 11:59 PM EDT Hospital Encounter [facility] Scan [address] [place] [phone] 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, CMS/[facility] V28) (Primary Dx) 11/13/2024 Telephone Gastroenterology [facility] [address] [phone] Lorena Zaidi [place] 11/13/2024 Telephone Gastroenterology [facility] 175 [facility] [address] [phone] Brenda Mark PA from Last 3 Months Surgical History Surgery Date Site/Laterality Comments APPENDECTOMY early 80s PROCEDURE: HISTORICAL APPENDECTOMY KNEE SURGERY 06/03, 08/16/07 Bilateral PROCEDURE: HISTORICAL KNEE SURGERY; COMMENT: arthroscopic HAND SURGERY 04/2007 Left PROCEDURE: HISTORICAL HAND SURGERY; COMMENT: bone removal at thumb SHOULDER SURGERY 05/2010 PROCEDURE: HISTORICAL SHOULDER SURGERY; COMMENT: Subacromial decompression/distal clavicle excision - Dr. Dumas OTHER SURGICAL HISTORY 3 Bilateral PROCEDURE: DC ARTHRP ACETBLR/PROX FEM PROSTC AGRFT/ALGRFT; COMMENT: Dr. Esquivel, Oct 2019 Right hip replacement, 2012 left hip TOTAL KNEE ARTHROPLASTY 4 Right PROCEDURE: DC ARTHRP KNE CONDYLE&PLATU MEDIAL&LAT COMPARTMENTS; COMMENT: Dr. Esquivel COLONOSCOPY 7 PROCEDURE: HISTORICAL COLONOSCOPY; COMMENT: normal; repeat in 10 years OTHER SURGICAL HISTORY 5 Bilateral PROCEDURE: DC LIGATION/BIOPSY TEMPORAL ARTERY; COMMENT: Dr. Echevarria ESOPHAGOGASTRODUODENOSCOPY 0 PROCEDURE: DC ESOPHAGOGASTRODUODENOSCOPY TRANSORAL DIAGNOSTIC; COMMENT: mild stricture at GE junction dilated to 50 F ESOPHAGOGASTRODUODENOSCOPY 5 PROCEDURE: DC EGD TRANSORAL BIOPSY SINGLE/MULTIPLE; COMMENT: Fungal esophagitis on biopsy; otherwise normal ESOPHAGOGASTRODUODENOSCOPY 5 PROCEDURE: DC EGD TRANSORAL BIOPSY SINGLE/MULTIPLE; COMMENT: antral ulcers;no H. pylori; repeat in 2 months; no fungus on bxy ESOPHAGOGASTRODUODENOSCOPY 6 PROCEDURE: DC ESOPHAGOGASTRODUODENOSCOPY TRANSORAL DIAGNOSTIC; COMMENT: tiny antral ulcer and antral erythema ESOPHAGOGASTRODUODENOSCOPY 6 PROCEDURE: DC EGD TRANSORAL BIOPSY SINGLE/MULTIPLE; COMMENT: 6 tiny antral ulcers and antral muscular ring; no H. 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 Acevedo UPPER GASTROINTESTINAL ENDOSCOPY 9 PROCEDURE: DC UPPER GI ENDOSCOPY PERFORMED; COMMENT: erosive gastropathy HIP ARTHROPLASTY 2019 Right PROCEDURE: HISTORICAL HIP REPLACEMENT COLONOSCOPY 1 PROCEDURE: HISTORICAL COLONOSCOPY; COMMENT: mild diverticulosis ESOPHAGOGASTRODUODENOSCOPY 1 PROCEDURE: DC EGD TRANSORAL BIOPSY SINGLE/MULTIPLE; COMMENT: esophageal spasm OTHER SURGICAL HISTORY 7 PROCEDURE: DC ARTHRD ANT INTERBODY MIN DSC CRV BELOW [...] PM EST Sexual Orientation Not on file Last Filed Vital Signs Vital Sign Reading Time Taken Comments Blood Pressure 135/84 02/04/2025 1:18 PM EST Pulse 56 02/04/2025 1:18 PM EST Temperature 36.7 C (98 F) 02/04/2025 1:18 PM EST Respiratory Rate 12 02/12/2024 1:05 PM EST Oxygen Saturation 98% 10/21/2024 11:46 AM EDT Inhaled Oxygen Concentration - - Weight 85.1 kg (187 lb 9.6 oz) 02/04/2025 1:18 P M EST Height 167.6 cm (5' 6 ) 02/04/2025 1:18 PM EST Body Mass Index 30.28 02/04/2025 1:18 PM EST Plan of Treatment Upcoming Encounters Date Type Department Care Team (Late st Contact Info) Description 02/11/2025 10:00 AM EST Procedure visit Urogynecology [address] [place] [phone] Suzanne Hernandez NP [address] [place] [address] Cathy Roberts RN 02/13/2025 11:10 AM EST Office Visit Gastroenterology - [address] [facility] [address] [facility] [address] [place] [phone] Brenda Mark PA [address] [facility] [address] [place] [address] 02/18/2025 9:30 AM EST Procedure visit Urogynecology [facility] [address] [place] [phone] Cahty Roberts RN 03/03/2025 10:30 AM EST Procedure visit Urogynecology - [place] [address] [place] [phone] DavidSuzanneMady R, [employer] [address] [place] [address] Cathy Roberts, RN Health Maintenance Due Date Last Done [...] 03/18/2020, 08/16/2016, 09/24/2014 Zoster Vaccines Completed 12/23/2024, 08/06/2024, 10/02/2013 HIB Vaccines Aged Out No longer [...] Routine 11/14/2024 4:39 PM EDT Mesenteric panniculitis ([facility]/HCC V24, CMS/HCC V28) RENAL FUNCTION PANEL STAT 11/14/2024 10:58 AM EDT Fat necrosis of peritoneum (CMS/HCC V24, CMS/[facility] V28) SCR MAMMO BI INCL CAD [...] Signed Date: 11/19/2024 14:09 ET Workstation ID: [id number] Transcribed By: Self Edit Transcribed Date: 11/19/2024 [...] Signed Date: 11/19/2024 14:09 ET Workstation ID: [id number] Transcribed By: Self Edit Transcribed Date: 11/19/2024 14:06 ET Brenda LOPEZ IMG CT PROCEDURES Final Resul t * (ABNORMAL) Renal function panel (11/14/2024 10:58 AM EDT) Sodium 143 133 - 145 mmol/L LAB CHEMISTRY METHOD 11/14/2024 12:41 PM [facility] Potassium 4.1 3.5 - 5.5 mmol/L LAB CHEMISTRY METHOD 11/14/2024 12:41 PM [facility] Chloride 112(H) 96 - 110 mmol/L LAB CHEMISTRY METHOD 11/14/2024 12:41 PM [facility] CO2 26 21 - 32 mmol/L LAB CHEMISTRY METHOD 11/14/2024 12:41 PM [facility] Anion Gap 5 3 - 11 LAB CHEMISTRY METHOD 11/14/2024 12:41 PM [facility] Glucose 113(H) 70 - 100 mg/dL LAB CHEMISTRY METHOD 11/14/2024 12:41 PM [facility] BUN 22 5 - 25 mg/dL LAB CHEMISTRY METHOD 11/14/2024 12:41 PM [facility] Creatinine 0.63 0.50 - 1.10 mg/dL LAB CHEMISTRY METHOD 11/14/2024 12:41 PM EDT [facility] eGFR 94 >=60 mL/min/1. 73m2 LAB CHEMISTRY METHOD 11/14/2024 12:41 PM EDT [facility] Comment:Calculation based on the Chronic Kidney Disease Epidemiology Collaboration (CKD-EPI) equation refit without adjustment for race. BUN/Creatinine Ratio 34.9 LAB CHEMISTRY METHOD 11/14/2024 12:41 PM EDT [facility] Albumin 3.5 3.2 - 5.0 g/dL LAB CHEMISTRY METHOD 11/14/2024 12:41 PM EDT [facility] Calcium 9.1 8.5 - 10.5 mg/dL LAB CHEMISTRY METHOD 11/14/2024 12:41 PM EDT [facility] Phosphorus 3.2 2.5 - 4.5 mg/dL LAB CHEMISTRY METHOD 11/14/2024 12:41 PM EDT [facility] Blood Venous blood specimen / Unknown Venipuncture / Unknown 11/14/2024 10:58 AM EDT 11/14/2024 11:29 AM EDT Brenda LOPEZ LAB BLOOD ORDERABLES Final Re sult [facility] [address] [place] [address], * SCR MAMMO BI INCL CAD (05/01/2020 [...] (World Health Organization Fracture Risk Assessment) [facility] Department of Internal Medicine recommends using National [...] alternative screening schedule based on alessio Miranda., [facility] March 17, 2011 for patients with osteopenia [...] (World Health Organization Fracture Risk Assessment) [facility] Department of Internal Medicine recommendsusing National Osteoporosis [...] alternative screening schedule based on alessio Miranda., [facility] for patients with osteopenia (based on [...] Recently Relevant to Health Maintenance Insurance MEDICARE [facility] Advance Directives * Full Code - Default [...] currently active code status orders. Care Teams Bell Spinner Sousaphones Relationship Specialty Start Date End Date Kadie Terrazas [address] [place] [phone] PCP - General 11/14/23
--- OUTSIDE RECORDS SUMMARY | 2025-02-05 23:19 | XMS_ITS | Continuity of Care Document ---
Author Organization [place] - [facility], [facility] Address [address] [place] [address] Care Team Providers Care Tying In Machine Operator Name Role Phone RACIEL BETTS Neurologist [facility] Car Knocker YEFRI GARCIA Motor Vehicle Lecturer [phone] JAMESON QUINTANA Director Of Corporate Strategy [phone] Assessment No assessment recorded. Plan of Treatment [...] mesenteri c panniculi tis. 2024 025 ATHENAX [facility], [facility] [place], [address], 12/24/2024 08:25:17 Procedures None recorded. Surgeries None recorded. Imaging US, axilla - at least 6 months of intermitt ent pain right axilla triggered by wearing certain bras, mammogram completed in 05/2024 025 grabiel [facility], [address] [place], [address], 12/23/2024 13:44:47 Medication Orders None recorded. Patient TargetsNo targets recorded. Patient InstructionsNo instructions recorded. Reason for Referral Director Of Corporate Strategy Referral for Sclerosing mesenteritis The patient requests to see Dr Daaj Perkins. 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 Referring Physician: Kadie Terrazas, [facility], Encounter Date: 12/23/2024 Results Created Date Observation Date Name Description Value Unit Range Abnormal Flag Note LastModifiedBy Organization Detail LastModifiedTime 01/18/20 25 01/16/2025 CT, lumba r spine , w/o contr ast No observ ation record ed. cbogli [facility] [address] [place], [address], 01/17/2025 11:18:13 Result Notes None recorded. Problems Name Problem SNOMED Code Status Onset Date Resolution Date Notes Provider Name and Address Organization Details Recorded Time Chronic diarrhea 041289343 Active 2013 [employer] null, [employer] 4 11:15:47 Arthriti s of right hip [id number] 10358 Active 2019 Nathaly Sam-[employer] null, [employer] 4 11:15:47 Anxiety 13165129 Active 2023 Kadie Terrazas APRN [address] , [place], [address], [employer] 4 12:47:18 Arthriti s 2227214 Active 2023 Kadie Terrazas APRN [address], [place], [address], [employer] 4 12:47:26 History of depressi on 262700040 Active 2023 Kadie Terrazas APRN [address] [place], [address], [employer] 4 12:47:38 Gastroes ophageal reflux disease 215542450 Active 2023 Kadie Terrazas APRN [address], [place], [address], [employer] 12:47:45 Gout 86612202 Active 2023 Kadie Terrazas, ANGELLA [address] [facility], [place], [address], [email or web address] [facility] 4 12:47:49 Irritabl e bowel syndrome 03063832 Active 2023 Kadie Terrazas, TABLE ASSEMBLER [address] [facility], [place], [address], [facility] 4 12:47:58 Migraine 66576147 Active 2023 Kadie Terrazas, ANGELLA [address] [facility], [place], [address], [email or web address] [facility] 4 12:48:06 Osteopor osis 12908419 Active 2023 Kadie Terrazas APRN [address] [facility] [address], [place], [address], [facility] 4 12:48:12 Sleep apnea 17205666 Active 2023 Kadie Terrazas APRN [address] [facility] [address], [place], [address], [employer] [facility] 4 12:48:20 Gastric ulcer 196381195 Active 2023 Kadie Terrazas APRN [address] [facility] [address], [place], [address] , [facility] 4 12:48:31 Disorder of cornea 17226862 Active 2023 [employer] Corneal Dystroph y Kadie Terrazas APRN [address] [facility] [address], [place], [address], [place] [employer] [facility] 4 12:48:50 Small fiber neuropat hy 558417983 Active 2023 Kadie Terrazas APRN [address] [facility] [address], [place], [address], [facility] [facility] 4 12:49:01 Iron deficien cy anemia 32149717 Active 2023 Kadie Terrazas, TABLE ASSEMBLER [address] [facility], [place], [address], [place] [email or web address] - [facility] [employer] 4 12:51:58 Mixed hyperlip idemia 252145024 Active 2023 Kadie Terrazas, TABLE ASSEMBLER [address] [facility] [address], [place], [address], [place] [facility] [employer] [facility] 4 12:52:28 Vitamin D deficien cy 04830984 Active 2023 Kadie Terrazas, TABLE ASSEMBLER [address] [facility] [address], [place], [address], [place] [facility] [employer] 4 12:52:59 Prediabe lesly 852054466 Active 2023 Kadie Terrazas, TABLE ASSEMBLER [address] [facility] [address], [place], [address], [place] [facility] [employer] [facility] 4 12:53:28 Recurren t urinary tract infectio n 283649483 Active 2023 Kadie Terrazas, TABLE ASSEMBLER [address] [facility] [address], [place], [address], [place] [facility] [employer] 4 13:01:07 Chronic intersti tial cystitis 364980343 Active 2023 Kadie Terrazas, TABLE ASSEMBLER [address] [facility] [address], [place], [address], [facility] [employer] [facility] 4 13:02:38 Nocturia 256013561 Active 2023 Nathaly [employer] null, [facility] [employer] [facility] 4 11:15:47 Cystocel e 711091398 Active 2023 Nathaly [employer] null, [email or web address] [facility] [employer] [facility] 4 11:15:47 Urgent desire to urinate 14308643 Active 2023 Nathaly [employer] null, [facility] [employer] [facility] 4 11:15:47 Tinnitus 86017126 Active 2023 Kadie Terrazas APRN [address] [facility] [address], [place], [address], [employer] 4 10:00:04 Dyspnea 444192626 Completed 202310/02/2024 Kadie Terrazas APRN [address] [facility] [address], [place], [address], [employer] 5 15:08:51 Chronic insomnia 968436567 Active 2024 Kadie Terrazas APRN [address] [facility] [address], [place], [address], [employer] 5 15:30:03 At increase d risk for falls 420530729 Active 2024 Kadie Terrazas APRN [address] [facility] [address], [place], [address], [employer] 5 15:32:20 Osteoart hritis of lumbar spine Active 2024 Kadie Terrazas APRN [address] [facility] [address], [place], [address], [employer] 5 11:24:42 Mild major depressi on 35208054 Active 2024 ANGELLA Hatch [facility], [place], [address], [employer] 5 16:27:39 Problem Notes None recorded. Procedures Surgical History Date Name Laterality Status Provider Name and Address Organization Details Recorded Time 2024 EGFPCVRiskCounsel Z7182 HTN HL CAD & Z713 completed ANGELLA [address] [facility], [place], [address] , [employer] 5 15:21:32 2024 HSPNPhllhkbposmW2421 completed ANGELLA [address] [facility], [place], [address] , [employer] 5 09:08:45 2024 EGFPMammogramReport Z[address], [place], [address] , [employer] 5 15:22:01 2024 EGFPDEXAReport Y83061 completed [address]GELL[address], [place], [address] , [employer] 5 15:21:39 2024 EGFPObesityBMI Z7182; Z713 completed [address], [place], [address] , [employer] 5 09:08:01 2024 EGFPCervicalCancerScreen Z124 [address], [place], [address] , [employer] 5 09:08:56 2024 EGFPFunctionalStatus w/AWV Z[address], [place], [address] , [employer] 5 15:21:42 2024 ROOXLjhEkhijoTgdnnpbsS2263 completed [address]GELLA [address], [place], [address] , [email or web address] 5 16:15:40 2024 EGFPDepScreen[+]&f/uJ9424 [address], [place], [address] , [employer] 5 15:21:52 2024 Most Recent Mammogram completed ANGELLA [address], [place], [address] , [employer] 5 10:58:04 2021 colonoscopy completed Kadie Terrazas, TABLE ASSEMBLER [address] [facility] [address], [place], [address] , [facility] 4 12:55:16 2021 endoscopy completed Kadie Terrazas APRN [address] [facility], [place], [address] , [facility] 5 15:12:56 2019 Date of Last Pap Smear completed Kadie Terrazas APRN [address] [facility] [address], [place], [address] , [facility] 4 12:49:30 repair of vaginal wa ll prolapse completed Kadie Terrazas APRN [address] [facility] [address], [place], [address] , [facility] 4 10:18:11 Imaging Results None recorded. Procedure Notes None recorded. Medical Equipment None Reported. Allergies Allergen ID Allergen Name Allergen Category Reaction Reaction Severity Criticality Documentation Date Start Date Code Code System Note Provider Name and Address Organization Details Recorded Time 62967 prednison e medicatio n Not available Not available Not available 07/31/2023 8640 RxNorm Ulcer s; ok with low dose short durat ion Nathaly Vargas-Co oper null, [facility] 4 11:15:46 45546 No known allergy (situatio n) Not available Not available Not available Not available 01/09/2024 36404 6003 SNOMED Kadie Terrazas, ANGELLA [address] [facility], [place], [address], [facility] 4 09:44:35 10412 dicyclomi ne medicatio n rash Not available Not available 01/24/20252024 3361 RxNorm Not Available [employer] - External Data [employer] - prod 5 19:18:11 42181 diclofena c Not available rash Not available Not available 01/24/20252023 3355 RxNorm Not Available [employer] - External Data Service - prod 19:18:11 Medications Name Sig Start Date Stop Date [...] Available Not Available Not Available amoxicillin 875 mg-humera fernandez clavulanate 125 mg tablet TAKE 1 TABLET [...] Last Updated DateTime 167.64 cm 30.2 kg/m2 93150.7 7 g 98.8 [degF] 98 % 63 /min 125/80 mm[Hg] Melinda Guerrier [facility] 13:04:10 Social History Question Answer Notes LastModified by Organization Details LastModified Time Tobacco Smoking Status Never Smoker Lizbeth Leeump [facility] 10/01/2024 15:23:03 Do You Have An Advance Directive? Yes [email or web address] Information not available 10/01/2024 Do You Wear A Helmet When Biking? Yes [email or web address] Information not available 10/01/2024 Are You Blind Or Do You Have Difficulty Seeing? Yes Wears Glasses , Genetic Problem With Eyes [email or web address] Information not available 10/01/2024 Is Blood Transfusion Acceptable In An Emergency? Yes Information not available 10/01/2024 What Is Your Code Status? Full Code [email or web address] Information not available 10/01/2024 Are You Deaf Or Do You Have Serious Difficulty Hearing? Yes Teniditis [email or web address] Information not available 10/01/2024 What Type Of Diet Are You Following? REGULAR Information not available 10/01/2024 Have There Been Any Changes To Your Family Or Social Situation? No Information not available 10/01/2024 What Is The Fluoride Status Of Your Home? Non-fluoridated Information not available 10/01/2024 Are There Any Guns Present In Your Home? Yes [email or web address] Information not available 10/01/2024 Which Of Your Hands Is Dominant? Right [email or web address] Information not available 10/01/2024 [facility] [email or web address] Information not available 10/01/2024 What Was The Date Of Your Most Recent Tobacco Screening? 10/01/2024 [email or web address] Information not available 10/01/2024 How Many Children Do You Have? 2 [email or web address] Information not available 10/01/2024 Do You Have Any Pets? Yes [email or web address] Information not available 10/01/2024 What Is Your Relationship Status? Information not available 10/01/2024 Do You Use Your Seat Belt Or Car Seat Routinely? Yes Information not available 10/01/2024 Are You Sexually Active? Yes [email or web address] Information not available 10/01/2024 Do You Have Any Siblings? 1 [email or web address] Information not available 10/01/2024 Do You Have Smoke And Carbon Monoxide Detectors In Your Home? Yes [email or web address] Information not available 10/01/2024 Are There Any Smokers In Your House? No [email or web address] Information not available 10/01/2024 Do You Participate In Social Media? Yes [email or web address] Information not available 10/01/2024 What Types Of Sporting Activities Do You Participate In? None Information not available 10/01/2024 Do You Use Sunscreen Routinely? No [email or web address] Information not available 10/01/2024 Has Tobacco Cessation Counseling Been Provided? No [email or web address] Information not available 10/01/2024 Do You Have Difficulty Walking Or Climbing Stairs? Yes [email or web address] Information not available 10/01/2024 Are You Currently In School? No [email or web address] Information not available 10/01/2024 Sex: Unknown Functional Status Question Answer Note LastModified by Organization Details LastModified Time Do you use any illicit or recreational drugs? No [email or web address] Information not available 10/01/2024 Do you or have you ever used any other forms of tobacco or nicotine? No [email or web address] Information not available 10/01/2024 What is your level of alcohol consumption? None [email or web address] Information not available 10/01/2024 Are you currently employed? No [email or web address] Information not available 10/01/2024 Do you have transportation difficulties? No [email or web address] Information not available 10/01/2024 Are you able to walk independently without assistance or assistive devices? YESWOREST [email or web address] Information not available 10/01/2024 Do you have difficulty doing errands alone? No [email or web address] Information not available 10/01/2024 Are you able to care for yourself independently? Yes [email or web address] Information not available 10/01/2024 Do you have difficulty dressing, bathing, grooming, or toileting? No Information not available 10/01/2024 What type of noise exposure are you exposed to? noExposureToExcessiveNoise [email or web address] Infor mation not available 10/01/2024 Mental Status Question Answer Note LastModified by Organizat ion Details LastModified Time Do you feel stressed (tense, restless, nervous, or anxious, or unable to sleep at night)? [id number] [email or web address] Information not available 10/01/2024 Do you have difficulty concentrating, remembering or making decisions? No [email or web address] Information no t available 10/01/2024 Family History [...] fx PGF: alcoholism PGM: no concerns MGF: [place] MGM: osteoporosis, depression Brother: age 52 [place] Son: age 5 accident 2 yordy;ghters healthy, [...] PF 01/09/2024 completed Kadie Terrazas APRN [address] [place], [address], Clari [facility] [employer] [facility] 01/09/2024 12:24:38 zoster recombinant 10/01/2024 completed Kadie Terrazas APRN [address] [place], [address], [employer] [facility] 10/01/2024 16:25:50 zoster recombinant 12/23/2024 completed Kadie Terrazas APRN [address] [place], [address], Clari [facility] [employer] [facility] 12/23/2024 13:36:20 Past Encounters Encounter ID Performer Location Encounter Start Date Encounter Closed Date Diagnosis/Indication Diagnosis SNOMED-CT Code Diagnosis ICD10 Code Diagnosis IMO Codes Diagnosis Note [id number] Kadie Terrazas APRN [facility] [address] [place] [address] 12/23/2024 12:50:54 12/23/2024 13:44:47 Active or passive immunization 388417902 Z23 She will get the flu vaccine at a later date. Sclerosing mesenteritis 1323319306 607930 K65.4 [id number] Referral sent to [facility] for Dr Daja Perkins. Pain in axilla 022019680 M79.445 [id number] Will check an ultrasound . Health Concerns Section Related Observation LastModified by Organization Detai ls LastModified Time None Recorded Concern Status LastModified by Organization Details LastModified Time None Recorded Payers Encounter Date Sequence Insurance Name Policy Number Policy Lara Covered Member ID Lara Member ID Guarantor Name 12/23/2024 1 MEDICARE B-[place]: NGS Chana Bassett [id number] Chana Bassett 12/23/2024 2 [facility] (MEDICARE SUPPLEMENT) Chana Bassett [id number] Chanajerod Bassett Notes Date Note Type Note Provider [...] hasn't noticed any breast changes. Kadie Terrazas, TABLE ASSEMBLER [address] [facility], [place], [address], [place] [facility] 12/23/2024 20:14:44 OBGyn Episode No OBEpisode recorded.
--- OUTSIDE RECORDS SUMMARY | 2025-02-05 23:19 | XMS_ITS | Encounter Summary ---
Author Organization [facility] Prior to 12/29/2023 Address [address] [place] [address] Care Team Providers Care Electromatic Typist Name Role Phone Henri Cruz MD Primary Care Provider Unavailable Mayelin Nolasco DO Primary Care Provider Unavaila ble Kari Acevedo MD Unavailable [phone] Selin Agustin PA-C Unavailable [phone] Miguel Angel Batista PA-C Unavailable [phone] [facility], Pcp Primary Care Provider Unavailabl e Encounter Details Date Type Department Care Team Description 01/22/2019 [facility] [address] [place] [address] Karen Darling MD Social History Tobacco Use [...] on filedocumented in this encounter Care Teams Electromatic Typist Relationship Specialty Start Date End Date Henri Cruz MD PCP - General Internal Medicine 05/25/1504/28 Mayelin Nolasco DO PCP - General Internal Medicine 05/25/21 11/08/22 [facility], Pcp [address] [place] [address] PCP - General Internal Medicine 11/09/22 Kari Acevedo MD [address] [address] Surgeon Neurosurgery 11/29/21 Selin Agustin PA-C [address] [address] Specialist Neurosurgery 11/29/21 Miguel Angel Batista PA-C [address] [address] Specialist Neurosurgery 11/29/21 documented as of this encounter
--- OUTSIDE RECORDS SUMMARY | 2025-02-05 23:19 | XMS_ITS | Encounter Summary ---
Author Organization [facility] Prior to 12/29/2023 Address [address] [place] [address] Care Team Providers Care Network Operations Technician Name Role Phone Cornell Barajas Primary Care Provider Unav ailable Henri Cruz MD Primary Care Provider Unavailable Mayelin Nolasco DO Primary Care Provider Unavaila Kari Gillis MD Unavailable [phone] Selin Agustin PA-C Unavailable [phone] BatistaMiguel Angel arango PA-C Unavailable [facility], [facility] Primary Care Provider Unavailabl e Encounter Details Date Type Department Care Team Description 09/13/2014 Finisher Operator Report Medical Records [address] [place], [place] [id number] [place] [address] [place] Social History Tobacco Use Types Packs/Day [...] on filedocumented in this encounter Care Teams Network Operations Technician Relationship Specialty Start Date End Date Cornell Barajas PCP - General 01/27/06 05/24/15 Henri Cruz MD PCP - General Internal Medicine 05/25/1504/28 Mayelin Nolasco DO PCP - General Internal Medicine 05/25/21 11/08/22 Community, Pcp 175 [facility] [address] [place] [address] PCP - General Internal Medicine 11/09/22 Kari Acevedo MD [address] [address] Surgeon Neurosurgery 11/29/21 Selin Agustin PA-C [address] [address] Specialist Neurosurgery 11/29/21 Miguel Angel Batista PA-C [address] [address] Specialist Neurosurgery 11/29/21 documented as of this encounter
--- OUTSIDE RECORDS SUMMARY | 2025-02-05 23:19 | XMS_ITS | Encounter Summary ---
Author Organization [facility] Prior to 12/29/2023 Address [address] [place] [address] Care Team Providers Care Field Service Technician Poultry Name Role Phone Henri Cruz MD Primary Care Provider Unavailable Mayelin Nolasco DO Primary Care Provider Unavaila ble Kari Acevedo MD Unavailable [phone] Selin Agustin PA-C Unavailable [phone] Miguel Angel Batista PA-C Unavailable [phone] [facility], Pcp Primary Care Provider Unavailabl e Encounter Details Date Type Department Care Team Description 01/07/2019 Windows Migration Technician Report Medical Records [address] [place] [id number] [place] [address], [facility] Social History Tobacco Use Types Packs/Day [...] on filedocumented in this encounter Care Teams Field Service Technician Poultry Relationship Specialty Start Date End Date Henri Cruz MD PCP - General Internal Medicine 05/25/15 310/18 Mayelin Nolasco DO PCP - General Internal Medicine 05/25/21 11/08/22 [facility], Pcp [address] [place] [address] PCP - General Internal Medicine 11/09/22 Kari Acevedo MD [address] [address] Surgeon Neurosurgery 11/29/21 Selin Agustin PA-C [address] [address] Specialist Neurosurgery 11/29/21 Miguel Angel Batista PA-C [address] [id number] Specialist Neurosurgery 11/29/21 documented as of this encounter
--- OUTSIDE RECORDS SUMMARY | 2025-02-05 23:19 | XMS_ITS | Encounter Summary ---
Author Organization [facility] Prior to 12/29/2023 Address [address] [place] [address] Care Team Providers Care Fiberglass Container Winding Operator Name Role Phone Cornell Barajas Primary Care Provider Unav ailable Henri Cruz MD Primary Care Provider Unavailable Mayelin Nolasco DO Primary Care Provider Unavaila Kari Gillis MD Unavailable [phone] Selin Agustin-C Unavailable Miguel Angel Batista-C Unavailable [phone] [facility], [facility] Primary Care Provider Unavailabl e Encounter Details Date Type Department Care Team Description 09/18/2014 [facility] Medical Records [address] [place] [address] Shruti Echevarria MD [address] [place] [address] [place] [address] Social History Tobacco Use Types Packs/Day Years [...] on filedocumented in this encounter Care Teams Fiberglass Container Winding Operator Relationship Specialty Start Date End Date Cornell Barajas PCP - General 01/27/06 05/24/15 Henri Cruz MD PCP - General Internal Medicine 05/25/15 3/10/18 Mayelin Nolasco DO PCP - General Internal Medicine 05/25/21 11/08/22 [facility], Pcp [address] [address] PCP - General Internal Medicine 11/09/22 Kari Acevedo MD [address] [id number] Surgeon Neurosurgery 11/29/21 Selin Agustin PA-C [address] [address] Specialist Neurosurgery 11/29/21 Miguel Angel Batista PA-C [address] [address] Specialist Neurosurgery 11/29/21 documented as of this encounter
--- OUTSIDE RECORDS SUMMARY | 2025-02-05 23:19 | XMS_ITS | Encounter Summary ---
Author Organization [facility] Prior to 12/29/2023 Address [address] [place] [address] Care Team Providers Care Awning Finisher Name Role Phone Cornell Barajas Primary Care Provider Unav ailable Henri Cruz MD Primary Care Provider Unavailable Mayelin Nolasco DO Primary Care Provider Unavaila Kari Gillis MD Unavailable [phone] Selin Agustin-Bruce Unavailable Miguel Angel BatistaC Unavailable [phone] [facility], [facility] Primary Care Provider Unavailabl e Encounter Details Date Type Department Care Team Description 09/08/2014 Release of Information Medical Records [address] [place] [address] Abstract, Provider Social History Tobacco Use Types [...] on filedocumented in this encounter Care Teams Awning Finisher Relationship Specialty Start Date End Date Cornell Barajas PCP - General 01/27/06 05/24/15 Henri Cruz MD PCP - General Internal Medicine 05/25/1504/28 Mayelin Noalsco DO PCP - General Internal Medicine 05/25/21 11/08/22 Community, Pcp 175 [facility] [address] [place] [address] PCP - General Internal Medicine 11/09/22 Kari Acevedo MD [address] [address] Surgeon Neurosurgery 11/29/21 Selin Agustin PA-C [address] [address] Specialist Neurosurgery 11/29/21 Miguel Angel Batista PA-C [address] [address] Specialist Neurosurgery 11/29/21 documented as of this encounter
--- OUTSIDE RECORDS SUMMARY | 2025-02-05 23:19 | XMS_ITS | Encounter Summary ---
Author Organization [facility] Prior to 12/29/2023 Address [address] [place] [address] Care Team Providers Care Stationary Plant Operators Name Role Phone Henri Cruz MD Primary Care Provider Unavailable Mayelin Nolasco DO Primary Care Provider Unavaila Kari Gillis MD Unavailable [phone] Selin Agustin PA-C Unavailable [phone] Miguel Angel Batista PA-C Unavailable [facility], Pcp Primary Care Provider Unavailabl e Reason for Visit * Reason Onset Date Comments Provider Call Back 01/23/2019 Encounter Details Date Type Department Care Team Description 01/23/2019 Telephone Gastroenterology - [address] [place] [address] Karen Darling MD Provider Call Back Social History Tobacco Use Types Packs/Day Years Used Date Smoking Tobacco: Never Smokeless Tobacco: Never Comments:secondary smoke Alcohol Use Standard Drinks/Week Comments Yes 0 (1 standard drink = 0.6 oz pur e alcohol) 2-3 drinks/mo Sex Assigned at Date Recorded Female 12/15/2021 11:46 AM EDT documented as of this encounter Miscellaneous Notes * Telephone Encounter - Karen Darling MD - 01/23/2019 4:05 PM EST Spoke with patient. NO change with carafate. Reviewed the CT scan results. NO change in pain with eating or breathing. Some increase with lying down. NO rash. Recommend NSAID with food. 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 Has follow up in a few weeks. * Telephone Encounter - Tash Barnes M.A. - 01/23/2019 3:07 PM EST Sent cortex message to Dr Darling to advise. * Telephone Encounter - Aparna Arreguin - 01/23/2019 2:47 PM EST Patient is calling returning a call back but she does not know who called her. She wants to know the status on this call regarding the situation that she has been going through after her EGD * Telephone Encounter - Az Gillespie - 01/23/2019 1:04 PM EST Caller requesting call back from provider: Is the caller the patient? YES If caller is not the patient, what is the callers name? N/A Callers relationship to patient? N/A If person calling is not the patient themselves, is there a verbal release in FYI or permanent comments for this person: YES Reason for call back: PATIENT STATES SHE HAD EGD DONE YESTERDAY, HAS HAD CONSTANT PAIN THAT RADIATES FROM BREAST BONE TO BACK, DOESNT GO AWAY BECOMES SHARP PAIN BEEN GOING ON FOR 6 DAYS, PATIENT WENTTO THE EMERGENCY ROOM THIS MORNING ([facility]) THEY INITIALLY DID CT SCAN DUE TO ULTRASOUND NOT BEING UP, AND CT SHOWS MESENGERIC PANNICULITIS, ULTRASOUND WAS UP AND RUNNING AFTER AND SHOWS HER GALLBLADDER SEEMS HEALTHY ... PLEASE ADVISE Caller offered to speak with the nurse for assistance: YES Response: Patient offered to speak with nurse for assistance and patient agreed. Message forwarded to nurse. documented in this encounter Plan of Treatment Not on file documented as of this encounter Visit Diagnoses Not on filedocumented in this encounter Care Teams Stationary Plant Operators Relationship Specialty Start Date End Date Henri Cruz MD PCP - General Internal Medicine 05/25/15 3/10/18 Mayelin Nolasco DO PCP - General Internal Medicine 05/25/21 11/08/22 [facility], Pcp [address] [facility] [address] [place] [id number] PCP - General Internal Medicine 11/09/22 Kari Acevedo MD [address] [address] Surgeon Neurosurgery 11/29/21 Selin Agustin PA-C [address] [address] Specialist Neurosurgery 11/29/21 Miguel Angel Batista PA-C [address] [address] Specialist Neurosurgery 11/29/21 documented as of this encounter
--- OUTSIDE RECORDS SUMMARY | 2025-02-05 23:19 | XMS_ITS | Encounter Summary ---
Author Organization [facility] Prior to 12/29/2023 Address [address] [place] [address] Care Team Providers Care Press Offbearer Name Role Phone Henri Cruz MD Primary Care Provider Unavailable Mayelin Nolasco DO Primary Care Provider Unavaila ble Kari Acevedo MD Unavailable [phone] Selin Agustin PA-C Unavailable [phone] Miguel Angel Batista PA-C Unavailable [phone] [facility], Pcp Primary Care Provider Unavailabl e Encounter Details Date Type Department Care Team Description 08/30/2019 Coffee Urn Attendant Report Medical Records [address] [place] [id number] [place] [address], [facility] General Social History Tobacco Use Types Packs/Day [...] on filedocumented in this encounter Care Teams Press Offbearer Relationship Specialty Start Date End Date Henri Cruz MD PCP - General Internal Medicine 05/25/15 310/18 Mayelin Nolasco DO PCP - General Internal Medicine 05/25/21 11/08/22 [facility], Pcp [address] [place] [address] PCP - General Internal Medicine 11/09/22 Kari Acevedo MD [address] [address] Surgeon Neurosurgery 11/29/21 Selin Agustin PA-C [address] [address] Specialist Neurosurgery 11/29/21 Miguel Angel Batista PA-C [address] [id number] Specialist Neurosurgery 11/29/21 documented as of this encounter
--- OUTSIDE RECORDS SUMMARY | 2025-02-05 23:19 | XMS_ITS | Data Portability ---
Author Organization [place] - [facility], [facility] Address [address] [place] [address] Care Team Providers Care Shoe Packer Name Role Phone RACIEL BETTS Neurologist [facility] Museum Docent YEFRI GARCIA Business Law Teacher [phone] JAMESON QUINTANA Transfer And Line Up Worker [phone] Assessment No assessment recorded. Plan of Treatment Reminders Order Date Submit Date Provider Last Modified By Organization Details Last Modified Time Details Appointments MEDICARE ANNUAL WELLNESS 60 2025 10:15A M Kadie Terrazas, MANAGER OF ENGINEERING Not available Not available Not available Lab uric acid, serum or plasma 2024 025 [employer] [facility], [address], [place], [address], 10/12/2024 00:46:26 CMP, serum or plasma 2024 025 [facility], [address], [address], [place], [address], 10/12/2024 00:46:27 lipid panel, serum 2024 025 [facility], [address], [address], [place], [address], 10/12/2024 00:46:24 TSH, serum or plasma 2024 025 [facility], [address], [address], [place], [address], 10/12/2024 00:46:28 vitamin B12, serum 2024 025 [facility], [address], [address], [place], [address], 10/12/2024 00:46:29 magnesium , serum or plasma 2024 025 [facility], [address], [address], [place], [address], 10/12/2024 00:46:25 HbA1c (hemoglob in A1c), blood 2024 025 [facility], [address], [address], [place], [address], 10/12/2024 00:46:30 vitamin D, 25-hydrox y, total, serum 2024 025 [facility], [address], [address], [place], [address], 10/12/2024 00:46:30 iron + TIBC + ferritin, serum 2024 025 [facility], [address], [address], [place], [address], 10/12/2024 00:46:23 CBC w/ auto diff 2024 025 [facility], [address], [address], [place], [address], 10/12/2024 00:46:27 CBC w/ auto diff 2023 024 [facility], [address], [address], [place], [address], 01/31/2024 07:39:58 BMP, serum or plasma [id number] [facility], [address], [address], [place], [address], 01/31/2024 07:39:57 TSH, serum or plasma 2023 [facility], [address], [address], [place], [address], 08/01/2023 18:22:27 urinalysi s, dipstick 2023 [email or web address], [address] [facility], [place], [address], 07/31/2023 15:21:00 Referral gastroent erologist referral - The patient requests to see Dr Daja Perkins. Seeking a second opinion for mesenteri c panniculi tis. 2024 [facility], [address] [facility], [place], [address], 12/24/2024 08:25:17 orthopedi c spine surgeon referral - Please evaluate for chronic back pain and disc disease.- DEXA ordered 2024 [facility], [address] [place] [address] [place], [address], 10/02/2024 15:59:12 orthopedi c spine surgeon referral - The patient would like a second opinion on the recommend ation to get a left SI joint injection from Dr Latif. MRI from 07/2023 and sports medicine note attached. Waiting to receive 2nd MRI result and then will forward. Thank you. 2023 024 [facility], [address], [place], [address], 01/09/2024 13:11:42 urogyneco logist referral - Please evaluate for interstit ital cystitis. Thank you. 2023 024 SRAVAN Jaimes MD, [address] [facility], [facility], [place], [address], 10/19/2023 07:16:37 Procedures None recorded. Surgeries None recorded. Imaging US, axilla - at least 6 months of intermitt ent pain right axilla triggered by wearing certain bras, mammogram completed in 05/2024 025 [email or web address], [address] [place], [address], 12/23/2024 13:44:47 DEXA, axial skeleton 2024 025 [email or web address], [address] [facility], [place], [address], 10/01/2024 16:41:50 electroca rdiogram 2023 024 [email or web address], [address], [place], [address], 01/30/2024 11:14:19 Medication Orders duloxetin e 30 mg capsule,d elayed release 2024 025 [id number], [address] [place] [address], [address], 11/25/2024 07:34:05 Patient TargetsNo targets recorded. Patient [...] forward. Thank you. 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 [address], [address], 01/31/2024 07:39:57 01/31/20 24 01/31/2024 BASIC METAB OLIC PANEL creatinine 0.60 mg/dL 0.60-1 .00 normal Not Available [facility] [address], [address], 01/31/2024 07:39:57 01/31/20 24 01/31/2024 BASIC METAB OLIC PANEL eGFR 95 mL/mi n/1.7 3m2 > or = 60 normal Not Available [facility] [address], [address], 01/31/2024 07:39:57 01/31/20 24 01/31/2024 BASIC METAB OLIC PANEL BUN/creatini ne ratio SEE NOTE: (calc ) 6-22 Not Repor nakul: BUN and Creat inine are withi n refer ence range . Not Available [facility] [place] [facility] [address], [place], [address], 01/31/2024 07:39:57 01/31/20 24 01/31/2024 BASIC METAB OLIC PANEL sodium 142 mmol/ L 135-14 6 normal Not Available [facility] [place] [facility] [address], [place], [address], 01/31/2024 07:39:57 01/31/20 24 01/31/2024 BASIC METAB OLIC PANEL potassium 4.0 mmol/ L 3.5-5. 3 normal Not Available [facility] [place] [facility] [address], [place], [address], 01/31/2024 07:39:57 01/31/20 24 01/31/2024 BASIC METAB OLIC PANEL chloride 109 mmol/ L 98-110 normal Not Available [facility] [place] [facility] [address], [place], [address], 01/31/2024 07:39:57 01/31/20 24 01/31/2024 BASIC METAB OLIC PANEL carbon dioxide 28 mmol/ L 20-32 normal Not Available [facility] [place] [facility] [address], [place], [address], 01/31/2024 07:39:57 01/31/20 24 01/31/2024 BASIC METAB OLIC PANEL calcium 9.2 mg/dL 8.6-10 .4 normal Not Available [facility] [place] [facility] [address], [place], [address], 01/31/2024 07:39:57 01/31/20 24 01/31/2024 CBC (INCL UDES DIFF/ PLT) white blood cell count 5.1 thous and/u L 3.8-10 .8 normal Not Available [facility] [place] [facility] [address], [place], [address], 01/31/2024 07:39:58 01/31/20 24 01/31/2024 CBC (INCL UDES DIFF/ PLT) red blood cell count 4.74 calli on/uL 3.80-5 .10 normal Not Available [facility] [place] [facility] [address], [place], [address], 01/31/2024 07:39:58 01/31/20 24 01/31/2024 CBC (INCL UDES DIFF/ PLT) hemoglobin 13.4 g/dL 11.7-1 5.5 normal Not Available [facility] [place] [facility] [address], [place], [address], 01/31/2024 07:39:58 01/31/20 24 01/31/2024 CBC (INCL UDES DIFF/ PLT) hematocrit 41.8 % 35.0-4 5.0 normal Not Available [facility] [place] [facility] [address], [place], [address], 01/31/2024 07:39:58 01/31/20 24 01/31/2024 CBC (INCL UDES DIFF/ PLT) MCV 88.2 fL 80.0-1 00.0 normal Not Available [facility] [address], [place], [address], 01/31/2024 07:39:58 01/31/20 24 01/31/2024 CBC (INCL UDES DIFF/ PLT) MCH 28.3 pg 27.0-3 3.0 normal Not Available [facility] [address], [place], [address], 01/31/2024 07:39:58 01/31/20 24 01/31/2024 CBC (INCL UDES DIFF/ PLT) MCHC 32.1 g/dL 32.0-3 6.0 normal For adult s, a sligh t decre ase in the calcu lated MCHC value (in the range of 30 to 32 g/dL) is most likel y not clini kristopher signi marisol t; kamryn er, it venita d be inter prete d with cauti on in [facility] n with other red cell joshua eters and the patie nt's clini yahaira condi tion. Not Available [facility] [place] [facility] [address], [place], [address], 01/31/2024 07:39:58 01/31/20 24 01/31/2024 CBC (INCL UDES DIFF/ PLT) RDW 11.9 % 11.0-1 5.0 normal Not Available [facility] [place] [facility] [address], [place], [address], 01/31/2024 07:39:58 01/31/20 24 01/31/2024 CBC (INCL UDES DIFF/ PLT) platelet count 336 thous and/u L 140-40 0 normal Not Available [facility] [place] [facility] [address], [place], [address], 01/31/2024 07:39:58 01/31/20 24 01/31/2024 CBC (INCL UDES DIFF/ PLT) MPV 9.7 fL 7.5-12 .5 normal Not Available [facility] [place] [facility] [address], [place], [address], 01/31/2024 07:39:58 01/31/20 24 01/31/2024 CBC (INCL UDES DIFF/ PLT) absolute neutrophils 3029 cells /uL 1500-7 800 normal Not Available [facility] [place] [facility] [address], [place], [address], 01/31/2024 07:39:58 01/31/20 24 01/31/2024 CBC (INCL UDES DIFF/ PLT) absolute lymphocytes 1306 cells /uL 850-39 00 normal Not Available [facility] [place] [facility] [address], [place], [address], 01/31/2024 07:39:58 01/31/20 24 01/31/2024 CBC (INCL UDES DIFF/ PLT) absolute monocytes 321 cells /uL 200-95 0 normal Not Available [facility] [place] [facility] [address], [place], [address], 01/31/2024 07:39:58 01/31/20 24 01/31/2024 CBC (INCL UDES DIFF/ PLT) absolute eosinophils 383 cells /uL 15-500 normal Not Available [facility] [place] [facility] [address], [place], [address], 01/31/2024 07:39:58 01/31/20 24 01/31/2024 CBC (INCL UDES DIFF/ PLT) absolute basophils 61 cells /uL 0-200 normal Not Available [facility] [place] [facility] [address], [place], [address], 01/31/2024 07:39:58 01/31/20 24 01/31/2024 CBC (INCL UDES DIFF/ PLT) neutrophils 59.4 % normal Not Available [facility] [place] [facility] [address], [place], [address], 01/31/2024 07:39:58 01/31/20 24 01/31/2024 CBC (INCL UDES DIFF/ PLT) lymphocytes 25.6 % normal Not Available [facility] [place] [facility] [address], [place], [address], 01/31/2024 07:39:58 01/31/20 24 01/31/2024 CBC (INCL UDES DIFF/ PLT) monocytes 6.3 % normal Not Available [facility] [place] [facility] [address], [place], [address], 01/31/2024 07:39:58 01/31/20 24 01/31/2024 CBC (INCL UDES DIFF/ PLT) eosinophils 7.5 % normal Not Available [facility] [place] [facility] [address], [place], [address], 01/31/2024 07:39:58 01/31/20 24 01/31/2024 CBC (INCL UDES DIFF/ PLT) basophils 1.2 % normal Not Available [facility] [place] [facility] [address], [place], [address], 01/31/2024 07:39:58 07/31/19 24 08/01/2023 TSH W/REF BARBARA TO FT4 TSH w/reflex to FT4 0.83 mIU/L 0.40-4 .50 normal Not Available [facility] [place] [facility] [address], [place], [address], 08/01/2023 18:22:27 07/31/19 24 07/31/2023 urina lysis , dipst ick Glucose Negati ve Not Available [facility] [address], [place], [address], 07/31/2023 13:36:45 07/31/19 24 07/31/2023 urina lysis , dipst ick Appearance Clear Not Available [facility] [address], [place], [address], 07/31/2023 13:36:45 07/31/19 24 07/31/2023 urina lysis , dipst ick Color Yellow Not Available [facility] [address], [place], [address], 07/31/2023 13:36:45 07/31/19 24 07/31/2023 urina lysis , dipst ick Leukocytes Negati ve Not Available [facility] [address], [place], [address], 07/31/2023 13:36:45 07/31/19 24 07/31/2023 urina lysis , dipst ick Nitrate Negati ve Not Available [facility] [address], [place], [address], 07/31/2023 13:36:45 07/31/19 24 07/31/2023 urina lysis , dipst ick Urobilinogen Negati ve Not Available [facility] [address], [place], [address], 07/31/2023 13:36:45 07/31/19 24 07/31/2023 urina lysis , dipst ick Protein Negati ve Not Available [facility] [address], [place], [address], 07/31/2023 13:36:45 07/31/19 24 07/31/2023 urina lysis , dipst ick pH 6.0 Not Available [facility] [address], [place], [address], 07/31/2023 13:36:45 07/31/19 24 07/31/2023 urina lysis , dipst ick Blood Negati ve Not Available [facility] [address], [place], [address], 07/31/2023 13:36:45 07/31/19 24 07/31/2023 urina lysis , dipst ick Specific [place] 1.025 Not Available [facility] [address], [place], [address], 07/31/2023 13:36:45 07/31/19 24 07/31/2023 urina lysis , dipst ick Ketone Negati ve Not Available [facility] [address], [place], [address], 07/31/2023 13:36:45 07/31/19 24 07/31/2023 urina lysis , dipst ick Bilirubin Negati ve Not Available [facility] [address], [place], [address], 07/31/2023 13:36:45 04/25/19 25 04/25/2024 CULTU RE URINE culture, urine Mix ed uroge nital garett , no uropa thoge ns prese nt. Sugge st repea t speci men, if clini kristopher indic ated. Not Available [address], [address], 04/28/2024 12:27:33 04/25/19 25 04/25/2024 CULTU RE URINE note [facility], [address] [facility] [address], [place] [address] Not Available [address], [address], 04/28/2024 12:27:33 07/18/19 25 07/17/2024 RENAL FUNCT ION PANEL sodium 142 mmol/ L 133-14 5 Not Available [facility] U/S Dept [address] [place], [place] [address], [place], [address], 07/17/2024 14:42:28 07/18/19 25 07/17/2024 RENAL FUNCT ION PANEL potassium 4.4 mmol/ L 3.5-5. 5 Not Available [facility] Dept [address] [place] [address] [place], [address], 07/17/2024 14:42:28 07/18/19 25 07/17/2024 RENAL FUNCT ION PANEL chloride 113 mmol/ L 96-110 high Not Available [facility] Dept [address] [place] [address] [place], [address], 07/17/2024 14:42:28 07/18/19 25 07/17/2024 RENAL FUNCT ION PANEL CO2 25 mmol/ L 21-32 Not Available [facility] [address] [place] [address] [place], [address], 07/17/2024 14:42:28 07/18/19 25 07/17/2024 RENAL FUNCT ION PANEL anion gap 4 3-11 Not Available [facility] [address] [place] [address] [place], [address], 07/17/2024 14:42:28 07/18/19 25 07/17/2024 RENAL FUNCT ION PANEL glucose 99 mg/dL 70-100 Not Available [address] [place], [address], 07/17/2024 14:42:28 07/18/19 25 07/17/2024 RENAL FUNCT ION PANEL BUN 16 mg/dL 5-25 Not Available [facility] [address] [place] [address] [place], [address], 07/17/2024 14:42:28 07/18/19 25 07/17/2024 RENAL FUNCT ION PANEL creatinine 0.66 mg/dL 0.50-1 .10 Not Available [facility] [address] [place] [address] [place], [address], 07/17/2024 14:42:28 07/18/19 25 07/17/2024 RENAL FUNCT ION PANEL eGFR 93 mL/mi n/1.7 3m2 >=60 Calcu latio n based on the Chron ic Kidne y Disea se Epide miolo gy Colla borat ion (CKD- EPI) equat ion refit witho ut adjus tment for race. Not Available [facility] [address] [place] [address] [place], [address], 07/17/2024 14:42:28 07/18/19 25 07/17/2024 RENAL FUNCT ION PANEL BUN/creatini ne ratio 24.2 Not Available [facility] Dept [address] [place] [address] [address]kw[address], [place], [address], 07/17/2024 14:42:28 07/18/19 25 07/17/2024 RENAL FUNCT ION PANEL albumin 3.6 g/dL 3.2-5. 0 Not Available [facility] Dept [address] [place] [address] Pkw[address], [facility] [place], [address], 07/17/2024 14:42:28 07/18/19 25 07/17/2024 RENAL FUNCT ION PANEL calcium 8.7 mg/dL 8.5-10 .5 Not Available [facility] Dept [address] [place] [address] Pkw[address], [facility] [place], [address], 07/17/2024 14:42:28 07/18/19 25 07/17/2024 RENAL FUNCT ION PANEL phosphorus 2.8 mg/dL 2.5-4. 5 Not Available [facility] Dept [address] [place] [address] Pkw[address], [facility] [place], [address], 07/17/2024 14:42:28 07/18/19 25 07/17/2024 RENAL FUNCT ION PANEL note See Report [facility] Cent[facility] r, [address], [place] elise d, [facility] [place] [address] Not Available [facility] Dept [address] [place] [address] [address]kw[address], [facility] [place], [address], 07/17/2024 14:42:28 07/18/19 25 07/26/2024 CALPR OTECT IN, STOOL calprotectin , fecal 36.2 mcg/g <50 <50 mcg/g Lennie l 50 - 120 mcg/g Borde rline >120 mcg/g Abnor mal Borde rline resul ts sugge st repea t testi ng in 4 to 6 weeks . Test perfo rmed at [facility] , [address] [place] [address] [phone] Stefanie agustin MD, PhD - Medic al Diremellisa tor Not Available [facility] Dept [address] [facility] [place], [address], 07/29/2024 18:07:43 07/18/19 25 07/26/2024 CALPR OTECT IN, STOOL note See Report [facility], [address], [place]zein abdouliel d, [place] [address] Not Available [facility] [address] [facility] [place], [address], 07/29/2024 18:07:43 10/12/19 25 10/12/2024 IRON, TIBC AND JORGE TIN PANEL iron, total 89 mcg/d L 45-160 normal Not Available [facility] [address], [address], 10/12/2024 00:46:23 10/12/19 25 10/12/2024 IRON, TIBC AND JORGE TIN PANEL iron binding capacity 360 mcg/d L_(ca lc) 250-45 0 normal Not Available [facility] [address], [address], 10/12/2024 00:46:23 10/12/19 25 10/12/2024 IRON, TIBC AND JORGE TIN PANEL % saturation 25 %_(ca lc) 16-45 normal Not Available [facility] [address], [address], 10/12/2024 00:46:23 10/12/19 25 10/12/2024 IRON, TIBC AND JORGE TIN PANEL ferritin 19 NG/mL 16-288 normal Not Available [facility] [address], [address], 10/12/2024 00:46:23 10/12/19 25 10/12/2024 LIPID PANEL , STAND MAT cholesterol, total 182 mg/dL <200 normal Not Available [facility] [address], [place], [address], 10/12/2024 00:46:24 10/12/19 25 10/12/2024 LIPID PANEL , STAND MAT HDL cholesterol 89 mg/dL > or = 50 normal Not Available [facility] [place] [facility] [address], [place], [address], 10/12/2024 00:46:24 10/12/19 25 10/12/2024 LIPID PANEL , STAND MAT triglyceride s 133 mg/dL <150 normal Not Available [facility] [place] [facility] [address], [place], [address], 10/12/2024 00:46:24 10/12/19 25 10/12/2024 LIPID PANEL , STAND MAT LDL-choleste rol [...] which is a valid ated novel deepthi chambers acy than the Fried stef equat ion in the estim ation of LDL-C . Jenna MCGINNIS et al. MESSI. 2013; 310(1 9): 2061- 2068 (http ://ed erosati on.Qu Angeli dempseyExactCost. com/f aq/FA Q164) Not Available [facility] [place] [facility] [address], [place], [address], 10/12/2024 00:46:24 10/12/19 25 10/12/2024 LIPID PANEL , STAND MAT chol/HDLC ratio 2.0 (calc ) <5.0 normal Not Available [facility] [place] [facility] [address], [place], [address], 10/12/2024 00:46:24 10/12/19 25 10/12/2024 LIPID PANEL , STAND MAT non HDL cholesterol 93 mg/dL _(yahaira c) <130 normal For patie nts with diabe lesly plus 1 major ASCVD risk facto r, treat ing to a non-H DL-C goal of <100 mg/dL (LDL- C of <70 mg/dL ) is consi dered a thera peuti c optio n. Not Available [facility] [place] [facility] [address], [place], [address], 10/12/2024 00:46:24 10/12/19 25 10/12/2024 MAGNE SIUM magnesium 2.3 mg/dL 1.5-2. 5 normal Not Available [facility] [place] [facility] [address], [place], [address], 10/12/2024 00:46:25 10/12/19 25 10/12/2024 URIC ACID uric acid 4.7 mg/dL 2.5-7. 0 normal Thera jomar pak targe t for gout patie nts: <6.0 mg/dL Not Available [facility] [place] [facility] [address], [place], [address], 10/12/2024 00:46:26 10/12/19 25 10/12/2024 COMPR EHENS JORGE METAB OLIC PANEL glucose 96 mg/dL 65-99 normal Fasti ng refer ence inter radha Not Available [facility] [place] [facility] [address], [place], [address], 10/12/2024 00:46:26 10/12/19 25 10/12/2024 COMPR EHENS JORGE METAB OLIC PANEL urea nitrogen (BUN) 23 mg/dL 7-25 normal Not Available [facility] [address], [place], [address], 10/12/2024 00:46:26 10/12/19 25 10/12/2024 COMPR EHENS JORGE METAB OLIC PANEL creatinine 0.72 mg/dL 0.60-1 .00 normal Not Available [facility] [address], [place], [address], 10/12/2024 00:46:26 10/12/19 25 10/12/2024 COMPR EHENS JORGE METAB OLIC PANEL eGFR 88 mL/mi n/1.7 3m2 > or = 60 normal Not Available [facility] [address], [place], [address], 10/12/2024 00:46:26 10/12/19 25 10/12/2024 COMPR EHENS JORGE METAB OLIC PANEL BUN/creatini ne ratio SEE NOTE: (calc ) 6-22 Not Repor nakul: BUN and Creat inine are withi n refer ence range . Not Available [facility] [address], [place], [address], 10/12/2024 00:46:26 10/12/19 25 10/12/2024 COMPR EHENS JORGE METAB OLIC PANEL sodium 142 mmol/ L 135-14 6 normal Not Available [facility] [address], [place], [address], 10/12/2024 00:46:26 10/12/1910/12/2024 COMPR EHENS JORGE METAB OLIC PANEL potassium 4.2 mmol/ L 3.5-5. 3 normal Not Available [facility] [address], [place], [address], 10/12/2024 00:46:26 10/12/19 25 10/12/2024 COMPR EHENS JORGE METAB OLIC PANEL chloride 111 mmol/ L 98-110 high Not Available [facility] [address], [place], [address], 10/12/2024 00:46:26 10/12/1910/12/2024 COMPR EHENS JORGE METAB OLIC PANEL carbon dioxide 24 mmol/ L 20-32 normal Not Available [facility] [address], [place], [address], 10/12/2024 00:46:26 10/12/1910/12/2024 COMPR EHENS JORGE METAB OLIC PANEL calcium 9.1 mg/dL 8.6-10 .4 normal Not Available [facility] [address], [place], [address], 10/12/2024 00:46:26 10/12/19 25 10/12/2024 COMPR EHENS JORGE METAB OLIC PANEL protein, total 6.8 g/dL 6.1-8. 1 normal Not Available [facility] [address], [place], [address], 10/12/2024 00:46:26 10/12/1910/12/2024 COMPR EHENS JORGE METAB OLIC PANEL albumin 4.1 g/dL 3.6-5. 1 normal Not Available [facility] [address], [place], [address], 10/12/2024 00:46:26 10/12/1910/12/2024 COMPR EHENS JORGE METAB OLIC PANEL globulin 2.7 g/dL_ (calc ) 1.9-3. 7 normal Not Available [facility] [address], [place], [address], 10/12/2024 00:46:26 10/12/19 25 10/12/2024 COMPR EHENS JORGE METAB OLIC PANEL albumin/glob ulin ratio 1.5 (calc ) 1.0-2. 5 normal Not Available [facility] [address], [place], [address], 10/12/2024 00:46:26 10/12/19 25 10/12/2024 COMPR EHENS JORGE METAB OLIC PANEL bilirubin, total 0.4 mg/dL 0.2-1. 2 normal Not Available [facility] [address], [place], [address], 10/12/2024 00:46:26 10/12/19 25 10/12/2024 COMPR EHENS JORGE METAB OLIC PANEL alkaline phosphatase 79 U/L 37-153 normal Not Available [facility] [address], [place], [address], 10/12/2024 00:46:26 10/12/19 25 10/12/2024 COMPR EHENS JORGE METAB OLIC PANEL AST 20 U/L 10-35 normal Not Available [facility] [address], [place], [address], 10/12/2024 00:46:26 10/12/19 25 10/12/2024 COMPR EHENS JORGE METAB OLIC PANEL ALT 14 U/L 6-29 normal Not Available [facility] [address], [place], [address], 10/12/2024 00:46:26 10/12/19 25 10/12/2024 CBC (INCL UDES DIFF/ PLT) white blood cell count 5.8 thous and/u L 3.8-10 .8 normal Not Available [facility] [address], [place], [address], 10/12/2024 00:46:27 10/12/19 25 10/12/2024 CBC (INCL UDES DIFF/ PLT) red blood cell count 4.83 calli on/uL 3.80-5 .10 normal Not Available [facility] [place] [facility] [address], [place], [address], 10/12/2024 00:46:27 10/12/19 25 10/12/2024 CBC (INCL UDES DIFF/ PLT) hemoglobin 13.6 g/dL 11.7-1 5.5 normal Not Available [facility] [place] [facility] [address], [place], [address], 10/12/2024 00:46:27 10/12/1910/12/2024 CBC (INCL UDES DIFF/ PLT) hematocrit 42.8 % 35.0-4 5.0 normal Not Available [facility] [place] [facility] [address], [place], [address], 10/12/2024 00:46:27 10/12/1910/12/2024 CBC (INCL UDES DIFF/ PLT) MCV 88.6 fL 80.0-1 00.0 normal Not Available [facility] [place] [facility] [address], [place], [address], 10/12/2024 00:46:27 10/12/1910/12/2024 CBC (INCL UDES DIFF/ PLT) MCH 28.2 pg 27.0-3 3.0 normal Not Available [facility] [place] [facility] [address], [place], [address], 10/12/2024 00:46:27 10/12/1910/12/2024 CBC (INCL UDES DIFF/ PLT) MCHC 31.8 g/dL 32.0-3 6.0 low For adult s, a sligh t decre ase in the calcu lated MCHC value (in the range of 30 to 32 g/dL) is most likel y not clini kristopher signi marisol t; kamryn er, it shoul d be inter prete d with cauti on in virtua [facility] n with other red cell joshua eters and the patie nt's clini yahaira condi tion. Not Available [facility] [place] [facility] [address], [place], [address], 10/12/2024 00:46:27 10/12/1910/12/2024 CBC (INCL UDES DIFF/ PLT) RDW 12.3 % 11.0-1 5.0 normal Not Available [facility] [place] [facility] [address], [place], [address], 10/12/2024 00:46:27 10/12/1910/12/2024 CBC (INCL UDES DIFF/ PLT) platelet count 345 thous and/u L 140-40 0 normal Not Available [facility] [place] [facility] [address], [place], [address], 10/12/2024 00:46:27 10/12/19 25 10/12/2024 CBC (INCL UDES DIFF/ PLT) MPV 9.3 fL 7.5-12 .5 normal Not Available [facility] [place] [facility] [address], [place], [address], 10/12/2024 00:46:27 10/12/1910/12/2024 CBC (INCL UDES DIFF/ PLT) absolute neutrophils 2964 cells /uL 1500-7 800 normal Not Available [facility] [place] [facility] [address], [place], [address], 10/12/2024 00:46:27 10/12/1910/12/2024 CBC (INCL UDES DIFF/ PLT) absolute lymphocytes 2013 cells /uL 850-39 00 normal Not Available [facility] [place] [facility] [address], [place], [address], 10/12/2024 00:46:27 10/12/19 25 10/12/2024 CBC (INCL UDES DIFF/ PLT) absolute monocytes 400 cells /uL 200-95 0 normal Not Available [facility] [place] [facility] [address], [place], [address], 10/12/2024 00:46:27 10/12/19 25 10/12/2024 CBC (INCL UDES DIFF/ PLT) absolute eosinophils 365 cells /uL 15-500 normal Not Available [facility] [place] [facility] [address], [place], [address], 10/12/2024 00:46:27 10/12/1910/12/2024 CBC (INCL UDES DIFF/ PLT) absolute basophils 58 cells /uL 0-200 normal Not Available [facility] [place] [facility] [address], [place], [address], 10/12/2024 00:46:27 10/12/19 25 10/12/2024 CBC (INCL UDES DIFF/ PLT) neutrophils 51.1 % normal Not Available [facility] [address], [place], [address], 10/12/2024 00:46:27 10/12/19 25 10/12/2024 CBC (INCL UDES DIFF/ PLT) lymphocytes 34.7 % normal Not Available [facility] [place] [facility] [address], [place], [address], 10/12/2024 00:46:27 10/12/19 25 10/12/2024 CBC (INCL UDES DIFF/ PLT) monocytes 6.9 % normal Not Available [facility] [address], [place], [address], 10/12/2024 00:46:27 10/12/19 25 10/12/2024 CBC (INCL UDES DIFF/ PLT) eosinophils 6.3 % normal Not Available [facility] [place] [facility] [address], [place], [address], 10/12/2024 00:46:27 10/12/1910/12/2024 CBC (INCL UDES DIFF/ PLT) basophils 1.0 % normal Not Available [facility] [place] [facility] [address] [place], [address], 10/12/2024 00:46:27 10/12/1910/12/2024 TSH TSH 1.24 mIU/L 0.40-4 .50 normal Not Available [facility] [place] [facility] [address] [place], [address], 10/12/2024 00:46:28 10/12/1910/12/2024 VITAM IN B12 vitamin [...] pg/mL will have sympt oms. Not Available [facility] [place] [facility] [address] [place], [place], [address], 10/12/2024 00:46:29 10/12/1910/12/2024 VITAM IN D,25- OH,TO [...] /MS is recom genaro d: order code 83699 (yusra ents >2yrs ). See Note 1 Note 1 For addit ional infor michelle davis refer to http: //[facility] farhan matthewsQue stDia gnost ics.c om/fa q/FAQ 199 (This link is being provi ded for infor marisa lemus/ educa brayden l purpo ses only. ) Not Available [facility] [place] [facility] [address], [place], [address], 10/12/2024 00:46:30 10/12/1910/12/2024 HEMOG LOBIN A1C hemoglobin [...] Curre ntly, no conse nsus exist s regar ding use of hemog lobin A1c for diagn osis of diabe lesly for child oneil. Not Available [facility] [place] [facility] [address], [place], [address], 10/12/2024 00:46:30 11/15/1911/14/2024 RENAL FUNCT ION PANEL sodium 143 mmol/ L 133-14 5 Not Available [facility] U/S Dept [address], [place], [address], 11/14/2024 12:42:34 11/15/19 25 11/14/2024 RENAL FUNCT ION PANEL potassium 4.1 mmol/ L 3.5-5. 5 Not Available [facility] Dept [facility] [place], [address], 11/14/2024 12:42:34 11/15/19 25 11/14/2024 RENAL FUNCT ION PANEL chloride 112 mmol/ L 96-110 high Not Available [facility] [address], [place], [address], 11/14/2024 12:42:34 11/15/19 25 11/14/2024 RENAL FUNCT ION PANEL CO2 26 mmol/ L 21-32 Not Available [facility] [address] [place], [place] [address], [place], [address], 11/14/2024 12:42:34 11/15/19 25 11/14/2024 RENAL FUNCT ION PANEL anion gap 5 3-11 Not Available [facility] [place], [address], 11/14/2024 12:42:34 11/15/19 25 11/14/2024 RENAL FUNCT ION PANEL glucose 113 mg/dL 70-100 high Not Available [facility] [address] [place], [place] [address], [address], 11/14/2024 12:42:34 11/15/19 25 11/14/2024 RENAL FUNCT ION PANEL BUN 22 mg/dL 5-25 Not Available [facility] [address] [place], [place] [address], [address], 11/14/2024 12:42:34 11/15/19 25 11/14/2024 RENAL FUNCT ION PANEL creatinine 0.63 mg/dL 0.50-1 .10 Not Available [facility]/S Dept [facility] [address], [place], [address], 11/14/2024 12:42:34 11/15/1911/14/2024 RENAL FUNCT ION PANEL eGFR 94 mL/mi n/1.7 3m2 >=60 Calcu latio n based on the Chron ic Kidne y Disea se Epide miolo gy Colla borat ion (CKD- EPI) equat ion refit witho ut adjus tment for race. Not Available [facility] U/S Dept [facility] [address], [place], [address], 11/14/2024 12:42:34 11/15/1911/14/2024 RENAL FUNCT ION PANEL BUN/creatini ne ratio 34.9 Not Available [facility] U/S Dept [address] [place] [address] Pkw[address], [place], [address], 11/14/2024 12:42:34 11/15/1911/14/2024 RENAL FUNCT ION PANEL albumin 3.5 g/dL 3.2-5. 0 Not Available [facility] U/[facility] Dept [address] [place], [place] [address], [place], [address], 11/14/2024 12:42:34 11/15/1911/14/2024 RENAL FUNCT ION PANEL calcium 9.1 mg/dL 8.5-10 .5 Not Available [facility] U/[facility] Dept [address] [place], [place] [address], [facility] [place], [address], 11/14/2024 12:42:34 11/15/1911/14/2024 RENAL FUNCT ION PANEL phosphorus 3.2 mg/dL 2.5-4. 5 Not Available [facility] U/S Dept [address] [place], [place] [address], [place], [address], 11/14/2024 12:42:34 11/15/19 25 11/14/2024 RENAL FUNCT ION PANEL note See Report [facility], [address], [place], [place] [address] Not Available [facility] U/S Dept [address] [place], [address], 11/14/2024 12:42:34 08/02/19 24 imagi ng/di agnos tic resul t No observ ation record ed. emaurus Not Available 2023 08:53:21 08/08/19 24 imagi ng/di agnos tic resul t No observ ation record ed. emaurus Not Available 2023 12:28:58 01/30/20 24 01/30/2024 elect rocar diogr am No observ ation record ed. emaurus [facility] [address] [facility], [place], [address], 01/30/2024 11:41:10 01/30/20 24 elect rocar diogr am No observ ation record ed. [email or web address] Not Available 2023 13:39:45 01/30/20 24 elect rocar diogr am No observ ation record ed. emaurus Not Available 2023 13:39:46 02/12/20 24 02/12/2024 op note No observ ation record ed. emaurus [address], [address], 02/12/2024 09:17:22 08/14/19 25 08/12/2024 CT, abdom en + pelvi s, w/ contr ast See Note [facility] Patien t Name: ANTHONY Alvarenga Date of : 1950 Reason for Exam: change of BMs, diarrh ea, abd pain Exam Date: 2024 [id number] EST Report Status : Final Orderi ng [...] Transc ribed Date: 2024 00:[address] [facility] , [address] [facility] , [facility], [place] [address] emaurus [facility] U/S Dept [address] [facility], [facility] [place], [address], 08/13/2024 08:00:08 10/13/19 25 06/09/2023 MAMMO , scree speedy, tomos ynthe sis, bilat eral No observ ation record ed. cbogli [facility] [address] [facility], [place], [address], 10/15/2024 06:07:36 11/02/19 25 10/31/2024 MRI, lumba r spine , w/o contr ast No observ ation record ed. SRAVAN Not Available 2024 13:31:15 11/20/19 25 11/14/2024 CT, abdom en + pelvi s, w/ contr ast See Note [facility] Patien t Name: ANTHONY Alvarenga Date of : 1950 Reason for Exam: to look resolu tion of pannic ulitis Exam Date: 2024 [id number] EST Report Status : Final Orderi ng [...] Edit Transc ribed Date: 2024 14:06 ET [facility] Medica [facility] , [address] [place] [address] , [facility], [place] [address] emaurus [facility] U/S Dept [address] [place] [address], [facility] [place], [address], 11/19/2024 15:42:23 01/18/20 25 01/16/2025 CT, lumba r spine , w/o contr ast No observ ation record ed. cbogli [facility] [address] [place], [address], 01/17/2025 11:18:13 Result Notes Documentation Provider Name and Address Organization Details Recorded Time Ct, Abdomen + Pelvis, W/ Contrast : See Note [facility] Patient Name: AJAY HOLT Date of : 1950 Reason for Exam: change of BMs, diarrhea, abd pain Exam Date: 08/12/2024 [id number] EST Report Status: Final Ordering Provider: JAMESON [...] Signed Date: 08/13/2024 00:08 ET Workstation ID: [id number] Transcribed By: Self Edit Transcribed Date: 08/13/2024 00:04 ET [facility], [address] [place] [address] Kadie Terrazas, MANAGER OF ENGINEERING [address], [place], [address], [place] [facility] 08/13/2024 08:00:08 Ct, Abdomen + Pelvis, W/ Contrast : See Note [facility] Patient Name: AJAY HOLT Date of : 1950 Reason for Exam: to look resolution of panniculitis Exam Date: 11/14/2024 [id number] EST Report Status: Final Ordering Provider: JAMESON [...] Signed Date: 11/19/2024 14:09 ET Workstation ID: [id number] Transcribed By: Self Edit Transcribed Date: 11/19/2024 14:06 ET [facility], [address] [place] [address], [place], [address], [employer] 11/19/2024 15:42:23 Problems Name Problem SNOMED Code Status Onset Date Resolution Date Notes Provider Name and Address Organization Details Recorded Time Chronic diarrhea 535193949 Active 2013 Nathaly Sam[employer] null, [employer] 4 11:15:47 Arthriti s of right hip 64591089409 86327 Active 2019 Nathaly Sam[employer] null, [place] [employer] 4 11:15:47 Anxiety 19891770 Active [address], [place], [address], [place] [employer] 4 12:47:18 Arthriti s 7302281 Active [address], [place], [address], [place] [employer] 4 12:47:26 History of depressi on 615734082 Active [address], [place], [address], [place] [employer] 4 12:47:38 Gastroes ophageal reflux disease 156896227 Active [address], [place], [address], [place] [employer] 4 12:47:45 Gout 47522711 Active [address], [place], [address], [employer] [facility] 12:47:49 Irritabl e bowel syndrome 48957985 Active [address], [place], [address], [employer] [facility] 12:47:58 Migraine 11022265 Active [address], [place], [address], [employer] [facility] 12:48:06 Osteopor osis 83333332 Active [address], [place], [address], [employer] [facility] 12:48:12 Sleep apnea 61118976 Active [address], [place], [address], [employer] [facility] 12:48:20 Gastric ulcer 768730026 Active [address], [place], [address] , [employer] [facility] 12:48:31 Disorder of cornea 66857442 Active 2023 [employer] [employer] [address], [place], [address], [employer] [facility] 12:48:50 Small fiber neuropat hy 554950270 Active [address], [place], [address], [employer] [facility] 12:49:01 Iron deficien cy anemia 84190079 Active [address], [place], [address], [employer] [facility] 4 12:51:58 Mixed hyperlip idemia 141426690 Active 2023 Kadie Terrazas APRN [address] [facility], [place], [address], [employer] [facility] 4 12:52:28 Vitamin D deficien cy 16784693 Active 2023 Kadie Terrazas APRN [address] [place], [address], [place] [employer] [facility] 4 12:52:59 Prediabe lesly 513299243 Active 2023 Kadie Terrazas APRN [address] [place], [address] , [employer] [facility] 4 12:53:28 Recurren t urinary tract infectio n 969302584 Active 2023 Kadie Terrazas APRN [address] [place], [address], [facility] [employer] 4 13:01:07 Chronic intersti tial cystitis 174600913 Active 2023 Kadie Terrazas APRN [address] [place], [address] , [employer] [facility] 4 13:02:38 Nocturia 506188291 Active 2023 Nathaly [employer] null, [facility] 4 11:15:47 Cystocel e 981671446 Active 2023 Nathaly Sam[employer] null, [place] [employer] [facility] 4 11:15:47 Urgent desire to urinate 51623798 Active 2023 Nathaly Sam[employer] null, [facility] [employer] [facility] 4 11:15:47 Tinnitus 44781031 Active 2023 Kadei Terrazas APRN [address] [place], [address] , [employer] [facility] 4 10:00:04 Dyspnea 126715465 Completed 202310/02/2024 [address] [facility], [place], [address], [employer] 5 15:08:51 Chronic insomnia 651573763 Active 2024 [address] [facility], [place], [address], [employer] 5 15:30:03 At increase d risk for falls 491380988 Active 2024 [place], [address], [employer] 5 15:32:20 Osteoart hritis of lumbar spine Active 2024 [address] [facility], [place], [address], [employer] 5 11:24:42 Mild major depressi on 61198112 Active 2024 [place], [address], [employer] 5 16:27:39 Problem Notes None recorded. Procedures Surgical History Date Name Laterality Status Provider Name and Address Organization Details Recorded Time 2024 EGFPCVRiskCounsel Z7182 HTN HL CAD & Z713 [place], [address] , [employer] 5 15:21:32 2024 [id number] [place], [address] , [employer] 5 09:08:45 2024 EGFPMammogramReport Z[address], [place], [address] , [employer] 5 15:22:01 2024 EGFPDEXAReport S35998 completed [address], [place], [address] , [employer] 5 15:21:39 2024 EGFPObesityBMI Z7182; Z713 completed [address], [place], [address] , [employer] 5 09:08:01 2024 EGFPCervicalCancerScreen Z124 [address], [place], [address] , [employer] 5 09:08:56 2024 EGFPFunctionalStatus w/AWV Z[address], [place], [address] , [employer] 5 15:21:42 2024 IYYWXekLjugzbVtcrbxijL9651 completed [address], [place], [address] , [employer] 5 16:15:40 2024 EGFPDepScreen[+]&f/jZ7786 completed [address], [place], [address] , [employer] 5 15:21:52 2024 Most Recent Mammogram completed [address], [place], [address] , [employer] 5 10:58:04 2021 colonoscopy completed [address], [place], [address] , [facility] 4 12:55:16 2021 endoscopy completed Kadie Terrazas APRN [address] [facility], [place], [address] , [facility] 5 15:12:56 2019 Date of Last Pap Smear completed Kadie Terrazas APRN [address] [facility], [place], [address] , [facility] 4 12:49:30 repair of vaginal wa ll prolapse completed Kadie Terrazas APRN [address] [facility], [place], [address] , [facility] 4 10:18:11 Imaging Results None recorded. Procedure Notes None recorded. Medical Equipment None Reported. Allergies Allergen ID Allergen Name Allergen Category Reaction Reaction Severity Criticality Documentation Date Start Date Code Code System Note Provider Name and Address Organization Details Recorded Time 42743 prednison e medicatio n Not available Not available Not available 07/31/2023 8640 RxNorm Ulcer s; ok with low dose short durat ion Nathaly Sam[employer] null, [facility] 4 11:15:46 45987 No known allergy (situatio n) Not available Not available Not available Not available 01/09/2024 15596 6003 SNOMED Kadie Terrazas APRN [address] [facility], [place], [address], [facility] 4 09:44:35 32579 dicyclomi ne medicatio n rash Not available Not available 01/24/20252024 3361 RxNorm Not Available sravan - External Data Service - prod 19:18:11 53089 diclofena c Not available rash Not available [...] Last Updated DateTime 07/31/2023 96.9 [degF] Kadie Terrazas APRN [address] [facility], [place], [address], [place] [facility] 07/31/2023 13:54:37 Date Recorded Body weight Oxygen saturation Heart rate Body mass index (BMI) Body height Systolic And Diastolic Provider Name and Address Organization Details Last Updated DateTime 4 52936.3 3 g 97 % 92 /min 31.2 kg/m2 167.64 cm 120/68 mm[Hg] Nathaly Sam[employer] [facility] 4 13:06:16 Date Recorded Body height Body mass index (BMI) Body weight Oxygen saturation Heart rate Body temperature Systolic And Diastolic Provider Name and Address Organization Details Last Updated DateTime 5 167.64 cm 30 kg/m2 87280.8 8 g 98 % 66 /min 98.2 [degF] 132/85 mm[Hg] Shekirah Rajni [facility] 5 15:21:37 Date Recorded Body height Body mass index (BMI) Body weight Body temperature Oxygen saturation Heart rate Systolic And Diastolic Provider Name and Address Organization Details Last Updated DateTime 5 167.64 cm 30.2 kg/m2 09566.7 7 g 98.8 [degF] 98 % 63 /min 125/80 mm[Hg] Melindasanam Guerrier [facility] 5 13:04:10 Date Recorded Body height Oxygen saturation Heart rate Body mass index (BMI) Body weight Systolic And Diastolic Provider Name and Address Organization Details Last Updated DateTime 4 167.64 cm 96 % 80 /min 31.8 kg/m2 29952.1 g 124/70 mm[Hg] Nathaly Sam[employer] [facility] 4 11:18:01 Date Recorded Systolic And Diastolic Provider Name and Address Organization Details Last Updated DateTime 01/30/2024 128/80 mm[Hg] Kadie Terrazas, MANAGER OF ENGINEERING [address] [place], [address], [facility] 01/30/2024 10:17:10 Date Recorded Body height Body temperature Oxygen saturation Heart rate Body mass index (BMI) Body weight Provider Name and Address Organization Details Last Updated DateTime 4 167.64 cm 97.2 [degF] 97 % 71 /min 31.8 kg/m2 86273.1 g Shekirah Cologne [facility] 4 09:31:13 Social History Question Answer Notes LastModified by Organization Details LastModified Time Tobacco Smoking Status Never Smoker Shekirah Rajni [facility] 10/01/2024 15:23:03 Do You Have An Advance Directive? Yes [email or web address] Information not available 10/01/2024 Do You Wear A Helmet When Biking? Yes [email or web address] Information not available 10/01/2024 Are You Blind Or Do You Have Difficulty Seeing? Yes Wears Glasses , Genetic Problem With Eyes [email or web address] Information not available 10/01/2024 Is Blood Transfusion Acceptable In An Emergency? Yes [email or web address] Information not available 10/01/2024 What Is Your Code Status? Full Code [email or web address] Information not available 10/01/2024 Are You Deaf Or Do You Have Serious Difficulty Hearing? Yes Teniditis [email or web address] Information not available 10/01/2024 What Type Of Diet Are You Following? REGULAR [email or web address] Information not available 10/01/2024 Have There Been Any Changes To Your Family Or Social Situation? No Information not available 10/01/2024 What Is The Fluoride Status Of Your Home? Non-fluoridated [email or web address] Information not available 10/01/2024 Are There Any Guns Present In Your Home? Yes [email or web address] Information not available 10/01/2024 Which Of Your Hands Is Dominant? Right [email or web address] Information not available 10/01/2024 [facility] 10/01/2024 What Was The Date Of Your Most Recent Tobacco Screening? 10/01/2024 Information not available 10/01/2024 How Many Children Do You Have? 2 Information not available 10/01/2024 Do You Have Any Pets? Yes Information not available 10/01/2024 What Is Your Relationship Status? [email or web address] Information not available 10/01/2024 Do You Use Your Seat Belt Or Car Seat Routinely? Yes [email or web address] Information not available 10/01/2024 Are You Sexually Active? Yes [email or web address] Information not available 10/01/2024 Do You Have Any Siblings? 1 Information not available 10/01/2024 Do You Have Smoke And Carbon Monoxide Detectors In Your Home? Yes Information not available 10/01/2024 Are There Any Smokers In Your House? No [email or web address] Information not available 10/01/2024 Do You Participate In Social Media? Yes Information not available 10/01/2024 What Types Of Sporting Activities Do You Participate In? None [email or web address] Information not available 10/01/2024 Do You Use Sunscreen Routinely? No [email or web address] Information not available 10/01/2024 Has Tobacco Cessation Counseling Been Provided? No [email or web address] Information not available 10/01/2024 Do You Have Difficulty Walking Or Climbing Stairs? Yes [email or web address] Information not available 10/01/2024 Are You Currently In School? No Information not available 10/01/2024 Sex: Unknown Functional Status Question Answer Note LastModified by Organization Details LastModified Time Do you use any illicit or recreational drugs? No [email or web address] Information not available 10/01/2024 Do you or have you ever used any other forms of tobacco or nicotine? No [email or web address] Information not available 10/01/2024 What is your level of alcohol consumption? None [email or web address] Information not available 10/01/2024 Are you currently employed? No [email or web address] Information not available 10/01/2024 Do you have transportation difficulties? No [email or web address] Information not available 10/01/2024 Are you able to walk independently without assistance or assistive devices? YESWOREST Information not available 10/01/2024 Do you have difficulty doing errands alone? No [email or web address] Information not available 10/01/2024 Are you able to care for yourself independently? Yes [email or web address] Information not available 10/01/2024 Do you have difficulty dressing, bathing, grooming, or toileting? No Information not available 10/01/2024 What type of noise exposure are you exposed to? noExposureToExcessiveNoise Infor mation not available 10/01/2024 Mental Status Question Answer Note LastModified by Organizat ion Details LastModified Time Do you feel stressed (tense, restless, nervous, or anxious, or unable to sleep at night)? [id number] Information not available 10/01/2024 Do you have [...] fx PGF: alcoholism PGM: no concerns MGF: [place] MGM: osteoporosis, depression Brother: age 52 [place] Son: age 5 accident 2 yordy;ghters healthy, [...] PF 01/09/2024 completed Kadie Terrazas APRN [address] [place], [address], [facility] 01/09/2024 12:24:38 zoster recombinant 10/01/2024 completed Kadie Terrazas APRN [address] [place], [address], [facility] 10/01/2024 16:25:50 zoster recombinant 12/23/2024 completed Kadie Terrazas APRN [address] [place], [address], [facility] 12/23/2024 13:36:20 Past Encounters Encounter ID Performer Location Encounter Start Date Encounter Closed Date Diagnosis/Indication Diagnosis SNOMED-CT Code Diagnosis ICD10 Code Diagnosis IMO Codes Diagnosis Note [id number] Kadie Terrazas APRN [facility] [address] [place] [address] 07/31/2023 12:56:51 07/31/2023 14:05:04 Increased frequency of urination 734253823 R35.0 Pt would like a referral to specialist for evaluation since her symptoms are increasing despite using vaginal estrogen treatment every other day. Goiter 1838104 E04.9 Will check TSH and request imaging results from [facility]. Pt would like imaging done at [facility] if needed. Will refer to endocrine- if able to get scheduled within the next few weeks will defer imaging to endocrine. [id number] Kadie Terrazas, [facility] [address] [facility] [place] [address] 01/09/2024 11:03:04 01/09/2024 12:23:48 Chronic low back pain 976033400 M54.41 G89.29 [id number] Will refer to [facility], gave patient the contact informatio n for the specialist so they can call if they haven't heard from them in a week.Pt will do record release for [facility]. Active or passive immunization 764725383 Z23 Offered covid booster she declined. [id number] Kadie Terrazas [facility] [address] [facility] [place] [address] 01/30/2024 09:23:07 01/30/2024 11:14:19 Retention of urine 486192582 R33.9 07319 Preprocedu ral examination done [id number] 48146 Z01.818 504621 Assessment for Surgery: Ajay Holt represents a [...] prior to surgical procedure. 4. Cessation of [place] 3 products and Vitamin E , 10 [...] Assessment s / Diagnoses / Plans: * ___ / ANGELLA 01/30/2024 Signature of provider performing evaluation /exam M Nohemy/Diana elliott'annamarie attending physicianErnesto [facility], [address] [address]Sbpdn : Fax: [employer] [facility]) PHYSICAL STATUS [...] & neurologic repair Gastroesop hageal reflux disease 505858994 K21.9 [id number] Has chronic silent gerd and chronic hoarse voice. Sleep apnea 87455018 G47 .30 She didn't tolerate wearing the CPAP in the past. Dyspnea 457935492 R06.02 58887 Triggers are being overly warm and activity. She has had this issue for years. [id number] Kadie Terrazas APRN [address] [address] 10/01/2024 15:03:22 10/01/2024 16:41:50 General examination of patient 225604348 Z00.00 176310 Reviewed and updated patient's past medical, surgical, family, and social histories. UTD on dental and eye exams.Revi ewed recent specialist visits if applicable Counselled on the following: -healthy lifestyle- stress management -exercise 100-150 minutes per week-age appropriat e immunizati onsLabs [facility], [facility] requested the report Chronic back pain 666704 002 M54.9 G89.29 [id number] The pt requested a referral be sent to Dr Nestor Torres. Consider seeing a pain specialist . Active or passive immunization 693221704 Z23 Osteopenia 940958371 M85 .80 [id number] Depressive disorder 3548 9007 F32.A 98425047 PHQ 9 score of 8. Will start on duloxetine , maybe it will have a positive impact on her pain as well. Reviewed side effects especially serotonin syndrome and sedation. Follow up in 6 weeks, call sooner if needed. Long-term current use of drug therapy 723398783 Z79.436 8149299 Gout 96807305 M10.9 Iron defic iency anemia 19591882 D50.9 Mixed hyperlipidemia 267 185542 E78.2 Prediabetes 389414057 R7 3.03 Vitamin D deficiency 347 00547 E55.9 [id number] ANGELLA Hatch [facility] [address] [place] [address] 12/23/2024 12:50:54 12/23/2024 13:44:47 Active or passive immunization 691535962 Z23 She will get the flu vaccine at a later date. 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 Pain in axilla 864447304 M79.592 [id number] Will check an ultrasound . Health Concerns Section Related Observation LastModified by Organization Detai ls LastModified Time None Recorded Concern Status LastModified by Organization Details LastModified Time None Recorded Advance Directives Directive Y: Payers Insurance Date Sequence Insurance Name Policy Number Policy Lara Covered Member ID Lara Member ID Guarantor Name 12/03/2024 1 MEDICARE B-CT: NGS Ajay L Danyelle [id number] Ajay Holt 10/01/2024 2 [facility] [id number] Ajay Holt [id number] Ajay Holt 12/20/2024 2 [facility] (MEDICARE SUPPLEMENT) Ajay Holt [id number] Ajay Holt Notes Date Note Type Note Provider Name and Address Organization Details Recorded Time 07/31/2023 text/html ROS as noted in the HPI Pt here as a new patient with multiple concerns, the foremost being her thyroid. She had an MRI of her entire spine done at [facility] in 06/20 which showed bulging discs. A [...] on 06/28/23 but her provider changed to [facility]. IBS constipation and diarrhea that flared [...] she has been in since last summer. ANGELLA [address], [place], [address], [facility] 07/31/2023 15:24:39 01/09/2024 text/html She [...] bulging and was recommended to see a contact representative.She went to [facility] and the provider wasn't concerned and told [...] has pain with prolonged sitting and standing. ANGELLA [address], [place], [address], [facility] 01/09/2024 12:50:01 01/30/2024 text/html Pre-OpReported b y [...] balance and chronic lower back pain.). Kadie Terrazas, MANAGER OF ENGINEERING [address] [facility], [place], [address], [facility] 01/30/2024 10:39:19 10/01/2024 text/html Ajay is here for AWV. She's having continued back pain, all of the discs are herniated or bulging. She saw a contact representative and didn't get any benefit from it. She wakes up with leg cramps and hand pain. Under her right arm there is a burning pain that comes and goes. She uses otc pain patches that don't work too well. She would like a referral to a different vaccine specialist. All this constant pain is taking [...] a good thing. Kadie Terrazas APRN [address] [facility], [place], [address], [facility] 10/02/2024 15:33:15 12/23/2024 text/html After a CT [...] She hasn't noticed any breast changes. Kadie Terrazas APRN [address] [facility], [place], [address], [facility] 12/23/2024 20:14:44 OBGyn Episode No OBEpisode recorded.
--- OUTSIDE RECORDS SUMMARY | 2025-02-05 23:19 | XMS_ITS | Encounter Summary ---
Author Organization [facility] Prior to 12/29/2023 Address [address] [place] [address] Care Team Providers Care Journeyman Operator Assistant Name Role Phone Henri Cruz MD Primary Care Provider Unavailable Mayelin Nolasco DO Primary Care Provider Unavaila Kari Gillis MD Unavailable [phone] Selin Agustin PA-C Unavailable [phone] Miguel Angel Batista PA-C Unavailable [facility], Pcp Primary Care Provider Unavailabl e Reason for Visit * Reason Onset Date Comments Prior Authorization 01/17/2019 Encounter Details Date Type Department Care Team Description 01/17/2019 Telephone Gastroenterology - [address] [place] [address] Karen Darling MD Prior Authorization Social History Tobacco Use Types Packs/Day Years Used Date Smoking Tobacco: Never Smokeless Tobacco: Never Comments:secondary smoke Alcohol Use Standard Drinks/Week Comments Yes 0 (1 standard drink = 0.6 oz pur e alcohol) 2-3 drinks/mo Sex Assigned at Date Recorded Female 12/15/2021 11:46 AM EDT documented as of this encounter Miscellaneous Notes * Telephone Encounter - Tracee Ballard - 01/18/2019 11:06 AM EST Medicare/[facility] No auth required * Telephone Encounter - Brandie Gallegos - 01/17/2019 4:38 PM EST Pre-auth needed Patient is scheduled for an Endoscopy on 01/22/19 Patients insurance: Medicare/[facility] Appointment is with Karen Darling MD Code to process pre-auth for: [id number] Location of procedure: [facility] documented in this encounter Plan of Treatment Not on file documented as of this encounter Visit Diagnoses Not on filedocumented in this encounter Care Teams Journeyman Operator Assistant Relationship Specialty Start Date End Date Henri Cruz MD PCP - General Internal Medicine 05/25/1504/28 Mayelin Nolasco DO PCP - General Internal Medicine 05/25/21 11/08/22 [facility], Pcp [address] [facility] [address] [place] [address] PCP - General Internal Medicine 11/09/22 Kari Acevedo MD [address] [address] Surgeon Neurosurgery 11/29/21 Selin Agustin PA-C [address] [facility] [address] [place] [address] Specialist Neurosurgery 11/29/21 Miguel Angel Batista PA-C [address] [facility] [address] [place] [address] Specialist Neurosurgery 11/29/21 documented as of this encounter
--- OUTSIDE RECORDS SUMMARY | 2025-02-05 23:19 | XMS_ITS | Encounter Summary ---
Author Organization [facility] Prior to 12/29/2023 Address [address] [place] [address] Care Team Providers Care Parcel Post Delivery Name Role Phone Henri Cruz MD Primary Care Provider Unavailable Mayelin Nolasco DO Primary Care Provider Unavaila Kari Gillis MD Unavailable [phone] Selin Agustin-Bruce Unavailable Miguel Angel Batista PA-C Unavailable [phone] [facility], Pcp Primary Care Provider Unavailabl e Encounter Details Date Type Department Care Team Description 12/20/2018 Pt. Non Urgent Medic al Question Adult Medicine - [address] [address] Henri Cruz MD Social History Tobacco Use Types Packs/Day Years Used Date Smoking Tobacco: Never Smokeless Tobacco: Never Comments:secondary smoke Alcohol Use Standard Drinks/Week Comments Yes 0 (1 standard drink = 0.6 oz pur e alcohol) 2-3 drinks/mo Sex Assigned at Date Recorded Female 12/15/2021 11:46 AM EDT documented as of this encounter Progress Notes * Mariza Monge L.P.N. - 12/21/2018 8:47 AM EDTFrom: Chana Bassett To: Henri Cruz MD Sent: 12/20/2018 8:42 PM EDT Subject: Refill I need my gabepentin refilled. It is helping me. documented in this encounter Plan of Treatment Not on file documented as of this encounter Visit Diagnoses Not on filedocumented in this encounter Care Teams Parcel Post Delivery Relationship Specialty Start Date End Date Henri Cruz MD PCP - General Internal Medicine 05/25/1504/28 Mayelin Nolasco DO PCP - General Internal Medicine 05/25/21 11/08/22 [facility], Pcp [address] [address] PCP - General Internal Medicine 11/09/22 Kari Acevedo MD [address] [address] Surgeon Neurosurgery 11/29/21 Selin Agustin PA-C [address] [address] Specialist Neurosurgery 11/29/21 Miguel Angel Batista PA-C [address] [address] Specialist Neurosurgery 11/29/21 documented as of this encounter
--- OUTSIDE RECORDS SUMMARY | 2025-02-05 23:19 | XMS_ITS | Encounter Summary ---
Author Organization [facility] Prior to 12/29/2023 Address [address] [place] [address] Care Team Providers Care Pediatric Geneticist Name Role Phone Cornell Barajas Primary Care Provider Unav ailable Henri Cruz MD Primary Care Provider Unavailable Mayelin Nolasco DO Primary Care Provider Unavaila Kari Gillis MD Unavailable [phone] Selin Agustin PA-C Unavailable BatistaMiguel Angel arango-C Unavailable [facility] Primary Care Provider Unavailabl e Encounter Details Date Type Department Care Team Description 10/28/[address] Report Medical Records [address] [place] [address] Clint Esquivel MD Social History Tobacco Use Types Packs/Day Years Used Date Smoking Tobacco: Never Alcohol Use Standard Drinks/Week Comments Yes 0 (1 standard drink = 0.6 oz pur e alcohol) 2-3 drinks/wk Sex Assigned at Date Recorded Female 12/15/2021 11:46 AM EDT documented as of this encounter Plan of Treatment Not on file documented as of this encounter Visit Diagnoses Not on filedocumented in this encounter Care Teams Pediatric Geneticist Relationship Specialty Start Date End Date Cornell Barajas PCP - General 01/27/06 05/24/15 Henri Cruz MD PCP - General Internal Medicine 05/25/1504/28 Mayelin Nolasco DO PCP - General Internal Medicine 05/25/21 11/08/22 [facility], Pcp 175 [facility] [address] [place] [address] PCP - General Internal Medicine 11/09/22 Kari Acevedo MD [address] [address] Surgeon Neurosurgery 11/29/21 Selin Agustin PA-C [address] [address] Specialist Neurosurgery 11/29/21 Miguel Angel Batista PA-C [address] [address] Specialist Neurosurgery 11/29/21 documented as of this encounter
== END 2025-02-05 16:00 | disposition home or self-care (01) ==
LOC: HO.HNS 14:49
PROVIDERS: PCP Nurse Practitioner Family; Visit Provider Physician Assistant
DX: M51.369 Other intervertebral disc degeneration, lumbar region without mention of lumbar back pain or lower extremity pain (principal); M54.50 Low back pain, unspecified
CPT/HCPCS: 99212

== ENCOUNTER → 2025-02-05 14:49 | Outpatient (BNVA) | payer MEDICARE, OTHER, SELFPAY | PROVIDERS: PCP Nurse Practitioner Family; Visit Provider Physician Assistant | DX: M81.0 Age-related osteoporosis without current pathological fracture (principal); M51.369 Other intervertebral disc degeneration, lumbar region without mention of lumbar back pain or lower extremity pain; M54.50 Low back pain, unspecified | CPT/HCPCS: 99212 ==